=== PATIENT | male | born 1955 | race Caucasian/White ===

== ENCOUNTER 2017-07-11 10:18 | Inpatient (IN) | payer OTHER ==
[2017-07-11 10:55] VITALS: BMI 42.3
--- NOTE | 2017-07-11 13:24 | PDOC ---
History of Present Illness - General History Source: Patient Exam Limitations: No Limitations - History of Present Illness Initial Comments: 07/11/17 13:39 The patient is a 61 year old male with past medical history of hyperlipidemia, COPD, enlarged prostate, and newly diagnosed lymphoma who was sent to the ED for a wound infection on his right lower extremity. The patient states that his wound was formed in 2014 and since then has gotten worse to the point where any time he hits his leg on something, his wound opens further. The patient reports being sent to the ED by Dr. Phipps for an admission and IV antibiotics. The patient denies any fever, chills, nausea, vomiting, diarrhea, cough, SOB, CP, or urinary symptoms. 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) Cardiac Disorders: Yes (STENTS X 2 (1997)) CVA: No COPD: Yes (NO o2) CHF: Yes Dementia: No Diabetes: Yes GI Disorders: Yes (HONG'S ESOPHAGUS) Disorders: Yes (INDWELLING CATHETER) HTN: Yes Hypercholesterolemia: Yes Liver Disease: No Seizures: No Thyroid Disease: No - Surgical History Abdominal Surgery: Yes (HERNIA REPAIR) Appendectomy: No Cardiac Surgery: Yes (STENT) Cholecystectomy: No Lung Surgery: Yes (STENT) Neurologic Surgery: No Orthopedic Surgery: Yes - Immunization History Immunization Up to Date: Yes - Suicide/Smoking/Psychosocial Hx Smoking History: Current every day smoker Have you smoked in the past 12 months: Yes Number of Cigarettes Smoked Daily: 10 If you are a former smoker, when did you quit?: 6 weeks ago Cigars Per Day: 0 Information on smoking cessation initiated: No 'Breaking Loose' booklet given: 11/26/14 Hx Alcohol Use: No Drug/Substance Use Hx: No Substance Use Type: None Hx Substance Use Treatment: No <Garland Real - Last Filed: 07/11/17 18:46> - Past Medical History Allergies/Adverse Reactions: Allergies Allergy/AdvReac Type Severity Reaction Status Date / Time No Known Drug Allergies Allergy Verified 07/11/17 10:49 Home Medications: Ambulatory Orders Finasteride 5 mg PO DAILY 12/10/14 Metoprolol Succinate [Toprol XL -] 50 mg PO DAILY 12/10/14 Multivitamins [Multivit ([facility] Formulary)] 1 tab PO DAILY 12/10/14 Sertraline HCl [Zoloft] 50 mg PO DAILY 12/10/14 Tamsulosin HCl [Flomax -] 0.4 mg PO DAILY 12/10/14 Furosemide [Lasix -] 40 mg PO DAILY 12/25/14 ASA - 81 mg PO DAILY 03/02/17 Cephalexin [Keflex] 500 mg PO QID #28 capsule 07/06/17 Acetaminophen W/ Codeine #3 [Tylenol # 3 -] 1 tab PO Q6H #60 tablet MDD 4 Review of Systems - Review of Systems Able to Perform ROS?: Yes Comments:: 07/11/17 13:40 GENERAL/CONSTITUTIONAL: No fever or chills. No weakness. HEAD, EYES, EARS, NOSE AND THROAT: No change in vision. No ear pain or discharge. No sore throat. CARDIOVASCULAR: No chest pain or shortness of breath. RESPIRATORY: No cough, wheezing, or hemoptysis. GASTROINTESTINAL: No nausea, vomiting, diarrhea or constipation. GENITOURINARY: No dysuria, frequency, or change in urination. MUSCULOSKELETAL: No joint or muscle swelling or pain. No neck or back pain. SKIN: Present: wound infection on right lower extremity No rash NEUROLOGIC: No headache, vertigo, loss of consciousness, or change in strength/ sensation. ENDOCRINE: No increased thirst. No abnormal weight change. HEMATOLOGIC/LYMPHATIC: No anemia, easy bleeding, or history of blood clots. ALLERGIC/IMMUNOLOGIC: No hives or skin allergy. All Other Systems: Reviewed and Negative <Kendy Lyon - Last Filed: 07/11/17 17:28> *Physical Exam - Vital Signs Last Vital Signs Temp Pulse Resp BP Pulse Ox 97.7 F 70 20 122/65 94 L 07/11/17 10:49 07/11/17 10:49 07/11/17 10:49 07/11/17 10:49 07/11/17 10:49 - Physical Exam Comments: 07/11/17 13:40 GENERAL: Awake, alert, and fully oriented, in no acute distress HEAD: No signs of trauma EYES: PERRLA, EOMI, sclera anicteric, conjunctiva clear ENT: Auricles normal inspection, hearing grossly normal, nares patent, oropharynx clear without exudates. Moist mucosa NECK: Normal ROM, supple, no lymphadenopathy, JVD, or masses LUNGS: Breath sounds equal, clear to auscultation bilaterally. No wheezes, and no crackles HEART: Regular rate and rhythm, normal S1 and S2, no murmurs, rubs or gallops ABDOMEN: Soft, nontender, normoactive bowel sounds. No guarding, no rebound. No masses EXTREMITIES: Normal range of motion, no edema. No clubbing or cyanosis. No cords, erythema, or tenderness NEUROLOGICAL: Cranial nerves II through XII grossly intact. Normal speech, normal gait SKIN: Present: circumferential area of bloody, red, warm cellulitis from knee down Warm, Dry, normal turgor, no rashes or lesions noted. <[facility] - Last Filed: 07/11/17 17:28> - Vital Signs Last Vital Signs Temp Pulse Resp BP Pulse Ox 97.7 F 70 20 122/65 94 L 07/11/17 10:49 07/11/17 10:49 07/11/17 10:49 07/11/17 10:49 07/11/17 10:49 <Garland Real - Last Filed: 07/11/17 18:46> Heart Score/ECG Review - ECG Intrepretation Comment:: 07/11/17 16:02 ECG obtained at 15:51 Normal sinus at 69 bpm Septal infarct, age undetermined <SonaliKendy - Last Filed: 07/11/17 17:28> ED Treatment Course - LABORATORY CBC & Chemistry Diagram: 07/11/17 14:50 07/11/17 14:50 - RADIOLOGY Radiograph Interpretation: 07/11/17 16:19 RLE X-ray as reviewed by Dr. Seymour reports marked osteoarthritic changes involving first metatarsal phalangeal joint. Mild osteoarthritic changes involving the third metatarsalphalangeal joint. Small cyst at the base of the second and third proximal phalanx and mild soft tissue swelling in the right leg. Chest X-ray as reviewed by Dr. Seymour reports no significant interval change or acute lung disease is present <Kendy Lyon - Last Filed: 07/11/17 17:28> - LABORATORY CBC & Chemistry Diagram: 07/11/17 14:50 07/11/17 14:50 <Garland Real - Last Filed: 07/11/17 18:46> Medical Decision Making - Medical Decision Making 07/11/17 13:53 61 y/o m with pmxh of hld, COPD, enlarged prostate, lymphoma who presents with wound infection on RLE. Started in 2014 and has worsened since. Sent in by Dr. Phipps for IV abx and admission Will obtain labs, urine, lactic, x-rays, EKG 07/11/17 15:43 Multiple pages sent to Dr. Kvng Phipps via forge operator. Moise finally called back and case discussed. He will be admitted. Microblog sent to Dr. Bazzi, admitting for Dr. Castillo <SonaliKendy - Last Filed: 07/11/17 17:28> *DC/Admit/Observation/Transfer - Attestations Scribe Attestion: 07/11/17 13:56 Documentation prepared by Kendy Lyon, acting as medical device sales representative for Garland Real DO. <Kendy Lyon - Last Filed: 07/11/17 17:28> - Discharge Dispostion Admit: Yes - Attestations Physician Attestion: 07/11/17 13:22 I, Dr. Garland Real, attest that this document has been prepared under my direction and personally reviewed by me in its entirety. I further attest, that it accurately reflects all work, treatment, procedures and medical decision -making performed by me. <Garland Real - Last Filed: 07/11/17 18:46> Diagnosis at time of Disposition: Sepsis affecting skin, Lymphoma in remission Cellulitis Qualifiers: Site of cellulitis: extremity Site of cellulitis of extremity: lower extremity Laterality: right Qualified Code(s): L03.115 - Cellulitis of right lower limb Diabetes mellitus Qualifiers: Diabetes mellitus type: type 2 Diabetes mellitus complication status: with unspecified complications Diabetes mellitus intermediate manager insulin use: without penitentiary use Qualified Code(s): E11.8 - Type 2 diabetes mellitus with unspecified complications Rheumatoid arthritis Qualifiers: Rheumatoid arthritis location: unspecified site Rheumatoid factor presence: unspecified presence Qualified Code(s): M06.9 - Rheumatoid arthritis, unspecified Hypertension Qualifiers: Hypertension type: unspecified Qualified Code(s): I10 - Essential (primary) hypertension - Discharge Dispostion Condition at time of disposition: Improved - Referrals Referrals: Clark Castillo MD [Primary Care Provider] - - Patient Instructions - Post Discharge Activity
[2017-07-11] MEDS ORDERED: SODIUM CHLORIDE 500 ML IV STA (13:32)
[2017-07-11] MEDS ORDERED: PIPERACIL/TAZOB 3.375 GM 3.375 GM/50 ML PREMIX IVPB ONE (14:09)
[2017-07-11] MEDS ORDERED: VANCOMYCIN 1,000 MG in DEXTROSE 5%-WATER - 250 ML IVPB ONE (14:09)
[2017-07-11] MEDS ORDERED: PIPERACILLIN/TAZOB 3.375 GM 3.375 GM in DEXTROSE 5%-WATER - 100 ML IVPB ONE (15:30)
[2017-07-11] MEDS ORDERED: VANCOMYCIN 1 GRAM (PRE-DOCKED) 1,000 MG/250 ML BAG IVPB ONE (15:33)
[2017-07-11] MEDS ORDERED: PIPERACILLIN/TAZOB 3.375 GM 3.375 GM/50 ML BAG IVPB ONE (15:33)
[2017-07-11 15:35] LABS: BASO % 1.2 % (0-2.0); EOS % 6.3 % (0-4.5); HEMATOCRIT 35.9 % (35.4-49); HEMOGLOBIN 11.1 GM/dL (11.7-16.9); LYMPH % 23.4 % (8-40); MCH 25.9 pg (25.7-33.7); MCHC 30.9 g/dl (32.0-35.9); MEAN CELL VOLUME 83.8 fl (80-96); MEAN PLT VOLUME 6.7 fl (7.5-11.1); MONO % 7.8 % (3.8-10.2); NEUT % 61.3 % (42.8-82.8); PLATELET COUNT 380 K/MM3 (134-434); RBC 4.29 M/mm3 (4.00-5.60); RDW 15.5 % (11.9-15.9); WHITE BLOOD COUNT 14.7 K/mm3 (4.0-10.0)
[2017-07-11 16:02] LABS: INR 1.06 (0.82-1.09)
[2017-07-11 16:05] LABS: ACTIVATED PTT 32.9 SECONDS (26.9-34.4)
[2017-07-11] MEDS ORDERED: ONDANSETRON *ODT* 4 MG TABLET SL ONE (17:06)
[2017-07-11] MEDS ORDERED: SODIUM CHLORIDE 0.9% 1000 ML INFUS.BAG IV ONE (17:18)
[2017-07-11] MEDS ORDERED: ONDANSETRON *ODT* 4 MG TABLET ONE (17:19)
[2017-07-11] MEDS ORDERED: ONDANSETRON 8 MG TABLET (FP) PO ONE (17:20)
[2017-07-11 17:27] LABS: ALBUMIN 2.5 g/dl (3.4-5.0); ANION GAP 7 (8-16); BILIRUBIN,TOTAL 0.7 mg/dL (0.2-1.0); BLOOD UREA NITROGEN 61 mg/dL (7-18); CALCIUM 8.1 mg/dL (8.5-10.1); CHLORIDE 102 mmol/L (98-107); CO2 26 mmol/L (21-32); CREATININE 4.2 mg/dL (0.7-1.3); GLUCOSE,RANDOM 96 mg/dL (74-106); POTASSIUM 5.9 mmol/L (3.5-5.1); SGOT/AST 15 U/L (15-37); SGPT/ALT 11 U/L (12-78); SODIUM 135 mmol/L (136-145)
[2017-07-11 17:29] LABS: ALK PHOS 140 U/L (45-117)
[2017-07-11 17:41] LABS: VENOUS PO2 34.1 mmHg (28-48)
[2017-07-11 17:42] LABS: VENOUS PC02 71.1 mmHg (38-52); VENOUS PH 7.18 (7.32-7.42)
[2017-07-11] MEDS ORDERED: SODIUM CHLORIDE 1,000 ML IV STA (17:43)
--- NOTE | 2017-07-11 18:19 | HP ---
CHIEF COMPLAINT: Right lower extremity cellulitis PCP: Dr. Cormier Vascular: Dr. Franklin Phipps HISTORY OF PRESENT ILLNESS: 61 year-old male with a PMH significant for HTN, HLD, CAD s/p stents, COPD, GERD , BPH s/p TURP and h/o urinary retention, rhematoid arthritis, diabetes, non- Hodgkins lymphoma, melanoma, autoimmune cytopenias, and obesity. Patient was referred to the ED by Dr. Phipps who has been treating the patient on an outpatient basis for a RLE cellulitis. Patient has failed 4 days of outpatient oral Keflex and is being admitted for IV therapy. On arrival to ED, patient found to be in acute renal failure. Patient admits to taking 3-4 Alleve per day for his rheumatoid arthritis. ER course was notable for: (1) WBC 14.7; lactic acid 2.2 (2) BUN/Cr 61/4.2 (3) K 5.9 Recent Travel: No PAST MEDICAL HISTORY: Hypertension Hyperlipidemia CAD s/p stents COPD GERD BPH Gout Rheumatoid arthritis Diabetes Non-Hodgkins lymphoma Melanoma Obesity PAST SURGICAL HISTORY: Hernia repair TURP (12/2014) Social History: Smoking: Alcohol: Drugs: Family History: Allergies No Known Drug Allergies Allergy (Verified 07/11/17 10:49) HOME MEDICATIONS: Medication Instructions Recorded Finasteride 5 mg PO DAILY 12/10/14 Metoprolol Succinate [Toprol XL -] 50 mg PO DAILY 12/10/14 Multivitamins [Multivit ([facility] 1 tab PO DAILY 12/10/14 Formulary)] Sertraline HCl [Zoloft] 50 mg PO DAILY 12/10/14 Tamsulosin HCl [Flomax -] 0.4 mg PO DAILY 12/10/14 Furosemide [Lasix -] 40 mg PO DAILY 12/25/14 ASA - 81 mg PO DAILY 03/02/17 Cephalexin [Keflex] 500 mg PO QID #28 capsule 07/06/17 Acetaminophen W/ Codeine #3 1 tab PO Q6H #60 tablet MDD 4 07/10/17 [Tylenol # 3 -] REVIEW OF SYSTEMS CONSTITUTIONAL: Absent: fever, chills, diaphoresis, generalized weakness, malaise, loss of appetite, weight change HEENT: Absent: rhinorrhea, nasal congestion, throat pain, throat swelling, difficulty swallowing, mouth swelling, ear pain, eye pain, visual changes CARDIOVASCULAR: Absent: chest pain, syncope, palpitations, irregular heart rate, lightheadedness , peripheral edema RESPIRATORY: Absent: cough, shortness of breath, dyspnea with exertion, orthopnea, wheezing, stridor, hemoptysis GASTROINTESTINAL: Absent: abdominal pain, abdominal distension, nausea, vomiting, diarrhea, constipation, melena, hematochezia GENITOURINARY: Absent: dysuria, frequency, urgency, hesitancy, hematuria, flank pain, genital pain MUSCULOSKELETAL: Absent: myalgia, arthralgia, joint swelling, back pain, neck pain SKIN: Absent: rash, itching, pallor HEMATOLOGIC/IMMUNOLOGIC: Absent: easy bleeding, easy bruising, lymphadenopathy, frequent infections ENDOCRINE: Absent: unexplained weight gain, unexplained weight loss, heat intolerance, cold intolerance NEUROLOGIC: Absent: headache, focal weakness or paresthesias, dizziness, unsteady gait, seizure, mental status changes, bladder or bowel incontinence PSYCHIATRIC: Absent: anxiety, depression, suicidal or homicidal ideation, hallucinations. PHYSICAL EXAMINATION Vital Signs - 24 hr 07/11/17 07/11/17 10:49 16:30 Temperature 97.7 F 98.1 F Pulse Rate 70 Pulse Rate [ 70 Left Radial] Respiratory 20 18 Rate Blood Pressure 122/65 Blood Pressure 129/65 [Right Arm] O2 Sat by Pulse 94 L 94 L Oximetry (%) GENERAL: Awake, alert, and fully oriented, in no acute distress. HEAD: Normal with no signs of trauma. EYES: Pupils equal, round and reactive to light, extraocular movements intact, sclera anicteric, conjunctiva clear. No lid lag. EARS, NOSE, THROAT: Ears normal, nares patent, oropharynx clear without exudates. Moist mucous membranes. NECK: Normal range of motion, supple without lymphadenopathy, JVD, or masses. LUNGS: Breath sounds equal, clear to auscultation bilaterally. No wheezes, and no crackles. No accessory muscle use. HEART: Regular rate and rhythm, normal S1 and S2 without murmur, rub or gallop. ABDOMEN: Soft, nontender, not distended, normoactive bowel sounds, no guarding, no rebound, no masses. No hepatomegaly or splenomegaly. MUSCULOSKELETAL: Normal range of motion at all joints. No bony deformities or tenderness. No CVA tenderness. UPPER EXTREMITIES: 2+ pulses, warm, well-perfused. No cyanosis. No clubbing. No peripheral edema. LOWER EXTREMITIES: 2+ pulses, warm, well-perfused. No calf tenderness. No peripheral edema. NEUROLOGICAL: Cranial nerves II-XII intact. Normal speech. Normal gait. PSYCHIATRIC: Cooperative. Good eye contact. Appropriate mood and affect. SKIN: Warm, dry, normal turgor, no rashes or lesions noted, normal capillary refill. Laboratory Results - last 24 hr 07/11/17 07/11/17 07/11/17 14:50 14:50 14:50 WBC 14.7 H D RBC 4.29 D Hgb 11.1 L D Hct 35.9 D MCV 83.8 MCH 25.9 D MCHC 30.9 L RDW 15.5 D Plt Count 380 D MPV 6.7 L D Neutrophils % 61.3 D Lymphocytes % 23.4 D Monocytes % 7.8 Eosinophils % 6.3 H D Basophils % 1.2 PT with INR 12.00 H INR 1.06 PTT (Actin FS) 32.9 VBG pH 7.18 L* POC VBG pCO2 71.1 H* POC VBG pO2 34.1 Mixed VBG HCO3 25.2 H Sodium Potassium Chloride Carbon Dioxide Anion Gap BUN Creatinine Creat Clearance w eGFR Random Glucose Lactic Acid Calcium Total Bilirubin AST ALT Alkaline Phosphatase Creatine Kinase Troponin I Total Protein Albumin Blood Type Antibody Screen 07/11/17 07/11/17 07/11/17 14:50 15:25 15:30 WBC RBC Hgb Hct MCV MCH MCHC RDW Plt Count MPV Neutrophils % Lymphocytes % Monocytes % Eosinophils % Basophils % PT with INR INR PTT (Actin FS) VBG pH POC VBG pCO2 POC VBG pO2 Mixed VBG HCO3 Sodium 135 L Potassium 5.9 H Chloride 102 Carbon Dioxide 26 Anion Gap 7 L BUN 61 H D Creatinine 4.2 H D Creat Clearance w eGFR 14.45 Random Glucose 96 Lactic Acid 2.2 H* Calcium 8.1 L Total Bilirubin 0.7 D AST 15 D ALT 11 L D Alkaline Phosphatase 140 H Creatine Kinase 34 L Troponin I < 0.02 Total Protein 8.0 D Albumin 2.5 L Blood Type O POSITIVE Antibody Screen Negative ASSESSMENT/PLAN: 61 year-old male with a PMH significant for HTN, HLD, CAD s/p stents, COPD, GERD , BPH s/p TURP and h/o urinary retention, rheumatoid arthritis, diabetes, non- Hodgkins lymphoma, melanoma, autoimmune cytopenias, and obesity. Admitted for RLE cellulitis and found to be in OLIVIA. RLE Cellulitis --wound unwrapped; dripping, copious pus and fluids, exposed skin from ankle to knee; malodorous --followed by Dr. Phipps, failed trial of oral antibiotics --WBC elevated --start Vanc and Zosyn renally dosed --ID consult requested Acute kidney injury BPH h/o urinary retention --patient states he takes 3-4 Alleve per day for his rheumatoid arthritis --last recorded Cr in EMR was 1.0 in 2014; Cr 4.2 today --patient states he has been seeing Dr. Ronal Dial every six months for scans but not sure why --US kidneys, ureters, bladder with post-void residual --place castro cath if indicated --UA, UC, urine lytes, urine urea, urine Cr ordered --gentle IV fluids Mild lactic acidosis --LA 2.2 --gentle IV fluids Hypertension --presently normotensive --continue Toprol XL, Lasix Hyperlipidemia --on no home meds CAD s/p stents --10/14/14 Echo: normal LV; RV not well visualized; trace to mild MR; mild TR --continue Toprol XL, ASA COPD --no acute issues GERD --on no meds Rheumatoid arthritis --on no meds Diabetes --Novolog sliding scale coverage Non-Hodgkins lymphoma Melanoma Autoimmune cytopenias --s/p Rituxin therapy 2014 Hyperkalemia --K 5.9; kayexelate x 1 FEN Fluids: PO intake adequate Electrolytes: replete as indicated Nutrition: diabetic low sodium DVT prophylaxis: subq heparin Physical therapy evaluation Dispo: requires inpatient care. Full code. Visit type - Emergency Visit Emergency Visit: Yes ED Registration Date: 07/11/17 Care time: The patient presented to the Emergency Department on the above date and was hospitalized for further evaluation of their emergent condition. - New Patient This patient is new to me today: Yes Date on this admission: 07/11/17 - Critical Care Critical Care patient: No
[2017-07-11] MEDS ORDERED: SODIUM POLYSTYRENE SULFONATE 15 GM/60 ML BOTTLE PO ONE (18:59)
[2017-07-11] MEDS ORDERED: SODIUM POLYSTYRENE SULFONATE 15 GM/60 ML BOTTLE ONE ×2 (21:03→21:32)
[2017-07-11] MEDS ORDERED: INSULIN (NOVOLOG) ASPART 100 UNITS/ML 10ML VIAL ONE (21:33)
[2017-07-11] MEDS ORDERED: HEPARIN NA (PORCINE) 5,000 UNITS/ML 1ML VIAL ONE (21:33)
[2017-07-11] MEDS: INSULIN SLIDING SCALE (NOVOLOG) 1 VIAL SQ SCH (21:48)
[2017-07-11] MEDS: HEPARIN NA (PORCINE) 5,000 UNITS/ML 1ML VIAL SQ SCH (21:48)
[2017-07-12] MEDS ORDERED: oxyCODONE HCL 5 MG TABLET PO ONE ×3 (00:45→22:30)
[2017-07-12] MEDS ORDERED: ACETAMINOPHEN 325 MG TABLET (FP) PO ONE (00:45)
[2017-07-12] MEDS ORDERED: PIPERACILLIN/TAZOB 2.25 GM/50 ML PREMIX BAG IVPB SCH (02:00)
[2017-07-12] MEDS ORDERED: PIPERACILLIN/TAZOB 2.25 GM 2.25 GM/50 ML BAG IVPB ONE (02:00)
[2017-07-12] MEDS: INSULIN SLIDING SCALE (NOVOLOG) 1 VIAL SQ SCH ×4 (06:18→21:57)
[2017-07-12] MEDS: HEPARIN NA (PORCINE) 5,000 UNITS/ML 1ML VIAL SQ SCH ×3 (06:20→21:56)
[2017-07-12] MEDS: SODIUM CHLORIDE 1,000 ML IV SCH ×3 (06:23→22:54)
[2017-07-12] MEDS: TAMSULOSIN HCL 0.4 MG CAP.ER.24H (FP) PO SCH (07:35)
[2017-07-12 08:09] LABS: BASO % 0.8 % (0-2.0); EOS % 5.5 % (0-4.5); HEMATOCRIT 34.3 % (35.4-49); HEMOGLOBIN 10.6 GM/dL (11.7-16.9); LYMPH % 20.4 % (8-40); MCH 26.3 pg (25.7-33.7); MEAN CELL VOLUME 84.7 fl (80-96); MEAN PLT VOLUME 6.9 fl (7.5-11.1); MONO % 9.9 % (3.8-10.2); NEUT % 63.4 % (42.8-82.8); PLATELET COUNT 278 K/MM3 (134-434); RBC 4.05 M/mm3 (4.00-5.60); RDW 15.7 % (11.9-15.9); WHITE BLOOD COUNT 10.3 K/mm3 (4.0-10.0)
[2017-07-12 08:26] LABS: CHLORIDE 104 mmol/L (98-107); POTASSIUM 5.9 mmol/L (3.5-5.1); SODIUM 134 mmol/L (136-145)
[2017-07-12 08:37] LABS: ALBUMIN 2.2 g/dl (3.4-5.0); ALK PHOS 118 U/L (45-117); ANION GAP 6 (8-16); BILIRUBIN,TOTAL 0.7 mg/dL (0.2-1.0); BLOOD UREA NITROGEN 63 mg/dL (7-18); CALCIUM 7.4 mg/dL (8.5-10.1); CO2 24 mmol/L (21-32); GLUCOSE,RANDOM 79 mg/dL (74-106); MAGNESIUM 2.1 mg/dL (1.8-2.4); SGOT/AST 15 U/L (15-37); SGPT/ALT 10 U/L (12-78)
[2017-07-12 08:49] LABS: URINE APPEARANCE SLCLOUDY; URINE BILIRUBIN NEGATIVE (NEGATIVE); URINE BLOOD 1+ (NEGATIVE); URINE COLOR YELLOW; URINE GLUCOSE (UA) NEGATIVE (NEGATIVE); URINE KETONE TRACE (NEGATIVE); URINE NITRITE NEGATIVE (NEGATIVE); URINE PROTEIN NEGATIVE (NEGATIVE); URINE UROBILINOGEN NEGATIVE mg/dL (0.2-1.0)
[2017-07-12] MEDS: ASPIRIN COATED 81 MG TABLET.EC PO SCH (09:30)
[2017-07-12] MEDS: SERTRALINE HCL 50 MG TABLET (FP) PO SCH (09:30)
[2017-07-12] MEDS: FINASTERIDE 5 MG TABLET (FP) PO SCH (09:30)
[2017-07-12] MEDS: METOPROLOL SUCCINATE 50 MG TAB.SR.24H (FP) PO SCH (09:30)
[2017-07-12 09:32] LABS: URINE LEUK ESTERASE 1+ (NEGATIVE)
[2017-07-12 09:35] LABS: URINE HYALINE CAST 4 /lpf
[2017-07-12] MEDS ORDERED: FUROSEMIDE 40 MG TABLET (FP) PO SCH (10:00)
--- NOTE | 2017-07-12 11:19 | PN ---
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 Dr Tenorio Selected Entries 07/12/17 02:10 Temperature 97.6 F Pulse Rate 75 Respiratory 20 Rate Blood Pressure 130/60 Laboratory Tests 10/24/14 05:20 WBC Pending Extensive RLE wound knee to foot with drainage purulence Microbiology Laboratory Tests 07/11/17 07/11/17 07/11/17 14:50 15:25 17:00 WBC 14.7 H D Hgb 11.1 L D Plt Count 380 D ESR 120 H BUN Creatinine Creat Clearance w eGFR Lactic Acid 2.2 H* AST ALT Alkaline Phosphatase 07/12/17 07/12/17 06:00 06:00 WBC 10.3 H Hgb 10.6 L Plt Count 278 D ESR BUN 63 H Creatinine 4.0 H Creat Clearance w eGFR 15.29 Lactic Acid AST 15 ALT 10 L Alkaline Phosphatase 118 H Assessment Extensive infected RLE wound wiath purulence and drainage noted through the dressings Diabetic Coronary artery disease Active smoker History of Neda related lymphoma treated Rituxin Plan Agree with lee and easton as suggested per Peg Terrell Bruce MD Problem List - Problems (1) Cellulitis Code(s): L03.90 - CELLULITIS, UNSPECIFIED Qualifiers: Site of cellulitis: extremity Site of cellulitis of extremity: lower extremity Laterality: right Qualified Code(s): L03.115 - Cellulitis of right lower limb (2) Diabetes mellitus Code(s): E11.9 - TYPE 2 DIABETES MELLITUS WITHOUT COMPLICATIONS Qualifiers: Diabetes mellitus type: type 2 Diabetes mellitus complication status: with unspecified complications Diabetes mellitus watermaster insulin use: without assisted use Qualified Code(s): E11.8 - Type 2 diabetes mellitus with unspecified complications (3) Lymphoma in remission Code(s): Z85.72 - PERSONAL HISTORY OF NON-HODGKIN LYMPHOMAS
--- NOTE | 2017-07-12 12:08 | PN ---
Progress Note, Physician Chief Complaint: Mr Pinto says his legs look and feel better today. No cp, sob, n/v. - Current Medication List Current Medications: Active Medications Aspirin (Ecotrin -) 81 mg PO DAILY [facility] Last Admin: 07/12/17 09:30 Dose: 81 mg Finasteride (Proscar -) 5 mg PO DAILY [facility] Last Admin: 07/12/17 09:30 Dose: 5 mg Furosemide (Lasix -) 40 mg PO DAILY [facility] Last Admin: 07/12/17 09:30 Dose: 40 mg Heparin Sodium (Porcine) (Heparin -) 5,000 unit SQ TID [facility] Last Admin: 07/12/17 06:20 Dose: 5,000 unit Sodium Chloride (Normal Saline -) 1,000 mls @ 150 mls/hr IV ASDIR [facility] Last Admin: 07/12/17 06:23 Dose: 150 mls/hr Piperacillin/Tazobactam/Dextrose (Zosyn 2.25gm Ivpb (Premix)) 2.25 gm in 50 mls @ 100 mls/hr IVPB Q8H-IV [facility] PRN Reason: Protocol Insulin Aspart (Novolog Vial Sliding Scale -) 1 vial SQ ACHS [facility] PRN Reason: Protocol Last Admin: 07/12/17 11:20 Dose: Not Given Metoprolol Succinate (Toprol Xl -) 50 mg PO DAILY [facility] Last Admin: 07/12/17 09:30 Dose: 50 mg Sertraline HCl (Zoloft -) 50 mg PO DAILY [facility] Last Admin: 07/12/17 09:30 Dose: 50 mg Tamsulosin HCl (Flomax -) 0.4 mg PO DAILY@0830 [facility] Last Admin: 07/12/17 07:35 Dose: 0.4 mg - Objective Vital Signs: Vital Signs Temperature 36.6 C 07/12/17 09:00 Pulse Rate 77 07/12/17 09:00 Respiratory Rate 20 07/12/17 09:00 Blood Pressure 121/66 07/12/17 09:00 O2 Sat by Pulse Oximetry (%) 96 07/12/17 09:00 Constitutional: Yes: No Distress, Calm, Obese Cardiovascular: Yes: Regular Rate and Rhythm. No: Gallop, Murmur, Rub Respiratory: Yes: Regular, CTA Bilaterally. No: Rales, Rhonchi, Wheezes Gastrointestinal: Yes: Normal Bowel Sounds, Soft. No: Distention, Tenderness Extremities: Yes: Erythema (RLE) Edema: No Labs: CBC, BMP 07/12/17 06:00 07/12/17 06:00 INR, PTT INR 1.06 (0.82-1.09) 07/11/17 14:50 Problem List - Problems (1) Cellulitis Assessment/Plan: -failed outpatient therapy -appreciate ID and wound care assistance -continue vancomycin and zosyn, renally dosed -monitor for continued improvement Code(s): L03.90 - CELLULITIS, UNSPECIFIED Qualifiers: Site of cellulitis: extremity Site of cellulitis of extremity: lower extremity Laterality: right Qualified Code(s): L03.115 - Cellulitis of right lower limb (2) OLIVIA (acute kidney injury) Assessment/Plan: -patient with underlying renal failure -however quite significant on this admission -secondary to patient's use of NSAIDs and decreased fluid intake as an outpatient -case d/w Dr Will, outpatient repair servicer -ultrasound reviewed -continue aggressive hydration -hold lasix -Dr Heard consulted Code(s): N17.9 - ACUTE KIDNEY FAILURE, UNSPECIFIED (3) Hyperkalemia Assessment/Plan: -secondary to renal failure -given kayexalate overnight -will give insulin+D50W, calcium gluconate, and sodium bicarbonate -also give more kayexalate as well -recheck BMP at 1800 -Dr Heard aware Code(s): E87.5 - HYPERKALEMIA (4) Hypertension Assessment/Plan: -well controlled -continue toprol xl -holding lasix Code(s): I10 - ESSENTIAL (PRIMARY) HYPERTENSION Qualifiers: Hypertension type: unspecified Qualified Code(s): I10 - Essential (primary ) hypertension (5) Rheumatoid arthritis Assessment/Plan: -quiescent -avoid NSAIDs Code(s): M06.9 - RHEUMATOID ARTHRITIS, UNSPECIFIED Qualifiers: Rheumatoid arthritis location: unspecified site Rheumatoid factor presence : unspecified presence Qualified Code(s): M06.9 - Rheumatoid arthritis, unspecified (6) BPH (benign prostatic hyperplasia) Assessment/Plan: -continue tamsulosin and finasteride -no retention on ultrasound Code(s): N40.0 - BENIGN PROSTATIC HYPERPLASIA WITHOUT LOWER URINRY TRACT SYMP
[2017-07-12] MEDS ORDERED: DEXTROSE 50%-WATER - 25 GM/50 ML VIAL IVPUSH ONE (12:13)
[2017-07-12] MEDS ORDERED: SODIUM BICARBONATE 8.4% 50 MEQ/50 ML VIAL IVPUSH ONE (12:13)
[2017-07-12] MEDS ORDERED: SODIUM POLYSTYRENE SULFONATE 15 GM/60 ML BOTTLE PO ONE (12:13)
[2017-07-12] MEDS ORDERED: CALCIUM GLUCONATE 10% - 1,000 MG/10 ML VIAL IVPB ONE (12:13)
--- NOTE | 2017-07-12 12:20 | CONS ---
DATE OF CONSULTATION: DATE OF DICTATION: 07/12/2017 HISTORY OF PRESENT ILLNESS: This is a 61-year-old male with multiple comorbidities including diabetes and coronary artery disease admitted for inpatient management of a severe skin and soft tissue wound of his right lower extremity. [facility] and apparently was referred by Dr. Phipps who has been following him there previously. According to the patient he has been on oral antibiotics and the wound was at a point where it was felt to need admission for parenteral antibiotics. He has no fevers or chills subjectively but did have a low-grade temperature on admission. He has a history of non-Hodgkin's lymphoma which he stated developed as a result of receiving Humira for severe rheumatoid arthritis years ago. He had been under Dr. Gonzalez care and received Rituxan with the last dose 2 years ago thought to be currently in remission. He has both obesity and is an active smoker and I am asked to see him for further evaluation and treatment. PAST MEDICAL HISTORY: As noted above. Additional history includes hyperlipidemia, hypertension, GERD, BPH, status post TURP, rheumatoid arthritis, melanoma, and hernia repair. MEDICATIONS: Include finasteride, metoprolol, sertraline, tamsulosin, Lasix and Keflex. ALLERGIES: None known. SOCIAL HISTORY: Active smoker. No history of ETOH. FAMILY HISTORY: Reviewed, noncontributory. REVIEW OF SYSTEMS: Respiratory: No cough, shortness of breath. Cardiovascular: No chest pain or palpitations. Gastrointestinal: No abdominal pain, nausea or vomiting. Genitourinary: History of BPH, no dysuria or hematuria. PHYSICAL EXAMINATION: General: Revealed a heavy set male weighing 260 pounds, alert and in no acute distress. Vital Signs: Temperature was 97.6, pulse 75, blood pressure 130/60 and respirations 20. Neck: Normal range of motion. Supple without adenopathy. Lungs: Bilateral breath sounds. No wheezing or rales. Heart: S1, S2 regular rhythm without murmur. Abdomen: Obese, soft, nontender, and normoactive bowel sounds. Extremities: Reveal an extensive ulcerating wound from the knee to the ankle with foul smelling copious drainage and purulence noted. LABORATORY DATA: White count 14.7, hemoglobin 11.1, ESR 120, BUN 63, creatinine 4.0. Cultures of blood thus far no growth. IMPRESSION: 1. Extensive diabetic wound of the lower extremity secondarily infected with purulence. 2. Background history of lymphoma. 3. Coronary artery disease. 4. Diabetes. 5. Obesity. PLAN: Dr. Phipps to follow up from Wound Care and empiric therapy with vancomycin and Zosyn based around a creatinine clearance. ZORAIDA BENOIT M.D. BALJIT/[id number]
[2017-07-12] MEDS ORDERED: INSULIN REGULAR HUMAN 100 UNITS/ML *VIAL IVPUSH ONE (12:45)
--- NOTE | 2017-07-12 13:07 | EKG ---
Test Reason : Blood Pressure : / mmHG Vent. Rate : 069 BPM Atrial Rate : 069 BPM P-R Int : 138 ms QRS Dur : 094 ms QT Int : 392 ms P-R-T Axes : 036 -05 035 degrees QTc Int : 420 ms NORMAL SINUS RHYTHM SEPTAL INFARCT , AGE UNDETERMINED ABNORMAL ECG WHEN COMPARED WITH ECG OF 16-OCT-2014 12:58, SEPTAL INFARCT IS NOW PRESENT QT HAS SHORTENED Confirmed by KRYSTYNA NICHOLSON, EVAN ([id number]) on 07/12/2017 1:06:44 PM Referred By: Confirmed By:EVAN GREENWOOD MD
[2017-07-12] MEDS ORDERED: ALBUTEROL SO4 2.5/IPRATROPIUM 0.5 INH SOL 3 ML VIAL.NEB. NEB ONE (14:12)
[2017-07-12] MEDS: PIPERACILLIN/TAZOB 2.25 GM 2.25 GM/50 ML BAG IVPB SCH ×2 (14:32→20:18)
--- NOTE | 2017-07-12 15:56 | PN ---
Progress Note (short form) - Note Progress Note: Vascular Surgery Pt seen and examined. Well known to wound care center. Bl lower ext venous stasis with cellulitis. Admitted for IV antibiotics Dressing changed. Xeroform, kerlex, rossy to both legs. Franklin Phipps DO
[2017-07-12] MEDS ORDERED: RANITIDINE HCL 150 MG TABLET (FP) PO ONE (16:00)
--- NOTE | 2017-07-12 16:37 | CONSULT ---
Consult Consult Specialty:: Nephrology Reason for Consultation:: OLIVIA - History of Present Illness Chief Complaint: right leg cellulitis History of Present Illness: Pt is a 61 year old male with pmhx of CKD, chol, COPD, BPH and lymphoma who was sent in for non healing lower extremity ulcers. He was found to have celulitis and admitted for treatment. He was found to have elevated creatinine and I was called to evaluate him. He was taking nsaids daily for pain. He was on cephalexin which he had taken in the past. He denies fevers of chills. He denies dysuria or hematuria. - History Source History Provided By: Patient - Past Medical History Cardio/Vascular: Yes: CAD (remote stents in late ), HTN, Hyperlipdemia Pulmonary: Yes: COPD, Sleep Apnea Gastrointestinal: Yes: GERD, Other (Wong's Esophagus, Steatosis/ Fatty Liver disease) Renal/: Yes: BPH Musculoskeletal: Yes: Other (See HPI) Rheumatology: Yes: Rheumatoid Arthritis Endocrine: Yes: Diabetes Mellitus, Other (Obesity) Dermatology: Yes: Other (melanoma) - Past Surgical History Past Surgical History: Yes: Hernia Repair (with mesh), Tonsillectomy - Alcohol/Substance Use Hx Alcohol Use: No - Smoking History Smoking history: Current every day smoker Have you smoked in the past 12 months: Yes Aproximately how many cigarettes per day: 10 If you are a former smoker, when did you quit?: 6 weeks ago - Social History Usual Living Arrangement: Alone (lives alone in co-op with 12 steps then 1 step to enter, ambulates with straight cane, and was Independent in ADLs and some IADLs but has assistance in some IADLs as well) ADL: Independent Occupation: disabled due to RA and Lymphoma (formerly worked for [employer]) History of Recent Travel: No (last [place] 05/2014) Home Medications - Allergies Allergies/Adverse Reactions: Allergies Allergy/AdvReac Type Severity Reaction Status Date / Time No Known Drug Allergies Allergy Verified 07/11/17 10:49 - Home Medications Home Medications: Ambulatory Orders Finasteride 5 mg PO DAILY 12/10/14 Metoprolol Succinate [Toprol XL -] 50 mg PO DAILY 12/10/14 Multivitamins [Multivit ([facility] Formulary)] 1 tab PO DAILY 12/10/14 Sertraline HCl [Zoloft] 50 mg PO DAILY 12/10/14 Tamsulosin HCl [Flomax -] 0.4 mg PO DAILY 12/10/14 Furosemide [Lasix -] 40 mg PO DAILY 12/25/14 ASA - 81 mg PO DAILY 03/02/17 Cephalexin [Keflex] 500 mg PO QID #28 capsule 07/06/17 Acetaminophen W/ Codeine #3 [Tylenol # 3 -] 1 tab PO Q6H #60 tablet MDD 4 Family Disease History - Family Disease History Family Disease History: Heart Disease: Mother (mothers family with RA), Other: Mother Review of Systems - Review of Systems Constitutional: reports: Malaise Eyes: reports: No Symptoms HENT: reports: No Symptoms Neck: reports: No Symptoms Cardiovascular: reports: No Symptoms Respiratory: reports: No Symptoms Gastrointestinal: reports: No Symptoms Genitourinary: reports: No Symptoms Musculoskeletal: reports: No Symptoms Integumentary: reports: No Symptoms Neurological: reports: No Symptoms Endocrine: reports: No Symptoms, Unexplained Weight Gain Psychiatric: reports: No Symptoms Physical Exam Vital Signs: Vital Signs Temperature 97.6 F 07/12/17 14:38 Pulse Rate 85 07/12/17 14:38 Respiratory Rate 18 07/12/17 14:38 Blood Pressure 139/61 07/12/17 14:38 O2 Sat by Pulse Oximetry (%) 96 07/12/17 09:00 Constitutional: Yes: Calm Eyes: Yes: Conjunctiva Clear HENT: Yes: Atraumatic Neck: Yes: Supple Cardiovascular: Yes: S1, S2 Respiratory: Yes: CTA Bilaterally Gastrointestinal: Yes: Soft, Abdomen, Obese Renal/: Yes: WNL Musculoskeletal: Yes: WNL Edema: Yes Edema: LLE: 1+, RLE: 1+ Integumentary: Yes: Erythema Wound/Incision: Yes: Draining Neurological: Yes: Oriented Labs: CBC, BMP 07/12/17 06:00 07/12/17 06:00 Laboratory Tests 12/22/14 03/12/15 07/11/17 05:00 14:25 14:50 WBC 14.7 H D Hgb 11.1 L D Sodium Potassium Chloride Carbon Dioxide Anion Gap BUN Creatinine 0.9 1.0 Lactic Acid 07/11/17 07/11/17 07/12/17 14:50 15:25 06:00 WBC 10.3 H Hgb 10.6 L Sodium 135 L Potassium 5.9 H Chloride 102 Carbon Dioxide 26 Anion Gap 7 L BUN 61 H D Creatinine 4.2 H D Lactic Acid 2.2 H* 07/12/17 06:00 WBC Hgb Sodium 134 L Potassium 5.9 H Chloride 104 Carbon Dioxide 24 Anion Gap 6 L BUN 63 H Creatinine 4.0 H Lactic Acid Imaging - Results Chest X-ray: Report Reviewed Ultrasound: Report Reviewed Problem List - Problems (1) OLIVIA (acute kidney injury) Code(s): N17.9 - ACUTE KIDNEY FAILURE, UNSPECIFIED (2) Cellulitis Code(s): L03.90 - CELLULITIS, UNSPECIFIED Qualifiers: Site of cellulitis: extremity Site of cellulitis of extremity: lower extremity Laterality: right Qualified Code(s): L03.115 - Cellulitis of right lower limb (3) Diabetes mellitus Code(s): E11.9 - TYPE 2 DIABETES MELLITUS WITHOUT COMPLICATIONS Qualifiers: Diabetes mellitus type: type 2 Diabetes mellitus complication status: with unspecified complications Diabetes mellitus intermodal customer service insulin use: without intermodal customer service use Qualified Code(s): E11.8 - Type 2 diabetes mellitus with unspecified complications (4) Hyperkalemia Code(s): E87.5 - HYPERKALEMIA (5) Hypertension Code(s): I10 - ESSENTIAL (PRIMARY) HYPERTENSION Qualifiers: Hypertension type: unspecified Qualified Code(s): I10 - Essential (primary ) hypertension (6) Lymphoma in remission Code(s): Z85.72 - PERSONAL HISTORY OF NON-HODGKIN LYMPHOMAS (7) Rheumatoid arthritis Code(s): M06.9 - RHEUMATOID ARTHRITIS, UNSPECIFIED Qualifiers: Rheumatoid arthritis location: unspecified site Rheumatoid factor presence : unspecified presence Qualified Code(s): M06.9 - Rheumatoid arthritis, unspecified (8) Sepsis affecting skin Code(s): A41.9 - SEPSIS, UNSPECIFIED ORGANISM Assessment/Plan Current Medications Generic Name Dose Route Start Last Admin Trade Name Freq PRN Reason Stop Dose Admin Aspirin 81 mg 07/12/17 10:00 07/12/17 09:30 Ecotrin - PO 81 mg DAILY DANIEL Administration Finasteride 5 mg 07/12/17 10:00 07/12/17 09:30 Proscar - PO 5 mg DAILY DANIEL Administration Heparin Sodium (Porcine) 5,000 unit 07/11/17 22:00 07/12/17 14:10 Heparin - SQ 5,000 unit TID DANIEL Administration Sodium Chloride 1,000 mls @ 150 mls/hr 07/11/17 20:45 07/12/17 06:23 Normal Saline - IV 150 mls/hr ASDIR DANIEL Administration Piperacillin/Tazobactam/Dextrose 2.25 gm in 50 mls @ 100 mls/hr 07/12/17 13: 00 07/12/17 14:32 Zosyn 2.25gm Ivpb (Premix) IVPB 100 mls/hr Q8H-IV DANIEL Administration Protocol Insulin Aspart 1 vial 07/11/17 22:00 07/12/17 11:20 Novolog Vial Sliding Scale - SQ Not Given ACHS DANIEL Protocol Metoprolol Succinate 50 mg 07/12/17 10:00 07/12/17 09:30 Toprol Xl - PO 50 mg DAILY DANIEL Administration Sertraline HCl 50 mg 07/12/17 10:00 07/12/17 09:30 Zoloft - PO 50 mg DAILY DANIEL Administration Tamsulosin HCl 0.4 mg 07/12/17 08:30 07/12/17 07:35 Flomax - PO 0.4 mg DAILY@0830 DANIEL Administration Impression 1. OLIVIA 2. hyperkalemia 3. CKD 4. DM 5. sepsis 6. cellulitis Plan - check urine lytes and creatinine - cont fluids - potassium treated medically - renal diet for now - recommend avoiding nsaids - send urine for eosinophils Dr Heard
[2017-07-12 19:39] LABS: ANION GAP 8 (8-16); BLOOD UREA NITROGEN 58 mg/dL (7-18); CALCIUM 7.7 mg/dL (8.5-10.1); CHLORIDE 103 mmol/L (98-107); CO2 26 mmol/L (21-32); CREATININE 3.8 mg/dL (0.7-1.3); GLUCOSE,RANDOM 75 mg/dL (74-106); POTASSIUM 5.4 mmol/L (3.5-5.1); SODIUM 137 mmol/L (136-145)
[2017-07-13] MEDS: PIPERACILLIN/TAZOB 2.25 GM 2.25 GM/50 ML BAG IVPB SCH ×4 (01:31→16:47)
[2017-07-13] MEDS: HEPARIN NA (PORCINE) 5,000 UNITS/ML 1ML VIAL SQ SCH ×3 (05:42→21:41)
[2017-07-13] MEDS: INSULIN SLIDING SCALE (NOVOLOG) 1 VIAL SQ SCH ×4 (06:10→21:38)
[2017-07-13 08:33] LABS: BASO % 1.1 % (0-2.0); EOS % 2.4 % (0-4.5); HEMATOCRIT 31.7 % (35.4-49); HEMOGLOBIN 9.9 GM/dL (11.7-16.9); LYMPH % 19.1 % (8-40); MCH 26.4 pg (25.7-33.7); MCHC 31.3 g/dl (32.0-35.9); MEAN CELL VOLUME 84.1 fl (80-96); MEAN PLT VOLUME 6.9 fl (7.5-11.1); MONO % 8.5 % (3.8-10.2); NEUT % 68.9 % (42.8-82.8); PLATELET COUNT 258 K/MM3 (134-434); RBC 3.76 M/mm3 (4.00-5.60); RDW 15.6 % (11.9-15.9)
[2017-07-13] MEDS: TAMSULOSIN HCL 0.4 MG CAP.ER.24H (FP) PO SCH (08:43)
[2017-07-13 08:53] LABS: ALBUMIN 2.1 g/dl (3.4-5.0); ANION GAP 6 (8-16); BILIRUBIN,TOTAL 0.5 mg/dL (0.2-1.0); BLOOD UREA NITROGEN 54 mg/dL (7-18); CALCIUM 7.1 mg/dL (8.5-10.1); CHLORIDE 109 mmol/L (98-107); CO2 25 mmol/L (21-32); CREATININE 3.3 mg/dL (0.7-1.3); GLUCOSE,RANDOM 104 mg/dL (74-106); PHOSPHOROUS 5.1 mg/dL (2.5-4.9); POTASSIUM 5.5 mmol/L (3.5-5.1); SGOT/AST 16 U/L (15-37); SGPT/ALT 13 U/L (12-78); SODIUM 140 mmol/L (136-145)
[2017-07-13 08:54] LABS: ALK PHOS 119 U/L (45-117); TOT PROT 7.1 g/dl (6.4-8.2)
[2017-07-13] MEDS: ASPIRIN COATED 81 MG TABLET.EC PO SCH (09:10)
[2017-07-13] MEDS: SERTRALINE HCL 50 MG TABLET (FP) PO SCH (09:10)
[2017-07-13] MEDS: METOPROLOL SUCCINATE 50 MG TAB.SR.24H (FP) PO SCH (09:10)
[2017-07-13] MEDS: FINASTERIDE 5 MG TABLET (FP) PO SCH (09:10)
--- NOTE | 2017-07-13 12:51 | PN ---
Progress Note, Physician Chief Complaint: Mr Pinto is without complaint. Says he feels fine. No cp, sob, n/v. - Current Medication List Current Medications: Active Medications Aspirin (Ecotrin -) 81 mg PO DAILY [facility] Last Admin: 07/13/17 09:10 Dose: 81 mg Finasteride (Proscar -) 5 mg PO DAILY [facility] Last Admin: 07/13/17 09:10 Dose: 5 mg Heparin Sodium (Porcine) (Heparin -) 5,000 unit SQ TID [facility] Last Admin: 07/13/17 05:42 Dose: 5,000 unit Sodium Chloride (Normal Saline -) 1,000 mls @ 150 mls/hr IV ASDIR [facility] Last Admin: 07/12/17 22:54 Dose: 150 mls/hr Piperacillin/Tazobactam/Dextrose (Zosyn 2.25gm Ivpb (Premix)) 2.25 gm in 50 mls @ 100 mls/hr IVPB Q8H-IV [facility] PRN Reason: Protocol Last Admin: 07/13/17 09:37 Dose: 100 mls/hr Insulin Aspart (Novolog Vial Sliding Scale -) 1 vial SQ ACHS [facility] PRN Reason: Protocol Last Admin: 07/13/17 06:10 Dose: Not Given Metoprolol Succinate (Toprol Xl -) 50 mg PO DAILY [facility] Last Admin: 07/13/17 09:10 Dose: 50 mg Oxycodone/Acetaminophen (Percocet 5/325 -) 2 combo PO Q6H PRN PRN Reason: PAIN LEVEL 6-10 Ranitidine HCl (Zantac -) 150 mg PO DAILY [facility] Sertraline HCl (Zoloft -) 50 mg PO DAILY [facility] Last Admin: 07/13/17 09:10 Dose: 50 mg Tamsulosin HCl (Flomax -) 0.4 mg PO DAILY@0830 [facility] Last Admin: 07/13/17 08:43 Dose: 0.4 mg - Objective Vital Signs: Vital Signs Temperature 37.0 C 07/13/17 10:00 Pulse Rate 90 07/13/17 10:00 Respiratory Rate 20 07/13/17 10:00 Blood Pressure 137/61 07/13/17 10:00 O2 Sat by Pulse Oximetry (%) 97 07/13/17 09:00 Constitutional: Yes: No Distress, Calm, Obese Cardiovascular: Yes: Regular Rate and Rhythm. No: Gallop, Murmur, Rub Respiratory: Yes: Regular, CTA Bilaterally. No: Rales, Rhonchi, Wheezes Gastrointestinal: Yes: Normal Bowel Sounds, Soft. No: Distention, Tenderness Extremities: Yes: Erythema (LLE, chronic. RLE wrapped) Edema: No Labs: CBC, BMP 07/13/17 07:45 07/13/17 07:45 INR, PTT INR 1.06 (0.82-1.09) 07/11/17 14:50 Problem List - Problems (1) Cellulitis Code(s): L03.90 - CELLULITIS, UNSPECIFIED Qualifiers: Site of cellulitis: extremity Site of cellulitis of extremity: lower extremity Laterality: right Qualified Code(s): L03.115 - Cellulitis of right lower limb (2) OLIVIA (acute kidney injury) Code(s): N17.9 - ACUTE KIDNEY FAILURE, UNSPECIFIED (3) Hyperkalemia Code(s): E87.5 - HYPERKALEMIA (4) Hypertension Code(s): I10 - ESSENTIAL (PRIMARY) HYPERTENSION Qualifiers: Hypertension type: unspecified Qualified Code(s): I10 - Essential (primary ) hypertension (5) Rheumatoid arthritis Code(s): M06.9 - RHEUMATOID ARTHRITIS, UNSPECIFIED Qualifiers: Rheumatoid arthritis location: unspecified site Rheumatoid factor presence : unspecified presence Qualified Code(s): M06.9 - Rheumatoid arthritis, unspecified (6) BPH (benign prostatic hyperplasia) Code(s): N40.0 - BENIGN PROSTATIC HYPERPLASIA WITHOUT LOWER URINRY TRACT SYMP Assessment/Plan (1) Cellulitis Assessment/Plan: -continue vancomycin and zosyn per ID recs Code(s): L03.90 - CELLULITIS, UNSPECIFIED Qualifiers: Site of cellulitis: extremity Site of cellulitis of extremity: lower extremity Laterality: right Qualified Code(s): L03.115 - Cellulitis of right lower limb (2) OLIVIA (acute kidney injury) Assessment/Plan: -secondary to NSAIDs -improved today -continue hydration Code(s): N17.9 - ACUTE KIDNEY FAILURE, UNSPECIFIED (3) Hyperkalemia Assessment/Plan: -s/p kayexalate -still elevated -defer further kayexalate to Dr Heard -possibly exacerbated by heparin, BUT patient needs DVT PPx and cannot use SCDs secondary to cellulitis or lovenox secondary to renal function Code(s): E87.5 - HYPERKALEMIA (4) Hypertension Assessment/Plan: -well controlled -continue toprol xl -holding lasix Code(s): I10 - ESSENTIAL (PRIMARY) HYPERTENSION Qualifiers: Hypertension type: unspecified Qualified Code(s): I10 - Essential (primary ) hypertension (5) Rheumatoid arthritis Assessment/Plan: -quiescent -avoid NSAIDs Code(s): M06.9 - RHEUMATOID ARTHRITIS, UNSPECIFIED Qualifiers: Rheumatoid arthritis location: unspecified site Rheumatoid factor presence : unspecified presence Qualified Code(s): M06.9 - Rheumatoid arthritis, unspecified (6) BPH (benign prostatic hyperplasia) Assessment/Plan: -continue tamsulosin and finasteride -no retention on ultrasound Code(s): N40.0 - BENIGN PROSTATIC HYPERPLASIA WITHOUT LOWER URINRY TRACT SYMP
[2017-07-13] MEDS: RANITIDINE HCL 150 MG TABLET (FP) PO SCH (13:21)
[2017-07-13] MEDS: oxyCODONE HCL 5 MG TABLET PO PRN (13:22)
--- NOTE | 2017-07-13 14:07 | PN ---
Progress Note, Physician Chief Complaint: ID Vancomycin and Zosyn adjusted Cr Cl NO complaint - Current Medication List Current Medications: Active Medications Acetaminophen (Tylenol -) 650 mg PO Q6H PRN PRN Reason: PAIN Aspirin (Ecotrin -) 81 mg PO DAILY [facility] Last Admin: 07/13/17 09:10 Dose: 81 mg Finasteride (Proscar -) 5 mg PO DAILY [facility] Last Admin: 07/13/17 09:10 Dose: 5 mg Heparin Sodium (Porcine) (Heparin -) 5,000 unit SQ TID [facility] Last Admin: 07/13/17 13:21 Dose: 5,000 unit Sodium Chloride (Normal Saline -) 1,000 mls @ 150 mls/hr IV ASDIR [facility] Last Admin: 07/12/17 22:54 Dose: 150 mls/hr Piperacillin/Tazobactam/Dextrose (Zosyn 2.25gm Ivpb (Premix)) 2.25 gm in 50 mls @ 100 mls/hr IVPB Q8H-IV DANIEL PRN Reason: Protocol Last Admin: 07/13/17 09:37 Dose: 100 mls/hr Insulin Aspart (Novolog Vial Sliding Scale -) 1 vial SQ ACHS DANIEL PRN Reason: Protocol Last Admin: 07/13/17 11:30 Dose: Not Given Metoprolol Succinate (Toprol Xl -) 50 mg PO DAILY [facility] Last Admin: 07/13/17 09:10 Dose: 50 mg Oxycodone HCl (Roxicodone -) 10 mg PO Q6H PRN PRN Reason: PAIN Last Admin: 07/13/17 13:22 Dose: 10 mg Ranitidine HCl (Zantac -) 150 mg PO DAILY [facility] Last Admin: 07/13/17 13:21 Dose: 150 mg Sertraline HCl (Zoloft -) 50 mg PO DAILY [facility] Last Admin: 07/13/17 09:10 Dose: 50 mg Tamsulosin HCl (Flomax -) 0.4 mg PO DAILY@0830 [facility] Last Admin: 07/13/17 08:43 Dose: 0.4 mg - Objective Vital Signs: Vital Signs Temperature 98.6 F 07/13/17 10:00 Pulse Rate 90 07/13/17 10:00 Respiratory Rate 20 07/13/17 10:00 Blood Pressure 137/61 07/13/17 10:00 O2 Sat by Pulse Oximetry (%) 97 07/13/17 09:00 Constitutional: Yes: Well Nourished, No Distress Neck: Yes: WNL, Supple Cardiovascular: Yes: S1, S2 Extremities: Yes: Other (Extensive superficial ulceration of the right leg draiing serosanguinous drainage) Labs: CBC, BMP 07/13/17 07:45 07/13/17 07:45 INR, PTT INR 1.06 (0.82-1.09) 07/11/17 14:50 Problem List - Problems (1) Cellulitis Code(s): L03.90 - CELLULITIS, UNSPECIFIED Qualifiers: Site of cellulitis: extremity Site of cellulitis of extremity: lower extremity Laterality: right Qualified Code(s): L03.115 - Cellulitis of right lower limb (2) Diabetes mellitus Code(s): E11.9 - TYPE 2 DIABETES MELLITUS WITHOUT COMPLICATIONS Qualifiers: Diabetes mellitus type: type 2 Diabetes mellitus complication status: with unspecified complications Diabetes mellitus alf insulin use: without long term acute care registered nurse use Qualified Code(s): E11.8 - Type 2 diabetes mellitus with unspecified complications (3) Lymphoma in remission Code(s): Z85.72 - PERSONAL HISTORY OF NON-HODGKIN LYMPHOMAS Assessment/Plan Microbiology 07/11/17 15:25 Blood - Peripheral Venous Blood Culture - Preliminary NO GROWTH OBTAINED AFTER 24 HOURS, INCUBATION TO CONTINUE FOR 4 DAYS. 07/11/17 15:25 Blood - Peripheral Venous Blood Culture - Preliminary NO GROWTH OBTAINED AFTER 24 HOURS, INCUBATION TO CONTINUE FOR 4 DAYS. Laboratory Tests 07/11/17 07/11/17 07/13/17 14:50 17:00 07:45 WBC 14.7 H D 10.0 ESR 120 H BUN Creatinine 07/13/17 07:45 WBC ESR BUN 54 H Creatinine 3.3 H Assessment Venous stasis dermatitis with cellulitis and open ulcerations of the RLE Empiric therapy Plan Redose Vancomycin based on body weight Continue Zosyn Treat through Jul 17 then discharge on po Kayla Bruce MD
[2017-07-13] MEDS ORDERED: VANCOMYCIN 1,750 MG in DEXTROSE 5%-WATER - 500 ML IVPB ONE (15:00)
--- NOTE | 2017-07-13 15:54 | PN ---
Progress Note, Physician History of Present Illness: Pt seen and examine at bedside. He is awake and alert. He denies shortness of breath. - Current Medication List Current Medications: Active Medications Acetaminophen (Tylenol -) 650 mg PO Q6H PRN PRN Reason: PAIN Aspirin (Ecotrin -) 81 mg PO DAILY [facility] Last Admin: 07/13/17 09:10 Dose: 81 mg Finasteride (Proscar -) 5 mg PO DAILY [facility] Last Admin: 07/13/17 09:10 Dose: 5 mg Heparin Sodium (Porcine) (Heparin -) 5,000 unit SQ TID [facility] Last Admin: 07/13/17 13:21 Dose: 5,000 unit Sodium Chloride (Normal Saline -) 1,000 mls @ 150 mls/hr IV ASDIR [facility] Last Admin: 07/12/17 22:54 Dose: 150 mls/hr Piperacillin/Tazobactam/Dextrose (Zosyn 2.25gm Ivpb (Premix)) 2.25 gm in 50 mls @ 100 mls/hr IVPB Q8H-IV DANIEL PRN Reason: Protocol Last Admin: 07/13/17 09:37 Dose: 100 mls/hr Vancomycin HCl 1,750 mg/ (Dextrose) 500 mls @ 250 mls/hr IVPB ONCE ONE PRN Reason: Protocol Stop: 07/13/17 16:59 Insulin Aspart (Novolog Vial Sliding Scale -) 1 vial SQ ACHS [facility] PRN Reason: Protocol Last Admin: 07/13/17 11:30 Dose: Not Given Metoprolol Succinate (Toprol Xl -) 50 mg PO DAILY [facility] Last Admin: 07/13/17 09:10 Dose: 50 mg Oxycodone HCl (Roxicodone -) 10 mg PO Q6H PRN PRN Reason: PAIN Last Admin: 07/13/17 13:22 Dose: 10 mg Ranitidine HCl (Zantac -) 150 mg PO DAILY [facility] Last Admin: 07/13/17 13:21 Dose: 150 mg Sertraline HCl (Zoloft -) 50 mg PO DAILY [facility] Last Admin: 07/13/17 09:10 Dose: 50 mg Tamsulosin HCl (Flomax -) 0.4 mg PO DAILY@0830 [facility] Last Admin: 07/13/17 08:43 Dose: 0.4 mg - Objective Vital Signs: Vital Signs Temperature 98.6 F 07/13/17 10:00 Pulse Rate 90 07/13/17 10:00 Respiratory Rate 20 07/13/17 10:00 Blood Pressure 137/61 07/13/17 10:00 O2 Sat by Pulse Oximetry (%) 97 07/13/17 09:00 Constitutional: Yes: Calm Eyes: Yes: Conjunctiva Clear HENT: Yes: Atraumatic Neck: Yes: Supple Cardiovascular: Yes: S1, S2 Respiratory: Yes: CTA Bilaterally Gastrointestinal: Yes: Soft, Abdomen, Obese Genitourinary: Yes: WNL Extremities: Yes: Other (bilateral cellulitis) Edema: Yes Wound/Incision: Yes: Open to air Neurological: Yes: Oriented Psychiatric: Yes: Oriented Labs: CBC, BMP 07/13/17 07:45 07/13/17 07:45 INR, PTT INR 1.06 (0.82-1.09) 07/11/17 14:50 Problem List - Problems (1) OLIVIA (acute kidney injury) Code(s): N17.9 - ACUTE KIDNEY FAILURE, UNSPECIFIED (2) Cellulitis Code(s): L03.90 - CELLULITIS, UNSPECIFIED Qualifiers: Site of cellulitis: extremity Site of cellulitis of extremity: lower extremity Laterality: right Qualified Code(s): L03.115 - Cellulitis of right lower limb (3) Diabetes mellitus Code(s): E11.9 - TYPE 2 DIABETES MELLITUS WITHOUT COMPLICATIONS Qualifiers: Diabetes mellitus type: type 2 Diabetes mellitus complication status: with unspecified complications Diabetes mellitus senior care insulin use: without senior care use Qualified Code(s): E11.8 - Type 2 diabetes mellitus with unspecified complications (4) Hyperkalemia Code(s): E87.5 - HYPERKALEMIA (5) Hypertension Code(s): I10 - ESSENTIAL (PRIMARY) HYPERTENSION Qualifiers: Hypertension type: unspecified Qualified Code(s): I10 - Essential (primary ) hypertension (6) Lymphoma in remission Code(s): Z85.72 - PERSONAL HISTORY OF NON-HODGKIN LYMPHOMAS (7) Rheumatoid arthritis Code(s): M06.9 - RHEUMATOID ARTHRITIS, UNSPECIFIED Qualifiers: Rheumatoid arthritis location: unspecified site Rheumatoid factor presence : unspecified presence Qualified Code(s): M06.9 - Rheumatoid arthritis, unspecified (8) Sepsis affecting skin Code(s): A41.9 - SEPSIS, UNSPECIFIED ORGANISM Assessment/Plan Current Medications Generic Name Dose Route Start Last Admin Trade Name Freq PRN Reason Stop Dose Admin Acetaminophen 650 mg 07/13/17 13:02 Tylenol - PO Q6H PRN PAIN Aspirin 81 mg 07/12/17 10:00 07/13/17 09:10 Ecotrin - PO 81 mg DAILY DANIEL Administration Finasteride 5 mg 07/12/17 10:00 07/13/17 09:10 Proscar - PO 5 mg DAILY DANIEL Administration Heparin Sodium (Porcine) 5,000 unit 07/11/17 22:00 07/13/17 13:21 Heparin - SQ 5,000 unit TID DANIEL Administration Sodium Chloride 1,000 mls @ 150 mls/hr 07/11/17 20:45 07/12/17 22:54 Normal Saline - IV 150 mls/hr ASDIR DANIEL Administration Piperacillin/Tazobactam/Dextrose 2.25 gm in 50 mls @ 100 mls/hr 07/12/17 13: 00 07/13/17 09:37 Zosyn 2.25gm Ivpb (Premix) IVPB 100 mls/hr Q8H-IV DANIEL Administration Protocol Vancomycin HCl 1,750 mg/ 500 mls @ 250 mls/hr 07/13/17 15:00 Dextrose IVPB 07/13/17 16:59 ONCE ONE Protocol Insulin Aspart 1 vial 07/11/17 22:00 07/13/17 11:30 Novolog Vial Sliding Scale - SQ Not Given ACHS DANIEL Protocol Metoprolol Succinate 50 mg 07/12/17 10:00 07/13/17 09:10 Toprol Xl - PO 50 mg DAILY [facility]EL Administration Oxycodone HCl 10 mg 07/13/17 13:02 07/13/17 13:22 Roxicodone - PO 10 mg Q6H PRN Administration PAIN Ranitidine HCl 150 mg 07/13/17 13:00 07/13/17 13:21 Zantac - PO 150 mg DAILY [facility]ANIEL Administration Sertraline HCl 50 mg 07/12/17 10:00 07/13/17 09:10 Zoloft - PO 50 mg DAILY [facility]EL Administration Tamsulosin HCl 0.4 mg 07/12/17 08:30 07/13/17 08:43 Flomax - PO 0.4 mg DAILY@0830 [facility]EL Administration Impression 1. OLIVIA 2. hyperkalemia 3. CKD 4. DM 5. sepsis 6. cellulitis Plan - renal function is improving - would not give any more kayexylate - change fluids to 1/2 ns - potassium treated medically - renal diet for now - recommend avoiding nsaids - follow urine studies Dr Heard
[2017-07-13] MEDS ORDERED: FUROSEMIDE 20 MG TABLET (FP) PO ONE (15:56)
[2017-07-13] MEDS: SODIUM CHLORIDE 0.45% 1,000 ML IV SCH (17:35)
[2017-07-13] MEDS ORDERED: INSULIN (NOVOLOG) ASPART 100 UNITS/ML 10ML VIAL ONE (21:29)
[2017-07-14] MEDS: PIPERACILLIN/TAZOB 2.25 GM 2.25 GM/50 ML BAG IVPB SCH ×3 (02:53→17:02)
[2017-07-14] MEDS: ACETAMINOPHEN 325 MG TABLET (FP) PO PRN ×2 (06:33→16:46)
[2017-07-14] MEDS: oxyCODONE HCL 5 MG TABLET PO PRN ×2 (06:34→16:44)
[2017-07-14] MEDS: HEPARIN NA (PORCINE) 5,000 UNITS/ML 1ML VIAL SQ SCH ×3 (06:37→21:41)
[2017-07-14] MEDS: INSULIN SLIDING SCALE (NOVOLOG) 1 VIAL SQ SCH ×4 (06:37→21:41)
[2017-07-14 07:56] LABS: BASO % 0.9 % (0-2.0); EOS % 2.1 % (0-4.5); HEMATOCRIT 31.5 % (35.4-49); HEMOGLOBIN 9.8 GM/dL (11.7-16.9); LYMPH % 23.4 % (8-40); MCH 26.5 pg (25.7-33.7); MCHC 31.2 g/dl (32.0-35.9); MEAN CELL VOLUME 84.7 fl (80-96); MEAN PLT VOLUME 6.8 fl (7.5-11.1); MONO % 9.7 % (3.8-10.2); NEUT % 63.9 % (42.8-82.8); PLATELET COUNT 254 K/MM3 (134-434); RBC 3.72 M/mm3 (4.00-5.60); RDW 15.8 % (11.9-15.9); WHITE BLOOD COUNT 10.1 K/mm3 (4.0-10.0)
[2017-07-14 08:01] LABS: ALBUMIN 2.2 g/dl (3.4-5.0); ANION GAP 12 (8-16); BILIRUBIN,TOTAL 0.4 mg/dL (0.2-1.0); BLOOD UREA NITROGEN 48 mg/dL (7-18); CALCIUM 7.7 mg/dL (8.5-10.1); CHLORIDE 105 mmol/L (98-107); CO2 22 mmol/L (21-32); CREATININE 2.9 mg/dL (0.7-1.3); GLUCOSE,RANDOM 100 mg/dL (74-106); MAGNESIUM 1.9 mg/dL (1.8-2.4); PHOSPHOROUS 4.8 mg/dL (2.5-4.9); POTASSIUM 4.8 mmol/L (3.5-5.1); SGOT/AST 21 U/L (15-37); SGPT/ALT 13 U/L (12-78); SODIUM 139 mmol/L (136-145); TOT PROT 7.5 g/dl (6.4-8.2)
[2017-07-14 08:02] LABS: ALK PHOS 126 U/L (45-117)
[2017-07-14] MEDS: TAMSULOSIN HCL 0.4 MG CAP.ER.24H (FP) PO SCH (08:50)
[2017-07-14] MEDS: SODIUM CHLORIDE 0.45% 1,000 ML IV SCH ×2 (08:51→17:03)
--- NOTE | 2017-07-14 09:27 | PN ---
Progress Note (short form) - Note Progress Note: PATIENT ADMITTED WITH RT LE CELLULITIS . HE HAS BEEN SEEN BY ID . I.V.ANTIBIOTICS HAVE BEEN RECOMMENDED THRU [address] BENOIT. PATIENT IN NO CARDIAC / RESP DISTRESS. MORBIDLY OBESE Selected Entries 07/14/17 09:06 Temperature 98.0 F Pulse Rate 84 Respiratory 20 Rate Blood Pressure 128/43 Laboratory Tests 07/14/17 07/14/17 07/14/17 06:00 06:00 06:36 WBC 10.1 H RBC 3.72 L Hgb 9.8 L Hct 31.5 L Plt Count 254 Sodium 139 Potassium 4.8 Chloride 105 Carbon Dioxide 22 Anion Gap 12 BUN 48 H Creatinine 2.9 H POC Glucometer 121 Calcium 7.7 L Alkaline Phosphatase 126 H P/E HEENT / LIMITED NECK MOVEMENT 2/2 RA CHEST / CLEAR P & A COR <> S 1 S 2 NSR ABD / OBESE / NONTENDER,. EXT <> RT LEG DRESSED / DRESSING MOIST / YELLOW STAINED DISCHARGE LT LE <> STASIS CHANGES / SUPERFICIAL ABRASIONS. IMP :RT LE CELLULITIS MORBID OBESITY RA CAD / S/P PCI / STENT HYPERLIPIDEMIA NHL HY OF ANEMIA / LEUKOCYTOSIS FOLLOWED BY DR KRISHNAMURTHY. OLIVIA / CKD HONG'S ESOPHAGUS HY OF ETOH ABUSE WITH FOLATE DEF SLEEP APNEA PLAN : CONT ANTIBIOTICS / WOUND CARE FOLLOWUP. RESUME LIPITOR FOLIC ACID ORDERED WITH HY OF ETOH ABUSE / FOLATE DEF. B 12 / FOLATE LEVELS ORDERED. FOLLOW LABS WITH RENAL INSUFF. CLAIMS RECENTLY SAW DR Eugenie MAXWELL FOR RENAL FOLLOWUP. ID FOLLOWUP / PER DR BENOIT / CONTINUE IV AB 07/17. SLEEP APNEA / HAD SEEN DR VERDIN IN THE PAST <> CLAIMS NEVER HAD TITRATION STUDIES. WILL CONSULT PULMONARY .
[2017-07-14] MEDS: FINASTERIDE 5 MG TABLET (FP) PO SCH (10:26)
[2017-07-14] MEDS: SERTRALINE HCL 50 MG TABLET (FP) PO SCH (10:26)
[2017-07-14] MEDS: ASPIRIN COATED 81 MG TABLET.EC PO SCH (10:26)
[2017-07-14] MEDS: RANITIDINE HCL 150 MG TABLET (FP) PO SCH (10:26)
[2017-07-14] MEDS: METOPROLOL SUCCINATE 50 MG TAB.SR.24H (FP) PO SCH (10:26)
[2017-07-14] MEDS: FOLIC ACID 1 MG TABLET (FP) PO SCH (10:26)
--- NOTE | 2017-07-14 18:54 | PN ---
Progress Note (short form) - Note Progress Note: f/u for dick sepsis and nsaids Current Medications Acetaminophen (Tylenol -) 650 mg PO Q6H PRN PRN Reason: PAIN Last Admin: 07/14/17 16:46 Dose: 650 mg Aspirin (Ecotrin -) 81 mg PO DAILY [facility] Last Admin: 07/14/17 10:26 Dose: 81 mg Atorvastatin Calcium (Lipitor -) 10 mg PO HS [facility] Finasteride (Proscar -) 5 mg PO DAILY [facility] Last Admin: 07/14/17 10:26 Dose: 5 mg Folic Acid (Folic Acid -) 1 mg PO DAILY [facility] Last Admin: 07/14/17 10:26 Dose: 1 mg Heparin Sodium (Porcine) (Heparin -) 5,000 unit SQ TID [facility] Last Admin: 07/14/17 14:09 Dose: 5,000 unit Piperacillin/Tazobactam/Dextrose (Zosyn 2.25gm Ivpb (Premix)) 2.25 gm in 50 mls @ 100 mls/hr IVPB Q8H-IV DANIEL PRN Reason: Protocol Last Admin: 07/14/17 17:02 Dose: 100 mls/hr Sodium Chloride (1/2 Normal Saline) 1,000 mls @ 125 mls/hr IV ASDIR [facility] Last Admin: 07/14/17 17:03 Dose: 125 mls/hr Insulin Aspart (Novolog Vial Sliding Scale -) 1 vial SQ ACHS [facility] PRN Reason: Protocol Last Admin: 07/14/17 16:49 Dose: Not Given Metoprolol Succinate (Toprol Xl -) 50 mg PO DAILY [facility] Last Admin: 07/14/17 10:26 Dose: 50 mg Oxycodone HCl (Roxicodone -) 10 mg PO Q6H PRN PRN Reason: PAIN Last Admin: 07/14/17 16:44 Dose: 10 mg Ranitidine HCl (Zantac -) 300 mg PO DAILY [facility] Sertraline HCl (Zoloft -) 50 mg PO DAILY [facility] Last Admin: 07/14/17 10:26 Dose: 50 mg Tamsulosin HCl (Flomax -) 0.4 mg PO DAILY@0830 [facility] Last Admin: 07/14/17 08:50 Dose: 0.4 mg Last Vital Signs Temp Pulse Resp BP Pulse Ox 97.4 F L 84 18 120/63 94 L 07/14/17 17:24 07/14/17 17:24 07/14/17 17:24 07/14/17 17:24 07/14/17 09:00 alert in nad Lungs clear Heart rge abd soft nontender ext no edema dressed and bandaged CBC, BMP 07/14/17 06:00 07/14/17 06:00 IMP- s/p dick renal function stabilizing Plan continue to encourage hydration follow up renal function
[2017-07-14] MEDS ORDERED: INSULIN (NOVOLOG) ASPART 100 UNITS/ML 10ML VIAL ONE (20:07)
[2017-07-14] MEDS: ATORVASTATIN CA 10 MG TABLET (FP) PO SCH (21:42)
[2017-07-15] MEDS: oxyCODONE HCL 5 MG TABLET PO PRN ×4 (01:32→23:50)
[2017-07-15] MEDS: SODIUM CHLORIDE 0.45% 1,000 ML IV SCH ×4 (01:32→18:07)
[2017-07-15] MEDS: PIPERACILLIN/TAZOB 2.25 GM 2.25 GM/50 ML BAG IVPB SCH ×3 (01:32→17:50)
[2017-07-15] MEDS: ACETAMINOPHEN 325 MG TABLET (FP) PO PRN ×4 (01:33→23:51)
[2017-07-15] MEDS: HEPARIN NA (PORCINE) 5,000 UNITS/ML 1ML VIAL SQ SCH ×3 (05:44→22:23)
[2017-07-15] MEDS: INSULIN SLIDING SCALE (NOVOLOG) 1 VIAL SQ SCH ×4 (06:04→22:24)
[2017-07-15 08:09] LABS: BASO % 1.2 % (0-2.0); EOS % 3.1 % (0-4.5); HEMATOCRIT 31.2 % (35.4-49); HEMOGLOBIN 9.8 GM/dL (11.7-16.9); MCH 26.7 pg (25.7-33.7); MCHC 31.5 g/dl (32.0-35.9); MEAN CELL VOLUME 84.7 fl (80-96); MONO % 7.6 % (3.8-10.2); NEUT % 64.1 % (42.8-82.8); PLATELET COUNT 222 K/MM3 (134-434); RBC 3.68 M/mm3 (4.00-5.60); RDW 15.6 % (11.9-15.9); WHITE BLOOD COUNT 10.1 K/mm3 (4.0-10.0)
--- NOTE | 2017-07-15 08:19 | PN ---
Progress Note (short form) - Note Progress Note: PATIENT REMAINS ON I.V.ANTIBIOTICS FOR RT LE CELLULITIS . HE DENIES ANY CP / SOB / PALPITATIONS. LABS PENDING. Selected Entries 07/15/17 06:29 Temperature 97.4 F L Pulse Rate 80 Respiratory 18 Rate Blood Pressure 135/50 Laboratory Tests 07/14/17 07/14/17 07/14/17 06:00 06:00 06:36 WBC 10.1 H RBC 3.72 L Hgb 9.8 L Hct 31.5 L Plt Count 254 Sodium 139 Potassium 4.8 Chloride 105 Carbon Dioxide 22 Anion Gap 12 BUN 48 H Creatinine 2.9 H POC Glucometer 121 Calcium 7.7 L Alkaline Phosphatase 126 H P/E HEENT / LIMITED NECK MOVEMENT 2/2 RA CHEST / CLEAR P & A COR <> S 1 S 2 NSR ABD / OBESE / NONTENDER,. EXT <> RT LEG <> ERYTHEMA / SUPERFICIAL STASIS ULCERS. IMP :RT LE CELLULITIS MORBID OBESITY RA CAD / S/P PCI / STENT HYPERLIPIDEMIA NHL HY OF ANEMIA / LEUKOCYTOSIS FOLLOWED BY DR KRISHNAMURTHY. OLIVIA / CKD HONG'S ESOPHAGUS HY OF ETOH ABUSE WITH FOLATE DEF SLEEP APNEA PLAN : I.V ANTIBIOTICS PER DR BENOIT. CONTINUED WOUND CARE FOLLOWUP. LIPITOR ORDERED FOR HPL / CAD HY. B 12 / FOLATE LEVELS PENDING. ZANTAC 300 MG ORDERED WITH HONG'S ESOPHAGUS / GERD HY. RENAL CONSULT AND FOLLOWUP APPRECIATED. HAVE REQUESTED PULM CONSULT WITH DR TROTTER. PATIENT NEEDS TITRATION STUDIES OUTPATIENT.
[2017-07-15] MEDS: TAMSULOSIN HCL 0.4 MG CAP.ER.24H (FP) PO SCH (08:34)
[2017-07-15 09:36] LABS: ALBUMIN 2.1 g/dl (3.4-5.0); ANION GAP 7 (8-16); BLOOD UREA NITROGEN 47 mg/dL (7-18); CALCIUM 7.4 mg/dL (8.5-10.1); CHLORIDE 105 mmol/L (98-107); CO2 24 mmol/L (21-32); GLUCOSE,RANDOM 94 mg/dL (74-106); POTASSIUM 4.5 mmol/L (3.5-5.1); SODIUM 136 mmol/L (136-145)
[2017-07-15 09:39] LABS: ALK PHOS 112 U/L (45-117); BILIRUBIN,TOTAL 0.5 mg/dL (0.2-1.0); CREATININE 2.7 mg/dL (0.7-1.3); SGOT/AST 16 U/L (15-37); SGPT/ALT 11 U/L (12-78); TOT PROT 7.2 g/dl (6.4-8.2)
[2017-07-15] MEDS: FINASTERIDE 5 MG TABLET (FP) PO SCH (10:02)
[2017-07-15] MEDS: ASPIRIN COATED 81 MG TABLET.EC PO SCH (10:02)
[2017-07-15] MEDS: SERTRALINE HCL 50 MG TABLET (FP) PO SCH (10:02)
[2017-07-15] MEDS: FOLIC ACID 1 MG TABLET (FP) PO SCH (10:02)
[2017-07-15] MEDS: METOPROLOL SUCCINATE 50 MG TAB.SR.24H (FP) PO SCH (10:02)
--- NOTE | 2017-07-15 10:40 | PN ---
Progress Note (short form) - Note Progress Note: doing well legs just redressed by the nurse per her report, less erythema and less drainage Vital Signs Period Temp Pulse Resp BP Sys/Gallagher Pulse Ox Last 24 Hr 97.4 F-98.3 F 77-84 18-20 120-165/50-74 94 cor-rrr lungs clear abd firm, protuberant, NT ext dressings intact bilat CBC, BMP 07/15/17 06:00 07/15/17 06:00 Microbiology 07/11/17 15:25 Blood - Peripheral Venous Blood Culture - Preliminary NO GROWTH OBTAINED AFTER 72 HOURS, INCUBATION TO CONTINUE FOR 2 DAYS. 07/11/17 15:25 Blood - Peripheral Venous Blood Culture - Preliminary NO GROWTH OBTAINED AFTER 72 HOURS, INCUBATION TO CONTINUE FOR 2 DAYS. 07/13/17 02:15 Urine - Urine Clean Catch Urine Culture - Final NO GROWTH OBTAINED a/p bilateral cellulitis- improving zosyn to continue vancomycin by levels (ckd)- will order level for am renal function improving
--- NOTE | 2017-07-15 11:19 | CON.PULM ---
Consult Consult Specialty:: PULMONARY Referred by:: DRISS Reason for Consultation:: OSAS - History of Present Illness Chief Complaint: OSAS History of Present Illness: 61 year-old male with a PMH significant for HTN, HLD, CAD s/p stents, COPD, GERD , BPH s/p TURP and h/o urinary retention, rhematoid arthritis, diabetes, non- Hodgkins lymphoma, melanoma, autoimmune cytopenias, and obesity. Patient was referred to the ED by Dr. Phipps who has been treating the patient on an outpatient basis for a RLE cellulitis. Patient has failed 4 days of outpatient oral Keflex and is being admitted for IV therapy. On arrival to ED, patient found to be in acute renal failure. Patient admits to taking 3-4 Alleve per day for his rheumatoid arthritis. Patient claims he had a PSG done at [facility] and was told he had OSAS. He did not have a titration study nor was he prescribed auto-pap. I have explained that we will arrange a titration study as an outpatient. 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 Cardio/Vascular: Yes: CAD (remote stents in late ), HTN, Hyperlipdemia Pulmonary: Yes: COPD, Sleep Apnea Gastrointestinal: Yes: GERD, Other (Wong's Esophagus, Steatosis/ Fatty Liver disease) Renal/: Yes: BPH Musculoskeletal: Yes: Other (See HPI) Rheumatology: Yes: Rheumatoid Arthritis Endocrine: Yes: Diabetes Mellitus, Other (Obesity) Dermatology: Yes: Other (melanoma) - Past Surgical History Past Surgical History: Yes: Hernia Repair (with mesh), Tonsillectomy - Alcohol/Substance Use Hx Alcohol Use: No - Smoking History Smoking history: Current every day smoker Have you smoked in the past 12 months: Yes Aproximately how many cigarettes per day: 10 If you are a former smoker, when did you quit?: 6 weeks ago - Social History Usual Living Arrangement: Alone (lives alone in co-op with 12 steps then 1 step to enter, ambulates with straight cane, and was Independent in ADLs and some IADLs but has assistance in some IADLs as well) ADL: Independent Occupation: disabled due to RA and Lymphoma (formerly worked for [employer]) History of Recent Travel: No (last [place] 05/2014) Home Medications - Allergies Allergies/Adverse Reactions: Allergies Allergy/AdvReac Type Severity Reaction Status Date / Time No Known Drug Allergies Allergy Verified 07/11/17 10:49 - Home Medications Home Medications: Ambulatory Orders Finasteride 5 mg PO DAILY 12/10/14 Metoprolol Succinate [Toprol XL -] 50 mg PO DAILY 12/10/14 Multivitamins [Multivit ([facility] Formulary)] 1 tab PO DAILY 12/10/14 Sertraline HCl [Zoloft] 50 mg PO DAILY 12/10/14 Tamsulosin HCl [Flomax -] 0.4 mg PO DAILY 12/10/14 Furosemide [Lasix -] 40 mg PO DAILY 12/25/14 ASA - 81 mg PO DAILY 03/02/17 Cephalexin [Keflex] 500 mg PO QID #28 capsule 07/06/17 Acetaminophen W/ Codeine #3 [Tylenol # 3 -] 1 tab PO Q6H #60 tablet MDD 4 Atorvastatin Ca [Lipitor] 10 mg PO HS 07/12/17 Oxycodone HCl/Acetaminophen [Percocet 10-325 mg Tablet] 1 each PO HS 07/12/17 Ranitidine HCl 300 mg PO DAILY 07/12/17 Family Disease History - Family Disease History Family Disease History: Heart Disease: Mother (mothers family with RA), Other: Mother Review of Systems - Review of Systems Constitutional: denies: Fever Eyes: denies: Blurred Vision HENT: denies: Difficult Swallowing Neck: denies: Decreased ROM Cardiovascular: denies: Chest Pain Respiratory: denies: Cough Gastrointestinal: denies: Abdominal Pain Genitourinary: reports: No Symptoms Musculoskeletal: reports: Extremity Pain Neurological: reports: No Symptoms Physical Exam Vital Sings: Vital Signs Temperature 97.4 F L 07/15/17 06:29 Pulse Rate 80 07/15/17 06:29 Respiratory Rate 18 07/15/17 06:29 Blood Pressure 135/50 07/15/17 06:29 O2 Sat by Pulse Oximetry (%) 94 L 07/14/17 21:00 Constitutional: Yes: Calm Eyes: Yes: EOM Intact HENT: Yes: Normocephalic Neck: Yes: Trachea Midline Cardiovascular: Yes: S1, S2 Respiratory: Yes: CTA Bilaterally Gastrointestinal: Yes: Abdomen, Obese Edema: Yes (cellulitis lower ext righ) Neurological: Yes: Alert Labs: CBC, BMP 07/15/17 06:00 07/15/17 06:00 rest reviewed Imaging - Results Chest X-ray: Report Reviewed, Image Reviewed Problem List - Problems (1) Sleep apnea in adult Code(s): G47.30 - SLEEP APNEA, UNSPECIFIED (2) Cellulitis Code(s): L03.90 - CELLULITIS, UNSPECIFIED Qualifiers: Site of cellulitis: extremity Site of cellulitis of extremity: lower extremity Laterality: right Qualified Code(s): L03.115 - Cellulitis of right lower limb (3) Diabetes mellitus Code(s): E11.9 - TYPE 2 DIABETES MELLITUS WITHOUT COMPLICATIONS Qualifiers: Diabetes mellitus type: type 2 Diabetes mellitus complication status: with unspecified complications Diabetes mellitus joint terminal attack controller insulin use: without joint terminal attack controller use Qualified Code(s): E11.8 - Type 2 diabetes mellitus with unspecified complications (4) Hypertension Code(s): I10 - ESSENTIAL (PRIMARY) HYPERTENSION Qualifiers: Hypertension type: unspecified Qualified Code(s): I10 - Essential (primary ) hypertension (5) Lymphoma in remission Code(s): Z85.72 - PERSONAL HISTORY OF NON-HODGKIN LYMPHOMAS (6) Rheumatoid arthritis Code(s): M06.9 - RHEUMATOID ARTHRITIS, UNSPECIFIED Qualifiers: Rheumatoid arthritis location: unspecified site Rheumatoid factor presence : unspecified presence Qualified Code(s): M06.9 - Rheumatoid arthritis, unspecified Assessment/Plan UNTREATED OSAS IN AN ADULT WITH MULTIPLE CO-MORBID FACTORS OBTAIN RESULTS OF STUDY WILL ARRANGE FOR TITRATION STUDY AN OUTPATIENT CONTINUE CURRENT TREATMENT OUTLINED Zelalem TROTTER MD
--- NOTE | 2017-07-15 15:31 | PN ---
Progress Note (short form) - Note Progress Note: f/u for olivia sepsis and nsaids s/p hyperkalemia Current Medications Acetaminophen (Tylenol -) 650 mg PO Q6H PRN PRN Reason: PAIN Last Admin: 07/15/17 08:36 Dose: 650 mg Aspirin (Ecotrin -) 81 mg PO DAILY [facility] Last Admin: 07/15/17 10:02 Dose: 81 mg Atorvastatin Calcium (Lipitor -) 10 mg PO HS [facility] Last Admin: 07/14/17 21:42 Dose: 10 mg Finasteride (Proscar -) 5 mg PO DAILY [facility] Last Admin: 07/15/17 10:02 Dose: 5 mg Folic Acid (Folic Acid -) 1 mg PO DAILY [facility] Last Admin: 07/15/17 10:02 Dose: 1 mg Heparin Sodium (Porcine) (Heparin -) 5,000 unit SQ TID [facility] Last Admin: 07/15/17 13:55 Dose: 5,000 unit Piperacillin/Tazobactam/Dextrose (Zosyn 2.25gm Ivpb (Premix)) 2.25 gm in 50 mls @ 100 mls/hr IVPB Q8H-IV DANIEL PRN Reason: Protocol Last Admin: 07/15/17 10:02 Dose: 100 mls/hr Sodium Chloride (1/2 Normal Saline) 1,000 mls @ 125 mls/hr IV ASDIR [facility] Last Admin: 07/15/17 10:13 Dose: 125 mls/hr Insulin Aspart (Novolog Vial Sliding Scale -) 1 vial SQ ACHS DANIEL PRN Reason: Protocol Last Admin: 07/15/17 11:30 Dose: 4 units Metoprolol Succinate (Toprol Xl -) 50 mg PO DAILY [facility] Last Admin: 07/15/17 10:02 Dose: 50 mg Oxycodone HCl (Roxicodone -) 10 mg PO Q6H PRN PRN Reason: PAIN Last Admin: 07/15/17 08:34 Dose: 10 mg Ranitidine HCl (Zantac -) 300 mg PO DAILY [facility] Sertraline HCl (Zoloft -) 50 mg PO DAILY [facility] Last Admin: 07/15/17 10:02 Dose: 50 mg Tamsulosin HCl (Flomax -) 0.4 mg PO DAILY@0830 [facility] Last Admin: 07/15/17 08:34 Dose: 0.4 mg Last Vital Signs Temp Pulse Resp BP Pulse Ox 98.3 F 78 20 134/76 94 L 07/15/17 14:00 07/15/17 14:00 07/15/17 14:00 07/15/17 14:00 07/14/17 21:00 lungs clear heart reg abd soft nontender ext dressing in place CBC, BMP 07/15/17 06:00 07/15/17 06:00 CBC, BMP 07/14/17 06:00 07/14/17 06:00 IMP- CKD s/p OLIVIA Plan- continue to ensure hydration follow renal function
[2017-07-15] MEDS: ATORVASTATIN CA 10 MG TABLET (FP) PO SCH (22:23)
[2017-07-15] MEDS: RANITIDINE HCL 150 MG TABLET (FP) PO SCH (22:24)
[2017-07-16] MEDS: PIPERACILLIN/TAZOB 2.25 GM 2.25 GM/50 ML BAG IVPB SCH ×3 (01:25→17:38)
[2017-07-16] MEDS: INSULIN SLIDING SCALE (NOVOLOG) 1 VIAL SQ SCH ×4 (06:04→21:44)
[2017-07-16] MEDS: HEPARIN NA (PORCINE) 5,000 UNITS/ML 1ML VIAL SQ SCH ×3 (06:04→21:44)
[2017-07-16] MEDS: oxyCODONE HCL 5 MG TABLET PO PRN ×3 (06:08→21:43)
[2017-07-16] MEDS: ACETAMINOPHEN 325 MG TABLET (FP) PO PRN ×2 (06:09→21:43)
--- NOTE | 2017-07-16 08:47 | PN ---
Progress Note (short form) - Note Progress Note: PATIENT BEING RX FOR RT LE CELLULITIS . IV AB PER DR BENOIT. PATIENT DENIES ANY CP / SOB / PALPITATIONS. PATIENT SEEN BY DR TROTTER FOR SLEEP APNEA . TO BE SCHEDULED FOR OUTPATIENT TITRATION STUDIES. RENAL FOLLOWUP APPRECIATED. Selected Entries Laboratory Tests Selected Entries 07/16/17 02:00 Temperature 98.2 F Pulse Rate 74 Blood Pressure 140/77 Laboratory Tests 07/15/17 07/15/17 07/16/17 06:00 06:00 06:04 WBC 10.1 H RBC 3.68 L Hgb 9.8 L Hct 31.2 L Plt Count 222 Sodium 136 Potassium 4.5 Chloride 105 Carbon Dioxide 24 Anion Gap 7 L BUN 47 H Creatinine 2.7 H POC Glucometer 105 Total Bilirubin 0.5 D AST 16 D ALT 11 L Alkaline Phosphatase 112 Total Protein 7.2 Albumin 2.1 L Vitamin B12 975 H Serum Folate 9 P/E <> UNCHANGED. HEENT / LIMITED NECK MOVEMENT 2/2 RA CHEST / CLEAR P & A COR <> S 1 S 2 NSR ABD / OBESE / NONTENDER,. EXT <> RT LEG <> DRY DRESSINGS IN PLACE . IMP :RT LE CELLULITIS MORBID OBESITY RA CAD / S/P PCI / STENT HYPERLIPIDEMIA NHL HY OF ANEMIA / LEUKOCYTOSIS FOLLOWED BY DR KRISHNAMURTHY. OLIVIA / CKD HONG'S ESOPHAGUS HY OF ETOH ABUSE WITH FOLATE DEF SLEEP APNEA PLAN : CONTINUE I.V ANTIBIOTICS PER DR BENOIT. FOLLOWUP WITH WOUND CARE. B 12 / FOLATE LEVELS NORMAL. RENAL CONSULT FOLLOWUP APPRECIATED. PULM CONSULT APPRECIATED / TITRATION STUDIES OUTPATIENT.
[2017-07-16] MEDS: ASPIRIN COATED 81 MG TABLET.EC PO SCH (09:07)
[2017-07-16] MEDS: RANITIDINE HCL 150 MG TABLET (FP) PO SCH (09:07)
[2017-07-16] MEDS: TAMSULOSIN HCL 0.4 MG CAP.ER.24H (FP) PO SCH (09:08)
[2017-07-16] MEDS: METOPROLOL SUCCINATE 50 MG TAB.SR.24H (FP) PO SCH (09:08)
[2017-07-16] MEDS: FINASTERIDE 5 MG TABLET (FP) PO SCH (09:08)
[2017-07-16] MEDS: SERTRALINE HCL 50 MG TABLET (FP) PO SCH (09:08)
[2017-07-16] MEDS: FOLIC ACID 1 MG TABLET (FP) PO SCH (09:08)
--- NOTE | 2017-07-16 10:34 | PN ---
Progress Note (short form) - Note Progress Note: PULMONARY APPEARS STABLE RX UNDERWAY FOR RIGHT LOWER EXT CELLULITIS NO SIGNIFICANT CHANGE IN EXAM - Problems (1) Sleep apnea in adult Code(s): G47.30 - SLEEP APNEA, UNSPECIFIED (2) Cellulitis Code(s): L03.90 - CELLULITIS, UNSPECIFIED Qualifiers: Site of cellulitis: extremity Site of cellulitis of extremity: lower extremity Laterality: right Qualified Code(s): L03.115 - Cellulitis of right lower limb (3) Diabetes mellitus Code(s): E11.9 - TYPE 2 DIABETES MELLITUS WITHOUT COMPLICATIONS Qualifiers: Diabetes mellitus type: type 2 Diabetes mellitus complication status: with unspecified complications Diabetes mellitus long lines operator insulin use: without long lines operator use Qualified Code(s): E11.8 - Type 2 diabetes mellitus with unspecified complications (4) Hypertension Code(s): I10 - ESSENTIAL (PRIMARY) HYPERTENSION Qualifiers: Hypertension type: unspecified Qualified Code(s): I10 - Essential (primary ) hypertension (5) Lymphoma in remission Code(s): Z85.72 - PERSONAL HISTORY OF NON-HODGKIN LYMPHOMAS (6) Rheumatoid arthritis Code(s): M06.9 - RHEUMATOID ARTHRITIS, UNSPECIFIED Qualifiers: Rheumatoid arthritis location: unspecified site Rheumatoid factor presence : unspecified presence Qualified Code(s): M06.9 - Rheumatoid arthritis, unspecified Assessment/Plan UNTREATED OSAS IN AN ADULT WITH MULTIPLE CO-MORBID FACTORS OBTAIN RESULTS OF STUDY WILL ARRANGE FOR TITRATION STUDY AN OUTPATIENT CONTINUE CURRENT TREATMENT OUTLINED PATIENT INFORMED OF PLAN AND GIVEN INSTRUCTIONS FOR FOLLOW UP Zelalem TROTTER MD Problem List - Problems (1) Sleep apnea in adult Code(s): G47.30 - SLEEP APNEA, UNSPECIFIED (2) Cellulitis Code(s): L03.90 - CELLULITIS, UNSPECIFIED Qualifiers: Site of cellulitis: extremity Site of cellulitis of extremity: lower extremity Laterality: right Qualified Code(s): L03.115 - Cellulitis of right lower limb (3) Diabetes mellitus Code(s): E11.9 - TYPE 2 DIABETES MELLITUS WITHOUT COMPLICATIONS Qualifiers: Diabetes mellitus type: type 2 Diabetes mellitus complication status: with unspecified complications Diabetes mellitus long lines operator insulin use: without long lines operator use Qualified Code(s): E11.8 - Type 2 diabetes mellitus with unspecified complications (4) Hypertension Code(s): I10 - ESSENTIAL (PRIMARY) HYPERTENSION Qualifiers: Hypertension type: unspecified Qualified Code(s): I10 - Essential (primary ) hypertension (5) Lymphoma in remission Code(s): Z85.72 - PERSONAL HISTORY OF NON-HODGKIN LYMPHOMAS (6) Rheumatoid arthritis Code(s): M06.9 - RHEUMATOID ARTHRITIS, UNSPECIFIED Qualifiers: Rheumatoid arthritis location: unspecified site Rheumatoid factor presence : unspecified presence Qualified Code(s): M06.9 - Rheumatoid arthritis, unspecified
--- NOTE | 2017-07-16 15:23 | PN ---
Progress Note, Physician History of Present Illness: Pt seen and examined at bedside. He is awake and alert. He denies shortness of breath. - Current Medication List Current Medications: Active Medications Acetaminophen (Tylenol -) 650 mg PO Q6H PRN PRN Reason: PAIN Last Admin: 07/16/17 06:09 Dose: 650 mg Aspirin (Ecotrin -) 81 mg PO DAILY [facility] Last Admin: 07/16/17 09:07 Dose: 81 mg Atorvastatin Calcium (Lipitor -) 10 mg PO HS [facility] Last Admin: 07/15/17 22:23 Dose: 10 mg Finasteride (Proscar -) 5 mg PO DAILY [facility] Last Admin: 07/16/17 09:08 Dose: 5 mg Folic Acid (Folic Acid -) 1 mg PO DAILY [facility] Last Admin: 07/16/17 09:08 Dose: 1 mg Heparin Sodium (Porcine) (Heparin -) 5,000 unit SQ TID [facility] Last Admin: 07/16/17 06:04 Dose: 5,000 unit Piperacillin/Tazobactam/Dextrose (Zosyn 2.25gm Ivpb (Premix)) 2.25 gm in 50 mls @ 100 mls/hr IVPB Q8H-IV DANIEL PRN Reason: Protocol Last Admin: 07/16/17 01:25 Dose: 100 mls/hr Sodium Chloride (1/2 Normal Saline) 1,000 mls @ 125 mls/hr IV ASDIR [facility] Last Admin: 07/15/17 18:07 Dose: 125 mls/hr Insulin Aspart (Novolog Vial Sliding Scale -) 1 vial SQ ACHS DANIEL PRN Reason: Protocol Last Admin: 07/16/17 06:04 Dose: Not Given Metoprolol Succinate (Toprol Xl -) 50 mg PO DAILY [facility] Last Admin: 07/16/17 09:08 Dose: 50 mg Oxycodone HCl (Roxicodone -) 10 mg PO Q6H PRN Ranitidine HCl (Zantac -) 300 mg PO DAILY [facility] Last Admin: 07/16/17 09:07 Dose: 300 mg Sertraline HCl (Zoloft -) 50 mg PO DAILY [facility] Last Admin: 07/16/17 09:08 Dose: 50 mg Tamsulosin HCl (Flomax -) 0.4 mg PO DAILY@0830 [facility] Last Admin: 07/16/17 09:08 Dose: 0.4 mg - Objective Vital Signs: Vital Signs Temperature 97.3 F L 07/16/17 14:29 Pulse Rate 78 07/16/17 14:29 Respiratory Rate 18 07/16/17 14:29 Blood Pressure 148/73 07/16/17 14:29 O2 Sat by Pulse Oximetry (%) 97 07/16/17 09:00 Constitutional: Yes: Calm Eyes: Yes: Conjunctiva Clear HENT: Yes: Atraumatic Neck: Yes: Supple Cardiovascular: Yes: S1, S2 Respiratory: Yes: CTA Bilaterally Gastrointestinal: Yes: Soft, Abdomen, Obese Genitourinary: Yes: WNL Musculoskeletal: Yes: WNL Edema: Yes Edema: LLE: Trace, RLE: Trace Integumentary: Yes: Erythema Wound/Incision: Yes: Dressing Dry and Intact Neurological: Yes: Oriented Labs: CBC, BMP 07/15/17 06:00 07/15/17 06:00 INR, PTT INR 1.06 (0.82-1.09) 07/11/17 14:50 Problem List - Problems (1) OLIVIA (acute kidney injury) Code(s): N17.9 - ACUTE KIDNEY FAILURE, UNSPECIFIED (2) Cellulitis Code(s): L03.90 - CELLULITIS, UNSPECIFIED Qualifiers: Site of cellulitis: extremity Site of cellulitis of extremity: lower extremity Laterality: right Qualified Code(s): L03.115 - Cellulitis of right lower limb (3) Diabetes mellitus Code(s): E11.9 - TYPE 2 DIABETES MELLITUS WITHOUT COMPLICATIONS Qualifiers: Diabetes mellitus type: type 2 Diabetes mellitus complication status: with unspecified complications Diabetes mellitus parts counterman insulin use: without detention use Qualified Code(s): E11.8 - Type 2 diabetes mellitus with unspecified complications (4) Hyperkalemia Code(s): E87.5 - HYPERKALEMIA (5) Hypertension Code(s): I10 - ESSENTIAL (PRIMARY) HYPERTENSION Qualifiers: Hypertension type: unspecified Qualified Code(s): I10 - Essential (primary ) hypertension (6) Lymphoma in remission Code(s): Z85.72 - PERSONAL HISTORY OF NON-HODGKIN LYMPHOMAS (7) Rheumatoid arthritis Code(s): M06.9 - RHEUMATOID ARTHRITIS, UNSPECIFIED Qualifiers: Rheumatoid arthritis location: unspecified site Rheumatoid factor presence : unspecified presence Qualified Code(s): M06.9 - Rheumatoid arthritis, unspecified (8) Sepsis affecting skin Code(s): A41.9 - SEPSIS, UNSPECIFIED ORGANISM Assessment/Plan Current Medications Generic Name Dose Route Start Last Admin Trade Name Freq PRN Reason Stop Dose Admin Acetaminophen 650 mg 07/13/17 13:02 07/16/17 06:09 Tylenol - PO 650 mg Q6H PRN Administration PAIN Aspirin 81 mg 07/12/17 10:00 07/16/17 09:07 Ecotrin - PO 81 mg DAILY DANIEL Administration Atorvastatin Calcium 10 mg 07/14/17 22:00 07/15/17 22:23 Lipitor - PO 10 mg HS DANIEL Administration Finasteride 5 mg 07/12/17 10:00 07/16/17 09:08 Proscar - PO 5 mg DAILY [facility]ANIEL Administration Folic Acid 1 mg 07/14/17 10:00 07/16/17 09:08 Folic Acid - PO 1 mg DAILY [facility] Administration Heparin Sodium (Porcine) 5,000 unit 07/11/17 22:00 07/16/17 06:04 Heparin - SQ 5,000 unit TID DANIEL Administration Piperacillin/Tazobactam/Dextrose 2.25 gm in 50 mls @ 100 mls/hr 07/12/17 13: 00 07/16/17 01:25 Zosyn 2.25gm Ivpb (Premix) IVPB 100 mls/hr Q8H-IV DANIEL Administration Protocol Sodium Chloride 1,000 mls @ 125 mls/hr 07/13/17 16:00 07/15/17 18:07 1/2 Normal Saline IV 125 mls/hr ASDIR DANIEL Administration Insulin Aspart 1 vial 07/11/17 22:00 07/16/17 06:04 Novolog Vial Sliding Scale - SQ Not Given ACHS DANIEL Protocol Metoprolol Succinate 50 mg 07/12/17 10:00 07/16/17 09:08 Toprol Xl - PO 50 mg DAILY [facility]EL Administration Oxycodone HCl 10 mg 07/16/17 14:59 Roxicodone - PO Q6H PRN Ranitidine HCl 300 mg 07/15/17 22:00 07/16/17 09:07 Zantac - PO 300 mg DAILY [facility]EL Administration Sertraline HCl 50 mg 07/12/17 10:00 07/16/17 09:08 Zoloft - PO 50 mg DAILY [facility]EL Administration Tamsulosin HCl 0.4 mg 07/12/17 08:30 07/16/17 09:08 Flomax - PO 0.4 mg DAILY@0830 [facility]EL Administration Impression 1. OLIVIA 2. hyperkalemia 3. CKD 4. DM 5. sepsis 6. cellulitis Plan - renal function is improving - potassium improving - cont fluids - check bmp - avoid nsaids - wound care to legs - renal diet for now Dr Heard
[2017-07-16] MEDS: SODIUM CHLORIDE 0.45% 1,000 ML IV SCH (16:38)
[2017-07-16] MEDS: ATORVASTATIN CA 10 MG TABLET (FP) PO SCH (21:44)
[2017-07-17] MEDS: PIPERACILLIN/TAZOB 2.25 GM 2.25 GM/50 ML BAG IVPB SCH ×2 (01:05→09:43)
[2017-07-17] MEDS: SODIUM CHLORIDE 0.45% 1,000 ML IV SCH ×2 (01:20→17:21)
[2017-07-17] MEDS: oxyCODONE HCL 5 MG TABLET PO PRN ×2 (05:57→14:08)
[2017-07-17] MEDS: HEPARIN NA (PORCINE) 5,000 UNITS/ML 1ML VIAL SQ SCH ×2 (05:57→14:09)
[2017-07-17] MEDS: ACETAMINOPHEN 325 MG TABLET (FP) PO PRN ×2 (05:58→14:09)
[2017-07-17] MEDS: INSULIN SLIDING SCALE (NOVOLOG) 1 VIAL SQ SCH ×2 (06:10→12:05)
[2017-07-17 07:23] LABS: ANION GAP 7 (8-16); BLOOD UREA NITROGEN 34 mg/dL (7-18); CALCIUM 7.8 mg/dL (8.5-10.1); CHLORIDE 110 mmol/L (98-107); CO2 23 mmol/L (21-32); CREATININE 1.8 mg/dL (0.7-1.3); GLUCOSE,RANDOM 89 mg/dL (74-106); POTASSIUM 4.2 mmol/L (3.5-5.1); SODIUM 140 mmol/L (136-145)
[2017-07-17 08:12] VITALS: TEMP 97.6
[2017-07-17] MEDS: TAMSULOSIN HCL 0.4 MG CAP.ER.24H (FP) PO SCH (09:37)
[2017-07-17] MEDS: ASPIRIN COATED 81 MG TABLET.EC PO SCH (09:37)
[2017-07-17] MEDS: METOPROLOL SUCCINATE 50 MG TAB.SR.24H (FP) PO SCH (09:37)
[2017-07-17] MEDS: FINASTERIDE 5 MG TABLET (FP) PO SCH (09:37)
[2017-07-17] MEDS: FOLIC ACID 1 MG TABLET (FP) PO SCH (09:37)
[2017-07-17] MEDS: RANITIDINE HCL 150 MG TABLET (FP) PO SCH (09:37)
[2017-07-17] MEDS: SERTRALINE HCL 50 MG TABLET (FP) PO SCH (09:38)
--- NOTE | 2017-07-17 12:33 | PN ---
Progress Note (short form) - Note Progress Note: Resting in NAD. No CP or SOB. No acute events overnight. Intake & Output 07/14/17 07/15/17 07/16/17 07/17/17 23:59 23:59 23:59 23:59 Intake Total 3025 3730 1290 1425 Balance 3025 3730 1290 1425 Weight 282 lb 4 oz 285 lb 1.6 oz Last Vital Signs Temp Pulse Resp BP Pulse Ox 97.6 F 69 20 137/80 95 07/17/17 06:00 07/17/17 06:00 07/17/17 06:00 07/17/17 06:00 07/16/17 21:00 Active Medications Acetaminophen (Tylenol -) 650 mg PO Q6H PRN PRN Reason: PAIN Last Admin: 07/17/17 05:58 Dose: 650 mg Aspirin (Ecotrin -) 81 mg PO DAILY [facility] Last Admin: 07/17/17 09:37 Dose: 81 mg Atorvastatin Calcium (Lipitor -) 10 mg PO HS [facility] Last Admin: 07/16/17 21:44 Dose: 10 mg Finasteride (Proscar -) 5 mg PO DAILY [facility] Last Admin: 07/17/17 09:37 Dose: 5 mg Folic Acid (Folic Acid -) 1 mg PO DAILY [facility] Last Admin: 07/17/17 09:37 Dose: 1 mg Heparin Sodium (Porcine) (Heparin -) 5,000 unit SQ TID [facility] Last Admin: 07/17/17 05:57 Dose: 5,000 unit Piperacillin/Tazobactam/Dextrose (Zosyn 2.25gm Ivpb (Premix)) 2.25 gm in 50 mls @ 100 mls/hr IVPB Q8H-IV DANIEL PRN Reason: Protocol Last Admin: 07/17/17 09:43 Dose: 100 mls/hr Sodium Chloride (1/2 Normal Saline) 1,000 mls @ 125 mls/hr IV ASDIR [facility] Last Admin: 07/17/17 01:20 Dose: 125 mls/hr Insulin Aspart (Novolog Vial Sliding Scale -) 1 vial SQ ACHS [facility] PRN Reason: Protocol Last Admin: 07/17/17 12:05 Dose: Not Given Metoprolol Succinate (Toprol Xl -) 50 mg PO DAILY [facility] Last Admin: 07/17/17 09:37 Dose: 50 mg Oxycodone HCl (Roxicodone -) 10 mg PO Q6H PRN Last Admin: 07/17/17 05:57 Dose: 10 mg Ranitidine HCl (Zantac -) 300 mg PO DAILY [facility] Last Admin: 07/17/17 09:37 Dose: 300 mg Sertraline HCl (Zoloft -) 50 mg PO DAILY [facility] Last Admin: 07/17/17 09:38 Dose: 50 mg Tamsulosin HCl (Flomax -) 0.4 mg PO DAILY@0830 [facility] Last Admin: 07/17/17 09:37 Dose: 0.4 mg Constitutional: Yes: NAD Eyes: Yes: Conjunctiva Clear HENT: Yes: Atraumatic Neck: Yes: Supple Cardiovascular: Yes: S1, S2 Respiratory: Yes: Clear Gastrointestinal: Yes: Soft, Abdomen, Obese Genitourinary: Yes: WNL Musculoskeletal: Yes: WNL Edema: Yes Edema: LLE: Trace, RLE: Trace Integumentary: Yes: Erythema Wound/Incision: Yes: Dressing Dry and Intact Neurological: Yes: Oriented Labs: Laboratory Results - last 24 hr 07/16/17 07/16/17 07/16/17 11:33 16:16 21:41 Sodium Potassium Chloride Carbon Dioxide Anion Gap BUN Creatinine POC Glucometer 108 124 98 Random Glucose Calcium 07/17/17 07/17/17 05:35 05:55 Sodium 140 Potassium 4.2 Chloride 110 H Carbon Dioxide 23 Anion Gap 7 L BUN 34 H D Creatinine 1.8 H D POC Glucometer 94 Random Glucose 89 Calcium 7.8 L - Problems (1) Sleep apnea in adult Code(s): G47.30 - SLEEP APNEA, UNSPECIFIED (2) Cellulitis Code(s): L03.90 - CELLULITIS, UNSPECIFIED Qualifiers: Site of cellulitis: extremity Site of cellulitis of extremity: lower extremity Laterality: right Qualified Code(s): L03.115 - Cellulitis of right lower limb (3) Diabetes mellitus Code(s): E11.9 - TYPE 2 DIABETES MELLITUS WITHOUT COMPLICATIONS Qualifiers: Diabetes mellitus type: type 2 Diabetes mellitus complication status: with unspecified complications Diabetes mellitus fci insulin use: without tank terminal gauger use Qualified Code(s): E11.8 - Type 2 diabetes mellitus with unspecified complications (4) Hypertension Code(s): I10 - ESSENTIAL (PRIMARY) HYPERTENSION Qualifiers: Hypertension type: unspecified Qualified Code(s): I10 - Essential (primary ) hypertension (5) Lymphoma in remission Code(s): Z85.72 - PERSONAL HISTORY OF NON-HODGKIN LYMPHOMAS (6) Rheumatoid arthritis Code(s): M06.9 - RHEUMATOID ARTHRITIS, UNSPECIFIED Qualifiers: Rheumatoid arthritis location: unspecified site Rheumatoid factor presence : unspecified presence Qualified Code(s): M06.9 - Rheumatoid arthritis, unspecified Assessment/Plan Titration study for CPAP after D/C Local wound care ABX IVF Dr Londono
--- NOTE | 2017-07-17 14:09 | PN ---
Progress Note, Physician History of Present Illness: No c/o leg pain No fever/ chills - Current Medication List Current Medications: Active Medications Acetaminophen (Tylenol -) 650 mg PO Q6H PRN PRN Reason: PAIN Last Admin: 07/17/17 05:58 Dose: 650 mg Aspirin (Ecotrin -) 81 mg PO DAILY [facility] Last Admin: 07/17/17 09:37 Dose: 81 mg Atorvastatin Calcium (Lipitor -) 10 mg PO HS [facility] Last Admin: 07/16/17 21:44 Dose: 10 mg Finasteride (Proscar -) 5 mg PO DAILY [facility] Last Admin: 07/17/17 09:37 Dose: 5 mg Folic Acid (Folic Acid -) 1 mg PO DAILY [facility] Last Admin: 07/17/17 09:37 Dose: 1 mg Heparin Sodium (Porcine) (Heparin -) 5,000 unit SQ TID [facility] Last Admin: 07/17/17 05:57 Dose: 5,000 unit Piperacillin/Tazobactam/Dextrose (Zosyn 2.25gm Ivpb (Premix)) 2.25 gm in 50 mls @ 100 mls/hr IVPB Q8H-IV DANIEL PRN Reason: Protocol Last Admin: 07/17/17 09:43 Dose: 100 mls/hr Sodium Chloride (1/2 Normal Saline) 1,000 mls @ 125 mls/hr IV ASDIR [facility] Last Admin: 07/17/17 01:20 Dose: 125 mls/hr Insulin Aspart (Novolog Vial Sliding Scale -) 1 vial SQ ACHS [facility] PRN Reason: Protocol Last Admin: 07/17/17 12:05 Dose: Not Given Metoprolol Succinate (Toprol Xl -) 50 mg PO DAILY [facility] Last Admin: 07/17/17 09:37 Dose: 50 mg Oxycodone HCl (Roxicodone -) 10 mg PO Q6H PRN Last Admin: 07/17/17 05:57 Dose: 10 mg Ranitidine HCl (Zantac -) 300 mg PO DAILY [facility] Last Admin: 07/17/17 09:37 Dose: 300 mg Sertraline HCl (Zoloft -) 50 mg PO DAILY [facility] Last Admin: 07/17/17 09:38 Dose: 50 mg Tamsulosin HCl (Flomax -) 0.4 mg PO DAILY@0830 [facility] Last Admin: 07/17/17 09:37 Dose: 0.4 mg - Objective Vital Signs: Vital Signs Temperature 97.6 F 07/17/17 06:00 Pulse Rate 69 07/17/17 06:00 Respiratory Rate 20 07/17/17 06:00 Blood Pressure 137/80 07/17/17 06:00 O2 Sat by Pulse Oximetry (%) 95 07/16/17 21:00 Constitutional: Yes: Obese Eyes: Yes: Conjunctiva Clear Cardiovascular: Yes: Regular Rate and Rhythm, S1, S2 Respiratory: Yes: Diminished Gastrointestinal: Yes: Normal Bowel Sounds, Soft. No: Tenderness Extremities: Yes: Other (minimal erythema R LE ulcerated areas No drainage) Labs: CBC, BMP 07/15/17 06:00 07/17/17 05:35 INR, PTT INR 1.06 (0.82-1.09) 07/11/17 14:50 Assessment/Plan Infected diabetic leg ulcer/ cellulitis- improved Substitute po Augmentin Local wound care
[2017-07-17 15:01] VITALS: BP 144/67; PULSE 75
--- NOTE | 2017-07-17 16:15 | DS ---
Physical Examination Vital Signs: Vital Signs Temperature 36.4 C 07/17/17 14:58 Pulse Rate 75 07/17/17 14:58 Respiratory Rate 20 07/17/17 14:58 Blood Pressure 144/67 07/17/17 14:58 O2 Sat by Pulse Oximetry (%) 95 07/16/17 21:00 Constitutional: Yes: No Distress, Calm, Obese Cardiovascular: Yes: Regular Rate and Rhythm. No: Gallop, Murmur, Rub Respiratory: Yes: Regular, CTA Bilaterally. No: Rales, Rhonchi, Wheezes Gastrointestinal: Yes: Normal Bowel Sounds, Soft. No: Distention, Tenderness Extremities: Yes: WNL Edema: No Labs: CBC, BMP 07/15/17 06:00 07/17/17 05:35 Discharge Summary Reason For Visit: CELLULITIS; SEPSIS AFFECTING SKIN Current Active Problems OLIVIA (acute kidney injury) (Acute) Cellulitis (Acute) Diabetes mellitus (Acute) Hyperkalemia (Acute) Hypertension (Acute) Lymphoma in remission (Acute) Rheumatoid arthritis (Acute) Sepsis affecting skin (Acute) Sleep apnea in adult (Acute) Hospital Course: (1) Cellulitis Code(s): L03.90 - CELLULITIS, UNSPECIFIED Qualifiers: Site of cellulitis: extremity Site of cellulitis of extremity: lower extremity Laterality: right Qualified Code(s): L03.115 - Cellulitis of right lower limb (2) OLIVIA (acute kidney injury) Code(s): N17.9 - ACUTE KIDNEY FAILURE, UNSPECIFIED (3) Hyperkalemia Code(s): E87.5 - HYPERKALEMIA (4) Hypertension Code(s): I10 - ESSENTIAL (PRIMARY) HYPERTENSION Qualifiers: Hypertension type: unspecified Qualified Code(s): I10 - Essential (primary ) hypertension (5) Rheumatoid arthritis Code(s): M06.9 - RHEUMATOID ARTHRITIS, UNSPECIFIED Qualifiers: Rheumatoid arthritis location: unspecified site Rheumatoid factor presence : unspecified presence Qualified Code(s): M06.9 - Rheumatoid arthritis, unspecified (6) BPH (benign prostatic hyperplasia) Code(s): N40.0 - BENIGN PROSTATIC HYPERPLASIA WITHOUT LOWER URINRY TRACT SYMP Mr Pinto is a 61 year old male who comes in with cellulitis that failed outpatient therapy and OLIVIA on CKD secondary to NSAID use. He was admitted to the hospital and started on zosyn. He was seen by ID and this was continued. Nephrology consulted and he was hydrated. His lasix was also held while here. His renal function improved and he is now at baseline. Case d/w ID today, change to augmentin. Case also d/w nephrology, hold lasix for 2 more days and then restart. He is safe for discharge home. 34 minutes spent in preparation of this discharge Condition: Improved - Instructions Diet, Activity, Other Instructions: resume previous diet and activity. Hold lasix 07/18/17 and 07/19/17. Ok to restart lasix on 07/20/17 Referrals: Rio Castillo MD [Staff Physician] - Franklin Phpips MD [Staff Physician] - Ronal Dial MD [Staff Physician] - Disposition: VNS/HOME HEALTH CARE - Home Medications Comprehensive Discharge Medication List: Ambulatory Orders Finasteride 5 mg PO DAILY 12/10/14 Metoprolol Succinate [Toprol XL -] 50 mg PO DAILY 12/10/14 Multivitamins [Multivit ([facility] Formulary)] 1 tab PO DAILY 12/10/14 Sertraline HCl [Zoloft] 50 mg PO DAILY 12/10/14 Tamsulosin HCl [Flomax -] 0.4 mg PO DAILY 12/10/14 Furosemide [Lasix -] 40 mg PO DAILY 12/25/14 ASA - 81 mg PO DAILY 03/02/17 Acetaminophen W/ Codeine #3 [Tylenol # 3 -] 1 tab PO Q6H #60 tablet MDD 4 Atorvastatin Ca [Lipitor] 10 mg PO HS 07/12/17 Oxycodone HCl/Acetaminophen [Percocet 10-325 mg Tablet] 1 each PO HS 07/12/17 Ranitidine HCl 300 mg PO DAILY 07/12/17 Amox-Tr/K Cl [Augmentin 500-125mg Tablet -] 1 tab PO BID@0800,1730 #14 tablet Folic Acid - 1 mg PO DAILY #30 tablet 07/17/17
--- NOTE | 2017-07-17 16:16 | PN ---
Progress Note, Physician History of Present Illness: Pt seen and examined at bedside. He is awake and alert. He denies shortness of breath. - Current Medication List Current Medications: Active Medications Acetaminophen (Tylenol -) 650 mg PO Q6H PRN PRN Reason: PAIN Last Admin: 07/17/17 14:09 Dose: 650 mg Amoxicillin/Clavulanate Potassium (Augmentin - 500mg Tablet) 1 tab PO BID@0800, 1730 [facility] Aspirin (Ecotrin -) 81 mg PO DAILY [facility] Last Admin: 07/17/17 09:37 Dose: 81 mg Atorvastatin Calcium (Lipitor -) 10 mg PO HS [facility] Last Admin: 07/16/17 21:44 Dose: 10 mg Finasteride (Proscar -) 5 mg PO DAILY [facility] Last Admin: 07/17/17 09:37 Dose: 5 mg Folic Acid (Folic Acid -) 1 mg PO DAILY [facility] Last Admin: 07/17/17 09:37 Dose: 1 mg Heparin Sodium (Porcine) (Heparin -) 5,000 unit SQ TID [facility] Last Admin: 07/17/17 14:09 Dose: 5,000 unit Sodium Chloride (1/2 Normal Saline) 1,000 mls @ 125 mls/hr IV ASDIR [facility] Last Admin: 07/17/17 01:20 Dose: 125 mls/hr Insulin Aspart (Novolog Vial Sliding Scale -) 1 vial SQ ACHS [facility] PRN Reason: Protocol Last Admin: 07/17/17 12:05 Dose: Not Given Metoprolol Succinate (Toprol Xl -) 50 mg PO DAILY [facility] Last Admin: 07/17/17 09:37 Dose: 50 mg Oxycodone HCl (Roxicodone -) 10 mg PO Q6H PRN Last Admin: 07/17/17 14:08 Dose: 10 mg Ranitidine HCl (Zantac -) 300 mg PO DAILY [facility] Last Admin: 07/17/17 09:37 Dose: 300 mg Sertraline HCl (Zoloft -) 50 mg PO DAILY [facility] Last Admin: 07/17/17 09:38 Dose: 50 mg Tamsulosin HCl (Flomax -) 0.4 mg PO DAILY@0830 [facility] Last Admin: 07/17/17 09:37 Dose: 0.4 mg - Objective Vital Signs: Vital Signs Temperature 97.6 F 07/17/17 14:58 Pulse Rate 75 07/17/17 14:58 Respiratory Rate 20 07/17/17 14:58 Blood Pressure 144/67 07/17/17 14:58 O2 Sat by Pulse Oximetry (%) 95 07/16/17 21:00 Constitutional: Yes: Calm Eyes: Yes: Conjunctiva Clear HENT: Yes: Atraumatic Neck: Yes: Supple Cardiovascular: Yes: S1, S2 Respiratory: Yes: CTA Bilaterally Gastrointestinal: Yes: Soft, Abdomen, Obese Genitourinary: Yes: WNL Musculoskeletal: Yes: WNL Edema: Yes Edema: LLE: Trace, RLE: Trace Integumentary: Yes: Erythema Wound/Incision: Yes: Dressing Dry and Intact Psychiatric: Yes: Oriented Labs: CBC, BMP 07/15/17 06:00 07/17/17 05:35 INR, PTT INR 1.06 (0.82-1.09) 07/11/17 14:50 Problem List - Problems (1) OLIVIA (acute kidney injury) Code(s): N17.9 - ACUTE KIDNEY FAILURE, UNSPECIFIED (2) Cellulitis Code(s): L03.90 - CELLULITIS, UNSPECIFIED Qualifiers: Site of cellulitis: extremity Site of cellulitis of extremity: lower extremity Laterality: right Qualified Code(s): L03.115 - Cellulitis of right lower limb (3) Diabetes mellitus Code(s): E11.9 - TYPE 2 DIABETES MELLITUS WITHOUT COMPLICATIONS Qualifiers: Diabetes mellitus type: type 2 Diabetes mellitus complication status: with unspecified complications Diabetes mellitus manager terminal insulin use: without manager terminal use Qualified Code(s): E11.8 - Type 2 diabetes mellitus with unspecified complications (4) Hyperkalemia Code(s): E87.5 - HYPERKALEMIA (5) Hypertension Code(s): I10 - ESSENTIAL (PRIMARY) HYPERTENSION Qualifiers: Hypertension type: unspecified Qualified Code(s): I10 - Essential (primary ) hypertension (6) Lymphoma in remission Code(s): Z85.72 - PERSONAL HISTORY OF NON-HODGKIN LYMPHOMAS (7) Rheumatoid arthritis Code(s): M06.9 - RHEUMATOID ARTHRITIS, UNSPECIFIED Qualifiers: Rheumatoid arthritis location: unspecified site Rheumatoid factor presence : unspecified presence Qualified Code(s): M06.9 - Rheumatoid arthritis, unspecified (8) Sepsis affecting skin Code(s): A41.9 - SEPSIS, UNSPECIFIED ORGANISM Assessment/Plan Current Medications Generic Name Dose Route Start Last Admin Trade Name Freq PRN Reason Stop Dose Admin Acetaminophen 650 mg 07/13/17 13:02 07/17/17 14:09 Tylenol - PO 650 mg Q6H PRN Administration PAIN Amoxicillin/Clavulanate Potassium 1 tab 07/17/17 17:30 Augmentin - 500mg Tablet PO BID@0800,1730 [facility] Aspirin 81 mg 07/12/17 10:00 07/17/17 09:37 Ecotrin - PO 81 mg DAILY [facility]ANIEL Administration Atorvastatin Calcium 10 mg 07/14/17 22:00 07/16/17 21:44 Lipitor - PO 10 mg HS [facility] Administration Finasteride 5 mg 07/12/17 10:00 07/17/17 09:37 Proscar - PO 5 mg DAILY [facility]ANIEL Administration Folic Acid 1 mg 07/14/17 10:00 07/17/17 09:37 Folic Acid - PO 1 mg DAILY [facility]ANIEL Administration Heparin Sodium (Porcine) 5,000 unit 07/11/17 22:00 07/17/17 14:09 Heparin - SQ 5,000 unit TID [facility] Administration Sodium Chloride 1,000 mls @ 125 mls/hr 07/13/17 16:00 07/17/17 01:20 1/2 Normal Saline IV 125 mls/hr ASDIR [facility] Administration Insulin Aspart 1 vial 07/11/17 22:00 07/17/17 12:05 Novolog Vial Sliding Scale - SQ Not Given ACHS [facility] Protocol Metoprolol Succinate 50 mg 07/12/17 10:00 07/17/17 09:37 Toprol Xl - PO 50 mg DAILY [facility] Administration Oxycodone HCl 10 mg 07/16/17 14:59 07/17/17 14:08 Roxicodone - PO 10 mg Q6H PRN Administration Ranitidine HCl 300 mg 07/15/17 22:00 07/17/17 09:37 Zantac - PO 300 mg DAILY [facility] Administration Sertraline HCl 50 mg 07/12/17 10:00 07/17/17 09:38 Zoloft - PO 50 mg DAILY [facility] Administration Tamsulosin HCl 0.4 mg 07/12/17 08:30 07/17/17 09:37 Flomax - PO 0.4 mg DAILY@0830 [facility] Administration Impression 1. OLIVIA 2. hyperkalemia 3. CKD 4. DM 5. sepsis 6. cellulitis Plan - renal function stabilized - can resume lasix in a few days - pt will need outpt follow up, he will see Dr Will - heaven per ID - avoid nsaids - wound care to legs - low potassium diet - discussed with attending Dr Heard
[2017-07-17] MEDS ORDERED: AMOX TR/POT CLAV 500MG/125MG TABLETS (FP) PO SCH (17:30)
== END 2017-07-17 18:00 | disposition home health service (06) | DRG 683 ==
LOC: JER 10:18 → JERBED 18:02 → J7W 22:58
PROVIDERS: ADMIT Internal Medicine; ATTEND Internal Medicine
DX: N17.9 Acute kidney failure, unspecified (principal); L03.115 Cellulitis of right lower limb; E87.2 Acidosis; C85.90 Non-Hodgkin lymphoma, unspecified, unspecified site; Z68.41 Body mass index [BMI] 40.0-44.9, adult; N40.0 Benign prostatic hyperplasia without lower urinary tract symptoms; E78.5 Hyperlipidemia, unspecified; I25.10 Atherosclerotic heart disease of native coronary artery without angina pectoris; Z98.61 Coronary angioplasty status; K21.9 Gastro-esophageal reflux disease without esophagitis; M06.9 Rheumatoid arthritis, unspecified; E87.5 Hyperkalemia; I12.9 Hypertensive chronic kidney disease with stage 1 through stage 4 chronic kidney disease, or unspecified chronic kidney disease; E11.22 Type 2 diabetes mellitus with diabetic chronic kidney disease; N18.9 Chronic kidney disease, unspecified; G47.30 Sleep apnea, unspecified; E66.01 Morbid (severe) obesity due to excess calories; F17.210 Nicotine dependence, cigarettes, uncomplicated
CPT/HCPCS: 36415; 71010-TC; 73590-TC-RT; 73630-TC-RT; 76775-TC; 76856-TC; 80048; 80053; 81003; 81015; 82436; 82550; 82570; 82607; 82746; 82803; 83605; 83735; 84100; 84133; 84300; 84484; 84540; 85025; 85610; 85651; 85730; 86140; 86850; 86900; 86901; 87040; 87070; 87086; 87205; 93005; 93010; 97116-GP; 97161-GP; 99283-25; A6196; G0463-25; G0480; J1644

== ENCOUNTER 2017-08-03 18:24 | Inpatient (IN) | payer OTHER ==
--- NOTE | 2017-08-03 19:16 | PDOC ---
Rapid Medical Evaluation Time Seen by Provider: 08/03/17 19:10 Medical Evaluation: Allergies Allergy/AdvReac Type Severity Reaction Status Date / Time No Known Drug Allergies Allergy Verified 07/11/17 10:49 08/03/17 19:10 I have performed a brief in-person evaluation of this patient. The patient presents with a chief complaint of: RLE cellulites Pt was seen and admitted on Jul 14 for RLE cellulitis Pt was discharged on 07/22/2017 Pt states while at the wound care center today, staff spoke to his PMD/Dr. Castillo'soffice sent pt in for admission. IV abx Pertinent physical exam findings: RLE: weeping/swel;ling/Pain +erythematous I have ordered the following:cbc/cmp/cxr/ekg,wound culture, blood culture/IV insert The patient will proceed to the ED for further evaluation. 1923hrs: I called Dr. Castillo's office [phone].. awaiting covering physician to call baCK/ dR. Miller all blood work and IV insertion done by me. Lab sent at 1933hrs
[2017-08-03 19:45] LABS: BASO % 1.2 % (0-2.0); EOS % 3.8 % (0-4.5); HEMOGLOBIN 10.2 GM/dL (11.7-16.9); LYMPH % 22.6 % (8-40); MCH 26.4 pg (25.7-33.7); MCHC 31.8 g/dl (32.0-35.9); MEAN CELL VOLUME 82.9 fl (80-96); MEAN PLT VOLUME 6.8 fl (7.5-11.1); MONO % 8.5 % (3.8-10.2); NEUT % 63.9 % (42.8-82.8); PLATELET COUNT 332 K/MM3 (134-434); RBC 3.87 M/mm3 (4.00-5.60); RDW 17.3 % (11.9-15.9); WHITE BLOOD COUNT 9.9 K/mm3 (4.0-10.0)
[2017-08-03 20:29] LABS: ALK PHOS 137 U/L (45-117); ANION GAP 3 (8-16); BILIRUBIN,TOTAL 0.9 mg/dL (0.2-1.0); BLOOD UREA NITROGEN 24 mg/dL (7-18); CALCIUM 7.7 mg/dL (8.5-10.1); CHLORIDE 105 mmol/L (98-107); CO2 27 mmol/L (21-32); CREATININE 2.8 mg/dL (0.7-1.3); GLUCOSE,RANDOM 87 mg/dL (74-106); SGOT/AST 21 U/L (15-37); SGPT/ALT 11 U/L (12-78); SODIUM 135 mmol/L (136-145); TOT PROT 7.2 g/dl (6.4-8.2)
[2017-08-03 20:32] LABS: POTASSIUM 6.6 mmol/L (3.5-5.1)
--- NOTE | 2017-08-03 20:32 | PDOC ---
History of Present Illness - History of Present Illness Initial Comments: 08/03/17 22:16 61 year-old male with a PMH significant for HTN, HLD, CAD s/p stents, COPD, GERD , BPH s/p TURP and h/o urinary retention, rheumatoid arthritis, diabetes, non- Hodgkin's lymphoma, melanoma, autoimmune cytopenias, and obesity who was referred to the ED by his PCP to be admitted for his chronic right leg wound. Patient reports that he was on vacation in [place] and caught his right ankle on the curb which is where his wound started. Patient states that he wounds easily. Patient saw Dr. Bruce earlier today. He was recently admitted to [facility] for the same weeping right leg wound. Patient tested positive for MRSA. PCP: Andres Castillo Vascular: Franklin Phipps Social Hx: pack a day cigarette smoker, Social EtOH use. 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) HTN: Yes Hypercholesterolemia: Yes Liver Disease: No Seizures: No Thyroid Disease: No - Surgical History Abdominal Surgery: Yes (HERNIA REPAIR) Appendectomy: No Cardiac Surgery: Yes (STENT) Cholecystectomy: No Lung Surgery: Yes (STENT) Neurologic Surgery: No Orthopedic Surgery: Yes - Immunization History Immunization Up to Date: Yes - Suicide/Smoking/Psychosocial Hx Smoking History: Never smoked Have you smoked in the past 12 months: Yes Number of Cigarettes Smoked Daily: 10 If you are a former smoker, when did you quit?: 6 weeks ago Cigars Per Day: 0 Information on smoking cessation initiated: No 'Breaking Loose' booklet given: 11/26/14 Hx Alcohol Use: No Drug/Substance Use Hx: No Substance Use Type: None Hx Substance Use Treatment: No <Shania Li - Last Filed: 08/10/17 20:20> - Past Medical History Allergies/Adverse Reactions: Allergies Allergy/AdvReac Type Severity Reaction Status Date / Time No Known Drug Allergies Allergy Verified 07/11/17 10:49 Home Medications: Ambulatory Orders Finasteride 5 mg PO DAILY 12/10/14 Metoprolol Succinate [Toprol XL -] 50 mg PO DAILY 12/10/14 Multivitamins [Multivit ([facility] Formulary)] 1 tab PO DAILY 12/10/14 Sertraline HCl [Zoloft] 50 mg PO DAILY 12/10/14 Tamsulosin HCl [Flomax -] 0.4 mg PO DAILY 12/10/14 Furosemide [Lasix -] 40 mg PO DAILY 12/25/14 ASA - 81 mg PO DAILY 03/02/17 Atorvastatin Ca [Lipitor] 10 mg PO HS 07/12/17 Oxycodone HCl/Acetaminophen [Percocet 10-325 mg Tablet] 1 each PO HS 07/12/17 Ranitidine HCl 300 mg PO DAILY 07/12/17 Folic Acid - 1 mg PO DAILY #30 tablet 07/17/17 Nystatin Oral Suspension - [Nystatin Oral Susp 754592 Units/5 ML -] 5 ml PO TID 08/04/17 Review of Systems - Review of Systems Comments:: 08/03/17 22:31 GENERAL/CONSTITUTIONAL: No fever or chills. No weakness. HEAD, EYES, EARS, NOSE AND THROAT: No change in vision. No ear pain or discharge. No sore throat. CARDIOVASCULAR: No chest pain or shortness of breath. RESPIRATORY: No cough, wheezing, or hemoptysis. GASTROINTESTINAL: No nausea, vomiting, diarrhea or constipation. GENITOURINARY: No dysuria, frequency, or change in urination. MUSCULOSKELETAL: No joint or muscle swelling or pain. No neck or back pain. SKIN: +weeping right leg wound NEUROLOGIC: No headache, vertigo, loss of consciousness, or change in strength/ sensation. ENDOCRINE: No increased thirst. No abnormal weight change. HEMATOLOGIC/LYMPHATIC: No anemia, easy bleeding, or history of blood clots. ALLERGIC/IMMUNOLOGIC: No hives or skin allergy. <Silvina Engel - Last Filed: 08/04/17 02:36> *Physical Exam - Vital Signs Last Vital Signs Temp Pulse Resp BP Pulse Ox 98.9 F 97 H 18 123/80 100 08/03/17 19:13 08/03/17 19:13 08/03/17 19:13 08/03/17 19:13 08/03/17 19:13 - Physical Exam Comments: 08/04/17 00:37 GENERAL: Obese. Awake, alert, and fully oriented, in no acute distress HEAD: No signs of trauma EYES: PERRLA, EOMI, sclera anicteric, conjunctiva clear ENT: Auricles normal inspection, hearing grossly normal, nares patent, oropharynx clear without exudates. Moist mucosa NECK: Normal ROM, supple, no lymphadenopathy, JVD, or masses LUNGS: Breath sounds equal, clear to auscultation bilaterally. No wheezes, and no crackles HEART: Regular rate and rhythm, normal S1 and S2, no murmurs, rubs or gallops ABDOMEN: Soft, nontender, normoactive bowel sounds. No guarding, no rebound. No masses EXTREMITIES: Normal range of motion, no edema. No clubbing or cyanosis. No cords, erythema, or tenderness NEUROLOGICAL: Cranial nerves II through XII grossly intact. Normal speech, normal gait SKIN: MRSA Warm, Dry, normal turgor. Right lower extremity from foot to the knee -->skin is denuded, weeping, and errythematous. Chronic non-healing wounds. Left lateral mid-calf --> small area of unhealed ulcer. Left leg --> no weeping, bright red, irritated dry skin. <Silvina Engel - Last Filed: 08/04/17 02:36> - Vital Signs Last Vital Signs Temp Pulse Resp BP Pulse Ox 98.9 F 97 H 18 123/80 100 08/03/17 19:13 08/03/17 19:13 08/03/17 19:13 08/03/17 19:13 08/03/17 19:13 <Shania Li - Last Filed: 08/10/17 20:20> ED Treatment Course - LABORATORY CBC & Chemistry Diagram: 08/03/17 19:30 08/03/17 22:44 - ADDITIONAL ORDERS Additional order review: Laboratory Results 08/03/17 19:30 Sodium 135 L Potassium 6.6 H* D Chloride 105 Carbon Dioxide 27 Anion Gap 3 L BUN 24 H D Creatinine 2.8 H D Creat Clearance w eGFR 23.08 Random Glucose 87 Calcium 7.7 L Total Bilirubin 0.9 D AST 21 D ALT 11 L Alkaline Phosphatase 137 H D Total Protein 7.2 Albumin 2.0 L 08/03/17 19:30 RBC 3.87 L MCV 82.9 MCHC 31.8 L RDW 17.3 H D MPV 6.8 L Neutrophils % 63.9 Lymphocytes % 22.6 Monocytes % 8.5 Eosinophils % 3.8 Basophils % 1.2 - Medications Given in the ED: ED Medications Discontinued Medications Generic Name Dose Route Start Last Admin Trade Name Freq PRN Reason Stop Dose Admin Dextrose 25 gm 08/03/17 20:33 08/03/17 21:50 D50w (Vial) - IVPUSH 08/03/17 20:34 25 gm NOW ONE Administration Insulin Human Regular 10 units 08/03/17 20:33 08/03/17 21:50 Novolin R Vial *For Ivpush Or Iv Drip Only* IVPUSH 08/03/17 20:34 10 units ONCE ONE Administration Sodium Polystyrene Sulfonate 30 gm 08/03/17 20:33 08/03/17 21:50 Kayexalate - PO 08/03/17 20:34 30 gm ONCE ONE Administration <Silvina Engel - Last Filed: 08/04/17 02:36> - LABORATORY CBC & Chemistry Diagram: 08/10/17 06:30 08/10/17 06:30 - ADDITIONAL ORDERS Additional order review: 08/03/17 19:30 RBC 3.87 L MCV 82.9 MCHC 31.8 L RDW 17.3 H D MPV 6.8 L Neutrophils % 63.9 Lymphocytes % 22.6 Monocytes % 8.5 Eosinophils % 3.8 Basophils % 1.2 <Shania Li - Last Filed: 08/10/17 20:20> Medical Decision Making - Medical Decision Making 08/04/17 02:33 Pt is here for a 3-year long cellulitis of his legs. States that it is not getting better and his PMD wanted him admitted for vascular surgery, wound care and ID evaluation. Pt is currently on oral abx and he has been getting outpatient wound care and his wound is getting worse and not better. 08/10/17 20:18 Pt's wound was redressed by myself. The entire lower leg is denuded/red weepy skin. Pt will be admitted for wound care IV abx and eval for MRSA, as well as ID eval. <Shania Li - Last Filed: 08/10/17 20:20> *DC/Admit/Observation/Transfer - Attestations Scribe Attestion: 08/04/17 00:49 Documentation prepared by Silvina Engel, acting as medical billing service for Shania Li MD. <Silvina Engel - Last Filed: 08/04/17 02:36> - Discharge Dispostion Admit: Yes <Shania Li - Last Filed: 08/10/17 20:20> Diagnosis at time of Disposition: Obesity, MRSA (methicillin resistant Staphylococcus aureus) infection, Rash and nonspecific skin eruption, Leg wound, right - Discharge Dispostion Condition at time of disposition: Guarded
[2017-08-03] MEDS ORDERED: DEXTROSE 50%-WATER - 25 GM/50 ML VIAL IVPUSH ONE (20:33)
[2017-08-03] MEDS ORDERED: SODIUM POLYSTYRENE SULFONATE 15 GM/60 ML BOTTLE PO ONE (20:33)
[2017-08-03] MEDS ORDERED: INSULIN REGULAR HUMAN 100 UNITS/ML *VIAL IVPUSH ONE (20:33)
[2017-08-03] MEDS ORDERED: DEXTROSE 50%-WATER 25 GM/50 ML DISP.SYRIN ONE (21:09)
[2017-08-03] MEDS ORDERED: SODIUM POLYSTYRENE SULFONATE 15 GM/60 ML BOTTLE ONE (21:10)
[2017-08-03] MEDS ORDERED: INSULIN REGULAR HUMAN 100 UNITS/ML *VIAL ONE (21:11)
[2017-08-03] MEDS ORDERED: ACETAMINOPHEN WITH CODEINE 300MG/30MG TABLET ONE (22:22)
[2017-08-03] MEDS: ACETAMINOPHEN WITH CODEINE 300MG/30MG TABLET PO SCH (22:25)
[2017-08-03] MEDS: SODIUM CHLORIDE 1,000 ML IV SCH (23:09)
[2017-08-03] MEDS: ATORVASTATIN CA 10 MG TABLET (FP) PO SCH (23:10)
[2017-08-04 00:41] LABS: ANION GAP 6 (8-16); BLOOD UREA NITROGEN 25 mg/dL (7-18); CALCIUM 8.3 mg/dL (8.5-10.1); CHLORIDE 107 mmol/L (98-107); CO2 24 mmol/L (21-32); CREATININE 3.2 mg/dL (0.7-1.3); POTASSIUM 5.6 mmol/L (3.5-5.1); SODIUM 137 mmol/L (136-145)
[2017-08-04 00:44] LABS: GLUCOSE,RANDOM 33 mg/dL (74-106)
[2017-08-04] MEDS ORDERED: DEXTROSE 50%-WATER - 25 GM/50 ML VIAL IVPUSH ONE (00:51)
[2017-08-04] MEDS ORDERED: DEXTROSE 50%-WATER 25 GM/50 ML DISP.SYRIN ONE (00:53)
[2017-08-04] MEDS: SODIUM CHLORIDE 1,000 ML IV SCH (03:04)
[2017-08-04 03:26] VITALS: BMI 42.8
[2017-08-04] MEDS: ACETAMINOPHEN WITH CODEINE 300MG/30MG TABLET PO SCH ×4 (04:01→22:12)
[2017-08-04] MEDS: INSULIN SLIDING SCALE (NOVOLOG) 1 VIAL SQ SCH ×2 (06:54→13:31)
[2017-08-04 08:27] LABS: BASO % 1.1 % (0-2.0); EOS % 2.8 % (0-4.5); HEMATOCRIT 33.2 % (35.4-49); HEMOGLOBIN 10.1 GM/dL (11.7-16.9); MCH 25.6 pg (25.7-33.7); MCHC 30.5 g/dl (32.0-35.9); MONO % 8.9 % (3.8-10.2); NEUT % 62.2 % (42.8-82.8); PLATELET COUNT 334 K/MM3 (134-434); RBC 3.96 M/mm3 (4.00-5.60); RDW 17.8 % (11.9-15.9)
[2017-08-04 09:11] LABS: ANION GAP 8 (8-16); BLOOD UREA NITROGEN 25 mg/dL (7-18); CALCIUM 8.1 mg/dL (8.5-10.1); CHLORIDE 105 mmol/L (98-107); CO2 25 mmol/L (21-32); CREATININE 3.2 mg/dL (0.7-1.3); GLUCOSE,RANDOM 74 mg/dL (74-106); SODIUM 138 mmol/L (136-145)
[2017-08-04] MEDS ORDERED: PATIENT'S OWN MEDICATION (NON-FORMULARY) (Asa - 81 MG) PO SCH (10:00)
[2017-08-04] MEDS ORDERED: PATIENT'S OWN MEDICATION (NON-FORMULARY) (Ranitidine Hcl [Ranitidine Hcl] 300 MG) PO SCH (10:00)
[2017-08-04] MEDS ORDERED: SERTRALINE HCL 50 MG PO SCH (10:00)
[2017-08-04 11:11] LABS: POTASSIUM 6.2 mmol/L (3.5-5.1)
[2017-08-04] MEDS: FINASTERIDE 5 MG TABLET (FP) PO SCH (11:17)
[2017-08-04] MEDS: SERTRALINE HCL 50 MG TABLET (FP) PO SCH (11:18)
[2017-08-04] MEDS: MULTIVITAMINS (DAILY MVI) TABLET (FP) PO SCH (11:18)
[2017-08-04] MEDS: ASPIRIN 81 MG CHEWABLE TABLETS PO SCH (11:18)
[2017-08-04] MEDS: RANITIDINE HCL 150 MG TABLET (FP) PO SCH (11:18)
[2017-08-04] MEDS: FOLIC ACID 1 MG TABLET (FP) PO SCH (11:18)
[2017-08-04] MEDS: TAMSULOSIN HCL 0.4 MG CAP.ER.24H (FP) PO SCH (11:18)
[2017-08-04] MEDS ORDERED: SODIUM POLYSTYRENE SULFONATE 15 GM/60 ML BOTTLE PO ONE ×2 (13:00→20:45)
--- NOTE | 2017-08-04 14:04 | PN ---
Progress Note (short form) - Note Progress Note: ID consult was done yesterday in W[facility] care he had a fever of 100, was tachypneic and had drainage and erythema of the RLE that has been worsening since recent discharge I spoke to him and his PMD and reccd admission for iv antibiotics and further eval he reports no more fevers slept well Vital Signs Period Temp Pulse Resp BP Sys/Gallagher Pulse Ox Last 24 Hr 97.3 F-98.9 F 69-97 18-20 118-124/60-80 95-100 cor-rrr lungs decreased bs at base abd soft,nt ext venous stasis with erythema and serous drainage RLE CBC, BMP 08/04/17 07:30 08/04/17 07:30 Microbiology 08/03/17 19:32 Leg - Right Lower Gram Stain - Final prior wound culture MRSA/acinetobacter/enterococcus a/p cellulitis venous stasis CKD with hyperkalemia-worsening renal function prior history of MRSA contact isolation vancomycin by abhilash unasyn
--- NOTE | 2017-08-04 14:16 | HP ---
Admitting History and Physical - Primary Care Physician PCP: scha - Admission Chief Complaint: Worsening Rt Le Cellulitis History of Present Illness: 61 yrs old man H/O HTN, T@DM, Diabetic Nephropathy stage 4 CKD, chronic Venous stasis ulcers and H/O Cellulitis, MRSA + in the past recently admitted and discharged from [facility] on 07/23/2017 after treated for Cellulitis, yesterday visited wound care Ctr, MD noticed fever, worsening LE Swelling and discharge from RT LE wound referred to Ed for evaluation, patient c/o fever, Rt LE pain denies any chills, dysuria, chest pain or SOB, on arrival ED Hemodynamically stable lab shows Hyperkalemia , patient received D 50 and insulin admitted for further management, Evaluated by ID and Nephrology consult. History Source: Patient - Past Medical History Cardiovascular: Yes: CAD (remote stents in late ), HTN, Hyperlipdemia Pulmonary: Yes: COPD, Sleep Apnea Gastrointestinal: Yes: GERD, Other (Wong's Esophagus, Steatosis/ Fatty Liver disease) Renal/: Yes: BPH Heme/Onc: Yes: Other (NHL) Musculoskeletal: Yes: Osteoarthritis Rheumatology: Yes: Rheumatoid Arthritis Endocrine: Yes: Diabetes Mellitus, Other (Obesity) Dermatology: Yes: Other (melanoma) - Past Surgical History Past Surgical History: Yes: Hernia Repair (with mesh), TURP, Tonsillectomy - Advance Directives Advance Directives: Yes: Living Will, Health Care Proxy - Smoking History Smoking history: Current every day smoker Have you smoked in the past 12 months: Yes Aproximately how many cigarettes per day: 10 If you are a former smoker, when did you quit?: 6 weeks ago - Alcohol/Substance Use Hx Alcohol Use: Yes (weekends) - Social History ADL: Independent Occupation: disabled due to RA and Lymphoma (formerly worked for [employer]) History of Recent Travel: No (last [place] 05/2014) Home Medications - Allergies Allergies/Adverse Reactions: Allergies Allergy/AdvReac Type Severity Reaction Status Date / Time No Known Drug Allergies Allergy Verified 07/11/17 10:49 - Home Medications Home Medications: Ambulatory Orders Finasteride 5 mg PO DAILY 12/10/14 Metoprolol Succinate [Toprol XL -] 50 mg PO DAILY 12/10/14 Multivitamins [Multivit ([facility] Formulary)] 1 tab PO DAILY 12/10/14 Sertraline HCl [Zoloft] 50 mg PO DAILY 12/10/14 Tamsulosin HCl [Flomax -] 0.4 mg PO DAILY 12/10/14 Furosemide [Lasix -] 40 mg PO DAILY 12/25/14 ASA - 81 mg PO DAILY 03/02/17 Atorvastatin Ca [Lipitor] 10 mg PO HS 07/12/17 Oxycodone HCl/Acetaminophen [Percocet 10-325 mg Tablet] 1 each PO HS 07/12/17 Ranitidine HCl 300 mg PO DAILY 07/12/17 Folic Acid - 1 mg PO DAILY #30 tablet 07/17/17 Nystatin Oral Suspension - [Nystatin Oral Susp 883711 Units/5 ML -] 5 ml PO TID 08/04/17 Family Disease History - Family Disease History Family Disease History: Heart Disease: Mother (mothers family with RA), Other: Mother Review of Systems - Review of Systems Constitutional: reports: Fever. denies: Chills HENT: reports: Throat Pain. denies: Difficult Swallowing, Ear Discharge Neck: denies: Decreased ROM, Lumps, Pain on Movement Cardiovascular: reports: Edema. denies: Chest Pain, Palpitations, Shortness of Breath Respiratory: reports: Snoring, SOB. denies: Cough, PND Gastrointestinal: reports: Vomiting. denies: Abdominal Pain Genitourinary: denies: Dysuria, Flank Pain Musculoskeletal: reports: Back Pain Integumentary: reports: Blister, Lesions, Wound Neurological: denies: Change in LOC Hematology/Lymphatic: reports: Easily Bruised, Excessive Bleeding Pain Intensity: 4 Physical Examination Vital Signs: Vital Signs Temperature 97.5 F L 08/04/17 06:00 Pulse Rate 76 08/04/17 06:00 Respiratory Rate 20 08/04/17 06:00 Blood Pressure 124/62 08/04/17 06:00 O2 Sat by Pulse Oximetry (%) 95 08/04/17 03:15 Elderly man sick looking not in distress HEENT: Mm moist, oral thrush, , PERRLA EOMI NECK: No JVd No Bruit CHEST: Minimal Basal Crepts CVS: s1S2 R no m/g/r ABD: obese, non tender Bs + EXT: B/L Extensive venous Stasis chnages Rt > Left, Ulceration with exudative discharge poor Circulation. Groin rash. 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 Labs: CBC, BMP 08/04/17 07:30 08/04/17 07:30 Imaging - Results Chest X-ray: Report Reviewed (Old Rib fracture no infiltrates) EKG: Report Reviewed (No acute changes NSR) Problem List - Problems (1) Cellulitis of right leg Assessment/Plan: Worsening Cellulitis Rt LE, evaluated by ID Wound Care F/U Cultures ON IV Vancomycin by level and Unasyn. Code(s): L03.115 - CELLULITIS OF RIGHT LOWER LIMB (2) CKD stage 4 due to type 2 diabetes mellitus Assessment/Plan: Mild Elevation of BUN/Cret IV Hydration F/U BMP in am. Code(s): E11.22 - TYPE 2 DIABETES MELLITUS W DIABETIC CHRONIC KIDNEY DISEASE; N18.4 - CHRONIC KIDNEY DISEASE, STAGE 4 (SEVERE) (3) T2DM (type 2 diabetes mellitus) Assessment/Plan: H/O T2DM now developed Nephropathy , not pn medication F/U Accuchecks HbA1C. Code(s): E11.9 - TYPE 2 DIABETES MELLITUS WITHOUT COMPLICATIONS Qualifiers: Diabetes mellitus complication status: with kidney complications (4) Hyperkalemia Assessment/Plan: Recived IV D50 and Insulin F/U BMP level Code(s): E87.5 - HYPERKALEMIA (5) Morbidly obese Assessment/Plan: Nutrition consult as out patient. Code(s): E66.01 - MORBID (SEVERE) OBESITY DUE TO EXCESS CALORIES (6) Acquired lymphedema of lower extremity Assessment/Plan: Chronic F/U wound care Code(s): I89.0 - LYMPHEDEMA, NOT ELSEWHERE CLASSIFIED (7) Hypertension Assessment/Plan: Well controlled Code(s): I10 - ESSENTIAL (PRIMARY) HYPERTENSION Qualifiers: Hypertension type: unspecified Qualified Code(s): I10 - Essential (primary ) hypertension (8) Oral thrush Assessment/Plan: Nystatin swish and swallow. Code(s): B37.0 - CANDIDAL STOMATITIS (9) Groin rash Assessment/Plan: Clotrimazole ONT BID Code(s): R21 - RASH AND OTHER NONSPECIFIC SKIN ERUPTION
[2017-08-04] MEDS ORDERED: VANCOMYCIN 1,250 MG in DEXTROSE 5%-WATER - 250 ML IVPB ONE ×2 (15:00→15:30)
--- NOTE | 2017-08-04 15:15 | EKG ---
Test Reason : Blood Pressure : / mmHG Vent. Rate : 073 BPM Atrial Rate : 073 BPM P-R Int : 136 ms QRS Dur : 090 ms QT Int : 398 ms P-R-T Axes : 047 -01 035 degrees QTc Int : 438 ms NORMAL SINUS RHYTHM NORMAL ECG WHEN COMPARED WITH ECG OF 03-AUG-2017 21:31, PREMATURE SUPRAVENTRICULAR COMPLEXES ARE NO LONGER PRESENT Confirmed by Andrew Costello ([id number]) on 08/04/2017 3:14:35 PM Referred By: Alex JENKINS Confirmed By:Andrew Costello
[2017-08-04] MEDS ORDERED: PT OWN MED DRAWER 7, Y5N ONE (17:22)
[2017-08-04] MEDS: NYSTATIN 500,000 UNITS/5 ML SUSPENSION PO SCH (17:27)
--- NOTE | 2017-08-04 17:37 | CON.NEP ---
Consult Consult Specialty:: nephrology Referred by:: shira orr Reason for Consultation:: kidney failure and hyperkalemia - History of Present Illness Chief Complaint: fever infected leg ulcer History of Present Illness: noted with azotemia labs in hosp info sys shows worse kidney function in 07/11/17 prior to that date s creat was mostly normal the recent dick seems related to nsaid use - History Source History Provided By: Patient - Past Medical History Cardio/Vascular: Yes: CAD (remote stents in late ), HTN, Hyperlipdemia Pulmonary: Yes: COPD, Sleep Apnea Gastrointestinal: Yes: GERD, Other (Wong's Esophagus, Steatosis/ Fatty Liver disease) Renal/: Yes: BPH Musculoskeletal: Yes: Osteoarthritis Rheumatology: Yes: Rheumatoid Arthritis Endocrine: Yes: Diabetes Mellitus, Other (Obesity) Dermatology: Yes: Other (melanoma) - Past Surgical History Past Surgical History: Yes: Hernia Repair (with mesh), TURP, Tonsillectomy - Alcohol/Substance Use Hx Alcohol Use: Yes (weekends) - Smoking History Smoking history: Current every day smoker Have you smoked in the past 12 months: Yes Aproximately how many cigarettes per day: 10 If you are a former smoker, when did you quit?: 6 weeks ago - Social History Usual Living Arrangement: Alone (lives alone in co-op with 12 steps then 1 step to enter, ambulates with straight cane, and was Independent in ADLs and some IADLs but has assistance in some IADLs as well) ADL: Independent Occupation: disabled due to RA and Lymphoma (formerly worked for [email or web address]) History of Recent Travel: No (last [place] 05/2014) Home Medications - Allergies Allergies/Adverse Reactions: Allergies Allergy/AdvReac Type Severity Reaction Status Date / Time No Known Drug Allergies Allergy Verified 07/11/17 10:49 - Home Medications Home Medications: Ambulatory Orders Finasteride 5 mg PO DAILY 12/10/14 Metoprolol Succinate [Toprol XL -] 50 mg PO DAILY 12/10/14 Multivitamins [Multivit ([facility] Formulary)] 1 tab PO DAILY 12/10/14 Sertraline HCl [Zoloft] 50 mg PO DAILY 12/10/14 Tamsulosin HCl [Flomax -] 0.4 mg PO DAILY 12/10/14 Furosemide [Lasix -] 40 mg PO DAILY 12/25/14 ASA - 81 mg PO DAILY 03/02/17 Atorvastatin Ca [Lipitor] 10 mg PO HS 07/12/17 Oxycodone HCl/Acetaminophen [Percocet 10-325 mg Tablet] 1 each PO HS 07/12/17 Ranitidine HCl 300 mg PO DAILY 07/12/17 Folic Acid - 1 mg PO DAILY #30 tablet 07/17/17 Nystatin Oral Suspension - [Nystatin Oral Susp 276882 Units/5 ML -] 5 ml PO TID 08/04/17 Family Disease History - Family Disease History Family Disease History: Heart Disease: Mother (mothers family with RA), Other: Mother Nephrology Consult - Height Height: 5 ft 7 in - Weight Weight: 273 lb 9.6 oz - BMI Body Mass Index (BMI): 42.8 - Lab Results CBC,BMP: CBC, BMP 08/04/17 07:30 08/04/17 07:30 Anion Gap: Anion Gap Anion Gap 8 (8-16) 08/04/17 07:30 - Physical Examination Vital Signs: Vital Signs Temperature 98.7 F 08/04/17 14:47 Pulse Rate 84 08/04/17 14:47 Respiratory Rate 16 08/04/17 14:47 Blood Pressure 140/70 08/04/17 14:47 O2 Sat by Pulse Oximetry (%) 95 08/04/17 09:00 Assessment/Plan dick clinically dry probably prerenal dick on chronic Plan- iv hydration follw up labs
[2017-08-04] MEDS: AMPICILLIN NA/SULBACTAM NA 1.5 GM in SODIUM CHLORIDE 100 ML IVPB SCH ×2 (18:21→22:15)
[2017-08-04 19:46] LABS: ANION GAP 8 (8-16); BLOOD UREA NITROGEN 29 mg/dL (7-18); CALCIUM 7.7 mg/dL (8.5-10.1); CHLORIDE 107 mmol/L (98-107); CO2 21 mmol/L (21-32); CREATININE 3.5 mg/dL (0.7-1.3); GLUCOSE,RANDOM 93 mg/dL (74-106); POTASSIUM 5.8 mmol/L (3.5-5.1); SODIUM 136 mmol/L (136-145)
[2017-08-04] MEDS: DEXTROSE 5%-0.45% SALINE 1,000 ML IV SCH (22:07)
[2017-08-04] MEDS: CLOTRIMAZOLE 1% CREAM 15 GM TUBE TP SCH (22:09)
[2017-08-04] MEDS: ATORVASTATIN CA 10 MG TABLET (FP) PO SCH (22:12)
[2017-08-05] MEDS ORDERED: SODIUM POLYSTYRENE SULFONATE 15 GM/60 ML BOTTLE PO ONE (05:00)
[2017-08-05] MEDS: NYSTATIN 500,000 UNITS/5 ML SUSPENSION PO SCH ×5 (06:23→17:45)
[2017-08-05] MEDS: ACETAMINOPHEN WITH CODEINE 300MG/30MG TABLET PO SCH ×3 (06:24→18:40)
[2017-08-05 07:40] LABS: EOS % 4.4 % (0-4.5); HEMATOCRIT 30.3 % (35.4-49); HEMOGLOBIN 9.4 GM/dL (11.7-16.9); LYMPH % 26.7 % (8-40); MCH 25.6 pg (25.7-33.7); MCHC 30.9 g/dl (32.0-35.9); MEAN CELL VOLUME 82.9 fl (80-96); MEAN PLT VOLUME 6.7 fl (7.5-11.1); MONO % 10.4 % (3.8-10.2); NEUT % 57.5 % (42.8-82.8); PLATELET COUNT 299 K/MM3 (134-434); RBC 3.65 M/mm3 (4.00-5.60); RDW 17.9 % (11.9-15.9); WHITE BLOOD COUNT 9.5 K/mm3 (4.0-10.0)
[2017-08-05 07:41] LABS: ANION GAP 7 (8-16); BLOOD UREA NITROGEN 29 mg/dL (7-18); CALCIUM 7.4 mg/dL (8.5-10.1); CHLORIDE 106 mmol/L (98-107); CO2 22 mmol/L (21-32); GLUCOSE,RANDOM 94 mg/dL (74-106); POTASSIUM 5.2 mmol/L (3.5-5.1); SODIUM 135 mmol/L (136-145)
[2017-08-05 07:43] LABS: CREATININE 3.7 mg/dL (0.7-1.3)
--- NOTE | 2017-08-05 09:48 | PN ---
Progress Note (short form) - Note Progress Note: still on kayexelate for hyperkalemia Vital Signs Period Temp Pulse Resp BP Sys/Gallagher Pulse Ox Last 24 Hr 98 F-98.7 F 84-90 16-18 114-143/58-72 cor-rrr lungs clear abd soft,nt- protuberant ext dressing intact CBC, BMP 08/05/17 07:00 08/05/17 07:00 Microbiology Microbiology 08/03/17 19:32 Blood - Peripheral Venous Blood Culture - Preliminary NO GROWTH OBTAINED AFTER 24 HOURS, INCUBATION TO CONTINUE FOR 4 DAYS. 08/03/17 19:32 Blood - Peripheral Venous Blood Culture - Preliminary NO GROWTH OBTAINED AFTER 24 HOURS, INCUBATION TO CONTINUE FOR 4 DAYS. 08/03/17 19:32 Leg - Right Lower Gram Stain - Final prior wound culture MRSA/acinetobacter/enterococcus Laboratory Tests 08/05/17 07:00 Random Vancomycin 11.860 a/p cellulitis venous stasis CKD with hyperkalemia-worsening renal function prior history of MRSA contact isolation redose vancomycin today unasyn
[2017-08-05] MEDS ORDERED: VANCOMYCIN 1 GRAM (PRE-DOCKED) 1,000 MG/250 ML BAG IVPB ONE (09:49)
[2017-08-05] MEDS ORDERED: VANCOMYCIN 1,000 MG in DEXTROSE 5%-WATER - 250 ML IVPB ONE (10:15)
[2017-08-05] MEDS ORDERED: PT OWN MED DRAWER 7, Y5N ONE (10:20)
[2017-08-05] MEDS: TAMSULOSIN HCL 0.4 MG CAP.ER.24H (FP) PO SCH (10:29)
[2017-08-05] MEDS: MULTIVITAMINS (DAILY MVI) TABLET (FP) PO SCH (10:29)
[2017-08-05] MEDS: ASPIRIN 81 MG CHEWABLE TABLETS PO SCH (10:29)
[2017-08-05] MEDS: FOLIC ACID 1 MG TABLET (FP) PO SCH (10:29)
[2017-08-05] MEDS: FINASTERIDE 5 MG TABLET (FP) PO SCH (10:30)
[2017-08-05] MEDS: RANITIDINE HCL 150 MG TABLET (FP) PO SCH (10:30)
[2017-08-05] MEDS: CLOTRIMAZOLE 1% CREAM 15 GM TUBE TP SCH (10:30)
[2017-08-05] MEDS: SERTRALINE HCL 50 MG TABLET (FP) PO SCH (10:30)
[2017-08-05] MEDS: AMPICILLIN NA/SULBACTAM NA 1.5 GM in SODIUM CHLORIDE 100 ML IVPB SCH (12:12)
--- NOTE | 2017-08-05 12:46 | PN ---
Progress Note, Physician Chief Complaint: No New complaints C/O LE Pain - Current Medication List Current Medications: Active Medications Acetaminophen/Codeine Phosphate (Tylenol # 3 -) 1 tab PO Q6H [facility] Last Admin: 08/05/17 09:00 Dose: 1 tab Aspirin (Asa -) 81 mg PO DAILY [facility] Last Admin: 08/05/17 10:29 Dose: 81 mg Atorvastatin Calcium (Lipitor -) 10 mg PO HS [facility] Last Admin: 08/04/17 22:12 Dose: 10 mg Clotrimazole (Lotrimin 1% Cream -) 1 applic TP BID [facility] Last Admin: 08/05/17 10:30 Dose: 1 applic Finasteride (Proscar -) 5 mg PO DAILY [facility] Last Admin: 08/05/17 10:30 Dose: 5 mg Folic Acid (Folic Acid -) 1 mg PO DAILY [facility] Last Admin: 08/05/17 10:29 Dose: 1 mg Ampicillin Sodium/Sulbactam (Sodium 1.5 gm/ Sodium Chloride) 100 mls @ 200 mls/ hr IVPB BID [facility] Last Admin: 08/05/17 12:12 Dose: 200 mls/hr Dextrose/Sodium Chloride (D5-1/2ns -) 1,000 mls @ 75 mls/hr IV ASDIR [facility] Last Admin: 08/04/17 22:07 Dose: 75 mls/hr Metoprolol Succinate (Toprol Xl -) 50 mg PO DAILY [facility] Last Admin: 08/05/17 10:29 Dose: 50 mg Multivitamins/Minerals/Vitamin C (Tab-A-Vit -) 1 tab PO DAILY [facility] Last Admin: 08/05/17 10:29 Dose: 1 tab Nystatin (Nystatin Oral Suspension -) 500,000 units PO Q6HPO [facility] Last Admin: 08/05/17 12:22 Dose: 500,000 units Ranitidine HCl (Zantac -) 300 mg PO DAILY [facility] Last Admin: 08/05/17 10:30 Dose: 300 mg Sertraline HCl (Zoloft -) 50 mg PO DAILY [facility] Last Admin: 08/05/17 10:30 Dose: 50 mg Tamsulosin HCl (Flomax -) 0.4 mg PO DAILY [facility] Last Admin: 08/05/17 10:29 Dose: 0.4 mg - Objective Vital Signs: Vital Signs Temperature 98.1 F 08/05/17 06:21 Pulse Rate 90 08/05/17 06:21 Respiratory Rate 18 08/05/17 06:21 Blood Pressure 114/58 08/05/17 06:21 O2 Sat by Pulse Oximetry (%) 95 08/04/17 09:00 Elderly man sick looking not in distress HEENT: Mm moist, oral thrush, , PERRLA EOMI NECK: No JVd No Bruit CHEST: Minimal Basal Crepts CVS: s1S2 R no m/g/r ABD: obese, non tender Bs + EXT: B/L Extensive venous Stasis chnages Rt > Left, Ulceration with exudative discharge poor Circulation. Groin rash. THERAPIST RRT: AOX3 non focal. Labs: CBC, BMP 08/05/17 07:00 08/05/17 07:00 Laboratory Results - last 24 hr 08/04/17 08/04/17 08/04/17 08:35 08:35 15:30 WBC RBC Hgb Hct MCV MCH MCHC RDW Plt Count MPV Neutrophils % Lymphocytes % Monocytes % Eosinophils % Basophils % Sodium Potassium Chloride Carbon Dioxide Anion Gap BUN Creatinine POC Glucometer Random Glucose Calcium Random Vancomycin Vancomycin Pre-Dose < 0.800 L* Hepatitis C Antibody 0.2 HIV 1&2 Antibody Screen Negative HIV P24 Antigen Negative 08/04/17 08/04/17 08/05/17 17:28 18:20 07:00 WBC RBC Hgb Hct MCV MCH MCHC RDW Plt Count MPV Neutrophils % Lymphocytes % Monocytes % Eosinophils % Basophils % Sodium 136 Potassium 5.8 H Chloride 107 Carbon Dioxide 21 Anion Gap 8 BUN 29 H Creatinine 3.5 H POC Glucometer 104 Random Glucose 93 D Calcium 7.7 L Random Vancomycin 11.860 Vancomycin Pre-Dose Hepatitis C Antibody HIV 1&2 Antibody Screen HIV P24 Antigen 08/05/17 08/05/17 08/05/17 07:00 07:00 11:42 WBC 9.5 RBC 3.65 L Hgb 9.4 L Hct 30.3 L MCV 82.9 MCH 25.6 L MCHC 30.9 L RDW 17.9 H Plt Count 299 MPV 6.7 L Neutrophils % 57.5 Lymphocytes % 26.7 Monocytes % 10.4 H Eosinophils % 4.4 Basophils % 1.0 Sodium 135 L Potassium 5.2 H Chloride 106 Carbon Dioxide 22 Anion Gap 7 L BUN 29 H Creatinine 3.7 H POC Glucometer 114 Random Glucose 94 Calcium 7.4 L Random Vancomycin Vancomycin Pre-Dose Hepatitis C Antibody HIV 1&2 Antibody Screen HIV P24 Antigen Problem List - Problems (1) Cellulitis of right leg Assessment/Plan: Worsening Cellulitis Rt LE, evaluated by ID Wound Care F/U Cultures ON IV Vancomycin by level and Unasyn. Code(s): L03.115 - CELLULITIS OF RIGHT LOWER LIMB (2) CKD stage 4 due to type 2 diabetes mellitus Assessment/Plan: Mild Elevation of BUN/Cret IV Hydration F/U BMP in am. Code(s): E11.22 - TYPE 2 DIABETES MELLITUS W DIABETIC CHRONIC KIDNEY DISEASE; N18.4 - CHRONIC KIDNEY DISEASE, STAGE 4 (SEVERE) (3) T2DM (type 2 diabetes mellitus) Assessment/Plan: H/O T2DM now developed Nephropathy , not pn medication F/U Accuchecks HbA1C. Code(s): E11.9 - TYPE 2 DIABETES MELLITUS WITHOUT COMPLICATIONS Qualifiers: Diabetes mellitus complication status: with kidney complications (4) Hyperkalemia Assessment/Plan: Recived IV D50 and Insulin F/U BMP level K 5.2 today F/U Nephrology recommendations Code(s): E87.5 - HYPERKALEMIA (5) Morbidly obese Code(s): E66.01 - MORBID (SEVERE) OBESITY DUE TO EXCESS CALORIES (6) Acquired lymphedema of lower extremity Assessment/Plan: Chronic F/U wound care Code(s): I89.0 - LYMPHEDEMA, NOT ELSEWHERE CLASSIFIED (7) Hypertension Assessment/Plan: Well controlled Code(s): I10 - ESSENTIAL (PRIMARY) HYPERTENSION Qualifiers: Hypertension type: unspecified Qualified Code(s): I10 - Essential (primary ) hypertension (8) Oral thrush Assessment/Plan: Nystatin swish and swallow. Code(s): B37.0 - CANDIDAL STOMATITIS (9) Groin rash Assessment/Plan: Clotrimazole ONT BID Code(s): R21 - RASH AND OTHER NONSPECIFIC SKIN ERUPTION
--- NOTE | 2017-08-05 19:57 | PN ---
Progress Note (short form) - Note Progress Note: dick clinically dry probably prerenal dick on chronic Plan- iv hydration follw up labs Active Medications Acetaminophen/Codeine Phosphate (Tylenol # 3 -) 1 tab PO Q6H [facility] Last Admin: 08/05/17 18:40 Dose: 1 tab Aspirin (Asa -) 81 mg PO DAILY [facility] Last Admin: 08/05/17 10:29 Dose: 81 mg Atorvastatin Calcium (Lipitor -) 10 mg PO HS [facility] Last Admin: 08/04/17 22:12 Dose: 10 mg Clotrimazole (Lotrimin 1% Cream -) 1 applic TP BID [facility] Last Admin: 08/05/17 10:30 Dose: 1 applic Finasteride (Proscar -) 5 mg PO DAILY [facility] Last Admin: 08/05/17 10:30 Dose: 5 mg Folic Acid (Folic Acid -) 1 mg PO DAILY [facility] Last Admin: 08/05/17 10:29 Dose: 1 mg Ampicillin Sodium/Sulbactam (Sodium 1.5 gm/ Sodium Chloride) 100 mls @ 200 mls/ hr IVPB BID [facility] Last Admin: 08/05/17 12:12 Dose: 200 mls/hr Dextrose/Sodium Chloride (D5-1/2ns -) 1,000 mls @ 75 mls/hr IV ASDIR [facility] Last Admin: 08/04/17 22:07 Dose: 75 mls/hr Metoprolol Succinate (Toprol Xl -) 50 mg PO DAILY [facility] Last Admin: 08/05/17 10:29 Dose: 50 mg Multivitamins/Minerals/Vitamin C (Tab-A-Vit -) 1 tab PO DAILY [facility] Last Admin: 08/05/17 10:29 Dose: 1 tab Nystatin (Nystatin Oral Suspension -) 500,000 units PO Q6HPO [facility] Last Admin: 08/05/17 17:45 Dose: 500,000 units Ranitidine HCl (Zantac -) 300 mg PO DAILY [facility] Last Admin: 08/05/17 10:30 Dose: 300 mg Sertraline HCl (Zoloft -) 50 mg PO DAILY [facility] Last Admin: 08/05/17 10:30 Dose: 50 mg Tamsulosin HCl (Flomax -) 0.4 mg PO DAILY [facility] Last Admin: 08/05/17 10:29 Dose: 0.4 mg Last Vital Signs Temp Pulse Resp BP Pulse Ox 98.5 F 78 18 138/76 95 08/05/17 15:28 08/05/17 15:28 08/05/17 15:28 08/05/17 18:00 08/05/17 09:00 CBC, BMP 08/05/17 07:00 08/05/17 07:00 dick- prerenal hyperkalemia clinically fluid depleted probably prerenal dick on chronic Plan- continue iv hydration follow up labs
[2017-08-05] MEDS: DEXTROSE 5%-0.45% SALINE 1,000 ML IV SCH (22:38)
[2017-08-06] MEDS: ACETAMINOPHEN WITH CODEINE 300MG/30MG TABLET PO SCH ×5 (01:15→21:27)
[2017-08-06] MEDS: NYSTATIN 500,000 UNITS/5 ML SUSPENSION PO SCH ×4 (01:15→17:22)
[2017-08-06] MEDS: ATORVASTATIN CA 10 MG TABLET (FP) PO SCH ×2 (01:16→21:27)
[2017-08-06] MEDS: CLOTRIMAZOLE 1% CREAM 15 GM TUBE TP SCH ×3 (01:16→21:31)
[2017-08-06] MEDS: AMPICILLIN NA/SULBACTAM NA 1.5 GM in SODIUM CHLORIDE 100 ML IVPB SCH ×2 (01:16→09:43)
[2017-08-06] MEDS: DEXTROSE 5%-0.45% SALINE 1,000 ML IV SCH (04:13)
[2017-08-06 08:26] LABS: ANION GAP 7 (8-16); BLOOD UREA NITROGEN 32 mg/dL (7-18); CALCIUM 7.5 mg/dL (8.5-10.1); CHLORIDE 105 mmol/L (98-107); CO2 24 mmol/L (21-32); CREATININE 3.4 mg/dL (0.7-1.3); GLUCOSE,RANDOM 118 mg/dL (74-106); SODIUM 136 mmol/L (136-145)
[2017-08-06 08:30] LABS: EOS % 4.1 % (0-4.5); HEMATOCRIT 31.6 % (35.4-49); HEMOGLOBIN 9.6 GM/dL (11.7-16.9); MCH 25.9 pg (25.7-33.7); MCHC 30.4 g/dl (32.0-35.9); MEAN CELL VOLUME 85.2 fl (80-96); MEAN PLT VOLUME 6.8 fl (7.5-11.1); MONO % 12.3 % (3.8-10.2); NEUT % 52.6 % (42.8-82.8); PLATELET COUNT 292 K/MM3 (134-434); RBC 3.71 M/mm3 (4.00-5.60); RDW 18.4 % (11.9-15.9); WHITE BLOOD COUNT 7.5 K/mm3 (4.0-10.0)
[2017-08-06] MEDS: FOLIC ACID 1 MG TABLET (FP) PO SCH (09:42)
[2017-08-06] MEDS: TAMSULOSIN HCL 0.4 MG CAP.ER.24H (FP) PO SCH (09:42)
[2017-08-06] MEDS: ASPIRIN 81 MG CHEWABLE TABLETS PO SCH (09:42)
[2017-08-06] MEDS: SERTRALINE HCL 50 MG TABLET (FP) PO SCH (09:43)
[2017-08-06] MEDS: FINASTERIDE 5 MG TABLET (FP) PO SCH (09:43)
[2017-08-06] MEDS: MULTIVITAMINS (DAILY MVI) TABLET (FP) PO SCH (09:43)
[2017-08-06] MEDS: RANITIDINE HCL 150 MG TABLET (FP) PO SCH (09:43)
--- NOTE | 2017-08-06 09:59 | PN ---
Progress Note (short form) - Note Progress Note: slept well Vital Signs Period Temp Pulse Resp BP Sys/Gallagher Pulse Ox Last 24 Hr 97.9 F-98.5 F 78-80 18-20 114-138/50-84 96 cor-rrr lungs decreased bs at bases abd soft,nt dressing removed, less erythema +Drainage CBC, BMP 08/06/17 06:00 08/06/17 06:00 Microbiology 08/03/17 19:32 Blood - Peripheral Venous Blood Culture - Preliminary NO GROWTH OBTAINED AFTER 48 HOURS, INCUBATION TO CONTINUE FOR 3 DAYS. 08/03/17 19:32 Blood - Peripheral Venous Blood Culture - Preliminary NO GROWTH OBTAINED AFTER 48 HOURS, INCUBATION TO CONTINUE FOR 3 DAYS. 08/03/17 19:32 Leg - Right Lower Gram Stain - Final 08/03/17 19:32 Leg - Right Lower Wound Culture - Preliminary Presumptive Mrsa (Pbp2a Pos) Group D Strep Or Entero Coccus Laboratory Tests 08/05/17 08/06/17 07:00 06:00 Random Vancomycin 11.860 15.405 a/p cellulitis venous stasis CKD with hyperkalemia-worsening renal function prior history of MRSA contact isolation redose vancomycin today d/c unasyn, vancomycin alone should be adequate for MRSA and enterococcus
[2017-08-06] MEDS ORDERED: VANCOMYCIN 1,000 MG in DEXTROSE 5%-WATER - 250 ML IVPB ONE (10:01)
--- NOTE | 2017-08-06 11:24 | PN ---
Progress Note, Physician Chief Complaint: Mr Villalpando says his leg is feeling better. No cp, sob, n/v. Complains of spasm and jerking of his L hand and R leg. - Current Medication List Current Medications: Active Medications Acetaminophen/Codeine Phosphate (Tylenol # 3 -) 1 tab PO Q6H [facility] Last Admin: 08/06/17 09:41 Dose: 1 tab Aspirin (Asa -) 81 mg PO DAILY [facility] Last Admin: 08/06/17 09:42 Dose: 81 mg Atorvastatin Calcium (Lipitor -) 10 mg PO HS [facility] Last Admin: 08/06/17 01:16 Dose: 10 mg Clotrimazole (Lotrimin 1% Cream -) 1 applic TP BID [facility] Last Admin: 08/06/17 09:42 Dose: 1 applic Finasteride (Proscar -) 5 mg PO DAILY [facility] Last Admin: 08/06/17 09:43 Dose: 5 mg Folic Acid (Folic Acid -) 1 mg PO DAILY [facility] Last Admin: 08/06/17 09:42 Dose: 1 mg Dextrose/Sodium Chloride (D5-1/2ns -) 1,000 mls @ 75 mls/hr IV ASDIR [facility] Last Admin: 08/06/17 04:13 Dose: 75 mls/hr Vancomycin HCl 1,000 mg/ (Dextrose) 250 mls @ 166.667 mls/hr IVPB ONCE ONE PRN Reason: Protocol Stop: 08/06/17 11:30 Metoprolol Succinate (Toprol Xl -) 50 mg PO DAILY [facility] Last Admin: 08/06/17 09:43 Dose: 50 mg Multivitamins/Minerals/Vitamin C (Tab-A-Vit -) 1 tab PO DAILY [facility] Last Admin: 08/06/17 09:43 Dose: 1 tab Nystatin (Nystatin Oral Suspension -) 500,000 units PO Q6HPO [facility] Last Admin: 08/06/17 07:11 Dose: 500,000 units Ranitidine HCl (Zantac -) 300 mg PO DAILY [facility] Last Admin: 08/06/17 09:43 Dose: 300 mg Sertraline HCl (Zoloft -) 50 mg PO DAILY [facility] Last Admin: 08/06/17 09:43 Dose: 50 mg Tamsulosin HCl (Flomax -) 0.4 mg PO DAILY [facility] Last Admin: 01/22/18 09:42 Dose: 0.4 mg - Objective Vital Signs: Vital Signs Temperature 36.8 C 08/06/17 09:38 Pulse Rate 80 08/06/17 09:38 Respiratory Rate 20 08/06/17 09:38 Blood Pressure 114/50 08/06/17 09:38 O2 Sat by Pulse Oximetry (%) 96 08/05/17 21:00 Constitutional: Yes: No Distress, Calm, Obese Cardiovascular: Yes: Regular Rate and Rhythm. No: Gallop, Murmur, Rub Respiratory: Yes: Regular, CTA Bilaterally. No: Rales, Rhonchi, Wheezes Gastrointestinal: Yes: Normal Bowel Sounds, Soft. No: Distention, Tenderness Extremities: Yes: Erythema, Other (wrapped) Edema: Yes Labs: CBC, BMP 08/06/17 06:00 08/06/17 06:00 Problem List - Problems (1) MRSA (methicillin resistant Staphylococcus aureus) infection Assessment/Plan: -case d/w ID -continue vancomycin, dosing by levels -improving per patient Code(s): A49.02 - METHICILLIN RESIS STAPH INFECTION, UNSP SITE (2) CKD stage 4 due to type 2 diabetes mellitus Assessment/Plan: -case d/w Dr Heard -changed D5 1/2 NS to 1/2 NS -monitor for improvement Code(s): E11.22 - TYPE 2 DIABETES MELLITUS W DIABETIC CHRONIC KIDNEY DISEASE; N18.4 - CHRONIC KIDNEY DISEASE, STAGE 4 (SEVERE) (3) Hyperkalemia Assessment/Plan: -improved today after receiving kayexalate over the weekend -? if secondary to diet high in potassium -will continue counselling -Dr Heard considering RTA as well Code(s): E87.5 - HYPERKALEMIA (4) Morbidly obese Assessment/Plan: -outpatient weight loss program Code(s): E66.01 - MORBID (SEVERE) OBESITY DUE TO EXCESS CALORIES (5) T2DM (type 2 diabetes mellitus) Assessment/Plan: -currently well controlled Code(s): E11.9 - TYPE 2 DIABETES MELLITUS WITHOUT COMPLICATIONS Qualifiers: Diabetes mellitus complication status: with kidney complications (6) Hypotension Assessment/Plan: -continue toprol xl Code(s): I95.9 - HYPOTENSION, UNSPECIFIED (7) Rheumatoid arthritis Assessment/Plan: -avoid NSAIDs Code(s): M06.9 - RHEUMATOID ARTHRITIS, UNSPECIFIED Qualifiers: Rheumatoid arthritis location: unspecified site Rheumatoid factor presence : unspecified presence Qualified Code(s): M06.9 - Rheumatoid arthritis, unspecified
--- NOTE | 2017-08-06 16:45 | PN ---
Progress Note, Physician History of Present Illness: Pt seen and examined at bedside. He is awake and alert. He denies chest pain or palpitations. - Current Medication List Current Medications: Active Medications Acetaminophen/Codeine Phosphate (Tylenol # 3 -) 1 tab PO Q6H [facility] Last Admin: 08/06/17 14:57 Dose: 1 tab Aspirin (Asa -) 81 mg PO DAILY [facility] Last Admin: 08/06/17 09:42 Dose: 81 mg Atorvastatin Calcium (Lipitor -) 10 mg PO HS [facility] Last Admin: 08/06/17 01:16 Dose: 10 mg Clotrimazole (Lotrimin 1% Cream -) 1 applic TP BID [facility] Last Admin: 08/06/17 09:42 Dose: 1 applic Finasteride (Proscar -) 5 mg PO DAILY [facility] Last Admin: 08/06/17 09:43 Dose: 5 mg Folic Acid (Folic Acid -) 1 mg PO DAILY [facility] Last Admin: 08/06/17 09:42 Dose: 1 mg Dextrose/Sodium Chloride (D5-1/2ns -) 1,000 mls @ 75 mls/hr IV ASDIR [facility] Last Admin: 08/06/17 04:13 Dose: 75 mls/hr Metoprolol Succinate (Toprol Xl -) 50 mg PO DAILY [facility] Last Admin: 08/06/17 09:43 Dose: 50 mg Multivitamins/Minerals/Vitamin C (Tab-A-Vit -) 1 tab PO DAILY [facility] Last Admin: 08/06/17 09:43 Dose: 1 tab Nystatin (Nystatin Oral Suspension -) 500,000 units PO Q6HPO [facility] Last Admin: 08/06/17 11:58 Dose: 500,000 units Ranitidine HCl (Zantac -) 300 mg PO DAILY [facility] Last Admin: 08/06/17 09:43 Dose: 300 mg Sertraline HCl (Zoloft -) 50 mg PO DAILY [facility] Last Admin: 08/06/17 09:43 Dose: 50 mg Tamsulosin HCl (Flomax -) 0.4 mg PO DAILY [facility] Last Admin: 08/06/17 09:42 Dose: 0.4 mg - Objective Vital Signs: Vital Signs Temperature 97.2 F L 08/06/17 15:26 Pulse Rate 79 08/06/17 15:26 Respiratory Rate 20 08/06/17 15:26 Blood Pressure 117/72 08/06/17 15:26 O2 Sat by Pulse Oximetry (%) 94 L 08/06/17 09:00 Constitutional: Yes: Calm Eyes: Yes: Conjunctiva Clear HENT: Yes: Atraumatic Neck: Yes: Supple Cardiovascular: Yes: S1, S2 Respiratory: Yes: CTA Bilaterally Gastrointestinal: Yes: Soft Genitourinary: Yes: WNL Edema: Yes Edema: LLE: 1+, RLE: 1+ Wound/Incision: Yes: Dressing Dry and Intact Labs: CBC, BMP 08/06/17 06:00 08/06/17 06:00 Problem List - Problems (1) CKD stage 4 due to type 2 diabetes mellitus Code(s): E11.22 - TYPE 2 DIABETES MELLITUS W DIABETIC CHRONIC KIDNEY DISEASE; N18.4 - CHRONIC KIDNEY DISEASE, STAGE 4 (SEVERE) (2) Cellulitis of right leg Code(s): L03.115 - CELLULITIS OF RIGHT LOWER LIMB (3) Hyperkalemia Code(s): E87.5 - HYPERKALEMIA (4) Obesity Code(s): E66.9 - OBESITY, UNSPECIFIED (5) T2DM (type 2 diabetes mellitus) Code(s): E11.9 - TYPE 2 DIABETES MELLITUS WITHOUT COMPLICATIONS Qualifiers: Diabetes mellitus complication status: with kidney complications (6) BPH (benign prostatic hyperplasia) Code(s): N40.0 - BENIGN PROSTATIC HYPERPLASIA WITHOUT LOWER URINRY TRACT SYMP (7) CKD (chronic kidney disease) Code(s): N18.9 - CHRONIC KIDNEY DISEASE, UNSPECIFIED Assessment/Plan Current Medications Generic Name Dose Route Start Last Admin Trade Name Freq PRN Reason Stop Dose Admin Acetaminophen/Codeine Phosphate 1 tab 08/03/17 21:00 08/06/17 14:57 Tylenol # 3 - PO 1 tab Q6H [facility] Administration Aspirin 81 mg 08/04/17 10:00 08/06/17 09:42 Asa - PO 81 mg DAILY [facility] Administration Atorvastatin Calcium 10 mg 08/03/17 22:00 08/06/17 01:16 Lipitor - PO 10 mg HS [facility] Administration Clotrimazole 1 applic 08/04/17 22:00 08/06/17 09:42 Lotrimin 1% Cream - TP 1 applic BID [facility] Administration Finasteride 5 mg 08/04/17 10:00 01/22/18 09:43 Proscar - PO 5 mg DAILY [facility] Administration Folic Acid 1 mg 08/04/17 10:00 08/06/17 09:42 Folic Acid - PO 1 mg DAILY [facility] Administration Dextrose/Sodium Chloride 1,000 mls @ 75 mls/hr 08/04/17 20:30 08/06/17 04:13 D5-1/2ns - IV 75 mls/hr ASDIR [facility] Administration Metoprolol Succinate 50 mg 08/04/17 10:00 08/06/17 09:43 Toprol Xl - PO 50 mg DAILY [facility] Administration Multivitamins/Minerals/Vitamin C 1 tab 08/04/17 10:00 08/06/17 09:43 Tab-A-Vit - PO 1 tab DAILY [facility] Administration Nystatin 500,000 units 08/04/17 18:00 08/06/17 11:58 Nystatin Oral Suspension - PO 500,000 units Q6HPO [facility] Administration Ranitidine HCl 300 mg 08/04/17 10:00 08/06/17 09:43 Zantac - PO 300 mg DAILY [facility] Administration Sertraline HCl 50 mg 08/04/17 10:00 08/06/17 09:43 Zoloft - PO 50 mg DAILY [facility] Administration Tamsulosin HCl 0.4 mg 08/04/17 10:00 08/06/17 09:42 Flomax - PO 0.4 mg DAILY [facility] Administration Laboratory Tests 08/06/17 06:00 Sodium 136 Potassium 5.0 Creatinine 3.4 H Impression 1. OLIVIA 2. hyperkalemia 3. CKD 4. DM 5. sepsis 6. cellulitis Plan - change fluids to 1/2 and decrease rate - repeat labs in am - renal diet - wound care - avoid nsaids - wound care to legs - low potassium diet - check renal ultrasound
[2017-08-06] MEDS: SODIUM CHLORIDE 0.45% 1,000 ML IV SCH (17:22)
[2017-08-06] MEDS ORDERED: PT OWN MED DRAWER 7, Y5N ONE (20:34)
--- NOTE | 2017-08-06 21:49 | EKG ---
Test Reason : Blood Pressure : / mmHG Vent. Rate : 076 BPM Atrial Rate : 076 BPM P-R Int : 142 ms QRS Dur : 100 ms QT Int : 398 ms P-R-T Axes : 052 023 037 degrees QTc Int : 447 ms SINUS RHYTHM WITH PREMATURE SUPRAVENTRICULAR COMPLEXES OTHERWISE NORMAL ECG WHEN COMPARED WITH ECG OF 11-JUL-2017 15:51, PREMATURE SUPRAVENTRICULAR COMPLEXES ARE NOW PRESENT Confirmed by GIANLUCA GRAY MD ([id number]) on 08/06/2017 9:49:22 PM Referred By: Confirmed By:GIANLUCA GRAY MD
[2017-08-07] MEDS: NYSTATIN 500,000 UNITS/5 ML SUSPENSION PO SCH ×4 (00:07→17:54)
[2017-08-07] MEDS: ACETAMINOPHEN WITH CODEINE 300MG/30MG TABLET PO SCH ×4 (03:03→21:18)
[2017-08-07 08:51] LABS: BASO % 0.9 % (0-2.0); EOS % 4.6 % (0-4.5); HEMATOCRIT 31.8 % (35.4-49); HEMOGLOBIN 9.6 GM/dL (11.7-16.9); LYMPH % 27.2 % (8-40); MCH 25.7 pg (25.7-33.7); MCHC 30.3 g/dl (32.0-35.9); MEAN CELL VOLUME 84.9 fl (80-96); MEAN PLT VOLUME 6.9 fl (7.5-11.1); MONO % 11.8 % (3.8-10.2); NEUT % 55.5 % (42.8-82.8); PLATELET COUNT 270 K/MM3 (134-434); RBC 3.75 M/mm3 (4.00-5.60); WHITE BLOOD COUNT 9.1 K/mm3 (4.0-10.0)
[2017-08-07 09:35] LABS: ALBUMIN 1.9 g/dl (3.4-5.0); ANION GAP 8 (8-16); BLOOD UREA NITROGEN 32 mg/dL (7-18); CALCIUM 7.9 mg/dL (8.5-10.1); CHLORIDE 105 mmol/L (98-107); CO2 25 mmol/L (21-32); GLUCOSE,RANDOM 90 mg/dL (74-106); PHOSPHOROUS 4.9 mg/dL (2.5-4.9); POTASSIUM 4.6 mmol/L (3.5-5.1); SGOT/AST 21 U/L (15-37); SODIUM 138 mmol/L (136-145)
[2017-08-07 09:37] LABS: ALK PHOS 140 U/L (45-117); BILIRUBIN,TOTAL 0.5 mg/dL (0.2-1.0); CREATININE 2.8 mg/dL (0.7-1.3); MAGNESIUM 1.9 mg/dL (1.8-2.4); SGPT/ALT 12 U/L (12-78); TOT PROT 7.3 g/dl (6.4-8.2)
[2017-08-07] MEDS ORDERED: PT OWN MED DRAWER 7, Y5N ONE (10:38)
[2017-08-07] MEDS: TAMSULOSIN HCL 0.4 MG CAP.ER.24H (FP) PO SCH (10:41)
[2017-08-07] MEDS: ASPIRIN 81 MG CHEWABLE TABLETS PO SCH (10:41)
[2017-08-07] MEDS: FOLIC ACID 1 MG TABLET (FP) PO SCH (10:41)
[2017-08-07] MEDS: CLOTRIMAZOLE 1% CREAM 15 GM TUBE TP SCH ×2 (10:41→21:21)
[2017-08-07] MEDS: RANITIDINE HCL 150 MG TABLET (FP) PO SCH (10:42)
[2017-08-07] MEDS: MULTIVITAMINS (DAILY MVI) TABLET (FP) PO SCH (10:42)
[2017-08-07] MEDS: SERTRALINE HCL 50 MG TABLET (FP) PO SCH (10:42)
[2017-08-07] MEDS: FINASTERIDE 5 MG TABLET (FP) PO SCH (10:42)
--- NOTE | 2017-08-07 11:43 | CONSULT ---
Consult - text type - Consultation Consultation Note: Neurology History of Present Illness 61 year-old male with a PMH significant for HTN, HLD, CAD s/p stents, COPD, GERD , BPH s/p TURP and h/o urinary retention, rheumatoid arthritis, diabetes, non- Hodgkin's lymphoma, melanoma, autoimmune cytopenias, and obesity who was referred to the ED by his PCP to be admitted for his chronic right leg wound. Patient reported that he was on vacation in [place] and caught his right ankle on the curb which is where his wound started. Patient states that he wounds easily. Found to have MRSA and admitted for further medical mgmt. Consulted for jerking sensations that have been occuring, reportedly more pronounced on R hand and L leg. Patient with hyperkalemia on admission and also with Type 2 DM. Getting ongoing HD for CKD. 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) Cardiac Disorders: Yes (STENTS X 2 (1997)) CVA: No COPD: Yes (NO o2) CHF: Yes Dementia: No Diabetes: Yes GI Disorders: Yes (HONG'S ESOPHAGUS) Disorders: Yes (INDWELLING CATHETER) HTN: Yes Hypercholesterolemia: Yes Liver Disease: No Seizures: No Thyroid Disease: No - Surgical History Abdominal Surgery: Yes (HERNIA REPAIR) Appendectomy: No Cardiac Surgery: Yes (STENT) Cholecystectomy: No Lung Surgery: Yes (STENT) Neurologic Surgery: No Orthopedic Surgery: Yes - Immunization History Immunization Up to Date: Yes - Suicide/Smoking/Psychosocial Hx Smoking History: Never smoked Have you smoked in the past 12 months: Yes Number of Cigarettes Smoked Daily: 10 If you are a former smoker, when did you quit?: 6 weeks ago Cigars Per Day: 0 Information on smoking cessation initiated: No 'Breaking Loose' booklet given: 11/26/14 Hx Alcohol Use: No Drug/Substance Use Hx: No Substance Use Type: None Hx Substance Use Treatment: No - Past Medical History Allergies/Adverse Reactions: Allergies Allergy/AdvReac Type Severity Reaction Status Date / Time No Known Drug Allergies Allergy Verified 07/11/17 10:49 Home Medications: Ambulatory Orders Finasteride 5 mg PO DAILY 12/10/14 Metoprolol Succinate [Toprol XL -] 50 mg PO DAILY 12/10/14 Multivitamins [Multivit ([facility] Formulary)] 1 tab PO DAILY 12/10/14 Sertraline HCl [Zoloft] 50 mg PO DAILY 12/10/14 Tamsulosin HCl [Flomax -] 0.4 mg PO DAILY 12/10/14 Furosemide [Lasix -] 40 mg PO DAILY 12/25/14 ASA - 81 mg PO DAILY 03/02/17 Atorvastatin Ca [Lipitor] 10 mg PO HS 07/12/17 Oxycodone HCl/Acetaminophen [Percocet 10-325 mg Tablet] 1 each PO HS 07/12/17 Ranitidine HCl 300 mg PO DAILY 07/12/17 Folic Acid - 1 mg PO DAILY #30 tablet 07/17/17 Review of Systems GENERAL/CONSTITUTIONAL: No fever or chills. No weakness. HEAD, EYES, EARS, NOSE AND THROAT: No change in vision. No ear pain or discharge. No sore throat. CARDIOVASCULAR: No chest pain or shortness of breath. RESPIRATORY: No cough, wheezing, or hemoptysis. GASTROINTESTINAL: No nausea, vomiting, diarrhea or constipation. GENITOURINARY: No dysuria, frequency, or change in urination. MUSCULOSKELETAL: No joint or muscle swelling or pain. No neck or back pain. SKIN: +weeping right leg wound NEUROLOGIC: No headache, vertigo, loss of consciousness, or change in strength/ sensation. ENDOCRINE: No increased thirst. No abnormal weight change. HEMATOLOGIC/LYMPHATIC: No anemia, easy bleeding, or history of blood clots. ALLERGIC/IMMUNOLOGIC: No hives or skin allergy. *Physical Exam Vital Signs Period Temp Pulse Resp BP Sys/Gallagher Pulse Ox Last 24 Hr 97.2 F-98.4 F 72-79 20-20 117-163/66-79 94 GENERAL: Obese. Awake, alert, and fully oriented, in no acute distress HEAD: No signs of trauma EYES: PERRLA, EOMI, sclera anicteric, conjunctiva clear ENT: Auricles normal inspection, hearing grossly normal, nares patent, oropharynx clear without exudates. Moist mucosa NECK: Normal ROM, supple, no lymphadenopathy, JVD, or masses LUNGS: Breath sounds equal, clear to auscultation bilaterally. No wheezes, and no crackles HEART: Regular rate and rhythm, normal S1 and S2, no murmurs, rubs or gallops ABDOMEN: Soft, nontender, normoactive bowel sounds. No guarding, no rebound. No masses EXTREMITIES: Normal range of motion, no edema. No clubbing or cyanosis. No cords, erythema, or tenderness NEUROLOGICAL: Cranial nerves II through XII grossly intact. Strength intact, sensory intact, no abnormal movements noted SKIN: MRSA Warm, Dry, normal turgor. Right lower extremity from foot to the knee -->skin is denuded, weeping, and errythematous. Chronic non-healing wounds. Left lateral mid-calf --> small area of unhealed ulcer. Left leg --> no weeping, bright red, irritated dry skin. CBCD WBC 9.1 K/mm3 (4.0-10.0) 08/07/17 07:30 RBC 3.75 M/mm3 (4.00-5.60) L 08/07/17 07:30 Hgb 9.6 GM/dL (11.7-16.9) L 08/07/17 07:30 Hct 31.8 % (35.4-49) L 08/07/17 07:30 MCV 84.9 fl (80-96) 08/07/17 07:30 MCHC 30.3 g/dl (32.0-35.9) L 08/07/17 07:30 RDW 18.0 % (11.9-15.9) H 08/07/17 07:30 Plt Count 270 K/MM3 (134-434) 08/07/17 07:30 MPV 6.9 fl (7.5-11.1) L 08/07/17 07:30 CMP Sodium 138 mmol/L (136-145) 08/07/17 07:30 Potassium 4.6 mmol/L (3.5-5.1) 08/07/17 07:30 Chloride 105 mmol/L (98-107) 08/07/17 07:30 Carbon Dioxide 25 mmol/L (21-32) 08/07/17 07:30 Anion Gap 8 (8-16) 08/07/17 07:30 BUN 32 mg/dL (7-18) H 08/07/17 07:30 Creatinine 2.8 mg/dL (0.7-1.3) H 08/07/17 07:30 Creat Clearance w eGFR 23.08 (>60) 08/07/17 07:30 Calcium 7.9 mg/dL (8.5-10.1) L 08/07/17 07:30 Total Bilirubin 0.5 mg/dL (0.2-1.0) D 08/07/17 07:30 AST 21 U/L (15-37) 08/07/17 07:30 ALT 12 U/L (12-78) 08/07/17 07:30 Alkaline Phosphatase 140 U/L (45-117) H 08/07/17 07:30 Total Protein 7.3 g/dl (6.4-8.2) 08/07/17 07:30 Albumin 1.9 g/dl (3.4-5.0) L 08/07/17 07:30 Medical Decision Making 61 year-old male with a PMH significant for HTN, HLD, CAD s/p stents, COPD, GERD , BPH s/p TURP and h/o urinary retention, rheumatoid arthritis, diabetes, non- Hodgkin's lymphoma, melanoma, autoimmune cytopenias, and obesity who was referred to the ED by his PCP to be admitted for his chronic right leg wound. Patient reported that he was on vacation in [place] and caught his right ankle on the curb which is where his wound started. Patient states that he wounds easily. Found to have MRSA and admitted for further medical mgmt. Continue infectious mgmt Patient with hyperkalemia on admission, improved Getting ongoing HD for CKD, follow up nephrology rec'd Consulted for jerking sensations, possibly myoclonic, can be abnormalities above Will try Klonipin 1mg bid for now to guage improvement in symptoms Monitor for sedation or mental status changes
[2017-08-07] MEDS: clonazePAM 0.5 MG TABLET PO SCH ×2 (12:28→21:18)
--- NOTE | 2017-08-07 12:58 | PN ---
Progress Note, Physician Chief Complaint: Mr Villalpando has no new complaints. No cp, sob, n/v. - Current Medication List Current Medications: Active Medications Acetaminophen/Codeine Phosphate (Tylenol # 3 -) 1 tab PO Q6H [facility] Last Admin: 08/07/17 10:40 Dose: 1 tab Aspirin (Asa -) 81 mg PO DAILY [facility] Last Admin: 08/07/17 10:41 Dose: 81 mg Atorvastatin Calcium (Lipitor -) 10 mg PO HS [facility] Last Admin: 08/06/17 21:27 Dose: 10 mg Clonazepam (Klonopin -) 1 mg PO BID [facility] Last Admin: 08/07/17 12:28 Dose: 1 mg Clotrimazole (Lotrimin 1% Cream -) 1 applic TP BID [facility] Last Admin: 08/07/17 10:41 Dose: 1 applic Finasteride (Proscar -) 5 mg PO DAILY [facility] Last Admin: 08/07/17 10:42 Dose: 5 mg Folic Acid (Folic Acid -) 1 mg PO DAILY [facility] Last Admin: 08/07/17 10:41 Dose: 1 mg Sodium Chloride (1/2 Normal Saline) 1,000 mls @ 42 mls/hr IV ASDIR [facility] Last Admin: 08/06/17 17:22 Dose: 42 mls/hr Metoprolol Succinate (Toprol Xl -) 50 mg PO DAILY [facility] Last Admin: 08/07/17 10:42 Dose: 50 mg Multivitamins/Minerals/Vitamin C (Tab-A-Vit -) 1 tab PO DAILY [facility] Last Admin: 08/07/17 10:42 Dose: 1 tab Nystatin (Nystatin Oral Suspension -) 500,000 units PO Q6HPO [facility] Last Admin: 08/07/17 11:56 Dose: 500,000 units Ranitidine HCl (Zantac -) 300 mg PO DAILY [facility] Last Admin: 08/07/17 10:42 Dose: 300 mg Sertraline HCl (Zoloft -) 50 mg PO DAILY [facility] Last Admin: 08/07/17 10:42 Dose: 50 mg Tamsulosin HCl (Flomax -) 0.4 mg PO DAILY [facility] Last Admin: 08/07/17 10:41 Dose: 0.4 mg - Objective Vital Signs: Vital Signs Temperature 36.3 C L 08/07/17 10:00 Pulse Rate 74 08/07/17 10:00 Respiratory Rate 20 08/07/17 10:00 Blood Pressure 163/79 08/07/17 10:00 O2 Sat by Pulse Oximetry (%) 94 L 08/06/17 21:00 Constitutional: Yes: No Distress, Calm, Obese (morbid) Cardiovascular: Yes: Regular Rate and Rhythm. No: Gallop, Murmur, Rub Respiratory: Yes: Regular, CTA Bilaterally. No: Rales, Rhonchi, Wheezes Gastrointestinal: Yes: Normal Bowel Sounds, Soft. No: Distention, Tenderness Extremities: Yes: Erythema, Other (wrapped) Edema: Yes Edema: LLE: 1+, RLE: 1+ Labs: CBC, BMP 08/07/17 07:30 08/07/17 07:30 Problem List - Problems (1) MRSA (methicillin resistant Staphylococcus aureus) infection Code(s): A49.02 - METHICILLIN RESIS STAPH INFECTION, UNSP SITE (2) CKD stage 4 due to type 2 diabetes mellitus Code(s): E11.22 - TYPE 2 DIABETES MELLITUS W DIABETIC CHRONIC KIDNEY DISEASE; N18.4 - CHRONIC KIDNEY DISEASE, STAGE 4 (SEVERE) (3) Hyperkalemia Code(s): E87.5 - HYPERKALEMIA (4) Morbidly obese Code(s): E66.01 - MORBID (SEVERE) OBESITY DUE TO EXCESS CALORIES (5) T2DM (type 2 diabetes mellitus) Code(s): E11.9 - TYPE 2 DIABETES MELLITUS WITHOUT COMPLICATIONS Qualifiers: Diabetes mellitus complication status: with kidney complications (6) Hypotension Code(s): I95.9 - HYPOTENSION, UNSPECIFIED (7) Rheumatoid arthritis Code(s): M06.9 - RHEUMATOID ARTHRITIS, UNSPECIFIED Qualifiers: Rheumatoid arthritis location: unspecified site Rheumatoid factor presence : unspecified presence Qualified Code(s): M06.9 - Rheumatoid arthritis, unspecified Assessment/Plan (1) MRSA (methicillin resistant Staphylococcus aureus) infection Assessment/Plan: -ID following -vancomycin dosing by level -wound care consult Code(s): A49.02 - METHICILLIN RESIS STAPH INFECTION, UNSP SITE (2) CKD stage 4 due to type 2 diabetes mellitus Assessment/Plan: -case d/w Dr Heard -continue current IVF -improving Code(s): E11.22 - TYPE 2 DIABETES MELLITUS W DIABETIC CHRONIC KIDNEY DISEASE; N18.4 - CHRONIC KIDNEY DISEASE, STAGE 4 (SEVERE) (3) Hyperkalemia Assessment/Plan: -much improved -continue monitoring Code(s): E87.5 - HYPERKALEMIA (4) Morbidly obese Assessment/Plan: -outpatient weight loss program Code(s): E66.01 - MORBID (SEVERE) OBESITY DUE TO EXCESS CALORIES (5) T2DM (type 2 diabetes mellitus) Assessment/Plan: -currently well controlled Code(s): E11.9 - TYPE 2 DIABETES MELLITUS WITHOUT COMPLICATIONS Qualifiers: Diabetes mellitus complication status: with kidney complications (6) Hypotension Assessment/Plan: -continue toprol xl Code(s): I95.9 - HYPOTENSION, UNSPECIFIED (7) Rheumatoid arthritis Assessment/Plan: -avoid NSAIDs Code(s): M06.9 - RHEUMATOID ARTHRITIS, UNSPECIFIED Qualifiers: Rheumatoid arthritis location: unspecified site Rheumatoid factor presence : unspecified presence Qualified Code(s): M06.9 - Rheumatoid arthritis, unspecified
--- NOTE | 2017-08-07 12:59 | PN ---
Progress Note, Physician - Current Medication List Current Medications: Active Medications Acetaminophen/Codeine Phosphate (Tylenol # 3 -) 1 tab PO Q6H [facility] Last Admin: 08/07/17 10:40 Dose: 1 tab Aspirin (Asa -) 81 mg PO DAILY [facility] Last Admin: 08/07/17 10:41 Dose: 81 mg Atorvastatin Calcium (Lipitor -) 10 mg PO HS [facility] Last Admin: 08/06/17 21:27 Dose: 10 mg Clonazepam (Klonopin -) 1 mg PO BID [facility] Last Admin: 08/07/17 12:28 Dose: 1 mg Clotrimazole (Lotrimin 1% Cream -) 1 applic TP BID [facility] Last Admin: 08/07/17 10:41 Dose: 1 applic Finasteride (Proscar -) 5 mg PO DAILY [facility] Last Admin: 08/07/17 10:42 Dose: 5 mg Folic Acid (Folic Acid -) 1 mg PO DAILY [facility] Last Admin: 08/07/17 10:41 Dose: 1 mg Sodium Chloride (1/2 Normal Saline) 1,000 mls @ 42 mls/hr IV ASDIR [facility] Last Admin: 08/06/17 17:22 Dose: 42 mls/hr Metoprolol Succinate (Toprol Xl -) 50 mg PO DAILY [facility] Last Admin: 08/07/17 10:42 Dose: 50 mg Multivitamins/Minerals/Vitamin C (Tab-A-Vit -) 1 tab PO DAILY [facility] Last Admin: 08/07/17 10:42 Dose: 1 tab Nystatin (Nystatin Oral Suspension -) 500,000 units PO Q6HPO [facility] Last Admin: 08/07/17 11:56 Dose: 500,000 units Ranitidine HCl (Zantac -) 300 mg PO DAILY [facility] Last Admin: 08/07/17 10:42 Dose: 300 mg Sertraline HCl (Zoloft -) 50 mg PO DAILY [facility] Last Admin: 08/07/17 10:42 Dose: 50 mg Tamsulosin HCl (Flomax -) 0.4 mg PO DAILY [facility] Last Admin: 08/07/17 10:41 Dose: 0.4 mg - Objective Vital Signs: Vital Signs Temperature 36.3 C L 08/07/17 10:00 Pulse Rate 74 08/07/17 10:00 Respiratory Rate 20 08/07/17 10:00 Blood Pressure 163/79 08/07/17 10:00 O2 Sat by Pulse Oximetry (%) 94 L 08/06/17 21:00 Labs: CBC, BMP 08/07/17 07:30 08/07/17 07:30 Problem List - Problems (1) MRSA (methicillin resistant Staphylococcus aureus) infection Code(s): A49.02 - METHICILLIN RESIS STAPH INFECTION, UNSP SITE (2) CKD stage 4 due to type 2 diabetes mellitus Code(s): E11.22 - TYPE 2 DIABETES MELLITUS W DIABETIC CHRONIC KIDNEY DISEASE; N18.4 - CHRONIC KIDNEY DISEASE, STAGE 4 (SEVERE) (3) Hyperkalemia Code(s): E87.5 - HYPERKALEMIA (4) Morbidly obese Code(s): E66.01 - MORBID (SEVERE) OBESITY DUE TO EXCESS CALORIES (5) T2DM (type 2 diabetes mellitus) Code(s): E11.9 - TYPE 2 DIABETES MELLITUS WITHOUT COMPLICATIONS Qualifiers: Diabetes mellitus complication status: with kidney complications (6) Hypotension Code(s): I95.9 - HYPOTENSION, UNSPECIFIED (7) Rheumatoid arthritis Code(s): M06.9 - RHEUMATOID ARTHRITIS, UNSPECIFIED Qualifiers: Rheumatoid arthritis location: unspecified site Rheumatoid factor presence : unspecified presence Qualified Code(s): M06.9 - Rheumatoid arthritis, unspecified
--- NOTE | 2017-08-07 13:51 | PN ---
Progress Note, Physician History of Present Illness: Pt seen and examined at bedside. He is awake and appears comfortable. He is tolerating fluids. - Current Medication List Current Medications: Active Medications Acetaminophen/Codeine Phosphate (Tylenol # 3 -) 1 tab PO Q6H [facility] Last Admin: 08/07/17 10:40 Dose: 1 tab Aspirin (Asa -) 81 mg PO DAILY [facility] Last Admin: 08/07/17 10:41 Dose: 81 mg Atorvastatin Calcium (Lipitor -) 10 mg PO HS [facility] Last Admin: 08/06/17 21:27 Dose: 10 mg Clonazepam (Klonopin -) 1 mg PO BID [facility] Last Admin: 08/07/17 12:28 Dose: 1 mg Clotrimazole (Lotrimin 1% Cream -) 1 applic TP BID [facility] Last Admin: 08/07/17 10:41 Dose: 1 applic Finasteride (Proscar -) 5 mg PO DAILY [facility] Last Admin: 08/07/17 10:42 Dose: 5 mg Folic Acid (Folic Acid -) 1 mg PO DAILY [facility] Last Admin: 08/07/17 10:41 Dose: 1 mg Sodium Chloride (1/2 Normal Saline) 1,000 mls @ 42 mls/hr IV ASDIR [facility] Last Admin: 08/06/17 17:22 Dose: 42 mls/hr Metoprolol Succinate (Toprol Xl -) 50 mg PO DAILY [facility] Last Admin: 08/07/17 10:42 Dose: 50 mg Multivitamins/Minerals/Vitamin C (Tab-A-Vit -) 1 tab PO DAILY [facility] Last Admin: 08/07/17 10:42 Dose: 1 tab Nystatin (Nystatin Oral Suspension -) 500,000 units PO Q6HPO [facility] Last Admin: 08/07/17 11:56 Dose: 500,000 units Ranitidine HCl (Zantac -) 300 mg PO DAILY [facility] Last Admin: 08/07/17 10:42 Dose: 300 mg Sertraline HCl (Zoloft -) 50 mg PO DAILY [facility] Last Admin: 08/07/17 10:42 Dose: 50 mg Tamsulosin HCl (Flomax -) 0.4 mg PO DAILY [facility] Last Admin: 08/07/17 10:41 Dose: 0.4 mg - Objective Vital Signs: Vital Signs Temperature 97.4 F L 08/07/17 10:00 Pulse Rate 74 08/07/17 10:00 Respiratory Rate 20 08/07/17 10:00 Blood Pressure 163/79 08/07/17 10:00 O2 Sat by Pulse Oximetry (%) 94 L 08/06/17 21:00 Constitutional: Yes: Calm Eyes: Yes: Conjunctiva Clear HENT: Yes: Atraumatic Neck: Yes: Supple Cardiovascular: Yes: S1, S2 Respiratory: Yes: CTA Bilaterally Gastrointestinal: Yes: Soft, Abdomen, Obese Genitourinary: Yes: WNL Musculoskeletal: Yes: WNL Edema: Yes Edema: LLE: Trace, RLE: Trace Neurological: Yes: Oriented Psychiatric: Yes: Oriented Labs: CBC, BMP 08/07/17 07:30 08/07/17 07:30 Problem List - Problems (1) CKD stage 4 due to type 2 diabetes mellitus Code(s): E11.22 - TYPE 2 DIABETES MELLITUS W DIABETIC CHRONIC KIDNEY DISEASE; N18.4 - CHRONIC KIDNEY DISEASE, STAGE 4 (SEVERE) (2) Cellulitis of right leg Code(s): L03.115 - CELLULITIS OF RIGHT LOWER LIMB (3) Hyperkalemia Code(s): E87.5 - HYPERKALEMIA (4) Obesity Code(s): E66.9 - OBESITY, UNSPECIFIED (5) T2DM (type 2 diabetes mellitus) Code(s): E11.9 - TYPE 2 DIABETES MELLITUS WITHOUT COMPLICATIONS Qualifiers: Diabetes mellitus complication status: with kidney complications (6) BPH (benign prostatic hyperplasia) Code(s): N40.0 - BENIGN PROSTATIC HYPERPLASIA WITHOUT LOWER URINRY TRACT SYMP (7) CKD (chronic kidney disease) Code(s): N18.9 - CHRONIC KIDNEY DISEASE, UNSPECIFIED Assessment/Plan Current Medications Generic Name Dose Route Start Last Admin Trade Name Freq PRN Reason Stop Dose Admin Acetaminophen/Codeine Phosphate 1 tab 08/03/17 21:00 08/07/17 10:40 Tylenol # 3 - PO 1 tab Q6H [facility]EL Administration Aspirin 81 mg 08/04/17 10:00 08/07/17 10:41 Asa - PO 81 mg DAILY [facility]EL Administration Atorvastatin Calcium 10 mg 08/03/17 22:00 08/06/17 21:27 Lipitor - PO 10 mg HS [facility]EL Administration Clonazepam 1 mg 08/07/17 12:00 08/07/17 12:28 Klonopin - PO 1 mg BID [facility]EL Administration Clotrimazole 1 applic 08/04/17 22:00 08/07/17 10:41 Lotrimin 1% Cream - TP 1 applic BID [facility] Administration Finasteride 5 mg 08/04/17 10:00 08/07/17 10:42 Proscar - PO 5 mg DAILY [facility] Administration Folic Acid 1 mg 08/04/17 10:00 08/07/17 10:41 Folic Acid - PO 1 mg DAILY [facility] Administration Sodium Chloride 1,000 mls @ 42 mls/hr 08/06/17 17:00 08/06/17 17:22 1/2 Normal Saline IV 42 mls/hr ASDIR [facility] Administration Metoprolol Succinate 50 mg 08/04/17 10:00 08/07/17 10:42 Toprol Xl - PO 50 mg DAILY [facility] Administration Multivitamins/Minerals/Vitamin C 1 tab 08/04/17 10:00 08/07/17 10:42 Tab-A-Vit - PO 1 tab DAILY [facility] Administration Nystatin 500,000 units 08/04/17 18:00 08/07/17 11:56 Nystatin Oral Suspension - PO 500,000 units Q6HPO [facility] Administration Ranitidine HCl 300 mg 08/04/17 10:00 08/07/17 10:42 Zantac - PO 300 mg DAILY [facility] Administration Sertraline HCl 50 mg 08/04/17 10:00 08/07/17 10:42 Zoloft - PO 50 mg DAILY [facility] Administration Tamsulosin HCl 0.4 mg 08/04/17 10:00 08/07/17 10:41 Flomax - PO 0.4 mg DAILY [facility] Administration Impression 1. OLIVIA 2. hyperkalemia 3. CKD 4. DM 5. sepsis 6. cellulitis Plan - cont fluids - renal function is improving - potassium stable - check mag level - dietary eval - low potassium diet - avoid nsaids - wound care to legs - check renal ultrasound
[2017-08-07] MEDS: SODIUM CHLORIDE 0.45% 1,000 ML IV SCH (17:54)
[2017-08-07] MEDS: ATORVASTATIN CA 10 MG TABLET (FP) PO SCH (21:18)
[2017-08-08] MEDS: NYSTATIN 500,000 UNITS/5 ML SUSPENSION PO SCH ×5 (00:05→23:57)
[2017-08-08] MEDS: ACETAMINOPHEN WITH CODEINE 300MG/30MG TABLET PO SCH ×4 (03:00→21:07)
[2017-08-08 08:16] LABS: BASO % 1.3 % (0-2.0); EOS % 4.2 % (0-4.5); HEMATOCRIT 29.7 % (35.4-49); HEMOGLOBIN 9.1 GM/dL (11.7-16.9); LYMPH % 32.2 % (8-40); MCHC 30.6 g/dl (32.0-35.9); MEAN CELL VOLUME 84.8 fl (80-96); MEAN PLT VOLUME 7.1 fl (7.5-11.1); MONO % 11.5 % (3.8-10.2); NEUT % 50.8 % (42.8-82.8); PLATELET COUNT 257 K/MM3 (134-434); RBC 3.51 M/mm3 (4.00-5.60); RDW 17.8 % (11.9-15.9); WHITE BLOOD COUNT 7.9 K/mm3 (4.0-10.0)
[2017-08-08 08:26] LABS: CHLORIDE 106 mmol/L (98-107); POTASSIUM 4.7 mmol/L (3.5-5.1); SODIUM 138 mmol/L (136-145)
[2017-08-08 08:34] LABS: ANION GAP 6 (8-16); BLOOD UREA NITROGEN 31 mg/dL (7-18); CALCIUM 7.8 mg/dL (8.5-10.1); CO2 26 mmol/L (21-32); CREATININE 2.4 mg/dL (0.7-1.3); GLUCOSE,RANDOM 85 mg/dL (74-106); PHOSPHOROUS 4.8 mg/dL (2.5-4.9)
--- NOTE | 2017-08-08 09:38 | PN ---
Progress Note (short form) - Note Progress Note: Neurology History of Present Illness 61 year-old male with a PMH significant for HTN, HLD, CAD s/p stents, COPD, GERD , BPH s/p TURP and h/o urinary retention, rheumatoid arthritis, diabetes, non- Hodgkin's lymphoma, melanoma, autoimmune cytopenias, and obesity who was referred to the ED by his PCP to be admitted for his chronic right leg wound. Patient reported that he was on vacation in [place] and caught his right ankle on the curb which is where his wound started. Patient states that he wounds easily. Found to have MRSA and admitted for further medical mgmt. Consulted for jerking sensations that have been occuring, reportedly more pronounced on R hand and L leg. Patient with hyperkalemia , improved with fluids. Also with Type 2 DM, being managed. Started on Klonipin for possibly myoclonic jerks, reports relief with the medication. Fatigued appearing this AM but awake, alert, interactive. Can hold AM dose if at all lethargic or altered. Active Medications Acetaminophen/Codeine Phosphate (Tylenol # 3 -) 1 tab PO Q6H [facility] Last Admin: 08/08/17 03:00 Dose: 1 tab Aspirin (Asa -) 81 mg PO DAILY [facility] Last Admin: 08/07/17 10:41 Dose: 81 mg Atorvastatin Calcium (Lipitor -) 10 mg PO HS [facility] Last Admin: 08/07/17 21:18 Dose: 10 mg Clonazepam (Klonopin -) 1 mg PO BID [facility] Last Admin: 08/07/17 21:18 Dose: 1 mg Clotrimazole (Lotrimin 1% Cream -) 1 applic TP BID [facility] Last Admin: 08/07/17 21:21 Dose: 1 applic Finasteride (Proscar -) 5 mg PO DAILY [facility] Last Admin: 08/07/17 10:42 Dose: 5 mg Folic Acid (Folic Acid -) 1 mg PO DAILY [facility] Last Admin: 08/07/17 10:41 Dose: 1 mg Sodium Chloride (1/2 Normal Saline) 1,000 mls @ 42 mls/hr IV ASDIR [facility] Last Admin: 08/07/17 17:54 Dose: 42 mls/hr Metoprolol Succinate (Toprol Xl -) 50 mg PO DAILY [facility] Last Admin: 08/07/17 10:42 Dose: 50 mg Multivitamins/Minerals/Vitamin C (Tab-A-Vit -) 1 tab PO DAILY [facility] Last Admin: 08/07/17 10:42 Dose: 1 tab Nystatin (Nystatin Oral Suspension -) 500,000 units PO Q6HPO [facility] Last Admin: 08/08/17 06:10 Dose: 500,000 units Ranitidine HCl (Zantac -) 300 mg PO DAILY [facility] Last Admin: 08/07/17 10:42 Dose: 300 mg Sertraline HCl (Zoloft -) 50 mg PO DAILY [facility] Last Admin: 08/07/17 10:42 Dose: 50 mg Tamsulosin HCl (Flomax -) 0.4 mg PO DAILY [facility] Last Admin: 08/07/17 10:41 Dose: 0.4 mg *Physical Exam Vital Signs Temperature 98 F 08/08/17 05:43 Pulse Rate 74 08/08/17 05:43 Respiratory Rate 20 08/08/17 05:43 Blood Pressure 123/66 08/08/17 05:43 O2 Sat by Pulse Oximetry (%) 96 08/07/17 21:00 GENERAL: Obese. Awake, alert, and fully oriented, in no acute distress HEAD: No signs of trauma EYES: PERRLA, EOMI, sclera anicteric, conjunctiva clear ENT: Auricles normal inspection, hearing grossly normal, nares patent, oropharynx clear without exudates. Moist mucosa NECK: Normal ROM, supple, no lymphadenopathy, JVD, or masses LUNGS: Breath sounds equal, clear to auscultation bilaterally. No wheezes, and no crackles HEART: Regular rate and rhythm, normal S1 and S2, no murmurs, rubs or gallops ABDOMEN: Soft, nontender, normoactive bowel sounds. No guarding, no rebound. No masses EXTREMITIES: Normal range of motion, no edema. No clubbing or cyanosis. No cords, erythema, or tenderness NEUROLOGICAL: Cranial nerves II through XII grossly intact. Strength intact, sensory intact, no abnormal movements noted SKIN: MRSA Warm, Dry, normal turgor. Right lower extremity from foot to the knee -->skin is denuded, weeping, and errythematous. Chronic non-healing wounds. Left lateral mid-calf --> small area of unhealed ulcer. Left leg --> no weeping, bright red, irritated dry skin. CBCD WBC 7.9 K/mm3 (4.0-10.0) 08/08/17 06:30 RBC 3.51 M/mm3 (4.00-5.60) L 08/08/17 06:30 Hgb 9.1 GM/dL (11.7-16.9) L 08/08/17 06:30 Hct 29.7 % (35.4-49) L 08/08/17 06:30 MCV 84.8 fl (80-96) 08/08/17 06:30 MCHC 30.6 g/dl (32.0-35.9) L 08/08/17 06:30 RDW 17.8 % (11.9-15.9) H 08/08/17 06:30 Plt Count 257 K/MM3 (134-434) 08/08/17 06:30 MPV 7.1 fl (7.5-11.1) L 08/08/17 06:30 CMP Sodium 138 mmol/L (136-145) 08/08/17 06:30 Potassium 4.7 mmol/L (3.5-5.1) 08/08/17 06:30 Chloride 106 mmol/L (98-107) 08/08/17 06:30 Carbon Dioxide 26 mmol/L (21-32) 08/08/17 06:30 Anion Gap 6 (8-16) L 08/08/17 06:30 BUN 31 mg/dL (7-18) H 08/08/17 06:30 Creatinine 2.4 mg/dL (0.7-1.3) H 08/08/17 06:30 Creat Clearance w eGFR 23.08 (>60) 08/07/17 07:30 Calcium 7.8 mg/dL (8.5-10.1) L 08/08/17 06:30 Total Bilirubin 0.5 mg/dL (0.2-1.0) D 08/07/17 07:30 AST 21 U/L (15-37) 08/07/17 07:30 ALT 12 U/L (12-78) 08/07/17 07:30 Alkaline Phosphatase 140 U/L (45-117) H 08/07/17 07:30 Total Protein 7.3 g/dl (6.4-8.2) 08/07/17 07:30 Albumin 1.9 g/dl (3.4-5.0) L 08/07/17 07:30 Medical Decision Making 61 year-old male with a PMH significant for HTN, HLD, CAD s/p stents, COPD, GERD , BPH s/p TURP and h/o urinary retention, rheumatoid arthritis, diabetes, non- Hodgkin's lymphoma, melanoma, autoimmune cytopenias, and obesity who was referred to the ED by his PCP to be admitted for his chronic right leg wound. Patient reported that he was on vacation in [place] and caught his right ankle on the curb which is where his wound started. Patient states that he wounds easily. Found to have MRSA and admitted for further medical mgmt. Continue infectious mgmt Patient with hyperkalemia on admission, improved with fluids Consulted for jerking sensations, possibly myoclonic, improved with Klonipin Can hold AM dose if patient altered, more so fatigued appearing to me Was oriented and conversive Follow up Renal rec'd
--- NOTE | 2017-08-08 11:15 | PN ---
Progress Note, Physician Chief Complaint: Mr Villalpando has no new complaints. No cp, sob, n/v. - Current Medication List Current Medications: Active Medications Acetaminophen/Codeine Phosphate (Tylenol # 3 -) 1 tab PO Q6H [facility] Last Admin: 08/08/17 03:00 Dose: 1 tab Aspirin (Asa -) 81 mg PO DAILY [facility] Last Admin: 08/07/17 10:41 Dose: 81 mg Atorvastatin Calcium (Lipitor -) 10 mg PO HS [facility] Last Admin: 08/07/17 21:18 Dose: 10 mg Clonazepam (Klonopin -) 1 mg PO BID [facility] Last Admin: 08/07/17 21:18 Dose: 1 mg Clotrimazole (Lotrimin 1% Cream -) 1 applic TP BID [facility] Last Admin: 08/07/17 21:21 Dose: 1 applic Finasteride (Proscar -) 5 mg PO DAILY [facility] Last Admin: 08/07/17 10:42 Dose: 5 mg Folic Acid (Folic Acid -) 1 mg PO DAILY [facility] Last Admin: 08/07/17 10:41 Dose: 1 mg Sodium Chloride (1/2 Normal Saline) 1,000 mls @ 42 mls/hr IV ASDIR [facility] Last Admin: 08/07/17 17:54 Dose: 42 mls/hr Metoprolol Succinate (Toprol Xl -) 50 mg PO DAILY [facility] Last Admin: 08/07/17 10:42 Dose: 50 mg Multivitamins/Minerals/Vitamin C (Tab-A-Vit -) 1 tab PO DAILY [facility] Last Admin: 08/07/17 10:42 Dose: 1 tab Nystatin (Nystatin Oral Suspension -) 500,000 units PO Q6HPO [facility] Last Admin: 08/08/17 06:10 Dose: 500,000 units Ranitidine HCl (Zantac -) 300 mg PO DAILY [facility] Last Admin: 08/07/17 10:42 Dose: 300 mg Sertraline HCl (Zoloft -) 50 mg PO DAILY [facility] Last Admin: 08/07/17 10:42 Dose: 50 mg Tamsulosin HCl (Flomax -) 0.4 mg PO DAILY [facility] Last Admin: 08/07/17 10:41 Dose: 0.4 mg - Objective Vital Signs: Vital Signs Temperature 36.6 C 08/08/17 05:43 Pulse Rate 74 08/08/17 05:43 Respiratory Rate 20 01/24/18 05:43 Blood Pressure 123/66 08/08/17 05:43 O2 Sat by Pulse Oximetry (%) 96 08/07/17 21:00 Constitutional: Yes: No Distress, Calm, Obese Cardiovascular: Yes: Regular Rate and Rhythm. No: Gallop, Murmur, Rub Respiratory: Yes: Regular, CTA Bilaterally. No: Rales, Rhonchi, Wheezes Gastrointestinal: Yes: Normal Bowel Sounds, Soft. No: Distention, Tenderness Extremities: Yes: Other (wrapped) Edema: No Labs: CBC, BMP 08/08/17 06:30 08/08/17 06:30 Problem List - Problems (1) MRSA (methicillin resistant Staphylococcus aureus) infection Code(s): A49.02 - METHICILLIN RESIS STAPH INFECTION, UNSP SITE (2) CKD stage 4 due to type 2 diabetes mellitus Code(s): E11.22 - TYPE 2 DIABETES MELLITUS W DIABETIC CHRONIC KIDNEY DISEASE; N18.4 - CHRONIC KIDNEY DISEASE, STAGE 4 (SEVERE) (3) Hyperkalemia Code(s): E87.5 - HYPERKALEMIA (4) Morbidly obese Code(s): E66.01 - MORBID (SEVERE) OBESITY DUE TO EXCESS CALORIES (5) T2DM (type 2 diabetes mellitus) Code(s): E11.9 - TYPE 2 DIABETES MELLITUS WITHOUT COMPLICATIONS Qualifiers: Diabetes mellitus complication status: with kidney complications (6) Hypotension Code(s): I95.9 - HYPOTENSION, UNSPECIFIED (7) Rheumatoid arthritis Code(s): M06.9 - RHEUMATOID ARTHRITIS, UNSPECIFIED Qualifiers: Rheumatoid arthritis location: unspecified site Rheumatoid factor presence : unspecified presence Qualified Code(s): M06.9 - Rheumatoid arthritis, unspecified Assessment/Plan (1) MRSA (methicillin resistant Staphylococcus aureus) infection Assessment/Plan: -ID following -vancomycin dosing by level -wound care consulted and to evaluate Code(s): A49.02 - METHICILLIN RESIS STAPH INFECTION, UNSP SITE (2) CKD stage 4 due to type 2 diabetes mellitus Assessment/Plan: -case d/w Dr Heard -continue current IVF -improving Code(s): E11.22 - TYPE 2 DIABETES MELLITUS W DIABETIC CHRONIC KIDNEY DISEASE; N18.4 - CHRONIC KIDNEY DISEASE, STAGE 4 (SEVERE) (3) Hyperkalemia Assessment/Plan: -much improved -continue monitoring -diet control reinforced Code(s): E87.5 - HYPERKALEMIA (4) Morbidly obese Assessment/Plan: -outpatient weight loss program Code(s): E66.01 - MORBID (SEVERE) OBESITY DUE TO EXCESS CALORIES (5) T2DM (type 2 diabetes mellitus) Assessment/Plan: -patient states he is not diabetic -will change to renal diet -monitor FSBS for elevation Code(s): E11.9 - TYPE 2 DIABETES MELLITUS WITHOUT COMPLICATIONS Qualifiers: Diabetes mellitus complication status: with kidney complications (6) Hypotension Assessment/Plan: -continue toprol xl Code(s): I95.9 - HYPOTENSION, UNSPECIFIED (7) Rheumatoid arthritis Assessment/Plan: -avoid NSAIDs Code(s): M06.9 - RHEUMATOID ARTHRITIS, UNSPECIFIED Qualifiers: Rheumatoid arthritis location: unspecified site Rheumatoid factor presence : unspecified presence Qualified Code(s): M06.9 - Rheumatoid arthritis, unspecified
[2017-08-08] MEDS: ASPIRIN 81 MG CHEWABLE TABLETS PO SCH (11:30)
[2017-08-08] MEDS: MULTIVITAMINS (DAILY MVI) TABLET (FP) PO SCH (11:30)
[2017-08-08] MEDS: RANITIDINE HCL 150 MG TABLET (FP) PO SCH (11:30)
[2017-08-08] MEDS: TAMSULOSIN HCL 0.4 MG CAP.ER.24H (FP) PO SCH (11:31)
[2017-08-08] MEDS: FOLIC ACID 1 MG TABLET (FP) PO SCH (11:31)
[2017-08-08] MEDS: FINASTERIDE 5 MG TABLET (FP) PO SCH (11:34)
[2017-08-08] MEDS: SERTRALINE HCL 50 MG TABLET (FP) PO SCH (11:34)
[2017-08-08] MEDS: clonazePAM 0.5 MG TABLET PO SCH ×2 (11:36→21:45)
[2017-08-08] MEDS: CLOTRIMAZOLE 1% CREAM 15 GM TUBE TP SCH ×2 (11:41→21:50)
[2017-08-08] MEDS ORDERED: VANCOMYCIN 1,000 MG in DEXTROSE 5%-WATER - 250 ML IVPB ONE ×2 (12:58→13:15)
--- NOTE | 2017-08-08 13:02 | PN ---
Progress Note (short form) - Note Progress Note: slept well n complaints Vital Signs Period Temp Pulse Resp BP Sys/Gallagher Pulse Ox Last 24 Hr 97.5 F-98 F 74-78 20-20 123-139/66-73 96 cor-rrr lung decreased bs at bases abd soft,protuberant dressing removed, less erythema less drainage CBC, BMP 08/08/17 06:30 08/08/17 06:30 Microbiology 08/03/17 19:32 Blood - Peripheral Venous Blood Culture - Preliminary NO GROWTH OBTAINED AFTER 96 HOURS, INCUBATION TO CONTINUE FOR 1 DAYS. 08/03/17 19:32 Blood - Peripheral Venous Blood Culture - Preliminary NO GROWTH OBTAINED AFTER 96 HOURS, INCUBATION TO CONTINUE FOR 1 DAYS. 08/03/17 19:32 Leg - Right Lower Gram Stain - Final 08/03/17 19:32 Leg - Right Lower Wound Culture - Final Mr S Aureus Enterococcus Faecalis a/p cellulitis-MRSA venous stasis CKD with hyperkalemia-improving prior history of MRSA contact isolation redose vancomycin today awaiting wound care eval Dr Phipps vancomycin level in am d/c home soon on po doxycycline 100 bid for 2 weeks
[2017-08-08] MEDS: SODIUM CHLORIDE 0.45% 1,000 ML IV SCH (17:02)
--- NOTE | 2017-08-08 17:36 | PN ---
Progress Note, Physician History of Present Illness: Pt seen and examined at bedside. He is awake and appears comfortable. He denies shortness of breath. - Current Medication List Current Medications: Active Medications Acetaminophen/Codeine Phosphate (Tylenol # 3 -) 1 tab PO Q6H [facility] Last Admin: 08/08/17 17:03 Dose: 1 tab Aspirin (Asa -) 81 mg PO DAILY [facility] Last Admin: 08/08/17 11:30 Dose: 81 mg Atorvastatin Calcium (Lipitor -) 10 mg PO HS [facility] Last Admin: 08/07/17 21:18 Dose: 10 mg Clonazepam (Klonopin -) 1 mg PO BID [facility] Last Admin: 08/08/17 11:36 Dose: 1 mg Clotrimazole (Lotrimin 1% Cream -) 1 applic TP BID [facility] Last Admin: 08/08/17 11:41 Dose: 1 applic Finasteride (Proscar -) 5 mg PO DAILY [facility] Last Admin: 08/08/17 11:34 Dose: 5 mg Folic Acid (Folic Acid -) 1 mg PO DAILY [facility] Last Admin: 08/08/17 11:31 Dose: 1 mg Sodium Chloride (1/2 Normal Saline) 1,000 mls @ 42 mls/hr IV ASDIR [facility] Last Admin: 08/08/17 17:02 Dose: 42 mls/hr Metoprolol Succinate (Toprol Xl -) 50 mg PO DAILY [facility] Last Admin: 08/08/17 11:30 Dose: 50 mg Multivitamins/Minerals/Vitamin C (Tab-A-Vit -) 1 tab PO DAILY [facility] Last Admin: 08/08/17 11:30 Dose: 1 tab Nystatin (Nystatin Oral Suspension -) 500,000 units PO Q6HPO [facility] Last Admin: 08/08/17 17:01 Dose: 500,000 units Ranitidine HCl (Zantac -) 300 mg PO DAILY [facility] Last Admin: 08/08/17 11:30 Dose: 300 mg Sertraline HCl (Zoloft -) 50 mg PO DAILY [facility] Last Admin: 08/08/17 11:34 Dose: 50 mg Tamsulosin HCl (Flomax -) 0.4 mg PO DAILY [facility] Last Admin: 08/08/17 11:31 Dose: 0.4 mg - Objective Vital Signs: Vital Signs Temperature 97.8 F 08/08/17 17:17 Pulse Rate 70 08/08/17 17:17 Respiratory Rate 20 08/08/17 17:17 Blood Pressure 123/58 08/08/17 17:17 O2 Sat by Pulse Oximetry (%) 96 08/07/17 21:00 Constitutional: Yes: Calm Eyes: Yes: Conjunctiva Clear HENT: Yes: Atraumatic Neck: Yes: Supple Cardiovascular: Yes: S1, S2 Respiratory: Yes: CTA Bilaterally Gastrointestinal: Yes: Normal Bowel Sounds, Soft, Abdomen, Obese Musculoskeletal: Yes: WNL Edema: Yes Edema: LLE: Trace, RLE: Trace Wound/Incision: Yes: Dressing Dry and Intact Neurological: Yes: Oriented Psychiatric: Yes: Oriented Labs: CBC, BMP 08/08/17 06:30 08/08/17 06:30 Problem List - Problems (1) CKD stage 4 due to type 2 diabetes mellitus Code(s): E11.22 - TYPE 2 DIABETES MELLITUS W DIABETIC CHRONIC KIDNEY DISEASE; N18.4 - CHRONIC KIDNEY DISEASE, STAGE 4 (SEVERE) (2) Cellulitis of right leg Code(s): L03.115 - CELLULITIS OF RIGHT LOWER LIMB (3) Hyperkalemia Code(s): E87.5 - HYPERKALEMIA (4) Obesity Code(s): E66.9 - OBESITY, UNSPECIFIED (5) T2DM (type 2 diabetes mellitus) Code(s): E11.9 - TYPE 2 DIABETES MELLITUS WITHOUT COMPLICATIONS Qualifiers: Diabetes mellitus complication status: with kidney complications (6) BPH (benign prostatic hyperplasia) Code(s): N40.0 - BENIGN PROSTATIC HYPERPLASIA WITHOUT LOWER URINRY TRACT SYMP (7) CKD (chronic kidney disease) Code(s): N18.9 - CHRONIC KIDNEY DISEASE, UNSPECIFIED Assessment/Plan Current Medications Generic Name Dose Route Start Last Admin Trade Name Freq PRN Reason Stop Dose Admin Acetaminophen/Codeine Phosphate 1 tab 08/03/17 21:00 08/08/17 17:03 Tylenol # 3 - PO 1 tab Q6H [facility] Administration Aspirin 81 mg 08/04/17 10:00 08/08/17 11:30 Asa - PO 81 mg DAILY [facility] Administration Atorvastatin Calcium 10 mg 08/03/17 22:00 08/07/17 21:18 Lipitor - PO 10 mg HS [facility] Administration Clonazepam 1 mg 08/07/17 12:00 08/08/17 11:36 Klonopin - PO 1 mg BID [facility] Administration Clotrimazole 1 applic 08/04/17 22:00 08/08/17 11:41 Lotrimin 1% Cream - TP 1 applic BID [facility] Administration Finasteride 5 mg 08/04/17 10:00 08/08/17 11:34 Proscar - PO 5 mg DAILY [facility] Administration Folic Acid 1 mg 08/04/17 10:00 08/08/17 11:31 Folic Acid - PO 1 mg DAILY [facility] Administration Sodium Chloride 1,000 mls @ 42 mls/hr 08/06/17 17:00 08/08/17 17:02 1/2 Normal Saline IV 42 mls/hr ASDIR [facility] Administration Metoprolol Succinate 50 mg 08/04/17 10:00 08/08/17 11:30 Toprol Xl - PO 50 mg DAILY [facility] Administration Multivitamins/Minerals/Vitamin C 1 tab 08/04/17 10:00 08/08/17 11:30 Tab-A-Vit - PO 1 tab DAILY [facility] Administration Nystatin 500,000 units 08/04/17 18:00 08/08/17 17:01 Nystatin Oral Suspension - PO 500,000 units Q6HPO [facility] Administration Ranitidine HCl 300 mg 08/04/17 10:00 08/08/17 11:30 Zantac - PO 300 mg DAILY [facility] Administration Sertraline HCl 50 mg 08/04/17 10:00 08/08/17 11:34 Zoloft - PO 50 mg DAILY [facility] Administration Tamsulosin HCl 0.4 mg 08/04/17 10:00 08/08/17 11:31 Flomax - PO 0.4 mg DAILY [facility] Administration Impression 1. OLIVIA 2. hyperkalemia 3. CKD 4. DM 5. sepsis 6. cellulitis Plan - renal function remains stable - repeat labs in am - can keep on fluids - dietary eval - low potassium diet - avoid nsaids - wound care to legs - check renal ultrasound
[2017-08-08] MEDS: ATORVASTATIN CA 10 MG TABLET (FP) PO SCH (21:45)
[2017-08-09] MEDS: ACETAMINOPHEN WITH CODEINE 300MG/30MG TABLET PO SCH ×4 (03:07→21:18)
[2017-08-09] MEDS: NYSTATIN 500,000 UNITS/5 ML SUSPENSION PO SCH ×3 (07:07→18:16)
[2017-08-09] MEDS ORDERED: PT OWN MED DRAWER 7, Y5N ONE (09:22)
[2017-08-09] MEDS: RANITIDINE HCL 150 MG TABLET (FP) PO SCH (09:39)
[2017-08-09] MEDS: ASPIRIN 81 MG CHEWABLE TABLETS PO SCH (09:39)
[2017-08-09] MEDS: FINASTERIDE 5 MG TABLET (FP) PO SCH (09:39)
[2017-08-09] MEDS: SERTRALINE HCL 50 MG TABLET (FP) PO SCH (09:39)
[2017-08-09] MEDS: FOLIC ACID 1 MG TABLET (FP) PO SCH (09:39)
[2017-08-09] MEDS: MULTIVITAMINS (DAILY MVI) TABLET (FP) PO SCH (09:39)
[2017-08-09] MEDS: TAMSULOSIN HCL 0.4 MG CAP.ER.24H (FP) PO SCH (09:40)
--- NOTE | 2017-08-09 10:11 | PN ---
Progress Note (short form) - Note Progress Note: Neurology History of Present Illness 61 year-old male with a PMH significant for HTN, HLD, CAD s/p stents, COPD, GERD , BPH s/p TURP and h/o urinary retention, rheumatoid arthritis, diabetes, non- Hodgkin's lymphoma, melanoma, autoimmune cytopenias, and obesity who was referred to the ED by his PCP to be admitted for his chronic right leg wound. Patient reported that he was on vacation in [place] and caught his right ankle on the curb which is where his wound started. Patient states that he wounds easily. Found to have MRSA and admitted for further medical mgmt. Consulted for jerking sensations that have been occuring, reportedly more pronounced on R hand and L leg. Patient with hyperkalemia , improved with fluids. Also with Type 2 DM, being managed. Started on Klonipin for possibly myoclonic jerks, reports relief with the medication. This morning felt some jerkiness but not yet received medication. Active Medications Acetaminophen/Codeine Phosphate (Tylenol # 3 -) 1 tab PO Q6H [facility] Last Admin: 08/09/17 08:46 Dose: 1 tab Aspirin (Asa -) 81 mg PO DAILY [facility] Last Admin: 08/09/17 09:39 Dose: 81 mg Atorvastatin Calcium (Lipitor -) 10 mg PO HS [facility] Last Admin: 08/08/17 21:45 Dose: 10 mg Clonazepam (Klonopin -) 1 mg PO BID [facility] Last Admin: 08/08/17 21:45 Dose: 1 mg Clotrimazole (Lotrimin 1% Cream -) 1 applic TP BID [facility] Last Admin: 08/08/17 21:50 Dose: 1 applic Finasteride (Proscar -) 5 mg PO DAILY [facility] Last Admin: 08/09/17 09:39 Dose: 5 mg Folic Acid (Folic Acid -) 1 mg PO DAILY [facility] Last Admin: 08/09/17 09:39 Dose: 1 mg Sodium Chloride (1/2 Normal Saline) 1,000 mls @ 42 mls/hr IV ASDIR [facility] Last Admin: 08/08/17 17:02 Dose: 42 mls/hr Metoprolol Succinate (Toprol Xl -) 50 mg PO DAILY [facility] Last Admin: 08/09/17 09:40 Dose: 50 mg Multivitamins/Minerals/Vitamin C (Tab-A-Vit -) 1 tab PO DAILY [facility] Last Admin: 08/09/17 09:39 Dose: 1 tab Nystatin (Nystatin Oral Suspension -) 500,000 units PO Q6HPO [facility] Last Admin: 08/09/17 07:07 Dose: 500,000 units Ranitidine HCl (Zantac -) 300 mg PO DAILY [facility] Last Admin: 08/09/17 09:39 Dose: 300 mg Sertraline HCl (Zoloft -) 50 mg PO DAILY [facility] Last Admin: 08/09/17 09:39 Dose: 50 mg Tamsulosin HCl (Flomax -) 0.4 mg PO DAILY [facility] Last Admin: 08/09/17 09:40 Dose: 0.4 mg *Physical Exam Vital Signs Temperature 98.0 F 08/09/17 09:33 Pulse Rate 72 08/09/17 09:33 Respiratory Rate 20 08/09/17 09:33 Blood Pressure 123/62 08/09/17 09:33 O2 Sat by Pulse Oximetry (%) 97 08/08/17 21:00 GENERAL: Obese. Awake, alert, and fully oriented, in no acute distress HEAD: No signs of trauma EYES: PERRLA, EOMI, sclera anicteric, conjunctiva clear ENT: Auricles normal inspection, hearing grossly normal, nares patent, oropharynx clear without exudates. Moist mucosa NECK: Normal ROM, supple, no lymphadenopathy, JVD, or masses LUNGS: Breath sounds equal, clear to auscultation bilaterally. No wheezes, and no crackles HEART: Regular rate and rhythm, normal S1 and S2, no murmurs, rubs or gallops ABDOMEN: Soft, nontender, normoactive bowel sounds. No guarding, no rebound. No masses EXTREMITIES: Normal range of motion, no edema. No clubbing or cyanosis. No cords, erythema, or tenderness NEUROLOGICAL: Cranial nerves II through XII grossly intact. Strength intact, sensory intact, no abnormal movements noted SKIN: MRSA Warm, Dry, normal turgor. Right lower extremity from foot to the knee -->skin is denuded, weeping, and errythematous. Chronic non-healing wounds. Left lateral mid-calf --> small area of unhealed ulcer. Left leg --> no weeping, bright red, irritated dry skin. CBCD WBC 7.9 K/mm3 (4.0-10.0) 08/08/17 06:30 RBC 3.51 M/mm3 (4.00-5.60) L 08/08/17 06:30 Hgb 9.1 GM/dL (11.7-16.9) L 08/08/17 06:30 Hct 29.7 % (35.4-49) L 08/08/17 06:30 MCV 84.8 fl (80-96) 08/08/17 06:30 MCHC 30.6 g/dl (32.0-35.9) L 08/08/17 06:30 RDW 17.8 % (11.9-15.9) H 08/08/17 06:30 Plt Count 257 K/MM3 (134-434) 08/08/17 06:30 MPV 7.1 fl (7.5-11.1) L 08/08/17 06:30 CMP Sodium 138 mmol/L (136-145) 08/08/17 06:30 Potassium 4.7 mmol/L (3.5-5.1) 08/08/17 06:30 Chloride 106 mmol/L (98-107) 08/08/17 06:30 Carbon Dioxide 26 mmol/L (21-32) 08/08/17 06:30 Anion Gap 6 (8-16) L 08/08/17 06:30 BUN 31 mg/dL (7-18) H 08/08/17 06:30 Creatinine 2.4 mg/dL (0.7-1.3) H 08/08/17 06:30 Creat Clearance w eGFR 23.08 (>60) 08/07/17 07:30 Calcium 7.8 mg/dL (8.5-10.1) L 08/08/17 06:30 Total Bilirubin 0.5 mg/dL (0.2-1.0) D 08/07/17 07:30 AST 21 U/L (15-37) 08/07/17 07:30 ALT 12 U/L (12-78) 08/07/17 07:30 Alkaline Phosphatase 140 U/L (45-117) H 08/07/17 07:30 Total Protein 7.3 g/dl (6.4-8.2) 08/07/17 07:30 Albumin 1.9 g/dl (3.4-5.0) L 08/07/17 07:30 Medical Decision Making 61 year-old male with a PMH significant for HTN, HLD, CAD s/p stents, COPD, GERD , BPH s/p TURP and h/o urinary retention, rheumatoid arthritis, diabetes, non- Hodgkin's lymphoma, melanoma, autoimmune cytopenias, and obesity who was referred to the ED by his PCP to be admitted for his chronic right leg wound. Patient reported that he was on vacation in [place] and caught his right ankle on the curb which is where his wound started. Patient states that he wounds easily. Found to have MRSA and admitted for further medical mgmt. Continue infectious mgmt Patient with hyperkalemia on admission, improved with fluids Consulted for jerking sensations, possibly myoclonic, improved with Klonipin Stable at this time
[2017-08-09] MEDS: clonazePAM 0.5 MG TABLET PO SCH ×2 (10:30→21:18)
[2017-08-09] MEDS: CLOTRIMAZOLE 1% CREAM 15 GM TUBE TP SCH ×3 (10:31→21:19)
--- NOTE | 2017-08-09 12:39 | PN ---
Progress Note, Physician History of Present Illness: Pt seen and examined at bedside. He is awake and alert. He denies shortness of breath. - Current Medication List Current Medications: Active Medications Acetaminophen/Codeine Phosphate (Tylenol # 3 -) 1 tab PO Q6H [facility] Last Admin: 08/09/17 08:46 Dose: 1 tab Aspirin (Asa -) 81 mg PO DAILY [facility] Last Admin: 08/09/17 09:39 Dose: 81 mg Atorvastatin Calcium (Lipitor -) 10 mg PO HS [facility] Last Admin: 08/08/17 21:45 Dose: 10 mg Clonazepam (Klonopin -) 1 mg PO BID [facility] Last Admin: 08/09/17 10:30 Dose: 1 mg Clotrimazole (Lotrimin 1% Cream -) 1 applic TP BID [facility] Last Admin: 08/09/17 12:11 Dose: 1 applic Finasteride (Proscar -) 5 mg PO DAILY [facility] Last Admin: 08/09/17 09:39 Dose: 5 mg Folic Acid (Folic Acid -) 1 mg PO DAILY [facility] Last Admin: 08/09/17 09:39 Dose: 1 mg Sodium Chloride (1/2 Normal Saline) 1,000 mls @ 42 mls/hr IV ASDIR [facility] Last Admin: 08/08/17 17:02 Dose: 42 mls/hr Metoprolol Succinate (Toprol Xl -) 50 mg PO DAILY [facility] Last Admin: 08/09/17 09:40 Dose: 50 mg Multivitamins/Minerals/Vitamin C (Tab-A-Vit -) 1 tab PO DAILY [facility] Last Admin: 08/09/17 09:39 Dose: 1 tab Nystatin (Nystatin Oral Suspension -) 500,000 units PO Q6HPO [facility] Last Admin: 08/09/17 12:11 Dose: 500,000 units Ranitidine HCl (Zantac -) 300 mg PO DAILY [facility] Last Admin: 08/09/17 09:39 Dose: 300 mg Sertraline HCl (Zoloft -) 50 mg PO DAILY [facility] Last Admin: 08/09/17 09:39 Dose: 50 mg Tamsulosin HCl (Flomax -) 0.4 mg PO DAILY [facility] Last Admin: 08/09/17 09:40 Dose: 0.4 mg - Objective Vital Signs: Vital Signs Temperature 98.0 F 08/09/17 09:33 Pulse Rate 72 08/09/17 09:33 Respiratory Rate 20 08/09/17 09:33 Blood Pressure 123/62 08/09/17 09:33 O2 Sat by Pulse Oximetry (%) 97 08/09/17 09:00 Constitutional: Yes: Calm Eyes: Yes: Conjunctiva Clear HENT: Yes: Atraumatic Neck: Yes: Supple Cardiovascular: Yes: S1, S2 Respiratory: Yes: CTA Bilaterally Gastrointestinal: Yes: Soft, Abdomen, Obese Genitourinary: Yes: WNL Musculoskeletal: Yes: Muscle Weakness Edema: LLE: Trace, RLE: Trace Neurological: Yes: Oriented Psychiatric: Yes: Oriented Labs: CBC, BMP 08/08/17 06:30 08/08/17 06:30 Problem List - Problems (1) CKD stage 4 due to type 2 diabetes mellitus Code(s): E11.22 - TYPE 2 DIABETES MELLITUS W DIABETIC CHRONIC KIDNEY DISEASE; N18.4 - CHRONIC KIDNEY DISEASE, STAGE 4 (SEVERE) (2) Cellulitis of right leg Code(s): L03.115 - CELLULITIS OF RIGHT LOWER LIMB (3) Hyperkalemia Code(s): E87.5 - HYPERKALEMIA (4) Obesity Code(s): E66.9 - OBESITY, UNSPECIFIED (5) T2DM (type 2 diabetes mellitus) Code(s): E11.9 - TYPE 2 DIABETES MELLITUS WITHOUT COMPLICATIONS Qualifiers: Diabetes mellitus complication status: with kidney complications (6) BPH (benign prostatic hyperplasia) Code(s): N40.0 - BENIGN PROSTATIC HYPERPLASIA WITHOUT LOWER URINRY TRACT SYMP (7) CKD (chronic kidney disease) Code(s): N18.9 - CHRONIC KIDNEY DISEASE, UNSPECIFIED Assessment/Plan Current Medications Generic Name Dose Route Start Last Admin Trade Name Freq PRN Reason Stop Dose Admin Acetaminophen/Codeine Phosphate 1 tab 08/03/17 21:00 08/09/17 08:46 Tylenol # 3 - PO 1 tab Q6H DANIEL Administration Aspirin 81 mg 08/04/17 10:00 08/09/17 09:39 Asa - PO 81 mg DAILY DANIEL Administration Atorvastatin Calcium 10 mg 08/03/17 22:00 08/08/17 21:45 Lipitor - PO 10 mg HS DANIEL Administration Clonazepam 1 mg 08/07/17 12:00 08/09/17 10:30 Klonopin - PO 1 mg BID DANIEL Administration Clotrimazole 1 applic 08/04/17 22:00 08/09/17 12:11 Lotrimin 1% Cream - TP 1 applic BID DANIEL Administration Finasteride 5 mg 08/04/17 10:00 08/09/17 09:39 Proscar - PO 5 mg DAILY DANIEL Administration Folic Acid 1 mg 08/04/17 10:00 08/09/17 09:39 Folic Acid - PO 1 mg DAILY DANIEL Administration Sodium Chloride 1,000 mls @ 42 mls/hr 08/06/17 17:00 08/08/17 17:02 1/2 Normal Saline IV 42 mls/hr ASDIR DANIEL Administration Metoprolol Succinate 50 mg 08/04/17 10:00 08/09/17 09:40 Toprol Xl - PO 50 mg DAILY DANIEL Administration Multivitamins/Minerals/Vitamin C 1 tab 08/04/17 10:00 08/09/17 09:39 Tab-A-Vit - PO 1 tab DAILY DANIEL Administration Nystatin 500,000 units 08/04/17 18:00 08/09/17 12:11 Nystatin Oral Suspension - PO 500,000 units Q6HPO DANIEL Administration Ranitidine HCl 300 mg 08/04/17 10:00 08/09/17 09:39 Zantac - PO 300 mg DAILY DANIEL Administration Sertraline HCl 50 mg 08/04/17 10:00 08/09/17 09:39 Zoloft - PO 50 mg DAILY DANIEL Administration Tamsulosin HCl 0.4 mg 08/04/17 10:00 08/09/17 09:40 Flomax - PO 0.4 mg DAILY DANIEL Administration Impression 1. OLIVIA 2. hyperkalemia 3. CKD 4. DM 5. sepsis 6. cellulitis Plan - no new labs - check bmp in am - monitor vanco level - low potassium diet - avoid nsaids - wound care to legs - renal ultrasound reviewed Dr Heard
--- NOTE | 2017-08-09 14:49 | PN ---
Progress Note (short form) - Note Progress Note: [facility] Pt seen and examined. Doing well. Right lower ext dressing changed. Some weeping and cellulitis of lower ext. Telfa, kerlex, and rossy placed for compression. Cont IV antibiotics, and leg elevation Will follow. Franklin Phipps DO
--- NOTE | 2017-08-09 16:12 | PN ---
Progress Note, Physician Chief Complaint: Mr Villalpando has no new complaints. No cp, sob, n/v. - Current Medication List Current Medications: Active Medications Acetaminophen/Codeine Phosphate (Tylenol # 3 -) 1 tab PO Q6H [facility]S [facility] BEDS AT [facility] Last Admin: 08/09/17 15:24 Dose: 1 tab Aspirin (Asa -) 81 mg PO DAILY [facility] 234 BEDS AT [facility] Last Admin: 08/09/17 09:39 Dose: 81 mg Atorvastatin Calcium (Lipitor -) 10 mg PO HS [facility]S [facility]CLUDE 234 BEDS AT [facility] Last Admin: 08/08/17 21:45 Dose: 10 mg Clonazepam (Klonopin -) 1 mg PO BID [facility]S [facility]CLUDE 234 BEDS AT [facility] Last Admin: 08/09/17 10:30 Dose: 1 mg Clotrimazole (Lotrimin 1% Cream -) 1 applic TP BID [facility]S [facility]CLUDE 234 BEDS AT [facility] Last Admin: 08/09/17 12:11 Dose: 1 applic Finasteride (Proscar -) 5 mg PO DAILY [facility]CLUDE 234 BEDS AT [facility] Last Admin: 08/09/17 09:39 Dose: 5 mg Folic Acid (Folic Acid -) 1 mg PO DAILY [facility]CLUDE 234 BEDS AT [facility] Last Admin: 08/09/17 09:39 Dose: 1 mg Sodium Chloride (1/2 Normal Saline) 1,000 mls @ 42 mls/hr IV ASDIR COUNTS INCLUDE 234 BEDS AT [facility] Last Admin: 08/08/17 17:02 Dose: 42 mls/hr Metoprolol Succinate (Toprol Xl -) 50 mg PO DAILY [facility]CLUDE 234 BEDS AT [facility] Last Admin: 08/09/17 09:40 Dose: 50 mg Multivitamins/Minerals/Vitamin C (Tab-A-Vit -) 1 tab PO DAILY [facility]CLUDE 234 BEDS AT [facility] Last Admin: 08/09/17 09:39 Dose: 1 tab Nystatin (Nystatin Oral Suspension -) 500,000 units PO Q6HPO COUNTS [facility]CLUDE 234 BEDS AT [facility] Last Admin: 08/09/17 12:11 Dose: 500,000 units Ranitidine HCl (Zantac -) 300 mg PO DAILY [facility] 234 BEDS AT [facility] Last Admin: 08/09/17 09:39 Dose: 300 mg Sertraline HCl (Zoloft -) 50 mg PO DAILY [facility] 234 BEDS AT [facility] Last Admin: 08/09/17 09:39 Dose: 50 mg Tamsulosin HCl (Flomax -) 0.4 mg PO DAILY [facility] 234 BEDS AT [facility] Last Admin: 08/09/17 09:40 Dose: 0.4 mg - Objective Vital Signs: Vital Signs Temperature 36.7 C 08/09/17 15:13 Pulse Rate 73 08/09/17 15:13 Respiratory Rate 20 01/25/18 15:13 Blood Pressure 125/64 08/09/17 15:13 O2 Sat by Pulse Oximetry (%) 97 08/09/17 09:00 Constitutional: Yes: No Distress, Calm, Obese Cardiovascular: Yes: Regular Rate and Rhythm. No: Gallop, Murmur, Rub Respiratory: Yes: Regular, CTA Bilaterally. No: Rales, Rhonchi, Wheezes Gastrointestinal: Yes: Normal Bowel Sounds, Soft. No: Distention, Tenderness Extremities: Yes: WNL Edema: No Labs: CBC, BMP 08/08/17 06:30 08/08/17 06:30 Problem List - Problems (1) MRSA (methicillin resistant Staphylococcus aureus) infection Code(s): A49.02 - METHICILLIN RESIS STAPH INFECTION, UNSP SITE (2) CKD stage 4 due to type 2 diabetes mellitus Code(s): E11.22 - TYPE 2 DIABETES MELLITUS W DIABETIC CHRONIC KIDNEY DISEASE; N18.4 - CHRONIC KIDNEY DISEASE, STAGE 4 (SEVERE) (3) Hyperkalemia Code(s): E87.5 - HYPERKALEMIA (4) Morbidly obese Code(s): E66.01 - MORBID (SEVERE) OBESITY DUE TO EXCESS CALORIES (5) T2DM (type 2 diabetes mellitus) Code(s): E11.9 - TYPE 2 DIABETES MELLITUS WITHOUT COMPLICATIONS Qualifiers: Diabetes mellitus complication status: with kidney complications (6) Hypotension Code(s): I95.9 - HYPOTENSION, UNSPECIFIED (7) Rheumatoid arthritis Code(s): M06.9 - RHEUMATOID ARTHRITIS, UNSPECIFIED Qualifiers: Rheumatoid arthritis location: unspecified site Rheumatoid factor presence : unspecified presence Qualified Code(s): M06.9 - Rheumatoid arthritis, unspecified Assessment/Plan (1) MRSA (methicillin resistant Staphylococcus aureus) infection Assessment/Plan: -ID following -vancomycin dosing by level -wound care consulted and to case discussed Code(s): A49.02 - METHICILLIN RESIS STAPH INFECTION, UNSP SITE (2) CKD stage 4 due to type 2 diabetes mellitus Assessment/Plan: -case d/w Dr Heard -continue current IVF -improving Code(s): E11.22 - TYPE 2 DIABETES MELLITUS W DIABETIC CHRONIC KIDNEY DISEASE; N18.4 - CHRONIC KIDNEY DISEASE, STAGE 4 (SEVERE) (3) Hyperkalemia Assessment/Plan: -much improved -continue monitoring -diet control reinforced Code(s): E87.5 - HYPERKALEMIA (4) Morbidly obese Assessment/Plan: -outpatient weight loss program Code(s): E66.01 - MORBID (SEVERE) OBESITY DUE TO EXCESS CALORIES (5) T2DM (type 2 diabetes mellitus) Assessment/Plan: -no hyperglycemia Code(s): E11.9 - TYPE 2 DIABETES MELLITUS WITHOUT COMPLICATIONS Qualifiers: Diabetes mellitus complication status: with kidney complications (6) Hypotension Assessment/Plan: -continue toprol xl Code(s): I95.9 - HYPOTENSION, UNSPECIFIED (7) Rheumatoid arthritis Assessment/Plan: -avoid NSAIDs Code(s): M06.9 - RHEUMATOID ARTHRITIS, UNSPECIFIED Qualifiers: Rheumatoid arthritis location: unspecified site Rheumatoid factor presence : unspecified presence Qualified Code(s): M06.9 - Rheumatoid arthritis, unspecified
[2017-08-09] MEDS: SODIUM CHLORIDE 0.45% 1,000 ML IV SCH ×2 (18:16→21:20)
[2017-08-09] MEDS: ATORVASTATIN CA 10 MG TABLET (FP) PO SCH (21:18)
[2017-08-10] MEDS: NYSTATIN 500,000 UNITS/5 ML SUSPENSION PO SCH ×5 (00:54→23:12)
[2017-08-10] MEDS: ACETAMINOPHEN WITH CODEINE 300MG/30MG TABLET PO SCH ×4 (02:24→23:13)
[2017-08-10 08:13] LABS: BASO % 0.8 % (0-2.0); EOS % 3.3 % (0-4.5); HEMOGLOBIN 9.8 GM/dL (11.7-16.9); LYMPH % 31.4 % (8-40); MCHC 30.6 g/dl (32.0-35.9); MEAN PLT VOLUME 6.9 fl (7.5-11.1); MONO % 10.3 % (3.8-10.2); NEUT % 54.2 % (42.8-82.8); PLATELET COUNT 227 K/MM3 (134-434); RBC 3.77 M/mm3 (4.00-5.60); RDW 18.3 % (11.9-15.9); WHITE BLOOD COUNT 7.4 K/mm3 (4.0-10.0)
[2017-08-10 08:43] LABS: CHLORIDE 106 mmol/L (98-107); POTASSIUM 4.4 mmol/L (3.5-5.1); SODIUM 138 mmol/L (136-145)
[2017-08-10 09:14] LABS: ALBUMIN 1.8 g/dl (3.4-5.0); ALK PHOS 129 U/L (45-117); ANION GAP 8 (8-16); BILIRUBIN,TOTAL 0.3 mg/dL (0.2-1.0); BLOOD UREA NITROGEN 33 mg/dL (7-18); CALCIUM 7.7 mg/dL (8.5-10.1); CO2 24 mmol/L (21-32); CREATININE 2.1 mg/dL (0.7-1.3); GLUCOSE,RANDOM 91 mg/dL (74-106); PHOSPHOROUS 4.4 mg/dL (2.5-4.9); SGOT/AST 20 U/L (15-37); SGPT/ALT 13 U/L (12-78); TOT PROT 7.2 g/dl (6.4-8.2)
[2017-08-10] MEDS ORDERED: PT OWN MED DRAWER 7, Y5N ONE (10:04)
[2017-08-10] MEDS: ASPIRIN 81 MG CHEWABLE TABLETS PO SCH (10:06)
[2017-08-10] MEDS: FOLIC ACID 1 MG TABLET (FP) PO SCH (10:06)
[2017-08-10] MEDS: SERTRALINE HCL 50 MG TABLET (FP) PO SCH (10:06)
[2017-08-10] MEDS: RANITIDINE HCL 150 MG TABLET (FP) PO SCH (10:06)
[2017-08-10] MEDS: FINASTERIDE 5 MG TABLET (FP) PO SCH (10:06)
[2017-08-10] MEDS: MULTIVITAMINS (DAILY MVI) TABLET (FP) PO SCH (10:06)
[2017-08-10] MEDS: TAMSULOSIN HCL 0.4 MG CAP.ER.24H (FP) PO SCH (10:06)
[2017-08-10] MEDS: clonazePAM 0.5 MG TABLET PO SCH ×2 (10:07→23:12)
[2017-08-10] MEDS: CLOTRIMAZOLE 1% CREAM 15 GM TUBE TP SCH ×2 (10:10→23:13)
--- NOTE | 2017-08-10 12:37 | PN ---
Progress Note, Physician Chief Complaint: Mr Villalpando has no new complaints. No cp, sob, n/v. Patient lethargic today. - Current Medication List Current Medications: Active Medications Acetaminophen/Codeine Phosphate (Tylenol # 3 -) 1 tab PO Q6H [facility] Last Admin: 08/10/17 08:48 Dose: 1 tab Aspirin (Asa -) 81 mg PO DAILY [facility] Last Admin: 08/10/17 10:06 Dose: 81 mg Atorvastatin Calcium (Lipitor -) 10 mg PO HS [facility] Last Admin: 08/09/17 21:18 Dose: 10 mg Clonazepam (Klonopin -) 1 mg PO BID [facility] Last Admin: 08/10/17 10:07 Dose: 1 mg Clotrimazole (Lotrimin 1% Cream -) 1 applic TP BID [facility] Last Admin: 08/10/17 10:10 Dose: 1 applic Finasteride (Proscar -) 5 mg PO DAILY [facility] Last Admin: 08/10/17 10:06 Dose: 5 mg Folic Acid (Folic Acid -) 1 mg PO DAILY [facility] Last Admin: 08/10/17 10:06 Dose: 1 mg Sodium Chloride (1/2 Normal Saline) 1,000 mls @ 42 mls/hr IV ASDIR [facility] Last Admin: 08/09/17 21:20 Dose: 42 mls/hr Metoprolol Succinate (Toprol Xl -) 50 mg PO DAILY [facility] Last Admin: 08/10/17 10:06 Dose: 50 mg Multivitamins/Minerals/Vitamin C (Tab-A-Vit -) 1 tab PO DAILY [facility] Last Admin: 08/10/17 10:06 Dose: 1 tab Nystatin (Nystatin Oral Suspension -) 500,000 units PO Q6HPO [facility] Last Admin: 08/10/17 06:22 Dose: 500,000 units Ranitidine HCl (Zantac -) 300 mg PO DAILY [facility] Last Admin: 08/10/17 10:06 Dose: 300 mg Sertraline HCl (Zoloft -) 50 mg PO DAILY [facility] Last Admin: 08/10/17 10:06 Dose: 50 mg Tamsulosin HCl (Flomax -) 0.4 mg PO DAILY [facility] Last Admin: 08/10/17 10:06 Dose: 0.4 mg - Objective Vital Signs: Vital Signs Temperature 36.3 C L 08/10/17 09:28 Pulse Rate 66 08/10/17 09:28 Respiratory Rate 20 08/10/17 09:28 Blood Pressure 144/74 08/10/17 09:28 O2 Sat by Pulse Oximetry (%) 96 08/09/17 21:00 Constitutional: Yes: No Distress, Calm, Obese Cardiovascular: Yes: Regular Rate and Rhythm. No: Gallop, Murmur, Rub Respiratory: Yes: Regular, CTA Bilaterally. No: Rales, Rhonchi, Wheezes Gastrointestinal: Yes: Normal Bowel Sounds, Soft. No: Distention, Tenderness Extremities: Yes: Erythema Edema: No Labs: CBC, BMP 08/10/17 06:30 08/10/17 06:30 Problem List - Problems (1) MRSA (methicillin resistant Staphylococcus aureus) infection Code(s): A49.02 - METHICILLIN RESIS STAPH INFECTION, UNSP SITE (2) CKD stage 4 due to type 2 diabetes mellitus Code(s): E11.22 - TYPE 2 DIABETES MELLITUS W DIABETIC CHRONIC KIDNEY DISEASE; N18.4 - CHRONIC KIDNEY DISEASE, STAGE 4 (SEVERE) (3) Hyperkalemia Code(s): E87.5 - HYPERKALEMIA (4) Morbidly obese Code(s): E66.01 - MORBID (SEVERE) OBESITY DUE TO EXCESS CALORIES (5) T2DM (type 2 diabetes mellitus) Code(s): E11.9 - TYPE 2 DIABETES MELLITUS WITHOUT COMPLICATIONS Qualifiers: Diabetes mellitus complication status: with kidney complications (6) Hypotension Code(s): I95.9 - HYPOTENSION, UNSPECIFIED (7) Rheumatoid arthritis Code(s): M06.9 - RHEUMATOID ARTHRITIS, UNSPECIFIED Qualifiers: Rheumatoid arthritis location: unspecified site Rheumatoid factor presence : unspecified presence Qualified Code(s): M06.9 - Rheumatoid arthritis, unspecified Assessment/Plan (1) MRSA (methicillin resistant Staphylococcus aureus) infection Assessment/Plan -give dose of vancomycin today -transition to doxycycline tomorrow -case d/w ID, ok for d/c in am Code(s): A49.02 - METHICILLIN RESIS STAPH INFECTION, UNSP SITE (2) CKD stage 4 due to type 2 diabetes mellitus Assessment/Plan: -case d/w Dr Heard -stop IVF -recheck bmp tomorrow -if stable an discharge Code(s): E11.22 - TYPE 2 DIABETES MELLITUS W DIABETIC CHRONIC KIDNEY DISEASE; N18.4 - CHRONIC KIDNEY DISEASE, STAGE 4 (SEVERE) (3) Hyperkalemia Assessment/Plan: -much improved -continue monitoring -diet control reinforced Code(s): E87.5 - HYPERKALEMIA (4) Morbidly obese Assessment/Plan: -outpatient weight loss program Code(s): E66.01 - MORBID (SEVERE) OBESITY DUE TO EXCESS CALORIES (5) T2DM (type 2 diabetes mellitus) Assessment/Plan: -no hyperglycemia Code(s): E11.9 - TYPE 2 DIABETES MELLITUS WITHOUT COMPLICATIONS Qualifiers: Diabetes mellitus complication status: with kidney complications (6) Hypotension Assessment/Plan: -continue toprol xl Code(s): I95.9 - HYPOTENSION, UNSPECIFIED (7) Rheumatoid arthritis Assessment/Plan: -avoid NSAIDs Code(s): M06.9 - RHEUMATOID ARTHRITIS, UNSPECIFIED Qualifiers: Rheumatoid arthritis location: unspecified site Rheumatoid factor presence : unspecified presence Qualified Code(s): M06.9 - Rheumatoid arthritis, unspecified Dispo -plan for discharge tomorrow with oral doxycycline
--- NOTE | 2017-08-10 14:15 | PN ---
Progress Note (short form) - Note Progress Note: slept well no complaints laying flat comfortably Vital Signs Period Temp Pulse Resp BP Sys/Gallagher Pulse Ox Last 24 Hr 97.3 F-98.1 F 66-73 20-20 117-144/57-74 96 cor-rrr lungs clear abd soft, nt ext much less erythema, minimal drainage, +scaling skin CBC, BMP 08/10/17 06:30 08/10/17 06:30 Microbiology 08/03/17 19:32 Blood - Peripheral Venous Blood Culture - Final NO GROWTH AFTER 5 DAYS INCUBATION 08/03/17 19:32 Blood - Peripheral Venous Blood Culture - Final NO GROWTH AFTER 5 DAYS INCUBATION 08/03/17 19:32 Leg - Right Lower Gram Stain - Final 08/03/17 19:32 Leg - Right Lower Wound Culture - Final Mr S Aureus Enterococcus Faecalis a/p cellulitis-MRSA venous stasis CKD with hyperkalemia-improving prior history of MRSA contact isolation redose vancomycin today vancomycin level in am if renal function has stabilized, can d/c home on po doxycycline 100 bid for 2 weeks with close wound care followup
[2017-08-10] MEDS ORDERED: VANCOMYCIN 1,250 MG in DEXTROSE 5%-WATER - 250 ML IVPB ONE (14:30)
--- NOTE | 2017-08-10 16:46 | PN ---
Progress Note, Physician History of Present Illness: Pt seen and examined at bedside. He is awake and alert. He denies shortness of breath. - Current Medication List Current Medications: Active Medications Acetaminophen/Codeine Phosphate (Tylenol # 3 -) 1 tab PO Q6H [facility] Last Admin: 08/10/17 14:17 Dose: 1 tab Aspirin (Asa -) 81 mg PO DAILY [facility] Last Admin: 08/10/17 10:06 Dose: 81 mg Atorvastatin Calcium (Lipitor -) 10 mg PO HS [facility] Last Admin: 08/09/17 21:18 Dose: 10 mg Clonazepam (Klonopin -) 1 mg PO BID [facility] Last Admin: 08/10/17 10:07 Dose: 1 mg Clotrimazole (Lotrimin 1% Cream -) 1 applic TP BID [facility] Last Admin: 08/10/17 10:10 Dose: 1 applic Finasteride (Proscar -) 5 mg PO DAILY [facility] Last Admin: 08/10/17 10:06 Dose: 5 mg Folic Acid (Folic Acid -) 1 mg PO DAILY [facility] Last Admin: 08/10/17 10:06 Dose: 1 mg Sodium Chloride (1/2 Normal Saline) 1,000 mls @ 42 mls/hr IV ASDIR [facility] Last Admin: 08/09/17 21:20 Dose: 42 mls/hr Metoprolol Succinate (Toprol Xl -) 50 mg PO DAILY [facility] Last Admin: 08/10/17 10:06 Dose: 50 mg Multivitamins/Minerals/Vitamin C (Tab-A-Vit -) 1 tab PO DAILY [facility] Last Admin: 08/10/17 10:06 Dose: 1 tab Nystatin (Nystatin Oral Suspension -) 500,000 units PO Q6HPO [facility] Last Admin: 08/10/17 14:19 Dose: 500,000 units Ranitidine HCl (Zantac -) 300 mg PO DAILY [facility] Last Admin: 08/10/17 10:06 Dose: 300 mg Sertraline HCl (Zoloft -) 50 mg PO DAILY [facility] Last Admin: 08/10/17 10:06 Dose: 50 mg Tamsulosin HCl (Flomax -) 0.4 mg PO DAILY [facility] Last Admin: 08/10/17 10:06 Dose: 0.4 mg - Objective Vital Signs: Vital Signs Temperature 97.3 F L 08/10/17 14:00 Pulse Rate 72 08/10/17 14:00 Respiratory Rate 20 08/10/17 14:00 Blood Pressure 132/63 08/10/17 14:00 O2 Sat by Pulse Oximetry (%) 99 08/10/17 09:00 Constitutional: Yes: Calm Eyes: Yes: Conjunctiva Clear HENT: Yes: Atraumatic Neck: Yes: Supple Cardiovascular: Yes: S1, S2 Respiratory: Yes: CTA Bilaterally Gastrointestinal: Yes: Soft, Abdomen, Obese Genitourinary: Yes: WNL Edema: LLE: Trace, RLE: Trace Neurological: Yes: Oriented Psychiatric: Yes: Oriented Labs: CBC, BMP 08/10/17 06:30 08/10/17 06:30 Problem List - Problems (1) CKD stage 4 due to type 2 diabetes mellitus Code(s): E11.22 - TYPE 2 DIABETES MELLITUS W DIABETIC CHRONIC KIDNEY DISEASE; N18.4 - CHRONIC KIDNEY DISEASE, STAGE 4 (SEVERE) (2) Cellulitis of right leg Code(s): L03.115 - CELLULITIS OF RIGHT LOWER LIMB (3) Hyperkalemia Code(s): E87.5 - HYPERKALEMIA (4) Obesity Code(s): E66.9 - OBESITY, UNSPECIFIED (5) T2DM (type 2 diabetes mellitus) Code(s): E11.9 - TYPE 2 DIABETES MELLITUS WITHOUT COMPLICATIONS Qualifiers: Diabetes mellitus complication status: with kidney complications (6) BPH (benign prostatic hyperplasia) Code(s): N40.0 - BENIGN PROSTATIC HYPERPLASIA WITHOUT LOWER URINRY TRACT SYMP (7) CKD (chronic kidney disease) Code(s): N18.9 - CHRONIC KIDNEY DISEASE, UNSPECIFIED Assessment/Plan Current Medications Generic Name Dose Route Start Last Admin Trade Name Freq PRN Reason Stop Dose Admin Acetaminophen/Codeine Phosphate 1 tab 08/03/17 21:00 08/10/17 14:17 Tylenol # 3 - PO 1 tab Q6H DANIEL Administration Aspirin 81 mg 08/04/17 10:00 08/10/17 10:06 Asa - PO 81 mg DAILY DANIEL Administration Atorvastatin Calcium 10 mg 08/03/17 22:00 08/09/17 21:18 Lipitor - PO 10 mg HS DANIEL Administration Clonazepam 1 mg 08/07/17 12:00 08/10/17 10:07 Klonopin - PO 1 mg BID DANIEL Administration Clotrimazole 1 applic 08/04/17 22:00 08/10/17 10:10 Lotrimin 1% Cream - TP 1 applic BID DANIEL Administration Finasteride 5 mg 08/04/17 10:00 08/10/17 10:06 Proscar - PO 5 mg DAILY DANIEL Administration Folic Acid 1 mg 08/04/17 10:00 08/10/17 10:06 Folic Acid - PO 1 mg DAILY DANIEL Administration Sodium Chloride 1,000 mls @ 42 mls/hr 08/06/17 17:00 08/09/17 21:20 1/2 Normal Saline IV 42 mls/hr ASDIR DANIEL Administration Metoprolol Succinate 50 mg 08/04/17 10:00 08/10/17 10:06 Toprol Xl - PO 50 mg DAILY DANIEL Administration Multivitamins/Minerals/Vitamin C 1 tab 08/04/17 10:00 08/10/17 10:06 Tab-A-Vit - PO 1 tab DAILY DANIEL Administration Nystatin 500,000 units 08/04/17 18:00 08/10/17 14:19 Nystatin Oral Suspension - PO 500,000 units Q6HPO DANIEL Administration Ranitidine HCl 300 mg 08/04/17 10:00 08/10/17 10:06 Zantac - PO 300 mg DAILY DANIEL Administration Sertraline HCl 50 mg 08/04/17 10:00 08/10/17 10:06 Zoloft - PO 50 mg DAILY DANIEL Administration Tamsulosin HCl 0.4 mg 08/04/17 10:00 08/10/17 10:06 Flomax - PO 0.4 mg DAILY DANIEL Administration Impression 1. OLIVIA 2. hyperkalemia 3. CKD 4. DM 5. sepsis 6. cellulitis Plan - renal function is improving - will stop fluids - repeat labs in am - pt was on lasix at home which has been held - low potassium diet - avoid nsaids - wound care to legs Dr Heard
[2017-08-10] MEDS: ATORVASTATIN CA 10 MG TABLET (FP) PO SCH (23:13)
[2017-08-11] MEDS: ACETAMINOPHEN WITH CODEINE 300MG/30MG TABLET PO SCH ×4 (04:05→22:03)
[2017-08-11] MEDS: NYSTATIN 500,000 UNITS/5 ML SUSPENSION PO SCH ×4 (06:50→23:17)
[2017-08-11 07:55] LABS: BASO % 0.7 % (0-2.0); EOS % 3.7 % (0-4.5); HEMATOCRIT 29.8 % (35.4-49); HEMOGLOBIN 9.3 GM/dL (11.7-16.9); LYMPH % 27.6 % (8-40); MCH 26.1 pg (25.7-33.7); MCHC 31.1 g/dl (32.0-35.9); MEAN CELL VOLUME 83.9 fl (80-96); MEAN PLT VOLUME 6.9 fl (7.5-11.1); MONO % 10.3 % (3.8-10.2); NEUT % 57.7 % (42.8-82.8); PLATELET COUNT 225 K/MM3 (134-434); RBC 3.55 M/mm3 (4.00-5.60); RDW 18.1 % (11.9-15.9)
[2017-08-11 08:06] LABS: CHLORIDE 108 mmol/L (98-107); POTASSIUM 4.5 mmol/L (3.5-5.1); SODIUM 140 mmol/L (136-145)
[2017-08-11 08:10] LABS: ANION GAP 7 (8-16); BLOOD UREA NITROGEN 32 mg/dL (7-18); CALCIUM 7.7 mg/dL (8.5-10.1); CO2 25 mmol/L (21-32); CREATININE 1.7 mg/dL (0.7-1.3); GLUCOSE,RANDOM 96 mg/dL (74-106); MAGNESIUM 1.8 mg/dL (1.8-2.4); PHOSPHOROUS 3.7 mg/dL (2.5-4.9)
[2017-08-11] MEDS ORDERED: PT OWN MED DRAWER 7, Y5N ONE (09:18)
[2017-08-11] MEDS: ASPIRIN 81 MG CHEWABLE TABLETS PO SCH (09:56)
[2017-08-11] MEDS: FOLIC ACID 1 MG TABLET (FP) PO SCH (09:56)
[2017-08-11] MEDS: TAMSULOSIN HCL 0.4 MG CAP.ER.24H (FP) PO SCH (09:56)
[2017-08-11] MEDS: clonazePAM 0.5 MG TABLET PO SCH ×2 (09:56→22:03)
[2017-08-11] MEDS: FINASTERIDE 5 MG TABLET (FP) PO SCH (09:57)
[2017-08-11] MEDS: RANITIDINE HCL 150 MG TABLET (FP) PO SCH (09:57)
[2017-08-11] MEDS: SERTRALINE HCL 50 MG TABLET (FP) PO SCH (09:57)
[2017-08-11] MEDS: MULTIVITAMINS (DAILY MVI) TABLET (FP) PO SCH (09:57)
[2017-08-11] MEDS: CLOTRIMAZOLE 1% CREAM 15 GM TUBE TP SCH ×2 (10:05→22:34)
--- NOTE | 2017-08-11 11:46 | PN ---
Progress Note, Physician History of Present Illness: Pt washing this morning on exam, but notes worsening jerking movements of arms. Patient also appears somewhat slowed mentation, slow to answer questions. - Current Medication List Current Medications: Active Medications Acetaminophen/Codeine Phosphate (Tylenol # 3 -) 1 tab PO Q6H [facility] Last Admin: 08/11/17 09:52 Dose: 1 tab Aspirin (Asa -) 81 mg PO DAILY [facility] Last Admin: 08/11/17 09:56 Dose: 81 mg Atorvastatin Calcium (Lipitor -) 10 mg PO HS [facility] Last Admin: 08/10/17 23:13 Dose: 10 mg Clonazepam (Klonopin -) 1 mg PO BID [facility] Last Admin: 08/11/17 09:56 Dose: 1 mg Clotrimazole (Lotrimin 1% Cream -) 1 applic TP BID [facility] Last Admin: 08/11/17 10:05 Dose: 1 applic Finasteride (Proscar -) 5 mg PO DAILY [facility] Last Admin: 08/11/17 09:57 Dose: 5 mg Folic Acid (Folic Acid -) 1 mg PO DAILY [facility] Last Admin: 08/11/17 09:56 Dose: 1 mg Metoprolol Succinate (Toprol Xl -) 50 mg PO DAILY [facility] Last Admin: 08/11/17 09:57 Dose: 50 mg Multivitamins/Minerals/Vitamin C (Tab-A-Vit -) 1 tab PO DAILY [facility] Last Admin: 08/11/17 09:57 Dose: 1 tab Nystatin (Nystatin Oral Suspension -) 500,000 units PO Q6HPO [facility] Last Admin: 08/11/17 06:50 Dose: 500,000 units Ranitidine HCl (Zantac -) 300 mg PO DAILY [facility] Last Admin: 08/11/17 09:57 Dose: 300 mg Sertraline HCl (Zoloft -) 50 mg PO DAILY [facility] Last Admin: 08/11/17 09:57 Dose: 50 mg Tamsulosin HCl (Flomax -) 0.4 mg PO DAILY [facility] Last Admin: 08/11/17 09:56 Dose: 0.4 mg - Objective Vital Signs: Vital Signs Temperature 97.9 F 08/11/17 05:56 Pulse Rate 68 08/11/17 05:56 Respiratory Rate 20 08/11/17 05:56 Blood Pressure 154/71 08/11/17 05:56 O2 Sat by Pulse Oximetry (%) 91 L 08/11/17 09:00 Constitutional: Yes: No Distress Cardiovascular: Yes: Regular Rate and Rhythm, S1, S2. No: Murmur Respiratory: Yes: Regular, CTA Bilaterally. No: Rales, Rhonchi, Wheezes Gastrointestinal: Yes: Normal Bowel Sounds, Soft. No: Distention, Tenderness Neurological: Yes: Other (flapping-type jerks of hands, arms fall downward when trying to keep them raised). No: Confusion (but slow mentation) Labs: CBC, BMP 08/11/17 06:00 08/11/17 06:00 Assessment/Plan Current Active Problems CKD stage 4 due to type 2 diabetes mellitus (Acute) Cellulitis of right leg (Acute) Groin rash (Acute) Hyperkalemia (Acute) Leg wound, right (Acute) MRSA (methicillin resistant Staphylococcus aureus) infection (Acute) Morbidly obese (Acute) Obesity (Acute) Oral thrush (Acute) Rash and nonspecific skin eruption (Acute) T2DM (type 2 diabetes mellitus) (Acute) -with worsening tremor/ jerk, slowed mentation, will check O2 sats (pre- and post ambulatory) -will check old records to see if history of sleep apnea -due to swith to PO abx today, but does not seem stable for discharge with slow mentation/ increased myoclonic jerks
--- NOTE | 2017-08-11 12:01 | PN ---
Progress Note (short form) - Note Progress Note: RENAL Pt in a deep sleep, snoring not tachypneic no myoclonus noted Last Vital Signs Temp Pulse Resp BP Pulse Ox 97.9 F 68 20 154/71 91 L 08/11/17 05:56 08/11/17 05:56 08/11/17 05:56 08/11/17 05:56 08/11/17 09:00 lungs bilat air entry cvs s1s2 rr abd soft ext no edema CBC, BMP 08/11/17 06:00 08/11/17 06:00 Current Medications Generic Name Dose Route Start Last Admin Trade Name Freq PRN Reason Stop Dose Admin Acetaminophen/Codeine Phosphate 1 tab 08/03/17 21:00 08/11/17 09:52 Tylenol # 3 - PO 1 tab Q6H DANIEL Administration Aspirin 81 mg 08/04/17 10:00 08/11/17 09:56 Asa - PO 81 mg DAILY DANIEL Administration Atorvastatin Calcium 10 mg 08/03/17 22:00 08/10/17 23:13 Lipitor - PO 10 mg HS DANIEL Administration Clonazepam 1 mg 08/07/17 12:00 08/11/17 09:56 Klonopin - PO 1 mg BID DANIEL Administration Clotrimazole 1 applic 08/04/17 22:00 08/11/17 10:05 Lotrimin 1% Cream - TP 1 applic BID DANIEL Administration Finasteride 5 mg 08/04/17 10:00 08/11/17 09:57 Proscar - PO 5 mg DAILY DANIEL Administration Folic Acid 1 mg 08/04/17 10:00 08/11/17 09:56 Folic Acid - PO 1 mg DAILY DANIEL Administration Metoprolol Succinate 50 mg 08/04/17 10:00 08/11/17 09:57 Toprol Xl - PO 50 mg DAILY DANIEL Administration Multivitamins/Minerals/Vitamin C 1 tab 08/04/17 10:00 08/11/17 09:57 Tab-A-Vit - PO 1 tab DAILY DANIEL Administration Nystatin 500,000 units 08/04/17 18:00 08/11/17 06:50 Nystatin Oral Suspension - PO 500,000 units Q6HPO DANIEL Administration Ranitidine HCl 300 mg 08/04/17 10:00 08/11/17 09:57 Zantac - PO 300 mg DAILY DANIEL Administration Sertraline HCl 50 mg 08/04/17 10:00 08/11/17 09:57 Zoloft - PO 50 mg DAILY DANIEL Administration Tamsulosin HCl 0.4 mg 08/04/17 10:00 08/11/17 09:56 Flomax - PO 0.4 mg DAILY DANIEL Administration Impression 1. OLIVIA improved 2. hyperkalemia 3. CKD ?obstructive 4. DM 5. sepsis 6. cellulitis Plan -obtain urinalysis. He was previously non proteinuric - low potassium diet - avoid nsaids - wound care to legs [facility]
[2017-08-11] MEDS: ATORVASTATIN CA 10 MG TABLET (FP) PO SCH (22:04)
[2017-08-12] MEDS: ACETAMINOPHEN WITH CODEINE 300MG/30MG TABLET PO SCH ×4 (02:02→22:00)
[2017-08-12] MEDS: NYSTATIN 500,000 UNITS/5 ML SUSPENSION PO SCH ×3 (07:00→19:33)
[2017-08-12 07:36] LABS: HEMATOCRIT 29.9 % (35.4-49); HEMOGLOBIN 9.1 GM/dL (11.7-16.9); MCH 25.8 pg (25.7-33.7); MCHC 30.4 g/dl (32.0-35.9); MEAN CELL VOLUME 84.6 fl (80-96); MEAN PLT VOLUME 6.8 fl (7.5-11.1); PLATELET COUNT 228 K/MM3 (134-434); RBC 3.53 M/mm3 (4.00-5.60); RDW 17.9 % (11.9-15.9); WHITE BLOOD COUNT 6.9 K/mm3 (4.0-10.0)
[2017-08-12 08:03] LABS: CHLORIDE 109 mmol/L (98-107); POTASSIUM 5.1 mmol/L (3.5-5.1); SODIUM 140 mmol/L (136-145)
[2017-08-12 08:16] LABS: ALBUMIN 1.8 g/dl (3.4-5.0); ALK PHOS 142 U/L (45-117); ANION GAP 5 (8-16); BILIRUBIN,TOTAL 0.3 mg/dL (0.2-1.0); BLOOD UREA NITROGEN 32 mg/dL (7-18); CALCIUM 8.5 mg/dL (8.5-10.1); CO2 26 mmol/L (21-32); CREATININE 1.7 mg/dL (0.7-1.3); GLUCOSE,RANDOM 89 mg/dL (74-106); SGOT/AST 30 U/L (15-37); SGPT/ALT 14 U/L (12-78); TOT PROT 7.2 g/dl (6.4-8.2)
[2017-08-12 09:53] LABS: ANISOCYTOSIS 2+; PLATELET ESTIMATE NORMAL; TARGET CELLS 1+
[2017-08-12] MEDS: TAMSULOSIN HCL 0.4 MG CAP.ER.24H (FP) PO SCH (11:26)
[2017-08-12] MEDS: FOLIC ACID 1 MG TABLET (FP) PO SCH (11:26)
[2017-08-12] MEDS: ASPIRIN 81 MG CHEWABLE TABLETS PO SCH (11:26)
[2017-08-12] MEDS: FINASTERIDE 5 MG TABLET (FP) PO SCH (11:27)
[2017-08-12] MEDS: clonazePAM 0.5 MG TABLET PO SCH (11:27)
[2017-08-12] MEDS: CLOTRIMAZOLE 1% CREAM 15 GM TUBE TP SCH ×2 (11:27→21:59)
[2017-08-12] MEDS: MULTIVITAMINS (DAILY MVI) TABLET (FP) PO SCH (11:27)
[2017-08-12] MEDS: RANITIDINE HCL 150 MG TABLET (FP) PO SCH (11:28)
[2017-08-12] MEDS: SERTRALINE HCL 50 MG TABLET (FP) PO SCH (11:28)
--- NOTE | 2017-08-12 11:32 | PN ---
Progress Note, Physician History of Present Illness: Upon entering room patient was on the floor, being picked up by security (see fall documentation sheets). He was walking to the bathroom with assistance when his legs got weak and he went down on his buttocks. Due to leg weakness he could not get back up. Feeling weak but otherwise no pain from the fall. Yesterday had O2 sats checked that had dropped into the 70's, so now started on oxygen. - Current Medication List Current Medications: Active Medications Acetaminophen/Codeine Phosphate (Tylenol # 3 -) 1 tab PO Q6H [facility] Last Admin: 08/12/17 02:02 Dose: Not Given Aspirin (Asa -) 81 mg PO DAILY [facility] Last Admin: 08/11/17 09:56 Dose: 81 mg Atorvastatin Calcium (Lipitor -) 10 mg PO HS [facility] Last Admin: 08/11/17 22:04 Dose: 10 mg Clonazepam (Klonopin -) 1 mg PO BID [facility] Last Admin: 08/11/17 22:03 Dose: 1 mg Clotrimazole (Lotrimin 1% Cream -) 1 applic TP BID [facility] Last Admin: 08/11/17 22:34 Dose: 1 applic Finasteride (Proscar -) 5 mg PO DAILY [facility] Last Admin: 08/11/17 09:57 Dose: 5 mg Folic Acid (Folic Acid -) 1 mg PO DAILY [facility] Last Admin: 08/11/17 09:56 Dose: 1 mg Metoprolol Succinate (Toprol Xl -) 50 mg PO DAILY [facility] Last Admin: 08/11/17 09:57 Dose: 50 mg Multivitamins/Minerals/Vitamin C (Tab-A-Vit -) 1 tab PO DAILY [facility] Last Admin: 08/11/17 09:57 Dose: 1 tab Nystatin (Nystatin Oral Suspension -) 500,000 units PO Q6HPO [facility] Last Admin: 08/11/17 23:17 Dose: 500,000 units Ranitidine HCl (Zantac -) 300 mg PO DAILY [facility] Last Admin: 08/11/17 09:57 Dose: 300 mg Sertraline HCl (Zoloft -) 50 mg PO DAILY [facility] Last Admin: 08/11/17 09:57 Dose: 50 mg Tamsulosin HCl (Flomax -) 0.4 mg PO DAILY [facility] Last Admin: 08/11/17 09:56 Dose: 0.4 mg - Objective Vital Signs: Vital Signs Temperature 98.8 F 08/12/17 06:00 Pulse Rate 83 08/12/17 06:00 Respiratory Rate 20 08/12/17 06:00 Blood Pressure 140/77 08/12/17 06:00 O2 Sat by Pulse Oximetry (%) 95 08/11/17 21:00 Constitutional: Yes: No Distress, Calm HENT: Yes: Atraumatic, Normocephalic Neck: Yes: Supple, Trachea Midline Cardiovascular: Yes: Regular Rate and Rhythm, S1, S2. No: Murmur Respiratory: Yes: Regular, CTA Bilaterally Gastrointestinal: Yes: Normal Bowel Sounds, Soft, Abdomen, Obese. No: Distention, Tenderness Extremities: Yes: Other (dressingn on lower leg) Neurological: Yes: Alert, Oriented Labs: CBC, BMP 08/12/17 06:00 08/12/17 06:00 Assessment/Plan Current Active Problems CKD stage 4 due to type 2 diabetes mellitus (Acute) Cellulitis of right leg (Acute) Groin rash (Acute) Hyperkalemia (Acute) Leg wound, right (Acute) MRSA (methicillin resistant Staphylococcus aureus) infection (Acute) Morbidly obese (Acute) Obesity (Acute) Oral thrush (Acute) Rash and nonspecific skin eruption (Acute) T2DM (type 2 diabetes mellitus) (Acute) -patient notes that he had sleep study for sleep apnea, but does not have CPAP at home set up yet. Given his leg weakness and falls he should go to [facility] as is a fall risk -likely has episodes of severe hypoxia, which have been contributing to the myoclonic jerks, so will need oxygen therapy as well
[2017-08-12] MEDS: DOXYCYCLINE HYCLATE 100 MG CAPSULE PO SCH (19:33)
[2017-08-12] MEDS: ATORVASTATIN CA 10 MG TABLET (FP) PO SCH (21:45)
[2017-08-13] MEDS: NYSTATIN 500,000 UNITS/5 ML SUSPENSION PO SCH ×3 (00:13→11:47)
[2017-08-13] MEDS: ACETAMINOPHEN WITH CODEINE 300MG/30MG TABLET PO SCH ×2 (03:00→09:45)
[2017-08-13 08:00] LABS: BASO % 0.8 % (0-2.0); EOS % 1.4 % (0-4.5); HEMATOCRIT 28.4 % (35.4-49); HEMOGLOBIN 8.7 GM/dL (11.7-16.9); LYMPH % 35.3 % (8-40); MCHC 30.6 g/dl (32.0-35.9); MEAN CELL VOLUME 84.8 fl (80-96); MEAN PLT VOLUME 6.6 fl (7.5-11.1); MONO % 11.4 % (3.8-10.2); NEUT % 51.1 % (42.8-82.8); PLATELET COUNT 196 K/MM3 (134-434); RBC 3.36 M/mm3 (4.00-5.60); RDW 17.9 % (11.9-15.9); WHITE BLOOD COUNT 6.1 K/mm3 (4.0-10.0)
[2017-08-13 08:19] LABS: ANION GAP 5 (8-16); BLOOD UREA NITROGEN 31 mg/dL (7-18); CALCIUM 8.4 mg/dL (8.5-10.1); CHLORIDE 112 mmol/L (98-107); CO2 26 mmol/L (21-32); CREATININE 1.5 mg/dL (0.7-1.3); GLUCOSE,RANDOM 95 mg/dL (74-106); POTASSIUM 4.7 mmol/L (3.5-5.1); SODIUM 143 mmol/L (136-145)
[2017-08-13] MEDS: SERTRALINE HCL 50 MG TABLET (FP) PO SCH (09:44)
[2017-08-13] MEDS: DOXYCYCLINE HYCLATE 100 MG CAPSULE PO SCH ×2 (09:44→17:19)
[2017-08-13] MEDS: MULTIVITAMINS (DAILY MVI) TABLET (FP) PO SCH (09:44)
[2017-08-13] MEDS: FOLIC ACID 1 MG TABLET (FP) PO SCH (09:44)
[2017-08-13] MEDS: TAMSULOSIN HCL 0.4 MG CAP.ER.24H (FP) PO SCH (09:44)
[2017-08-13] MEDS: ASPIRIN 81 MG CHEWABLE TABLETS PO SCH (09:44)
[2017-08-13] MEDS: RANITIDINE HCL 150 MG TABLET (FP) PO SCH (09:44)
[2017-08-13] MEDS: FINASTERIDE 5 MG TABLET (FP) PO SCH (09:44)
[2017-08-13] MEDS: CLOTRIMAZOLE 1% CREAM 15 GM TUBE TP SCH ×2 (09:45→22:46)
[2017-08-13] MEDS ORDERED: ACETAMINOPHEN WITH CODEINE 300MG/30MG TABLET PO PRN (11:48)
--- NOTE | 2017-08-13 12:52 | PN ---
Progress Note (short form) - Note Progress Note: somnalent this am Vital Signs Period Temp Pulse Resp BP Sys/Gallagher Pulse Ox Last 24 Hr 97.8 F-98.3 F 70-85 18-20 117-140/57-70 96-97 cor-rrr lulngs decreased bs at bases abd soft,nt ext RLE drying, no drainage CBC, BMP 08/13/17 06:35 08/13/17 06:35 Microbiology 08/03/17 19:32 Blood - Peripheral Venous Blood Culture - Final NO GROWTH AFTER 5 DAYS INCUBATION 08/03/17 19:32 Blood - Peripheral Venous Blood Culture - Final NO GROWTH AFTER 5 DAYS INCUBATION 08/03/17 19:32 Leg - Right Lower Gram Stain - Final 08/03/17 19:32 Leg - Right Lower Wound Culture - Final S Aureus Enterococcus Faecalis Current Medications Acetaminophen/Codeine Phosphate (Tylenol # 3 -) 1 tab PO Q6H PRN PRN Reason: PAIN LEVEL 7 - 10 Aspirin (Asa -) 81 mg PO DAILY [facility] Last Admin: 08/13/17 09:44 Dose: 81 mg Atorvastatin Calcium (Lipitor -) 10 mg PO HS [facility] Last Admin: 08/12/17 21:45 Dose: 10 mg Clotrimazole (Lotrimin 1% Cream -) 1 applic TP BID [facility] Last Admin: 08/13/17 09:45 Dose: 1 applic Doxycycline Hyclate (Vibramycin -) 100 mg PO BID@1000,1800 [facility] Last Admin: 08/13/17 09:44 Dose: 100 mg Finasteride (Proscar -) 5 mg PO DAILY [facility] Last Admin: 08/13/17 09:44 Dose: 5 mg Folic Acid (Folic Acid -) 1 mg PO DAILY [facility] Last Admin: 08/13/17 09:44 Dose: 1 mg Metoprolol Succinate (Toprol Xl -) 50 mg PO DAILY [facility] Last Admin: 08/13/17 09:44 Dose: 50 mg Multivitamins/Minerals/Vitamin C (Tab-A-Vit -) 1 tab PO DAILY [facility] Last Admin: 08/13/17 09:44 Dose: 1 tab Nystatin (Nystatin Oral Suspension -) 500,000 units PO Q6HPO [facility] Last Admin: 08/13/17 11:47 Dose: 500,000 units Ranitidine HCl (Zantac -) 300 mg PO DAILY [facility] Last Admin: 08/13/17 09:44 Dose: 300 mg Sertraline HCl (Zoloft -) 50 mg PO DAILY [facility] Last Admin: 08/13/17 09:44 Dose: 50 mg Tamsulosin HCl (Flomax -) 0.4 mg PO DAILY [facility] Last Admin: 08/13/17 09:44 Dose: 0.4 mg a/p cellulitis much improved- agree with switch to po doxycycline for 2 weeks somnalence- d/w Dr Bazzi- meds being adjusted, ABG pending please call back if needed
[2017-08-13 13:05] LABS: ARTERIAL BLD GAS O2 SATURATION 90.8 % (90-98.9); ARTERIAL BLOOD GAS BASE EXCESS -0.8 meq/l (-2-2); ARTERIAL BLOOD GAS PCO2 54.6 mmHg (35-45); ARTERIAL BLOOD GAS pH 7.29 (7.35-7.45)
[2017-08-13 13:11] LABS: ALLENS TEST POSITIVE
--- NOTE | 2017-08-13 13:32 | PN ---
Progress Note, Physician Chief Complaint: Mr Villalpando has no new complaints. No cp, sob, n/v. Remains lethargic. - Current Medication List Current Medications: Active Medications Aspirin (Asa -) 81 mg PO DAILY [facility] Last Admin: 08/13/17 09:44 Dose: 81 mg Atorvastatin Calcium (Lipitor -) 10 mg PO HS [facility] Last Admin: 08/12/17 21:45 Dose: 10 mg Clotrimazole (Lotrimin 1% Cream -) 1 applic TP BID [facility] Last Admin: 08/13/17 09:45 Dose: 1 applic Doxycycline Hyclate (Vibramycin -) 100 mg PO BID@1000,1800 [facility] Last Admin: 08/13/17 09:44 Dose: 100 mg Finasteride (Proscar -) 5 mg PO DAILY [facility] Last Admin: 08/13/17 09:44 Dose: 5 mg Folic Acid (Folic Acid -) 1 mg PO DAILY [facility] Last Admin: 08/13/17 09:44 Dose: 1 mg Metoprolol Succinate (Toprol Xl -) 50 mg PO DAILY [facility] Last Admin: 08/13/17 09:44 Dose: 50 mg Multivitamins/Minerals/Vitamin C (Tab-A-Vit -) 1 tab PO DAILY [facility] Last Admin: 08/13/17 09:44 Dose: 1 tab Nystatin (Nystatin Oral Suspension -) 500,000 units PO Q6HPO [facility] Last Admin: 08/13/17 11:47 Dose: 500,000 units Ranitidine HCl (Zantac -) 300 mg PO DAILY [facility] Last Admin: 08/13/17 09:44 Dose: 300 mg Sertraline HCl (Zoloft -) 50 mg PO DAILY [facility] Last Admin: 08/13/17 09:44 Dose: 50 mg Tamsulosin HCl (Flomax -) 0.4 mg PO DAILY [facility] Last Admin: 08/13/17 09:44 Dose: 0.4 mg - Objective Vital Signs: Vital Signs Temperature 36.4 C 08/13/17 12:00 Pulse Rate 76 08/13/17 12:00 Respiratory Rate 20 08/13/17 12:00 Blood Pressure 130/84 08/13/17 12:00 O2 Sat by Pulse Oximetry (%) 97 08/13/17 08:00 Constitutional: Yes: No Distress, Calm, Obese Cardiovascular: Yes: Regular Rate and Rhythm. No: Gallop, Murmur, Rub Respiratory: Yes: Regular, CTA Bilaterally. No: Rales, Rhonchi, Wheezes Gastrointestinal: Yes: Normal Bowel Sounds, Soft. No: Distention, Tenderness Extremities: Yes: Erythema Edema: Yes Edema: LLE: 1+, RLE: 1+ Labs: CBC, BMP 08/13/17 06:35 08/13/17 06:35 Problem List - Problems (1) Respiratory failure with hypoxia and hypercapnia Code(s): J96.91 - RESPIRATORY FAILURE, UNSPECIFIED WITH HYPOXIA; J96.92 - RESPIRATORY FAILURE, UNSPECIFIED WITH HYPERCAPNIA Qualifiers: Chronicity: acute Qualified Code(s): J96.01 - Acute respiratory failure with hypoxia; J96.02 - Acute respiratory failure with hypercapnia; J96.02 - Acute respiratory failure with hypercapnia; J96.02 - Acute respiratory failure with hypercapnia (2) MRSA (methicillin resistant Staphylococcus aureus) infection Code(s): A49.02 - METHICILLIN RESIS STAPH INFECTION, UNSP SITE (3) CKD stage 4 due to type 2 diabetes mellitus Code(s): E11.22 - TYPE 2 DIABETES MELLITUS W DIABETIC CHRONIC KIDNEY DISEASE; N18.4 - CHRONIC KIDNEY DISEASE, STAGE 4 (SEVERE) (4) Hyperkalemia Code(s): E87.5 - HYPERKALEMIA (5) Morbidly obese Code(s): E66.01 - MORBID (SEVERE) OBESITY DUE TO EXCESS CALORIES (6) T2DM (type 2 diabetes mellitus) Code(s): E11.9 - TYPE 2 DIABETES MELLITUS WITHOUT COMPLICATIONS Qualifiers: Diabetes mellitus complication status: with kidney complications (7) Hypotension Code(s): I95.9 - HYPOTENSION, UNSPECIFIED (8) Rheumatoid arthritis Code(s): M06.9 - RHEUMATOID ARTHRITIS, UNSPECIFIED Qualifiers: Rheumatoid arthritis location: unspecified site Rheumatoid factor presence : unspecified presence Qualified Code(s): M06.9 - Rheumatoid arthritis, unspecified Assessment/Plan (1) Hypoxic/hypercapneic respiratory failure -secondary to obesity hypoventilation syndrome and use of benzodiazepines and codeine -ABG reviewed -follow up chest x-ray -bipap ordered -pulmonary consult -d/c codeine and benzodiazepines (2) MRSA (methicillin resistant Staphylococcus aureus) infection Assessment/Plan -continue doxycycline Code(s): A49.02 - METHICILLIN RESIS STAPH INFECTION, UNSP SITE (3) CKD stage 4 due to type 2 diabetes mellitus Assessment/Plan: -continues to improve -no further need for IVF Code(s): E11.22 - TYPE 2 DIABETES MELLITUS W DIABETIC CHRONIC KIDNEY DISEASE; N18.4 - CHRONIC KIDNEY DISEASE, STAGE 4 (SEVERE) (4) Hyperkalemia Assessment/Plan: -resolved -continue diet restriction Code(s): E87.5 - HYPERKALEMIA (5) Morbidly obese Assessment/Plan: -outpatient weight loss program Code(s): E66.01 - MORBID (SEVERE) OBESITY DUE TO EXCESS CALORIES (6) T2DM (type 2 diabetes mellitus) Assessment/Plan: -no hyperglycemia Code(s): E11.9 - TYPE 2 DIABETES MELLITUS WITHOUT COMPLICATIONS Qualifiers: Diabetes mellitus complication status: with kidney complications (6) Hypotension Assessment/Plan: -continue toprol xl Code(s): I95.9 - HYPOTENSION, UNSPECIFIED (7) Rheumatoid arthritis Assessment/Plan: -avoid NSAIDs Code(s): M06.9 - RHEUMATOID ARTHRITIS, UNSPECIFIED Qualifiers: Rheumatoid arthritis location: unspecified site Rheumatoid factor presence : unspecified presence Qualified Code(s): M06.9 - Rheumatoid arthritis, unspecified
--- NOTE | 2017-08-13 15:11 | PN ---
Progress Note, Physician History of Present Illness: Pt seen and examined at bedside. He is awake but confused today. He denies shortness of breath. - Current Medication List Current Medications: Active Medications Aspirin (Asa -) 81 mg PO DAILY [facility] Last Admin: 08/13/17 09:44 Dose: 81 mg Atorvastatin Calcium (Lipitor -) 10 mg PO HS [facility] Last Admin: 08/12/17 21:45 Dose: 10 mg Clotrimazole (Lotrimin 1% Cream -) 1 applic TP BID [facility] Last Admin: 08/13/17 09:45 Dose: 1 applic Doxycycline Hyclate (Vibramycin -) 100 mg PO BID@1000,1800 [facility] Last Admin: 08/13/17 09:44 Dose: 100 mg Finasteride (Proscar -) 5 mg PO DAILY [facility] Last Admin: 08/13/17 09:44 Dose: 5 mg Folic Acid (Folic Acid -) 1 mg PO DAILY [facility] Last Admin: 08/13/17 09:44 Dose: 1 mg Metoprolol Succinate (Toprol Xl -) 50 mg PO DAILY [facility] Last Admin: 08/13/17 09:44 Dose: 50 mg Multivitamins/Minerals/Vitamin C (Tab-A-Vit -) 1 tab PO DAILY [facility] Last Admin: 08/13/17 09:44 Dose: 1 tab Ranitidine HCl (Zantac -) 300 mg PO DAILY [facility] Last Admin: 08/13/17 09:44 Dose: 300 mg Sertraline HCl (Zoloft -) 50 mg PO DAILY [facility] Last Admin: 08/13/17 09:44 Dose: 50 mg Tamsulosin HCl (Flomax -) 0.4 mg PO DAILY [facility] Last Admin: 08/13/17 09:44 Dose: 0.4 mg - Objective Vital Signs: Vital Signs Temperature 98.2 F 08/13/17 14:04 Pulse Rate 72 08/13/17 14:04 Respiratory Rate 20 08/13/17 14:04 Blood Pressure 128/52 08/13/17 14:04 O2 Sat by Pulse Oximetry (%) 96 08/13/17 14:03 Constitutional: Yes: Calm Eyes: Yes: Conjunctiva Clear HENT: Yes: Atraumatic Neck: Yes: Supple Cardiovascular: Yes: S1, S2 Respiratory: Yes: CTA Bilaterally Gastrointestinal: Yes: Normal Bowel Sounds, Soft, Abdomen, Obese Genitourinary: Yes: WNL Musculoskeletal: Yes: Muscle Weakness Edema: Yes Edema: LLE: Trace, RLE: Trace Neurological: Yes: Confusion Labs: CBC, BMP 08/13/17 06:35 08/13/17 06:35 Problem List - Problems (1) CKD stage 4 due to type 2 diabetes mellitus Code(s): E11.22 - TYPE 2 DIABETES MELLITUS W DIABETIC CHRONIC KIDNEY DISEASE; N18.4 - CHRONIC KIDNEY DISEASE, STAGE 4 (SEVERE) (2) Cellulitis of right leg Code(s): L03.115 - CELLULITIS OF RIGHT LOWER LIMB (3) Hyperkalemia Code(s): E87.5 - HYPERKALEMIA (4) Obesity Code(s): E66.9 - OBESITY, UNSPECIFIED (5) T2DM (type 2 diabetes mellitus) Code(s): E11.9 - TYPE 2 DIABETES MELLITUS WITHOUT COMPLICATIONS Qualifiers: Diabetes mellitus complication status: with kidney complications (6) BPH (benign prostatic hyperplasia) Code(s): N40.0 - BENIGN PROSTATIC HYPERPLASIA WITHOUT LOWER URINRY TRACT SYMP (7) CKD (chronic kidney disease) Code(s): N18.9 - CHRONIC KIDNEY DISEASE, UNSPECIFIED Assessment/Plan Current Medications Generic Name Dose Route Start Last Admin Trade Name Freq PRN Reason Stop Dose Admin Aspirin 81 mg 08/04/17 10:00 08/13/17 09:44 Asa - PO 81 mg DAILY DANIEL Administration Atorvastatin Calcium 10 mg 08/03/17 22:00 08/12/17 21:45 Lipitor - PO 10 mg HS DANIEL Administration Clotrimazole 1 applic 08/04/17 22:00 08/13/17 09:45 Lotrimin 1% Cream - TP 1 applic BID DANIEL Administration Doxycycline Hyclate 100 mg 08/12/17 18:00 08/13/17 09:44 Vibramycin - PO 100 mg BID@1000,1800 DANIEL Administration Finasteride 5 mg 08/04/17 10:00 08/13/17 09:44 Proscar - PO 5 mg DAILY DANIEL Administration Folic Acid 1 mg 08/04/17 10:00 08/13/17 09:44 Folic Acid - PO 1 mg DAILY DANIEL Administration Metoprolol Succinate 50 mg 08/04/17 10:00 08/13/17 09:44 Toprol Xl - PO 50 mg DAILY DANIEL Administration Multivitamins/Minerals/Vitamin C 1 tab 08/04/17 10:00 08/13/17 09:44 Tab-A-Vit - PO 1 tab DAILY DANIEL Administration Ranitidine HCl 300 mg 08/04/17 10:00 08/13/17 09:44 Zantac - PO 300 mg DAILY DANIEL Administration Sertraline HCl 50 mg 08/04/17 10:00 08/13/17 09:44 Zoloft - PO 50 mg DAILY DANIEL Administration Tamsulosin HCl 0.4 mg 08/04/17 10:00 08/13/17 09:44 Flomax - PO 0.4 mg DAILY DANIEL Administration Impression 1. OLIVIA 2. hyperkalemia 3. CKD 4. DM 5. sepsis 6. cellulitis Plan - renal function continues to improve - repeat labs in am - check cxr - pt will start bipap - discussed with medical team - avoid nsaids - wound care to legs Dr Heard
[2017-08-13] MEDS: ATORVASTATIN CA 10 MG TABLET (FP) PO SCH (22:46)
[2017-08-14 07:41] LABS: ANION GAP 3 (8-16); BLOOD UREA NITROGEN 28 mg/dL (7-18); CHLORIDE 115 mmol/L (98-107); CO2 28 mmol/L (21-32); CREATININE 1.3 mg/dL (0.7-1.3); GLUCOSE,RANDOM 85 mg/dL (74-106); MAGNESIUM 1.7 mg/dL (1.8-2.4); PHOSPHOROUS 3.6 mg/dL (2.5-4.9); POTASSIUM 4.8 mmol/L (3.5-5.1); SODIUM 146 mmol/L (136-145)
[2017-08-14 07:45] LABS: HEMATOCRIT 27.3 % (35.4-49); HEMOGLOBIN 8.4 GM/dL (11.7-16.9); MCHC 30.9 g/dl (32.0-35.9); MEAN CELL VOLUME 84.4 fl (80-96); MEAN PLT VOLUME 6.8 fl (7.5-11.1); PLATELET COUNT 181 K/MM3 (134-434); RBC 3.24 M/mm3 (4.00-5.60); RDW 17.7 % (11.9-15.9); WHITE BLOOD COUNT 5.8 K/mm3 (4.0-10.0)
--- NOTE | 2017-08-14 09:46 | PN ---
Progress Note (short form) - Note Progress Note: Neurology History of Present Illness 61 year-old male with a PMH significant for HTN, HLD, CAD s/p stents, COPD, GERD , BPH s/p TURP and h/o urinary retention, rheumatoid arthritis, diabetes, non- Hodgkin's lymphoma, melanoma, autoimmune cytopenias, and obesity who was referred to the ED by his PCP to be admitted for his chronic right leg wound. Patient reported that he was on vacation in [place] and caught his right ankle on the curb which is where his wound started. Patient states that he wounds easily. Found to have MRSA and admitted for further medical mgmt. Consulted for jerking sensations that have been occuring, reportedly more pronounced on R hand and L leg. Patient with hyperkalemia , improved with fluids. Also with Type 2 DM, being managed. Started on Klonipin for possibly myoclonic jerks, reported relief with the medication at end of last week. This morning fatigued and minimally conversive but no abnormal movements noted. On positive airway pressure overnight. Being considered for transfer to SNF. Active Medications Generic Name Dose Route Start Last Admin Trade Name Emmettq PRN Reason Stop Dose Admin Aspirin 81 mg 08/04/17 10:00 08/13/17 09:44 Asa - PO 81 mg DAILY DANIEL Administration Atorvastatin Calcium 10 mg 08/03/17 22:00 08/13/17 22:46 Lipitor - PO 10 mg HS DANIEL Administration Clotrimazole 1 applic 08/04/17 22:00 08/13/17 22:46 Lotrimin 1% Cream - TP 1 applic BID DANIEL Administration Doxycycline Hyclate 100 mg 08/12/17 18:00 08/13/17 17:19 Vibramycin - PO 100 mg BID@1000,1800 DANIEL Administration Finasteride 5 mg 08/04/17 10:00 08/13/17 09:44 Proscar - PO 5 mg DAILY DANIEL Administration Folic Acid 1 mg 08/04/17 10:00 08/13/17 09:44 Folic Acid - PO 1 mg DAILY DANIEL Administration Metoprolol Succinate 50 mg 08/04/17 10:00 08/13/17 09:44 Toprol Xl - PO 50 mg DAILY DANIEL Administration Multivitamins/Minerals/Vitamin C 1 tab 08/04/17 10:00 08/13/17 09:44 Tab-A-Vit - PO 1 tab DAILY DANIEL Administration Ranitidine HCl 300 mg 08/04/17 10:00 08/13/17 09:44 Zantac - PO 300 mg DAILY DANIEL Administration Sertraline HCl 50 mg 08/04/17 10:00 08/13/17 09:44 Zoloft - PO 50 mg DAILY DANIEL Administration Tamsulosin HCl 0.4 mg 08/04/17 10:00 08/13/17 09:44 Flomax - PO 0.4 mg DAILY DANIEL Administration *Physical Exam Vital Signs Period Temp Pulse Resp BP Sys/Gallagher Pulse Ox Last 24 Hr 97.6 F-98.4 F 68-81 20-20 128-170/52-84 95-98 GENERAL: Obese. Awake, alert, and fully oriented, in no acute distress HEAD: No signs of trauma EYES: PERRLA, EOMI, sclera anicteric, conjunctiva clear ENT: Auricles normal inspection, hearing grossly normal, nares patent, oropharynx clear without exudates. Moist mucosa NECK: Normal ROM, supple, no lymphadenopathy, JVD, or masses LUNGS: Breath sounds equal, clear to auscultation bilaterally. No wheezes, and no crackles HEART: Regular rate and rhythm, normal S1 and S2, no murmurs, rubs or gallops ABDOMEN: Soft, nontender, normoactive bowel sounds. No guarding, no rebound. No masses EXTREMITIES: Normal range of motion, no edema. No clubbing or cyanosis. No cords, erythema, or tenderness NEUROLOGICAL: Cranial nerves II through XII grossly intact. Strength intact, sensory intact, no abnormal movements noted SKIN: MRSA Warm, Dry, normal turgor. Right lower extremity from foot to the knee -->skin is denuded, weeping, and errythematous. Chronic non-healing wounds. Left lateral mid-calf --> small area of unhealed ulcer. Left leg --> no weeping, bright red, irritated dry skin. CBCD WBC 5.8 K/mm3 (4.0-10.0) 08/14/17 06:00 RBC 3.24 M/mm3 (4.00-5.60) L 08/14/17 06:00 Hgb 8.4 GM/dL (11.7-16.9) L 08/14/17 06:00 Hct 27.3 % (35.4-49) L 08/14/17 06:00 MCV 84.4 fl (80-96) 08/14/17 06:00 MCHC 30.9 g/dl (32.0-35.9) L 08/14/17 06:00 RDW 17.7 % (11.9-15.9) H 08/14/17 06:00 Plt Count 181 K/MM3 (134-434) 08/14/17 06:00 MPV 6.8 fl (7.5-11.1) L 08/14/17 06:00 CMP Sodium 146 mmol/L (136-145) H 08/14/17 06:00 Potassium 4.8 mmol/L (3.5-5.1) 08/14/17 06:00 Chloride 115 mmol/L (98-107) H 08/14/17 06:00 Carbon Dioxide 28 mmol/L (21-32) 08/14/17 06:00 Anion Gap 3 (8-16) L 08/14/17 06:00 BUN 28 mg/dL (7-18) H 08/14/17 06:00 Creatinine 1.3 mg/dL (0.7-1.3) 08/14/17 06:00 Creat Clearance w eGFR 41.04 (>60) 08/12/17 06:00 Calcium 8.0 mg/dL (8.5-10.1) L 08/14/17 06:00 Total Bilirubin 0.3 mg/dL (0.2-1.0) 08/12/17 06:00 AST 30 U/L (15-37) D 08/12/17 06:00 ALT 14 U/L (12-78) 08/12/17 06:00 Alkaline Phosphatase 142 U/L (45-117) H 08/12/17 06:00 Total Protein 7.2 g/dl (6.4-8.2) 08/12/17 06:00 Albumin 1.8 g/dl (3.4-5.0) L 08/12/17 06:00 Medical Decision Making 61 year-old male with a PMH significant for HTN, HLD, CAD s/p stents, COPD, GERD , BPH s/p TURP and h/o urinary retention, rheumatoid arthritis, diabetes, non- Hodgkin's lymphoma, melanoma, autoimmune cytopenias, and obesity who was referred to the ED by his PCP to be admitted for his chronic right leg wound. Patient reported that he was on vacation in [place] and caught his right ankle on the curb which is where his wound started. Patient states that he wounds easily. Found to have MRSA and admitted for further medical mgmt. Continue infectious mgmt Patient with hyperkalemia on admission, improved with fluids Consulted for jerking sensations, possibly myoclonic, improved with Klonipin BPAP at night time No abnormal movements noted Being considered for SNF
[2017-08-14 09:54] LABS: ARTERIAL BLD GAS O2 SATURATION 99.1 % (90-98.9); ARTERIAL BLOOD GAS BASE EXCESS -1.5 meq/l (-2-2); ARTERIAL BLOOD GAS pH 7.23 (7.35-7.45)
[2017-08-14 09:56] LABS: ALLENS TEST POSITIVE
[2017-08-14 09:58] LABS: ARTERIAL BLOOD GAS PCO2 66.4 mmHg (35-45)
[2017-08-14 12:13] LABS: PLATELET ESTIMATE NORMAL
[2017-08-14] MEDS: TAMSULOSIN HCL 0.4 MG CAP.ER.24H (FP) PO SCH (12:33)
[2017-08-14] MEDS: MULTIVITAMINS (DAILY MVI) TABLET (FP) PO SCH (12:33)
[2017-08-14] MEDS: DOXYCYCLINE HYCLATE 100 MG CAPSULE PO SCH ×2 (12:33→18:23)
[2017-08-14] MEDS: FOLIC ACID 1 MG TABLET (FP) PO SCH (12:33)
[2017-08-14] MEDS: RANITIDINE HCL 150 MG TABLET (FP) PO SCH (12:33)
[2017-08-14] MEDS: SERTRALINE HCL 50 MG TABLET (FP) PO SCH (12:33)
[2017-08-14] MEDS: CLOTRIMAZOLE 1% CREAM 15 GM TUBE TP SCH ×2 (12:34→22:55)
[2017-08-14] MEDS: ASPIRIN 81 MG CHEWABLE TABLETS PO SCH (12:34)
[2017-08-14] MEDS: FINASTERIDE 5 MG TABLET (FP) PO SCH (12:34)
[2017-08-14 14:08] LABS: ARTERIAL BLD GAS O2 SATURATION 98.8 % (90-98.9); ARTERIAL BLOOD GAS BASE EXCESS -0.1 meq/l (-2-2); ARTERIAL BLOOD GAS PCO2 53.8 mmHg (35-45); ARTERIAL BLOOD GAS pH 7.31 (7.35-7.45)
[2017-08-14 14:10] LABS: ALLENS TEST POSITIVE
[2017-08-14] MEDS ORDERED: MAGNESIUM SULF 50% (8.12 MEQ/2 ML-1 GM VIAL) IVPB ONE (14:12)
--- NOTE | 2017-08-14 14:16 | PN ---
Progress Note, Physician Chief Complaint: Mr Villalpando is more alert today yet somewhat somnolent. Denies cp, sob, n/v. - Current Medication List Current Medications: Active Medications Aspirin (Asa -) 81 mg PO DAILY [facility] Last Admin: 08/14/17 12:34 Dose: 81 mg Atorvastatin Calcium (Lipitor -) 10 mg PO HS [facility] Last Admin: 08/13/17 22:46 Dose: 10 mg Clotrimazole (Lotrimin 1% Cream -) 1 applic TP BID [facility] Last Admin: 08/14/17 12:34 Dose: 1 applic Doxycycline Hyclate (Vibramycin -) 100 mg PO BID@1000,1800 [facility] Last Admin: 08/14/17 12:33 Dose: 100 mg Finasteride (Proscar -) 5 mg PO DAILY [facility] Last Admin: 08/14/17 12:34 Dose: 5 mg Folic Acid (Folic Acid -) 1 mg PO DAILY [facility] Last Admin: 08/14/17 12:33 Dose: 1 mg Heparin Sodium (Porcine) (Heparin -) 5,000 unit SQ TID [facility] Magnesium Sulfate (Magnesium Sulfate) 2 gm IVPB ONCE ONE Stop: 08/14/17 14:13 Metoprolol Succinate (Toprol Xl -) 50 mg PO DAILY [facility] Last Admin: 08/14/17 12:33 Dose: 50 mg Multivitamins/Minerals/Vitamin C (Tab-A-Vit -) 1 tab PO DAILY [facility] Last Admin: 08/14/17 12:33 Dose: 1 tab Ranitidine HCl (Zantac -) 300 mg PO DAILY [facility] Last Admin: 08/14/17 12:33 Dose: 300 mg Sertraline HCl (Zoloft -) 50 mg PO DAILY [facility] Last Admin: 08/14/17 12:33 Dose: 50 mg Tamsulosin HCl (Flomax -) 0.4 mg PO DAILY [facility] Last Admin: 08/14/17 12:33 Dose: 0.4 mg - Objective Vital Signs: Vital Signs Temperature 36.3 C L 08/14/17 13:03 Pulse Rate 72 08/14/17 13:03 Respiratory Rate 18 08/14/17 13:03 Blood Pressure 146/60 08/14/17 13:03 O2 Sat by Pulse Oximetry (%) 99 08/14/17 10:32 Constitutional: Yes: No Distress, Calm, Obese Cardiovascular: Yes: Regular Rate and Rhythm. No: Gallop, Murmur, Rub Respiratory: Yes: Regular, CTA Bilaterally, On BiPap. No: Rales, Rhonchi, Wheezes Gastrointestinal: Yes: Normal Bowel Sounds, Soft. No: Distention, Tenderness Extremities: Yes: Erythema Edema: Yes Edema: LLE: 1+, RLE: 1+ Labs: CBC, BMP 08/14/17 06:00 08/14/17 06:00 Problem List - Problems (1) Respiratory failure with hypoxia and hypercapnia Code(s): J96.91 - RESPIRATORY FAILURE, UNSPECIFIED WITH HYPOXIA; J96.92 - RESPIRATORY FAILURE, UNSPECIFIED WITH HYPERCAPNIA Qualifiers: Chronicity: acute Qualified Code(s): J96.01 - Acute respiratory failure with hypoxia; J96.02 - Acute respiratory failure with hypercapnia; J96.02 - Acute respiratory failure with hypercapnia; J96.02 - Acute respiratory failure with hypercapnia (2) MRSA (methicillin resistant Staphylococcus aureus) infection Code(s): A49.02 - METHICILLIN RESIS STAPH INFECTION, UNSP SITE (3) CKD stage 4 due to type 2 diabetes mellitus Code(s): E11.22 - TYPE 2 DIABETES MELLITUS W DIABETIC CHRONIC KIDNEY DISEASE; N18.4 - CHRONIC KIDNEY DISEASE, STAGE 4 (SEVERE) (4) Hyperkalemia Code(s): E87.5 - HYPERKALEMIA (5) Morbidly obese Code(s): E66.01 - MORBID (SEVERE) OBESITY DUE TO EXCESS CALORIES (6) T2DM (type 2 diabetes mellitus) Code(s): E11.9 - TYPE 2 DIABETES MELLITUS WITHOUT COMPLICATIONS Qualifiers: Diabetes mellitus complication status: with kidney complications (7) Hypotension Code(s): I95.9 - HYPOTENSION, UNSPECIFIED (8) Rheumatoid arthritis Code(s): M06.9 - RHEUMATOID ARTHRITIS, UNSPECIFIED Qualifiers: Rheumatoid arthritis location: unspecified site Rheumatoid factor presence : unspecified presence Qualified Code(s): M06.9 - Rheumatoid arthritis, unspecified Assessment/Plan (1) Hypoxic/hypercapneic respiratory failure -case d/w Dr Bah -worsened today -IPAP increased on Bipap -after this improved -continue bipap currently -hold all sedative medications (2) MRSA (methicillin resistant Staphylococcus aureus) infection Assessment/Plan -continue doxycycline Code(s): A49.02 - METHICILLIN RESIS STAPH INFECTION, UNSP SITE (3) CKD stage 4 due to type 2 diabetes mellitus Assessment/Plan: -continues to improve -no further need for IVF Code(s): E11.22 - TYPE 2 DIABETES MELLITUS W DIABETIC CHRONIC KIDNEY DISEASE; N18.4 - CHRONIC KIDNEY DISEASE, STAGE 4 (SEVERE) (4) Hyperkalemia Assessment/Plan: -resolved -continue diet restriction Code(s): E87.5 - HYPERKALEMIA (5) Morbidly obese Assessment/Plan: -outpatient weight loss program Code(s): E66.01 - MORBID (SEVERE) OBESITY DUE TO EXCESS CALORIES (6) T2DM (type 2 diabetes mellitus) Assessment/Plan: -no hyperglycemia Code(s): E11.9 - TYPE 2 DIABETES MELLITUS WITHOUT COMPLICATIONS Qualifiers: Diabetes mellitus complication status: with kidney complications (6) Hypotension Assessment/Plan: -continue toprol xl Code(s): I95.9 - HYPOTENSION, UNSPECIFIED (7) Rheumatoid arthritis Assessment/Plan: -avoid NSAIDs Code(s): M06.9 - RHEUMATOID ARTHRITIS, UNSPECIFIED Qualifiers: Rheumatoid arthritis location: unspecified site Rheumatoid factor presence : unspecified presence Qualified Code(s): M06.9 - Rheumatoid arthritis, unspecified
[2017-08-14] MEDS ORDERED: MAGNESIUM SULFATE IN WATER 2 GM/50 ML IVPB IVPB ONE (14:45)
[2017-08-14] MEDS: HEPARIN NA (PORCINE) 5,000 UNITS/ML 1ML VIAL SQ SCH ×2 (15:09→22:55)
--- NOTE | 2017-08-14 15:30 | CON.PULM ---
Consult Consult Specialty:: PULM/CCM Referred by:: DRISS Reason for Consultation:: SOB / HYPERCAPNIA - History of Present Illness Chief Complaint: SOB History of Present Illness: 61 M, HTN, HLD, CAD s/p stents, COPD, GERD, BPH s/p TURP and h/o urinary retention, rheumatoid arthritis, diabetes, non-Hodgkin's lymphoma, melanoma, autoimmune cytopenias, and obesity. He was admitted via the ER due to his chronic right leg wound. Apparently he was on vacation in [place] and injured his right ankle on the curb. The wound was found to be (+) for MRSA. Called to assess acute on possibly chronic hypercapnia. Hypercapnia improved with NIPPV with good clinical response in his mental status. CXR: Poor inspiratory effort / increased vascular markings. / no definite infiltrate - History Source History Provided By: Medical Record Limitations to Obtaining History: Clinical Condition - Past Medical History Cardio/Vascular: Yes: CAD (remote stents in late ), HTN, Hyperlipdemia Pulmonary: Yes: COPD, Sleep Apnea Gastrointestinal: Yes: GERD, Other (Wong's Esophagus, Steatosis/ Fatty Liver disease) Renal/: Yes: BPH Musculoskeletal: Yes: Osteoarthritis Rheumatology: Yes: Rheumatoid Arthritis Endocrine: Yes: Diabetes Mellitus, Other (Obesity) Dermatology: Yes: Other (melanoma) - Past Surgical History Past Surgical History: Yes: Hernia Repair (with mesh), TURP, Tonsillectomy - Alcohol/Substance Use Hx Alcohol Use: No - Smoking History Smoking history: Never smoked Have you smoked in the past 12 months: Yes Aproximately how many cigarettes per day: 10 If you are a former smoker, when did you quit?: 6 weeks ago - Social History Usual Living Arrangement: Alone (lives alone in co-op with 12 steps then 1 step to enter, ambulates with straight cane, and was Independent in ADLs and some IADLs but has assistance in some IADLs as well) ADL: Independent Occupation: disabled due to RA and Lymphoma (formerly worked for [employer]) History of Recent Travel: No (last [place] 05/2014) Home Medications - Allergies Allergies/Adverse Reactions: Allergies Allergy/AdvReac Type Severity Reaction Status Date / Time No Known Drug Allergies Allergy Verified 07/11/17 10:49 - Home Medications Home Medications: Ambulatory Orders Finasteride 5 mg PO DAILY 12/10/14 Metoprolol Succinate [Toprol XL -] 50 mg PO DAILY 12/10/14 Multivitamins [Multivit ([facility] Formulary)] 1 tab PO DAILY 12/10/14 Sertraline HCl [Zoloft] 50 mg PO DAILY 12/10/14 Tamsulosin HCl [Flomax -] 0.4 mg PO DAILY 12/10/14 Furosemide [Lasix -] 40 mg PO DAILY 12/25/14 ASA - 81 mg PO DAILY 03/02/17 Atorvastatin Ca [Lipitor] 10 mg PO HS 07/12/17 Oxycodone HCl/Acetaminophen [Percocet 10-325 mg Tablet] 1 each PO HS 07/12/17 Ranitidine HCl 300 mg PO DAILY 07/12/17 Folic Acid - 1 mg PO DAILY #30 tablet 07/17/17 Nystatin Oral Suspension - [Nystatin Oral Susp 746914 Units/5 ML -] 5 ml PO TID 08/04/17 Family Disease History - Family Disease History Family Disease History: Heart Disease: Mother (mothers family with RA), Other: Mother Review of Systems Unable to obtain ROS, reason: not able to provide Physical Exam Vital Sings: Vital Signs Temperature 97.3 F L 08/14/17 13:03 Pulse Rate 72 08/14/17 13:03 Respiratory Rate 18 08/14/17 13:03 Blood Pressure 146/60 08/14/17 13:03 O2 Sat by Pulse Oximetry (%) 99 08/14/17 10:32 Constitutional: Yes: No Distress, Obese Eyes: Yes: Conjunctiva Clear, EOM Intact HENT: Yes: Atraumatic, Normocephalic Neck: Yes: Supple, Trachea Midline Cardiovascular: Yes: Regular Rate and Rhythm Respiratory: Yes: On BiPap, Rales, Rhonchi. No: Stridor, Tachypnea, Wheezes ...Inspection: Yes: WNL ...Clubbing: No Gastrointestinal: Yes: Normal Bowel Sounds, Soft, Abdomen, Obese Renal/: Yes: WNL Breast(s): Yes: WNL Musculoskeletal: Yes: WNL Extremities: Yes: WNL Edema: No Peripheral Pulses WNL: Yes Integumentary: Yes: WNL Neurological: Yes: Confusion, Lethargy Labs: CBC, BMP 08/14/17 06:00 08/14/17 06:00 ABG Results ABG pH 7.31 (7.35-7.45) L 08/14/17 13:05 ABG pCO2 at Pt Temp 53.8 mmHg (35-45) H 08/14/17 13:05 ABG pO2 at Pt Temp 113.0 mmHg (80-100) H D 08/14/17 13:05 ABG HCO3 26.1 meq/L (22-26) H 08/14/17 13:05 ABG O2 Sat (Measured) 98.8 % (90-98.9) 08/14/17 13:05 ABG O2 Content 13.0 % vol (15-22) L 08/14/17 13:05 ABG Base Excess -0.1 meq/l (-2-2) 08/14/17 13:05 Imaging - Results Chest X-ray: Report Reviewed, Image Reviewed Problem List - Problems (1) CKD stage 4 due to type 2 diabetes mellitus Code(s): E11.22 - TYPE 2 DIABETES MELLITUS W DIABETIC CHRONIC KIDNEY DISEASE; N18.4 - CHRONIC KIDNEY DISEASE, STAGE 4 (SEVERE) (2) Cellulitis of right leg Code(s): L03.115 - CELLULITIS OF RIGHT LOWER LIMB (3) Hyperkalemia Code(s): E87.5 - HYPERKALEMIA (4) Leg wound, right Code(s): S81.801A - UNSPECIFIED OPEN WOUND, RIGHT LOWER LEG, INITIAL ENCOUNTER (5) Morbidly obese Code(s): E66.01 - MORBID (SEVERE) OBESITY DUE TO EXCESS CALORIES (6) T2DM (type 2 diabetes mellitus) Code(s): E11.9 - TYPE 2 DIABETES MELLITUS WITHOUT COMPLICATIONS Qualifiers: Diabetes mellitus complication status: with kidney complications (7) BPH (benign prostatic hyperplasia) Code(s): N40.0 - BENIGN PROSTATIC HYPERPLASIA WITHOUT LOWER URINRY TRACT SYMP (8) CKD (chronic kidney disease) Code(s): N18.9 - CHRONIC KIDNEY DISEASE, UNSPECIFIED (9) Diabetes mellitus Code(s): E11.9 - TYPE 2 DIABETES MELLITUS WITHOUT COMPLICATIONS Qualifiers: Diabetes mellitus type: type 2 Diabetes mellitus complication status: with unspecified complications Diabetes mellitus custodial insulin use: without custodial use Qualified Code(s): E11.8 - Type 2 diabetes mellitus with unspecified complications (10) Hypertension Code(s): I10 - ESSENTIAL (PRIMARY) HYPERTENSION Qualifiers: Hypertension type: unspecified Qualified Code(s): I10 - Essential (primary ) hypertension (11) Lymphoma in remission Code(s): Z85.72 - PERSONAL HISTORY OF NON-HODGKIN LYMPHOMAS (12) Steatosis of liver Code(s): K76.0 - FATTY (CHANGE OF) LIVER, NOT ELSEWHERE CLASSIFIED Assessment/Plan NIPPV settings were adjusted: should use QHS and PRN Aspiration precautions Check follow up CXR in AM to follow on possible Pulmonary vascular congestion Noted ABX for cellulitis Do not feel that the patient has PNA and does not need additional ABX Can use VM O2 as apparently h is mental status is improving. Will follow closely Thank you. Dr Londono
[2017-08-14] MEDS ORDERED: FUROSEMIDE 40 MG TABLET (FP) PO ONE (16:34)
--- NOTE | 2017-08-14 16:34 | PN ---
Progress Note, Physician History of Present Illness: Pt seen and examined at bedside. He is awake and currently on bipap. - Current Medication List Current Medications: Active Medications Aspirin (Asa -) 81 mg PO DAILY [facility] Last Admin: 08/14/17 12:34 Dose: 81 mg Atorvastatin Calcium (Lipitor -) 10 mg PO HS [facility] Last Admin: 08/13/17 22:46 Dose: 10 mg Clotrimazole (Lotrimin 1% Cream -) 1 applic TP BID [facility] Last Admin: 08/14/17 12:34 Dose: 1 applic Doxycycline Hyclate (Vibramycin -) 100 mg PO BID@1000,1800 [facility] Last Admin: 08/14/17 12:33 Dose: 100 mg Finasteride (Proscar -) 5 mg PO DAILY [facility] Last Admin: 08/14/17 12:34 Dose: 5 mg Folic Acid (Folic Acid -) 1 mg PO DAILY [facility] Last Admin: 08/14/17 12:33 Dose: 1 mg Heparin Sodium (Porcine) (Heparin -) 5,000 unit SQ TID [facility] Last Admin: 08/14/17 15:09 Dose: 5,000 unit Metoprolol Succinate (Toprol Xl -) 50 mg PO DAILY [facility] Last Admin: 08/14/17 12:33 Dose: 50 mg Multivitamins/Minerals/Vitamin C (Tab-A-Vit -) 1 tab PO DAILY [facility] Last Admin: 08/14/17 12:33 Dose: 1 tab Ranitidine HCl (Zantac -) 300 mg PO DAILY [facility] Last Admin: 08/14/17 12:33 Dose: 300 mg Sertraline HCl (Zoloft -) 50 mg PO DAILY [facility] Last Admin: 08/14/17 12:33 Dose: 50 mg Tamsulosin HCl (Flomax -) 0.4 mg PO DAILY [facility] Last Admin: 08/14/17 12:33 Dose: 0.4 mg - Objective Vital Signs: Vital Signs Temperature 97.3 F L 08/14/17 13:03 Pulse Rate 72 08/14/17 13:03 Respiratory Rate 18 08/14/17 13:03 Blood Pressure 146/60 08/14/17 13:03 O2 Sat by Pulse Oximetry (%) 99 08/14/17 10:32 Constitutional: Yes: Calm Eyes: Yes: Conjunctiva Clear HENT: Yes: Atraumatic Cardiovascular: Yes: S1, S2 Respiratory: Yes: On BiPap Gastrointestinal: Yes: Soft Genitourinary: Yes: Incontinence Musculoskeletal: Yes: Muscle Weakness Edema: Yes Edema: LLE: 1+, RLE: 1+ Neurological: Yes: Oriented Psychiatric: Yes: Oriented Labs: CBC, BMP 08/14/17 06:00 08/14/17 06:00 - ....Imaging Chest X-ray: Report Reviewed Problem List - Problems (1) CKD stage 4 due to type 2 diabetes mellitus Code(s): E11.22 - TYPE 2 DIABETES MELLITUS W DIABETIC CHRONIC KIDNEY DISEASE; N18.4 - CHRONIC KIDNEY DISEASE, STAGE 4 (SEVERE) (2) Cellulitis of right leg Code(s): L03.115 - CELLULITIS OF RIGHT LOWER LIMB (3) Hyperkalemia Code(s): E87.5 - HYPERKALEMIA (4) Obesity Code(s): E66.9 - OBESITY, UNSPECIFIED (5) T2DM (type 2 diabetes mellitus) Code(s): E11.9 - TYPE 2 DIABETES MELLITUS WITHOUT COMPLICATIONS Qualifiers: Diabetes mellitus complication status: with kidney complications (6) BPH (benign prostatic hyperplasia) Code(s): N40.0 - BENIGN PROSTATIC HYPERPLASIA WITHOUT LOWER URINRY TRACT SYMP (7) CKD (chronic kidney disease) Code(s): N18.9 - CHRONIC KIDNEY DISEASE, UNSPECIFIED Assessment/Plan Current Medications Generic Name Dose Route Start Last Admin Trade Name Freq PRN Reason Stop Dose Admin Aspirin 81 mg 08/04/17 10:00 08/14/17 12:34 Asa - PO 81 mg DAILY DANIEL Administration Atorvastatin Calcium 10 mg 08/03/17 22:00 08/13/17 22:46 Lipitor - PO 10 mg HS DANIEL Administration Clotrimazole 1 applic 08/04/17 22:00 08/14/17 12:34 Lotrimin 1% Cream - TP 1 applic BID DANIEL Administration Doxycycline Hyclate 100 mg 08/12/17 18:00 08/14/17 12:33 Vibramycin - PO 100 mg BID@1000,1800 DANIEL Administration Finasteride 5 mg 08/04/17 10:00 08/14/17 12:34 Proscar - PO 5 mg DAILY DANIEL Administration Folic Acid 1 mg 08/04/17 10:00 08/14/17 12:33 Folic Acid - PO 1 mg DAILY DANIEL Administration Heparin Sodium (Porcine) 5,000 unit 08/14/17 14:15 08/14/17 15:09 Heparin - SQ 5,000 unit TID DANIEL Administration Metoprolol Succinate 50 mg 08/04/17 10:00 08/14/17 12:33 Toprol Xl - PO 50 mg DAILY DANIEL Administration Multivitamins/Minerals/Vitamin C 1 tab 08/04/17 10:00 08/14/17 12:33 Tab-A-Vit - PO 1 tab DAILY DANIEL Administration Ranitidine HCl 300 mg 08/04/17 10:00 08/14/17 12:33 Zantac - PO 300 mg DAILY DANIEL Administration Sertraline HCl 50 mg 08/04/17 10:00 08/14/17 12:33 Zoloft - PO 50 mg DAILY DANIEL Administration Tamsulosin HCl 0.4 mg 08/04/17 10:00 08/14/17 12:33 Flomax - PO 0.4 mg DAILY DANIEL Administration Impression 1. OLIVIA 2. hyperkalemia 3. CKD 4. DM 5. sepsis 6. cellulitis Plan - will give a dose of lasix - renal function improved - repeat labs in am - cont bipap - cxr reviewed - discussed with medical team - avoid nsaids - wound care to legs Dr Heard
[2017-08-14] MEDS: ATORVASTATIN CA 10 MG TABLET (FP) PO SCH (21:40)
[2017-08-15] MEDS: HEPARIN NA (PORCINE) 5,000 UNITS/ML 1ML VIAL SQ SCH ×3 (05:56→21:21)
[2017-08-15 06:25] LABS: ARTERIAL BLOOD GAS BASE EXCESS 2.3 meq/l (-2-2); ARTERIAL BLOOD GAS PCO2 50.1 mmHg (35-45); ARTERIAL BLOOD GAS pH 7.36 (7.35-7.45)
[2017-08-15 06:30] LABS: ALLENS TEST POSITIVE
[2017-08-15 07:31] LABS: HEMATOCRIT 28.5 % (35.4-49); HEMOGLOBIN 8.8 GM/dL (11.7-16.9); MCH 25.7 pg (25.7-33.7); MCHC 30.8 g/dl (32.0-35.9); MEAN CELL VOLUME 83.4 fl (80-96); MEAN PLT VOLUME 6.8 fl (7.5-11.1); PLATELET COUNT 192 K/MM3 (134-434); RBC 3.42 M/mm3 (4.00-5.60); WHITE BLOOD COUNT 6.9 K/mm3 (4.0-10.0)
[2017-08-15 08:29] LABS: ANION GAP 5 (8-16); BLOOD UREA NITROGEN 23 mg/dL (7-18); CALCIUM 8.8 mg/dL (8.5-10.1); CHLORIDE 111 mmol/L (98-107); CO2 30 mmol/L (21-32); CREATININE 1.1 mg/dL (0.7-1.3); GLUCOSE,RANDOM 88 mg/dL (74-106); MAGNESIUM 1.9 mg/dL (1.8-2.4); PHOSPHOROUS 2.2 mg/dL (2.5-4.9); POTASSIUM 4.4 mmol/L (3.5-5.1); SODIUM 146 mmol/L (136-145)
[2017-08-15] MEDS: MULTIVITAMINS (DAILY MVI) TABLET (FP) PO SCH (09:57)
[2017-08-15] MEDS: RANITIDINE HCL 150 MG TABLET (FP) PO SCH (09:57)
[2017-08-15] MEDS: ASPIRIN 81 MG CHEWABLE TABLETS PO SCH (09:57)
[2017-08-15] MEDS: DOXYCYCLINE HYCLATE 100 MG CAPSULE PO SCH ×2 (10:02→17:47)
[2017-08-15] MEDS: CLOTRIMAZOLE 1% CREAM 15 GM TUBE TP SCH ×2 (10:02→21:21)
[2017-08-15] MEDS: SERTRALINE HCL 50 MG TABLET (FP) PO SCH (10:02)
[2017-08-15] MEDS: FOLIC ACID 1 MG TABLET (FP) PO SCH (10:02)
[2017-08-15] MEDS: TAMSULOSIN HCL 0.4 MG CAP.ER.24H (FP) PO SCH (10:02)
[2017-08-15] MEDS: FINASTERIDE 5 MG TABLET (FP) PO SCH (10:02)
[2017-08-15 10:34] LABS: PLATELET ESTIMATE NORMAL
--- NOTE | 2017-08-15 12:48 | PN ---
Progress Note, Physician History of Present Illness: Pt seen and examined at bedside. He is awake and appears more comfortable than yesterday. - Current Medication List Current Medications: Active Medications Aspirin (Asa -) 81 mg PO DAILY [facility] Last Admin: 08/15/17 09:57 Dose: 81 mg Atorvastatin Calcium (Lipitor -) 10 mg PO HS [facility] Last Admin: 08/14/17 21:40 Dose: 10 mg Clotrimazole (Lotrimin 1% Cream -) 1 applic TP BID [facility] Last Admin: 08/15/17 10:02 Dose: 1 applic Doxycycline Hyclate (Vibramycin -) 100 mg PO BID@1000,1800 [facility] Last Admin: 08/15/17 10:02 Dose: 100 mg Finasteride (Proscar -) 5 mg PO DAILY [facility] Last Admin: 08/15/17 10:02 Dose: 5 mg Folic Acid (Folic Acid -) 1 mg PO DAILY [facility] Last Admin: 08/15/17 10:02 Dose: 1 mg Heparin Sodium (Porcine) (Heparin -) 5,000 unit SQ TID [facility] Last Admin: 08/15/17 05:56 Dose: 5,000 unit Metoprolol Succinate (Toprol Xl -) 50 mg PO DAILY [facility] Last Admin: 08/15/17 10:02 Dose: 50 mg Multivitamins/Minerals/Vitamin C (Tab-A-Vit -) 1 tab PO DAILY [facility] Last Admin: 08/15/17 09:57 Dose: 1 tab Ranitidine HCl (Zantac -) 300 mg PO DAILY [facility] Last Admin: 08/15/17 09:57 Dose: 300 mg Sertraline HCl (Zoloft -) 50 mg PO DAILY [facility] Last Admin: 08/15/17 10:02 Dose: 50 mg Tamsulosin HCl (Flomax -) 0.4 mg PO DAILY [facility] Last Admin: 08/15/17 10:02 Dose: 0.4 mg - Objective Vital Signs: Vital Signs Temperature 98.5 F 08/15/17 09:24 Pulse Rate 81 08/15/17 09:24 Respiratory Rate 20 08/15/17 09:24 Blood Pressure 142/66 08/15/17 09:24 O2 Sat by Pulse Oximetry (%) 99 08/15/17 09:00 Constitutional: Yes: Calm Eyes: Yes: Conjunctiva Clear HENT: Yes: Atraumatic Neck: Yes: Supple Cardiovascular: Yes: S1, S2 Respiratory: Yes: On BiPap, On Nasal O2 Gastrointestinal: Yes: Soft, Abdomen, Obese Genitourinary: Yes: WNL Musculoskeletal: Yes: WNL Edema: Yes Edema: LLE: Trace, RLE: Trace Wound/Incision: Yes: Open to air, Dressing Dry and Intact Neurological: Yes: Oriented Labs: CBC, BMP 08/15/17 06:00 08/15/17 06:00 - ....Imaging Chest X-ray: Report Reviewed Problem List - Problems (1) CKD stage 4 due to type 2 diabetes mellitus Code(s): E11.22 - TYPE 2 DIABETES MELLITUS W DIABETIC CHRONIC KIDNEY DISEASE; N18.4 - CHRONIC KIDNEY DISEASE, STAGE 4 (SEVERE) (2) Cellulitis of right leg Code(s): L03.115 - CELLULITIS OF RIGHT LOWER LIMB (3) Hyperkalemia Code(s): E87.5 - HYPERKALEMIA (4) Obesity Code(s): E66.9 - OBESITY, UNSPECIFIED (5) T2DM (type 2 diabetes mellitus) Code(s): E11.9 - TYPE 2 DIABETES MELLITUS WITHOUT COMPLICATIONS Qualifiers: Diabetes mellitus complication status: with kidney complications (6) BPH (benign prostatic hyperplasia) Code(s): N40.0 - BENIGN PROSTATIC HYPERPLASIA WITHOUT LOWER URINRY TRACT SYMP (7) CKD (chronic kidney disease) Code(s): N18.9 - CHRONIC KIDNEY DISEASE, UNSPECIFIED Assessment/Plan Current Medications Generic Name Dose Route Start Last Admin Trade Name Freq PRN Reason Stop Dose Admin Aspirin 81 mg 08/04/17 10:00 08/15/17 09:57 Asa - PO 81 mg DAILY [facility] Administration Atorvastatin Calcium 10 mg 08/03/17 22:00 08/14/17 21:40 Lipitor - PO 10 mg HS [facility] Administration Clotrimazole 1 applic 08/04/17 22:00 08/15/17 10:02 Lotrimin 1% Cream - TP 1 applic BID [facility] Administration Doxycycline Hyclate 100 mg 08/12/17 18:00 08/15/17 10:02 Vibramycin - PO 100 mg BID@1000,1800 [facility] Administration Finasteride 5 mg 08/04/17 10:00 08/15/17 10:02 Proscar - PO 5 mg DAILY [facility] Administration Folic Acid 1 mg 08/04/17 10:00 08/15/17 10:02 Folic Acid - PO 1 mg DAILY [facility] Administration Heparin Sodium (Porcine) 5,000 unit 08/14/17 14:15 08/15/17 05:56 Heparin - SQ 5,000 unit TID [facility] Administration Metoprolol Succinate 50 mg 08/04/17 10:00 08/15/17 10:02 Toprol Xl - PO 50 mg DAILY [facility] Administration Multivitamins/Minerals/Vitamin C 1 tab 08/04/17 10:00 08/15/17 09:57 Tab-A-Vit - PO 1 tab DAILY [facility] Administration Ranitidine HCl 300 mg 08/04/17 10:00 08/15/17 09:57 Zantac - PO 300 mg DAILY [facility] Administration Sertraline HCl 50 mg 08/04/17 10:00 08/15/17 10:02 Zoloft - PO 50 mg DAILY [facility] Administration Tamsulosin HCl 0.4 mg 08/04/17 10:00 08/15/17 10:02 Flomax - PO 0.4 mg DAILY [facility] Administration Impression 1. OLIVIA 2. hyperkalemia 3. CKD 4. DM 5. sepsis 6. cellulitis Plan - will give and IV dose of lasix - restart PO lasix tomorrow - monitor renal function - bipap as needed - cxr reviewed - avoid nsaids - wound care to legs Dr Heard
--- NOTE | 2017-08-15 13:09 | PN ---
Progress Note, Physician Chief Complaint: LETHARGY,FOUND TO HAVE HYPERCAPNEIC RESP FAILURE History of Present Illness: REVIEWED, PRESENTLY HAVING OBSERVED APNEIC PERIODS WHILE SLEEPING - Current Medication List Current Medications: Active Medications Aspirin (Asa -) 81 mg PO DAILY [facility] Last Admin: 08/15/17 09:57 Dose: 81 mg Atorvastatin Calcium (Lipitor -) 10 mg PO HS [facility] Last Admin: 08/14/17 21:40 Dose: 10 mg Clotrimazole (Lotrimin 1% Cream -) 1 applic TP BID [facility] Last Admin: 08/15/17 10:02 Dose: 1 applic Doxycycline Hyclate (Vibramycin -) 100 mg PO BID@1000,1800 [facility] Last Admin: 08/15/17 10:02 Dose: 100 mg Finasteride (Proscar -) 5 mg PO DAILY [facility] Last Admin: 08/15/17 10:02 Dose: 5 mg Folic Acid (Folic Acid -) 1 mg PO DAILY [facility] Last Admin: 08/15/17 10:02 Dose: 1 mg Furosemide (Lasix Injection -) 40 mg IVPUSH ONCE ONE Stop: 08/15/17 12:49 Furosemide (Lasix -) 40 mg PO DAILY [facility] Heparin Sodium (Porcine) (Heparin -) 5,000 unit SQ TID [facility] Last Admin: 08/15/17 05:56 Dose: 5,000 unit Metoprolol Succinate (Toprol Xl -) 50 mg PO DAILY [facility] Last Admin: 08/15/17 10:02 Dose: 50 mg Multivitamins/Minerals/Vitamin C (Tab-A-Vit -) 1 tab PO DAILY [facility] Last Admin: 08/15/17 09:57 Dose: 1 tab Ranitidine HCl (Zantac -) 300 mg PO DAILY [facility] Last Admin: 08/15/17 09:57 Dose: 300 mg Sertraline HCl (Zoloft -) 50 mg PO DAILY [facility] Last Admin: 08/15/17 10:02 Dose: 50 mg Tamsulosin HCl (Flomax -) 0.4 mg PO DAILY [facility] Last Admin: 08/15/17 10:02 Dose: 0.4 mg - Objective Vital Signs: Vital Signs Temperature 98.5 F 08/15/17 09:24 Pulse Rate 81 08/15/17 09:24 Respiratory Rate 20 08/15/17 09:24 Blood Pressure 142/66 08/15/17 09:24 O2 Sat by Pulse Oximetry (%) 99 08/15/17 09:00 Constitutional: Yes: Calm Eyes: Yes: EOM Intact HENT: Yes: Normocephalic Neck: Yes: Trachea Midline Cardiovascular: Yes: S1, S2 Respiratory: Yes: Diminished, Poor Air Entry Gastrointestinal: Yes: Abdomen, Obese Extremities: Yes: Other (RIGHT LOWER EXT WRAPPED) Edema: RUE: 1+, LLE: 1+ Wound/Incision: Yes: Dressing Dry and Intact Neurological: Yes: Alert Labs: CBC, BMP 08/15/17 06:00 08/15/17 06:00 - ....Imaging Chest X-ray: Report Reviewed, Image Reviewed Problem List - Problems (1) Sleep apnea Code(s): G47.30 - SLEEP APNEA, UNSPECIFIED (2) CKD stage 4 due to type 2 diabetes mellitus Code(s): E11.22 - TYPE 2 DIABETES MELLITUS W DIABETIC CHRONIC KIDNEY DISEASE; N18.4 - CHRONIC KIDNEY DISEASE, STAGE 4 (SEVERE) (3) Cellulitis of right leg Code(s): L03.115 - CELLULITIS OF RIGHT LOWER LIMB (4) Morbidly obese Code(s): E66.01 - MORBID (SEVERE) OBESITY DUE TO EXCESS CALORIES (5) Obesity Code(s): E66.9 - OBESITY, UNSPECIFIED Assessment/Plan - Problems (1) CKD stage 4 due to type 2 diabetes mellitus Code(s): E11.22 - TYPE 2 DIABETES MELLITUS W DIABETIC CHRONIC KIDNEY DISEASE; N18.4 - CHRONIC KIDNEY DISEASE, STAGE 4 (SEVERE) (2) Cellulitis of right leg Code(s): L03.115 - CELLULITIS OF RIGHT LOWER LIMB (3) Hyperkalemia Code(s): E87.5 - HYPERKALEMIA (4) Leg wound, right Code(s): S81.801A - UNSPECIFIED OPEN WOUND, RIGHT LOWER LEG, INITIAL ENCOUNTER (5) Morbidly obese Code(s): E66.01 - MORBID (SEVERE) OBESITY DUE TO EXCESS CALORIES (6) T2DM (type 2 diabetes mellitus) Code(s): E11.9 - TYPE 2 DIABETES MELLITUS WITHOUT COMPLICATIONS Qualifiers: Diabetes mellitus complication status: with kidney complications (7) BPH (benign prostatic hyperplasia) Code(s): N40.0 - BENIGN PROSTATIC HYPERPLASIA WITHOUT LOWER URINRY TRACT SYMP (8) CKD (chronic kidney disease) Code(s): N18.9 - CHRONIC KIDNEY DISEASE, UNSPECIFIED (9) Diabetes mellitus Code(s): E11.9 - TYPE 2 DIABETES MELLITUS WITHOUT COMPLICATIONS Qualifiers: Diabetes mellitus type: type 2 Diabetes mellitus complication status: with unspecified complications Diabetes mellitus extermination inspector insulin use: without snf use Qualified Code(s): E11.8 - Type 2 diabetes mellitus with unspecified complications (10) Hypertension Code(s): I10 - ESSENTIAL (PRIMARY) HYPERTENSION Qualifiers: Hypertension type: unspecified Qualified Code(s): I10 - Essential (primary ) hypertension (11) Lymphoma in remission Code(s): Z85.72 - PERSONAL HISTORY OF NON-HODGKIN LYMPHOMAS (12) Steatosis of liver Code(s): K76.0 - FATTY (CHANGE OF) LIVER, NOT ELSEWHERE CLASSIFIED Assessment/Plan NIPPV should be used QHS and PRN Aspiration precautions CXR right lower lobe increased markings Noted ABX for cellulitis N/C O2 while eating Will follow closely Zelalem TROTTER MD
[2017-08-15] MEDS ORDERED: FUROSEMIDE 40 MG/4 ML INJECTABLE VIAL IVPUSH ONE (14:15)
--- NOTE | 2017-08-15 17:03 | PN ---
Progress Note, Physician Chief Complaint: Mr Villalpando is without complaint today. No cp, sob, n/v. - Current Medication List Current Medications: Active Medications Aspirin (Asa -) 81 mg PO DAILY [facility] Last Admin: 08/15/17 09:57 Dose: 81 mg Atorvastatin Calcium (Lipitor -) 10 mg PO HS [facility] Last Admin: 08/14/17 21:40 Dose: 10 mg Clotrimazole (Lotrimin 1% Cream -) 1 applic TP BID [facility] Last Admin: 08/15/17 10:02 Dose: 1 applic Doxycycline Hyclate (Vibramycin -) 100 mg PO BID@1000,1800 [facility] Last Admin: 08/15/17 10:02 Dose: 100 mg Finasteride (Proscar -) 5 mg PO DAILY [facility] Last Admin: 08/15/17 10:02 Dose: 5 mg Folic Acid (Folic Acid -) 1 mg PO DAILY [facility] Last Admin: 08/15/17 10:02 Dose: 1 mg Furosemide (Lasix -) 40 mg PO DAILY [facility] Heparin Sodium (Porcine) (Heparin -) 5,000 unit SQ TID [facility] Last Admin: 08/15/17 13:50 Dose: 5,000 unit Metoprolol Succinate (Toprol Xl -) 50 mg PO DAILY [facility] Last Admin: 08/15/17 10:02 Dose: 50 mg Multivitamins/Minerals/Vitamin C (Tab-A-Vit -) 1 tab PO DAILY [facility] Last Admin: 08/15/17 09:57 Dose: 1 tab Ranitidine HCl (Zantac -) 300 mg PO DAILY [facility] Last Admin: 08/15/17 09:57 Dose: 300 mg Sertraline HCl (Zoloft -) 50 mg PO DAILY [facility] Last Admin: 08/15/17 10:02 Dose: 50 mg Tamsulosin HCl (Flomax -) 0.4 mg PO DAILY [facility] Last Admin: 08/15/17 10:02 Dose: 0.4 mg - Objective Vital Signs: Vital Signs Temperature 36.7 C 08/15/17 13:54 Pulse Rate 74 08/15/17 13:54 Respiratory Rate 20 08/15/17 13:54 Blood Pressure 145/64 08/15/17 13:54 O2 Sat by Pulse Oximetry (%) 99 08/15/17 09:00 Constitutional: Yes: No Distress, Calm, Obese Cardiovascular: Yes: Regular Rate and Rhythm. No: Gallop, Murmur, Rub Respiratory: Yes: Regular, CTA Bilaterally, On Nasal O2. No: Rales, Rhonchi, Wheezes Gastrointestinal: Yes: Normal Bowel Sounds, Soft. No: Distention, Tenderness Extremities: Yes: WNL Edema: No Labs: CBC, BMP 08/15/17 06:00 08/15/17 06:00 Problem List - Problems (1) Respiratory failure with hypoxia and hypercapnia Code(s): J96.91 - RESPIRATORY FAILURE, UNSPECIFIED WITH HYPOXIA; J96.92 - RESPIRATORY FAILURE, UNSPECIFIED WITH HYPERCAPNIA Qualifiers: Chronicity: acute Qualified Code(s): J96.01 - Acute respiratory failure with hypoxia; J96.02 - Acute respiratory failure with hypercapnia; J96.02 - Acute respiratory failure with hypercapnia; J96.02 - Acute respiratory failure with hypercapnia (2) MRSA (methicillin resistant Staphylococcus aureus) infection Code(s): A49.02 - METHICILLIN RESIS STAPH INFECTION, UNSP SITE (3) CKD stage 4 due to type 2 diabetes mellitus Code(s): E11.22 - TYPE 2 DIABETES MELLITUS W DIABETIC CHRONIC KIDNEY DISEASE; N18.4 - CHRONIC KIDNEY DISEASE, STAGE 4 (SEVERE) (4) Hyperkalemia Code(s): E87.5 - HYPERKALEMIA (5) Morbidly obese Code(s): E66.01 - MORBID (SEVERE) OBESITY DUE TO EXCESS CALORIES (6) T2DM (type 2 diabetes mellitus) Code(s): E11.9 - TYPE 2 DIABETES MELLITUS WITHOUT COMPLICATIONS Qualifiers: Diabetes mellitus complication status: with kidney complications (7) Hypotension Code(s): I95.9 - HYPOTENSION, UNSPECIFIED (8) Rheumatoid arthritis Code(s): M06.9 - RHEUMATOID ARTHRITIS, UNSPECIFIED Qualifiers: Rheumatoid arthritis location: unspecified site Rheumatoid factor presence : unspecified presence Qualified Code(s): M06.9 - Rheumatoid arthritis, unspecified Assessment/Plan (1) Hypoxic/hypercapneic respiratory failure -much improved today -suspect will need CPAP as an outpatient -appreciate pulmonary assistance -doing well off of bipap -avoid sedatives (2) MRSA (methicillin resistant Staphylococcus aureus) infection Assessment/Plan -continue doxycycline Code(s): A49.02 - METHICILLIN RESIS STAPH INFECTION, UNSP SITE (3) CKD stage 4 due to type 2 diabetes mellitus Assessment/Plan: -continues to improve -no further need for IVF -case d/w nephrology -fluid overload, restart lasix Code(s): E11.22 - TYPE 2 DIABETES MELLITUS W DIABETIC CHRONIC KIDNEY DISEASE; N18.4 - CHRONIC KIDNEY DISEASE, STAGE 4 (SEVERE) (4) Hyperkalemia Assessment/Plan: -resolved -continue diet restriction Code(s): E87.5 - HYPERKALEMIA (5) Morbidly obese Assessment/Plan: -outpatient weight loss program Code(s): E66.01 - MORBID (SEVERE) OBESITY DUE TO EXCESS CALORIES (6) T2DM (type 2 diabetes mellitus) Assessment/Plan: -no hyperglycemia Code(s): E11.9 - TYPE 2 DIABETES MELLITUS WITHOUT COMPLICATIONS Qualifiers: Diabetes mellitus complication status: with kidney complications (6) Hypotension Assessment/Plan: -continue toprol xl Code(s): I95.9 - HYPOTENSION, UNSPECIFIED (7) Rheumatoid arthritis Assessment/Plan: -avoid NSAIDs Code(s): M06.9 - RHEUMATOID ARTHRITIS, UNSPECIFIED Qualifiers: Rheumatoid arthritis location: unspecified site Rheumatoid factor presence : unspecified presence Qualified Code(s): M06.9 - Rheumatoid arthritis, unspecified
[2017-08-15] MEDS: ATORVASTATIN CA 10 MG TABLET (FP) PO SCH (21:21)
[2017-08-16] MEDS: HEPARIN NA (PORCINE) 5,000 UNITS/ML 1ML VIAL SQ SCH ×2 (05:53→14:09)
[2017-08-16 07:46] LABS: HEMATOCRIT 26.7 % (35.4-49); HEMOGLOBIN 8.3 GM/dL (11.7-16.9); MCH 25.6 pg (25.7-33.7); MEAN CELL VOLUME 82.7 fl (80-96); MEAN PLT VOLUME 7.1 fl (7.5-11.1); PLATELET COUNT 187 K/MM3 (134-434); RBC 3.22 M/mm3 (4.00-5.60); RDW 18.5 % (11.9-15.9); WHITE BLOOD COUNT 6.9 K/mm3 (4.0-10.0)
[2017-08-16 08:39] LABS: CHLORIDE 106 mmol/L (98-107); POTASSIUM 3.9 mmol/L (3.5-5.1); SODIUM 142 mmol/L (136-145)
[2017-08-16 08:47] LABS: ALBUMIN 1.8 g/dl (3.4-5.0); ALK PHOS 147 U/L (45-117); ANION GAP 5 (8-16); BILIRUBIN,TOTAL 0.5 mg/dL (0.2-1.0); BLOOD UREA NITROGEN 19 mg/dL (7-18); CALCIUM 7.8 mg/dL (8.5-10.1); CO2 31 mmol/L (21-32); CREATININE 0.9 mg/dL (0.7-1.3); GLUCOSE,RANDOM 94 mg/dL (74-106); MAGNESIUM 1.3 mg/dL (1.8-2.4); PHOSPHOROUS 2.4 mg/dL (2.5-4.9); SGOT/AST 34 U/L (15-37); SGPT/ALT 18 U/L (12-78); TOT PROT 6.5 g/dl (6.4-8.2)
[2017-08-16] MEDS ORDERED: FUROSEMIDE 40 MG TABLET (FP) PO SCH (10:00)
--- NOTE | 2017-08-16 10:05 | PN ---
Progress Note (short form) - Note Progress Note: Neurology History of Present Illness 61 year-old male with a PMH significant for HTN, HLD, CAD s/p stents, COPD, GERD , BPH s/p TURP and h/o urinary retention, rheumatoid arthritis, diabetes, non- Hodgkin's lymphoma, melanoma, autoimmune cytopenias, and obesity who was referred to the ED by his PCP to be admitted for his chronic right leg wound. Patient reported that he was on vacation in [place] and caught his right ankle on the curb which is where his wound started. Patient states that he wounds easily. Found to have MRSA and admitted for further medical mgmt. Consulted for jerking sensations that have been occuring, reportedly more pronounced on R hand and L leg. Patient with hyperkalemia , improved with fluids. Also with Type 2 DM, being managed. Started on Klonipin for possibly myoclonic jerks, reported relief with the medication at end of last week. This morning less fatigued and more awake and alert, interactive, no abnormal movements noted. On positive airway pressure overnight. Being considered for transfer to SNF. Active Medications Aspirin (Asa -) 81 mg PO DAILY [facility] Last Admin: 08/15/17 09:57 Dose: 81 mg Atorvastatin Calcium (Lipitor -) 10 mg PO HS [facility] Last Admin: 08/15/17 21:21 Dose: 10 mg Clotrimazole (Lotrimin 1% Cream -) 1 applic TP BID [facility] Last Admin: 08/15/17 21:21 Dose: 1 applic Doxycycline Hyclate (Vibramycin -) 100 mg PO BID@1000,1800 [facility] Last Admin: 08/15/17 17:47 Dose: 100 mg Finasteride (Proscar -) 5 mg PO DAILY [facility] Last Admin: 08/15/17 10:02 Dose: 5 mg Folic Acid (Folic Acid -) 1 mg PO DAILY [facility] Last Admin: 08/15/17 10:02 Dose: 1 mg Furosemide (Lasix -) 40 mg PO DAILY [facility] Heparin Sodium (Porcine) (Heparin -) 5,000 unit SQ TID [facility] Last Admin: 08/16/17 05:53 Dose: 5,000 unit Metoprolol Succinate (Toprol Xl -) 50 mg PO DAILY [facility] Last Admin: 08/15/17 10:02 Dose: 50 mg Multivitamins/Minerals/Vitamin C (Tab-A-Vit -) 1 tab PO DAILY [facility] Last Admin: 08/15/17 09:57 Dose: 1 tab Ranitidine HCl (Zantac -) 300 mg PO DAILY [facility] Last Admin: 08/15/17 09:57 Dose: 300 mg Sertraline HCl (Zoloft -) 50 mg PO DAILY [facility] Last Admin: 08/15/17 10:02 Dose: 50 mg Tamsulosin HCl (Flomax -) 0.4 mg PO DAILY [facility] Last Admin: 08/15/17 10:02 Dose: 0.4 mg *Physical Exam Vital Signs Temperature 98.1 F 08/16/17 06:10 Pulse Rate 90 08/16/17 07:27 Respiratory Rate 20 08/16/17 06:10 Blood Pressure 149/67 08/16/17 06:10 O2 Sat by Pulse Oximetry (%) 99 08/16/17 07:27 GENERAL: Obese. Awake, alert, and fully oriented, in no acute distress HEAD: No signs of trauma EYES: PERRLA, EOMI, sclera anicteric, conjunctiva clear ENT: Auricles normal inspection, hearing grossly normal, nares patent, oropharynx clear without exudates. Moist mucosa NECK: Normal ROM, supple, no lymphadenopathy, JVD, or masses LUNGS: Breath sounds equal, clear to auscultation bilaterally. No wheezes, and no crackles HEART: Regular rate and rhythm, normal S1 and S2, no murmurs, rubs or gallops ABDOMEN: Soft, nontender, normoactive bowel sounds. No guarding, no rebound. No masses EXTREMITIES: Normal range of motion, no edema. No clubbing or cyanosis. No cords, erythema, or tenderness NEUROLOGICAL: Cranial nerves II through XII grossly intact. Strength intact, sensory intact, no abnormal movements noted SKIN: MRSA Warm, Dry, normal turgor. Right lower extremity from foot to the knee -->skin is denuded, weeping, and errythematous. Chronic non-healing wounds. Left lateral mid-calf --> small area of unhealed ulcer. Left leg --> no weeping, bright red, irritated dry skin. CBCD WBC 6.9 K/mm3 (4.0-10.0) 08/16/17 07:00 RBC 3.22 M/mm3 (4.00-5.60) L 08/16/17 07:00 Hgb 8.3 GM/dL (11.7-16.9) L 08/16/17 07:00 Hct 26.7 % (35.4-49) L 08/16/17 07:00 MCV 82.7 fl (80-96) 08/16/17 07:00 MCHC 31.0 g/dl (32.0-35.9) L 08/16/17 07:00 RDW 18.5 % (11.9-15.9) H 08/16/17 07:00 Plt Count 187 K/MM3 (134-434) 08/16/17 07:00 MPV 7.1 fl (7.5-11.1) L 08/16/17 07:00 CMP Sodium 142 mmol/L (136-145) 08/16/17 08:15 Potassium 3.9 mmol/L (3.5-5.1) 08/16/17 08:15 Chloride 106 mmol/L (98-107) 08/16/17 08:15 Carbon Dioxide 31 mmol/L (21-32) 08/16/17 08:15 Anion Gap 5 (8-16) L 08/16/17 08:15 BUN 19 mg/dL (7-18) H 08/16/17 08:15 Creatinine 0.9 mg/dL (0.7-1.3) 08/16/17 08:15 Creat Clearance w eGFR > 60 (>60) 08/16/17 08:15 Calcium 7.8 mg/dL (8.5-10.1) L 08/16/17 08:15 Total Bilirubin 0.5 mg/dL (0.2-1.0) D 08/16/17 08:15 AST 34 U/L (15-37) 08/16/17 08:15 ALT 18 U/L (12-78) D 08/16/17 08:15 Alkaline Phosphatase 147 U/L (45-117) H 08/16/17 08:15 Total Protein 6.5 g/dl (6.4-8.2) 08/16/17 08:15 Albumin 1.8 g/dl (3.4-5.0) L 08/16/17 08:15 Medical Decision Making 61 year-old male with a PMH significant for HTN, HLD, CAD s/p stents, COPD, GERD , BPH s/p TURP and h/o urinary retention, rheumatoid arthritis, diabetes, non- Hodgkin's lymphoma, melanoma, autoimmune cytopenias, and obesity who was referred to the ED by his PCP to be admitted for his chronic right leg wound. Patient reported that he was on vacation in [place] and caught his right ankle on the curb which is where his wound started. Patient states that he wounds easily. Found to have MRSA and admitted for further medical mgmt. Continue infectious mgmt Patient with hyperkalemia on admission, improved with fluids Consulted for jerking sensations, possibly myoclonic, improved with Klonipin Respiratory improved No abnormal movements noted Being considered for SNF when medically cleared
[2017-08-16] MEDS: RANITIDINE HCL 150 MG TABLET (FP) PO SCH (10:19)
[2017-08-16] MEDS: TAMSULOSIN HCL 0.4 MG CAP.ER.24H (FP) PO SCH (10:19)
[2017-08-16] MEDS: MULTIVITAMINS (DAILY MVI) TABLET (FP) PO SCH (10:20)
[2017-08-16] MEDS: DOXYCYCLINE HYCLATE 100 MG CAPSULE PO SCH ×2 (10:20→17:28)
[2017-08-16] MEDS: ASPIRIN 81 MG CHEWABLE TABLETS PO SCH (10:20)
[2017-08-16] MEDS: FINASTERIDE 5 MG TABLET (FP) PO SCH (10:20)
[2017-08-16] MEDS: SERTRALINE HCL 50 MG TABLET (FP) PO SCH (10:20)
[2017-08-16] MEDS: FOLIC ACID 1 MG TABLET (FP) PO SCH (10:20)
[2017-08-16] MEDS: CLOTRIMAZOLE 1% CREAM 15 GM TUBE TP SCH (10:22)
--- NOTE | 2017-08-16 10:25 | PN ---
Progress Note (short form) - Note Progress Note: Much more awake and alert today. Breathing feels "stable". Apparently used NIPPV minimally overnight. Reports "too much air". Intake & Output 08/13/17 08/14/17 08/15/17 08/16/17 23:59 23:59 23:59 23:59 Intake Total 120 200 714 50 Output Total 800 1550 2000 Balance -549 -1338 -0722 50 Weight 278 lb 2 oz 279 lb 3.2 oz 270 lb 6 oz Last Vital Signs Temp Pulse Resp BP Pulse Ox 98.1 F 90 20 149/67 99 08/16/17 06:10 08/16/17 07:27 08/16/17 06:10 08/16/17 06:10 08/16/17 07:27 Active Medications Aspirin (Asa -) 81 mg PO DAILY [facility] Last Admin: 08/16/17 10:20 Dose: 81 mg Atorvastatin Calcium (Lipitor -) 10 mg PO HS [facility] Last Admin: 08/15/17 21:21 Dose: 10 mg Clotrimazole (Lotrimin 1% Cream -) 1 applic TP BID [facility] Last Admin: 08/16/17 10:22 Dose: 1 applic Doxycycline Hyclate (Vibramycin -) 100 mg PO BID@1000,1800 [facility] Last Admin: 08/16/17 10:20 Dose: 100 mg Finasteride (Proscar -) 5 mg PO DAILY [facility] Last Admin: 08/16/17 10:20 Dose: 5 mg Folic Acid (Folic Acid -) 1 mg PO DAILY [facility] Last Admin: 08/16/17 10:20 Dose: 1 mg Furosemide (Lasix -) 40 mg PO DAILY [facility] Last Admin: 08/16/17 10:20 Dose: 40 mg Heparin Sodium (Porcine) (Heparin -) 5,000 unit SQ TID [facility] Last Admin: 08/16/17 05:53 Dose: 5,000 unit Metoprolol Succinate (Toprol Xl -) 50 mg PO DAILY [facility] Last Admin: 08/16/17 10:20 Dose: 50 mg Multivitamins/Minerals/Vitamin C (Tab-A-Vit -) 1 tab PO DAILY [facility] Last Admin: 08/16/17 10:20 Dose: 1 tab Ranitidine HCl (Zantac -) 300 mg PO DAILY [facility] Last Admin: 08/16/17 10:19 Dose: 300 mg Sertraline HCl (Zoloft -) 50 mg PO DAILY [facility] Last Admin: 08/16/17 10:20 Dose: 50 mg Tamsulosin HCl (Flomax -) 0.4 mg PO DAILY [facility] Last Admin: 08/16/17 10:19 Dose: 0.4 mg Constitutional: Yes: No Distress, Obese Eyes: Yes: Conjunctiva Clear, EOM Intact HENT: Yes: Atraumatic, Normocephalic Neck: Yes: Supple, Trachea Midline Cardiovascular: Yes: Regular Rate and Rhythm Respiratory: Yes: On NC O2, Rhonchi. No: Stridor, Tachypnea, Wheezes ...Inspection: Yes: WNL ...Clubbing: No Gastrointestinal: Yes: Normal Bowel Sounds, Soft, Abdomen, Obese Renal/: Yes: WNL Breast(s): Yes: WNL Musculoskeletal: Yes: WNL Extremities: Yes: WNL Edema: No Peripheral Pulses WNL: Yes Integumentary: Yes: WNL Neurological: Yes: Awake and alert Labs: Laboratory Results - last 24 hr 08/15/17 08/16/17 08/16/17 06:00 07:00 08:15 WBC 6.9 RBC 3.22 L Hgb 8.3 L Hct 26.7 L MCV 82.7 MCH 25.6 L MCHC 31.0 L RDW 18.5 H Plt Count 187 MPV 7.1 L Neutrophils % No Result Required. Neutrophils % (Manual) 67.0 Band Neutrophils % 0.0 Lymphocytes % No Result Required. Lymphocytes % (Manual) 20.2 D Monocytes % (Manual) 5 Eosinophils % (Manual) 1.1 D Basophils % (Manual) 1.1 Myelocytes % (Man) 2 D Promyelocytes % (Man) 0 Nucleated RBC % 0 Metamyelocytes 2 D Hypochromia 1+ Platelet Estimate Normal Basophilic Stippling 1+ Sodium 142 Potassium 3.9 Chloride 106 Carbon Dioxide 31 Anion Gap 5 L BUN 19 H Creatinine 0.9 Creat Clearance w eGFR > 60 Random Glucose 94 Calcium 7.8 L Phosphorus 2.4 L Magnesium 1.3 L D Total Bilirubin 0.5 D AST 34 ALT 18 D Alkaline Phosphatase 147 H Total Protein 6.5 Albumin 1.8 L Problem List - Problems (1) CKD stage 4 due to type 2 diabetes mellitus Code(s): E11.22 - TYPE 2 DIABETES MELLITUS W DIABETIC CHRONIC KIDNEY DISEASE; N18.4 - CHRONIC KIDNEY DISEASE, STAGE 4 (SEVERE) (2) Cellulitis of right leg Code(s): L03.115 - CELLULITIS OF RIGHT LOWER LIMB (3) Hyperkalemia Code(s): E87.5 - HYPERKALEMIA (4) Leg wound, right Code(s): S81.801A - UNSPECIFIED OPEN WOUND, RIGHT LOWER LEG, INITIAL ENCOUNTER (5) Morbidly obese Code(s): E66.01 - MORBID (SEVERE) OBESITY DUE TO EXCESS CALORIES (6) T2DM (type 2 diabetes mellitus) Code(s): E11.9 - TYPE 2 DIABETES MELLITUS WITHOUT COMPLICATIONS Qualifiers: Diabetes mellitus complication status: with kidney complications (7) BPH (benign prostatic hyperplasia) Code(s): N40.0 - BENIGN PROSTATIC HYPERPLASIA WITHOUT LOWER URINRY TRACT SYMP (8) CKD (chronic kidney disease) Code(s): N18.9 - CHRONIC KIDNEY DISEASE, UNSPECIFIED (9) Diabetes mellitus Code(s): E11.9 - TYPE 2 DIABETES MELLITUS WITHOUT COMPLICATIONS Qualifiers: Diabetes mellitus type: type 2 Diabetes mellitus complication status: with unspecified complications Diabetes mellitus terminal manager insulin use: without terminal manager use Qualified Code(s): E11.8 - Type 2 diabetes mellitus with unspecified complications (10) Hypertension Code(s): I10 - ESSENTIAL (PRIMARY) HYPERTENSION Qualifiers: Hypertension type: unspecified Qualified Code(s): I10 - Essential (primary ) hypertension (11) Lymphoma in remission Code(s): Z85.72 - PERSONAL HISTORY OF NON-HODGKIN LYMPHOMAS (12) Steatosis of liver Code(s): K76.0 - FATTY (CHANGE OF) LIVER, NOT ELSEWHERE CLASSIFIED Assessment/Plan O2 as needed NIPPV QHS and PRN: settings can be adjusted as needed Aspiration precautions ABX Lasix Dr Londono Problem List - Problems (1) CKD stage 4 due to type 2 diabetes mellitus Code(s): E11.22 - TYPE 2 DIABETES MELLITUS W DIABETIC CHRONIC KIDNEY DISEASE; N18.4 - CHRONIC KIDNEY DISEASE, STAGE 4 (SEVERE) (2) Cellulitis of right leg Code(s): L03.115 - CELLULITIS OF RIGHT LOWER LIMB (3) Hyperkalemia Code(s): E87.5 - HYPERKALEMIA (4) Leg wound, right Code(s): S81.801A - UNSPECIFIED OPEN WOUND, RIGHT LOWER LEG, INITIAL ENCOUNTER (5) Morbidly obese Code(s): E66.01 - MORBID (SEVERE) OBESITY DUE TO EXCESS CALORIES (6) T2DM (type 2 diabetes mellitus) Code(s): E11.9 - TYPE 2 DIABETES MELLITUS WITHOUT COMPLICATIONS Qualifiers: Diabetes mellitus complication status: with kidney complications (7) BPH (benign prostatic hyperplasia) Code(s): N40.0 - BENIGN PROSTATIC HYPERPLASIA WITHOUT LOWER URINRY TRACT SYMP (8) CKD (chronic kidney disease) Code(s): N18.9 - CHRONIC KIDNEY DISEASE, UNSPECIFIED (9) Diabetes mellitus Code(s): E11.9 - TYPE 2 DIABETES MELLITUS WITHOUT COMPLICATIONS Qualifiers: Diabetes mellitus type: type 2 Diabetes mellitus complication status: with unspecified complications Diabetes mellitus terminal manager insulin use: without terminal manager use Qualified Code(s): E11.8 - Type 2 diabetes mellitus with unspecified complications (10) Hypertension Code(s): I10 - ESSENTIAL (PRIMARY) HYPERTENSION Qualifiers: Hypertension type: unspecified Qualified Code(s): I10 - Essential (primary ) hypertension (11) Lymphoma in remission Code(s): Z85.72 - PERSONAL HISTORY OF NON-HODGKIN LYMPHOMAS (12) Steatosis of liver Code(s): K76.0 - FATTY (CHANGE OF) LIVER, NOT ELSEWHERE CLASSIFIED
[2017-08-16 10:51] VITALS: PULSE 75
[2017-08-16] MEDS ORDERED: MAGNESIUM SULF 50% (8.12 MEQ/2 ML-1 GM VIAL) IVPB ONE (11:44)
--- NOTE | 2017-08-16 11:44 | PN ---
Progress Note, Physician History of Present Illness: Pt seen and examined at bedside. He is awake and alert. He feels that his breathing is improved today. - Current Medication List Current Medications: Active Medications Aspirin (Asa -) 81 mg PO DAILY [facility] Last Admin: 08/16/17 10:20 Dose: 81 mg Atorvastatin Calcium (Lipitor -) 10 mg PO HS [facility] Last Admin: 08/15/17 21:21 Dose: 10 mg Clotrimazole (Lotrimin 1% Cream -) 1 applic TP BID [facility] Last Admin: 08/16/17 10:22 Dose: 1 applic Doxycycline Hyclate (Vibramycin -) 100 mg PO BID@1000,1800 [facility] Last Admin: 08/16/17 10:20 Dose: 100 mg Finasteride (Proscar -) 5 mg PO DAILY [facility] Last Admin: 08/16/17 10:20 Dose: 5 mg Folic Acid (Folic Acid -) 1 mg PO DAILY [facility] Last Admin: 08/16/17 10:20 Dose: 1 mg Furosemide (Lasix -) 40 mg PO DAILY [facility] Last Admin: 08/16/17 10:20 Dose: 40 mg Heparin Sodium (Porcine) (Heparin -) 5,000 unit SQ TID [facility] Last Admin: 08/16/17 05:53 Dose: 5,000 unit Metoprolol Succinate (Toprol Xl -) 50 mg PO DAILY [facility] Last Admin: 08/16/17 10:20 Dose: 50 mg Multivitamins/Minerals/Vitamin C (Tab-A-Vit -) 1 tab PO DAILY [facility] Last Admin: 08/16/17 10:20 Dose: 1 tab Ranitidine HCl (Zantac -) 300 mg PO DAILY [facility] Last Admin: 08/16/17 10:19 Dose: 300 mg Sertraline HCl (Zoloft -) 50 mg PO DAILY [facility] Last Admin: 08/16/17 10:20 Dose: 50 mg Tamsulosin HCl (Flomax -) 0.4 mg PO DAILY [facility] Last Admin: 08/16/17 10:19 Dose: 0.4 mg - Objective Vital Signs: Vital Signs Temperature 98.7 F 08/16/17 10:50 Pulse Rate 75 08/16/17 10:50 Respiratory Rate 20 08/16/17 10:50 Blood Pressure 150/77 08/16/17 10:50 O2 Sat by Pulse Oximetry (%) 99 08/16/17 07:27 Constitutional: Yes: Calm Eyes: Yes: Conjunctiva Clear HENT: Yes: Atraumatic Neck: Yes: Supple Cardiovascular: Yes: S1, S2 Respiratory: Yes: CTA Bilaterally, On Nasal O2 Gastrointestinal: Yes: Soft, Abdomen, Obese Genitourinary: Yes: WNL Musculoskeletal: Yes: WNL Edema: Yes Edema: LLE: Trace, RLE: Trace Wound/Incision: Yes: Dressing Dry and Intact Neurological: Yes: Oriented Psychiatric: Yes: Oriented Labs: CBC, BMP 08/16/17 07:00 08/16/17 08:15 Problem List - Problems (1) CKD stage 4 due to type 2 diabetes mellitus Code(s): E11.22 - TYPE 2 DIABETES MELLITUS W DIABETIC CHRONIC KIDNEY DISEASE; N18.4 - CHRONIC KIDNEY DISEASE, STAGE 4 (SEVERE) (2) Cellulitis of right leg Code(s): L03.115 - CELLULITIS OF RIGHT LOWER LIMB (3) Hyperkalemia Code(s): E87.5 - HYPERKALEMIA (4) Obesity Code(s): E66.9 - OBESITY, UNSPECIFIED (5) T2DM (type 2 diabetes mellitus) Code(s): E11.9 - TYPE 2 DIABETES MELLITUS WITHOUT COMPLICATIONS Qualifiers: Diabetes mellitus complication status: with kidney complications (6) BPH (benign prostatic hyperplasia) Code(s): N40.0 - BENIGN PROSTATIC HYPERPLASIA WITHOUT LOWER URINRY TRACT SYMP (7) CKD (chronic kidney disease) Code(s): N18.9 - CHRONIC KIDNEY DISEASE, UNSPECIFIED Assessment/Plan Current Medications Generic Name Dose Route Start Last Admin Trade Name Emmettq PRN Reason Stop Dose Admin Aspirin 81 mg 08/04/17 10:00 08/16/17 10:20 Asa - PO 81 mg DAILY [facility] Administration Atorvastatin Calcium 10 mg 08/03/17 22:00 08/15/17 21:21 Lipitor - PO 10 mg HS [facility] Administration Clotrimazole 1 applic 08/04/17 22:00 08/16/17 10:22 Lotrimin 1% Cream - TP 1 applic BID [facility] Administration Doxycycline Hyclate 100 mg 08/12/17 18:00 08/16/17 10:20 Vibramycin - PO 100 mg BID@1000,1800 [facility] Administration Finasteride 5 mg 08/04/17 10:00 08/16/17 10:20 Proscar - PO 5 mg DAILY [facility] Administration Folic Acid 1 mg 08/04/17 10:00 08/16/17 10:20 Folic Acid - PO 1 mg DAILY [facility] Administration Furosemide 40 mg 08/16/17 10:00 08/16/17 10:20 Lasix - PO 40 mg DAILY [facility] Administration Heparin Sodium (Porcine) 5,000 unit 08/14/17 14:15 08/16/17 05:53 Heparin - SQ 5,000 unit TID [facility] Administration Metoprolol Succinate 50 mg 08/04/17 10:00 08/16/17 10:20 Toprol Xl - PO 50 mg DAILY [facility] Administration Multivitamins/Minerals/Vitamin C 1 tab 08/04/17 10:00 08/16/17 10:20 Tab-A-Vit - PO 1 tab DAILY [facility] Administration Ranitidine HCl 300 mg 08/04/17 10:00 08/16/17 10:19 Zantac - PO 300 mg DAILY [facility] Administration Sertraline HCl 50 mg 08/04/17 10:00 08/16/17 10:20 Zoloft - PO 50 mg DAILY [facility] Administration Tamsulosin HCl 0.4 mg 08/04/17 10:00 08/16/17 10:19 Flomax - PO 0.4 mg DAILY [facility] Administration Impression 1. OLIVIA 2. hyperkalemia 3. CKD 4. DM 5. sepsis 6. cellulitis Plan - cont PO lasix - repeat labs in am - monitor pulse ox - renal function is stable - potassium is stable - avoid nsaids - wound care to legs Dr Heard
[2017-08-16 13:09] LABS: PLATELET ESTIMATE ADEQUATE
--- NOTE | 2017-08-16 13:49 | DS ---
Physical Examination Vital Signs: Vital Signs Temperature 37.1 C 08/16/17 10:50 Pulse Rate 75 08/16/17 10:50 Respiratory Rate 20 08/16/17 10:50 Blood Pressure 150/77 08/16/17 10:50 O2 Sat by Pulse Oximetry (%) 94 L 08/16/17 09:00 Constitutional: Yes: No Distress, Calm, Obese Cardiovascular: Yes: Regular Rate and Rhythm. No: Gallop, Murmur, Rub Respiratory: Yes: Regular, CTA Bilaterally. No: Rales, Rhonchi, Wheezes Gastrointestinal: Yes: Normal Bowel Sounds, Soft. No: Distention, Tenderness Extremities: Yes: WNL Edema: No Labs: CBC, BMP 08/16/17 07:00 08/16/17 08:15 Discharge Summary Reason For Visit: CELLULITIS/CHRONIC KIDNEY DISEASE/RIGHT LEG WOUND Current Active Problems CKD stage 4 due to type 2 diabetes mellitus (Acute) Cellulitis of right leg (Acute) Groin rash (Acute) Hyperkalemia (Acute) Leg wound, right (Acute) MRSA (methicillin resistant Staphylococcus aureus) infection (Acute) Morbidly obese (Acute) Obesity (Acute) Oral thrush (Acute) Rash and nonspecific skin eruption (Acute) Respiratory failure with hypoxia and hypercapnia (Acute) Sleep apnea (Acute) T2DM (type 2 diabetes mellitus) (Acute) Hospital Course: (1) Respiratory failure with hypoxia and hypercapnia Code(s): J96.91 - RESPIRATORY FAILURE, UNSPECIFIED WITH HYPOXIA; J96.92 - RESPIRATORY FAILURE, UNSPECIFIED WITH HYPERCAPNIA Qualifiers: Chronicity: acute Qualified Code(s): J96.01 - Acute respiratory failure with hypoxia; J96.02 - Acute respiratory failure with hypercapnia; J96.02 - Acute respiratory failure with hypercapnia; J96.02 - Acute respiratory failure with hypercapnia (2) MRSA (methicillin resistant Staphylococcus aureus) infection Code(s): A49.02 - METHICILLIN RESIS STAPH INFECTION, UNSP SITE (3) CKD stage 4 due to type 2 diabetes mellitus Code(s): E11.22 - TYPE 2 DIABETES MELLITUS W DIABETIC CHRONIC KIDNEY DISEASE; N18.4 - CHRONIC KIDNEY DISEASE, STAGE 4 (SEVERE) (4) Hyperkalemia Code(s): E87.5 - HYPERKALEMIA (5) Morbidly obese Code(s): E66.01 - MORBID (SEVERE) OBESITY DUE TO EXCESS CALORIES (6) T2DM (type 2 diabetes mellitus) Code(s): E11.9 - TYPE 2 DIABETES MELLITUS WITHOUT COMPLICATIONS Qualifiers: Diabetes mellitus complication status: with kidney complications (7) Hypotension Code(s): I95.9 - HYPOTENSION, UNSPECIFIED (8) Rheumatoid arthritis Code(s): M06.9 - RHEUMATOID ARTHRITIS, UNSPECIFIED Qualifiers: Rheumatoid arthritis location: unspecified site Rheumatoid factor presence : unspecified presence Qualified Code(s): M06.9 - Rheumatoid arthritis, unspecified Mr Pinto is a 61 year old male who comes in with MRSA cellulitis and OLIVIA with hyperkalemia. He was admitted to the hospital and seen by ID. He was started on vancomycin and transitioned to vibramycin. He tolerated this well. He was seen by nephrology for his renal function. He was hydrated and given kayexalate at first, he was also placed on a renal diet. He improved significantly and IVF was stopped. He was having fasciculations and was started on klonipin. Unfortunately this exacerbated his underlying obesity hypoventilation syndrome and he went into hypoxic/hypercapneic respiratory failure with toxic encephalopathy. His codeine and his klonipin was stopped and he was started on bipap. He was seen by pulmonary and his bipap was adjusted. His mental status improved and his respiratory failure resolved. He is now safe for discharge to SNF for PT. Patient takes NSAIDs for his rheumatoid arthritis even when instructed not to do so as this is the cause of his renal failure. His hyperkalemia is secondary to his diet with renal failure. Stressed with patient again multiple times this admission and again on discharge that he is to avoid all NSAIDs except his baby aspirin. Patient expressed his understanding. He should continue to see pulmonary at the SNF and have an outpatient sleep study performed. 34 minutes spent in preparation of this discharge Condition: Stable - Instructions Diet, Activity, Other Instructions: up with assistance, further activity per PT at SNF. Avoid all NSAIDs in this patient except baby aspirin. Regular diet. Continue doxycycline for 10 days. Referrals: Rio Castillo MD [Primary Care Provider] - Ki Heard MD [Staff Physician] - Andres Dye MD [Staff Physician] - Disposition: [facility] F[facility] - Home Medications Comprehensive Discharge Medication List: Ambulatory Orders Finasteride 5 mg PO DAILY 12/10/14 Metoprolol Succinate [Toprol XL -] 50 mg PO DAILY 12/10/14 Multivitamins [Multivit ([facility] Formulary)] 1 tab PO DAILY 12/10/14 Sertraline HCl [Zoloft] 50 mg PO DAILY 12/10/14 Tamsulosin HCl [Flomax -] 0.4 mg PO DAILY 12/10/14 Furosemide [Lasix -] 40 mg PO DAILY 12/25/14 ASA - 81 mg PO DAILY 03/02/17 Atorvastatin Ca [Lipitor] 10 mg PO HS 07/12/17 Ranitidine HCl 300 mg PO DAILY 07/12/17 Folic Acid - 1 mg PO DAILY #30 tablet 07/17/17 Clotrimazole [Lotrimin -] 1 applic TP BID tube 08/16/17 Doxycycline Hyclate [Vibramycin -] 100 mg PO BID@1000,1800 10 Days capsule 08/02 Magnesium Oxide [Mag-Ox -] 400 mg PO DAILY tablet 08/16/17
[2017-08-16] MEDS: MAGNESIUM 1GM/D5W - 1 GM/100 ML IVPB IVPB SCH ×2 (14:09→14:51)
[2017-08-16 18:03] VITALS: BP 117/71; TEMP 98.6
[2017-08-17] MEDS ORDERED: MAGNESIUM OXIDE 400 MG TABLET (FP) PO SCH (10:00)
== END 2017-08-16 19:51 | DRG 602 ==
LOC: SUPCPDRO 18:24 → JER 18:24 → JERBED 22:34 → J8W 08-04 02:58 → J7W 08-08 21:55
PROVIDERS: ADMIT Internal Medicine; ATTEND Internal Medicine
PROC: 5A09457 Assistance with Respiratory Ventilation, 24-96 Consecutive Hours, Continuous Positive Airway Pressure (ICD-10-PCS; principal; 2017-08-14)
DX: L03.115 Cellulitis of right lower limb (principal); J96.01 Acute respiratory failure with hypoxia; J96.02 Acute respiratory failure with hypercapnia; Z68.41 Body mass index [BMI] 40.0-44.9, adult; N18.4 Chronic kidney disease, stage 4 (severe); L97.908 Non-pressure chronic ulcer of unspecified part of unspecified lower leg with other specified severity; B37.0 Candidal stomatitis; N17.9 Acute kidney failure, unspecified; I25.10 Atherosclerotic heart disease of native coronary artery without angina pectoris; E78.5 Hyperlipidemia, unspecified; N40.0 Benign prostatic hyperplasia without lower urinary tract symptoms; M06.80 Other specified rheumatoid arthritis, unspecified site; E87.5 Hyperkalemia; G25.3 Myoclonus; F17.200 Nicotine dependence, unspecified, uncomplicated; S81.801A Unspecified open wound, right lower leg, initial encounter; B95.62 Methicillin resistant Staphylococcus aureus infection as the cause of diseases classified elsewhere; E66.01 Morbid (severe) obesity due to excess calories; J44.9 Chronic obstructive pulmonary disease, unspecified; G47.39 Other sleep apnea; K22.70 Barrett's esophagus without dysplasia; K76.0 Fatty (change of) liver, not elsewhere classified; E11.21 Type 2 diabetes mellitus with diabetic nephropathy; I12.9 Hypertensive chronic kidney disease with stage 1 through stage 4 chronic kidney disease, or unspecified chronic kidney disease; E11.22 Type 2 diabetes mellitus with diabetic chronic kidney disease; C43.8 Malignant melanoma of overlapping sites of skin; I83.009 Varicose veins of unspecified lower extremity with ulcer of unspecified site; R21 Rash and other nonspecific skin eruption; I95.9 Hypotension, unspecified; Z85.72 Personal history of non-Hodgkin lymphomas; Z95.5 Presence of coronary angioplasty implant and graft
CPT/HCPCS: 36415; 36600; 70450-TC; 71045-TC; 71046-TC-FY; 76775-TC; 80048; 80053; 82140; 82803; 82962; 83605; 83735; 84100; 85025; 86803; 87040; 87070; 87186; 87205; 87389; 93005; 93010; 94660; 94761; 97116-GP; 97162-GP; 99283-25; G0463-25; G0480; J1644

== ENCOUNTER 2018-11-12 10:12 | Day surgery (SDC) | payer OTHER ==
[2018-11-12 11:59] VITALS: BMI 34.1
[2018-11-12 13:18] VITALS: BP 138/61; PULSE 84; TEMP 98
== END 2018-11-12 13:10 | disposition home or self-care (01) ==
LOC: JASU-ENDO 10:12
PROVIDERS: ATTEND Internal Medicine Gastroenterology
PROC: 0DJD8ZZ Inspection of Lower Intestinal Tract, Via Natural or Artificial Opening Endoscopic (ICD-10-PCS; principal; 2018-11-12 12:00)
DX: Z12.11 Encounter for screening for malignant neoplasm of colon (principal); Z86.010 Personal history of colon polyps; K64.8 Other hemorrhoids; K57.30 Diverticulosis of large intestine without perforation or abscess without bleeding

== ENCOUNTER 2020-11-25 16:17 | Inpatient (IN) | payer OTHER ==
[2020-11-25 17:55] LABS: BASO % 1.4 % (0-2.0); EOS % 3.8 % (0-4.5); HEMATOCRIT 23.7 % (35.4-49); HEMOGLOBIN 7.4 GM/dL (11.7-16.9); LYMPH % 32.1 % (8-40); MCH 21.4 pg (25.7-33.7); MCHC 31.3 g/dl (32.0-35.9); MEAN CELL VOLUME 68.5 fl (80-96); MEAN PLT VOLUME 6.5 fl (7.5-11.1); MONO % 7.3 % (3.8-10.2); NEUT % 55.4 % (42.8-82.8); PLATELET COUNT 449 K/MM3 (134-434); RBC 3.45 M/mm3 (4.00-5.60); RDW 19.2 % (11.9-15.9); WHITE BLOOD COUNT 8.4 K/mm3 (4.0-10.0)
[2020-11-25 18:26] LABS: CALCIUM 8.2 mg/dL (8.5-10.1)
[2020-11-25 18:27] LABS: ALBUMIN 2.4 g/dl (3.4-5.0); BLOOD UREA NITROGEN 32.6 mg/dL (7-18); MAGNESIUM 2.1 mg/dL (1.8-2.4)
[2020-11-25 18:30] LABS: CREATININE 2.2 mg/dL (0.55-1.3)
[2020-11-25 18:32] LABS: BILIRUBIN,TOTAL 0.4 mg/dL (0.2-1); TOT PROT 7.7 g/dl (6.4-8.2)
[2020-11-25 18:35] LABS: N-TERMINAL BNP 2137.4 pg/ml (5-125)
[2020-11-25 19:45] LABS: ANISOCYTOSIS 2+; MACROCYTOSIS 0; OVALOCYTE 1+; PLATELET ESTIMATE NORMAL
[2020-11-25] MEDS ORDERED: SODIUM CHLORIDE 500 ML IV STA (22:33)
[2020-11-25] MEDS ORDERED: SODIUM CHLORIDE 1,000 ML IV SCH (23:33)
[2020-11-26] MEDS ORDERED: diphenhydrAMINE HCL 25 MG CAPSULE (FP) PO ONE ×2 (01:31→02:28)
[2020-11-26] MEDS ORDERED: MELATONIN 5 MG TABLETS ONE (02:28)
[2020-11-26] MEDS: MELATONIN 5 MG TABLETS PO SCH ×2 (02:44→23:49)
[2020-11-26] MEDS ORDERED: LEVOTHYROXINE NA 25 MCG TABLET (FP) ONE (06:28)
[2020-11-26] MEDS ORDERED: ACETAMINOPHEN 325 MG TABLET (FP) ONE (06:30)
[2020-11-26] MEDS: ACETAMINOPHEN 325 MG TABLET (FP) PO PRN ×2 (06:39→20:16)
[2020-11-26] MEDS: LEVOTHYROXINE NA 50 MCG TABLET (FP) PO SCH (06:53)
[2020-11-26 07:12] LABS: HEMATOCRIT 26.1 % (35.4-49); HEMOGLOBIN 8.6 GM/dL (11.7-16.9); MCH 22.9 pg (25.7-33.7); MEAN CELL VOLUME 69.4 fl (80-96); MEAN PLT VOLUME 6.4 fl (7.5-11.1); PLATELET COUNT 444 K/MM3 (134-434); RBC 3.76 M/mm3 (4.00-5.60); RDW 20.1 % (11.9-15.9); WHITE BLOOD COUNT 9.8 K/mm3 (4.0-10.0)
[2020-11-26 07:36] LABS: CALCIUM 8.1 mg/dL (8.5-10.1)
[2020-11-26 07:37] LABS: ALBUMIN 2.4 g/dl (3.4-5.0); BLOOD UREA NITROGEN 32.2 mg/dL (7-18); PHOSPHOROUS 3.7 mg/dL (2.5-4.9)
[2020-11-26 07:40] LABS: CREATININE 1.9 mg/dL (0.55-1.3)
[2020-11-26 07:41] LABS: BILIRUBIN,TOTAL 0.8 mg/dL (0.2-1)
[2020-11-26 07:42] LABS: TOT PROT 7.6 g/dl (6.4-8.2)
[2020-11-26] MEDS ORDERED: NYSTATIN 100,000 UNIT/GM TOPICAL CREAM 15 GM TUBE TP SCH (10:00)
[2020-11-26] MEDS: PANTOPRAZOLE 40 MG TABLET PO SCH (13:00)
[2020-11-26] MEDS: NYSTATIN 100000 UNIT/GM TOPICAL OINTMENT 15 GM TUBE TP SCH (15:30)
[2020-11-26] MEDS: NYSTATIN POWDER 100,000 UNITS/GM - 15 GM TOPICAL POWDER TP SCH (15:30)
[2020-11-26 21:12] VITALS: BMI 31.8
[2020-11-26] MEDS: ATORVASTATIN CA 10 MG TABLET (FP) PO SCH (23:50)
[2020-11-27] MEDS: NYSTATIN 100000 UNIT/GM TOPICAL OINTMENT 15 GM TUBE TP SCH ×3 (00:58→21:29)
[2020-11-27] MEDS: NYSTATIN POWDER 100,000 UNITS/GM - 15 GM TOPICAL POWDER TP SCH ×3 (00:58→21:29)
[2020-11-27] MEDS: ACETAMINOPHEN 325 MG TABLET (FP) PO PRN ×2 (06:56→16:30)
[2020-11-27] MEDS: LEVOTHYROXINE NA 50 MCG TABLET (FP) PO SCH (06:56)
[2020-11-27] MEDS ORDERED: LEVOTHYROXINE NA 50 MCG TABLET (FP) PO SCH (07:00)
[2020-11-27 07:19] LABS: BASO % 1.4 % (0-2.0); EOS % 4.2 % (0-4.5); HEMATOCRIT 27.3 % (35.4-49); HEMOGLOBIN 8.7 GM/dL (11.7-16.9); LYMPH % 25.3 % (8-40); MCH 22.4 pg (25.7-33.7); MCHC 31.8 g/dl (32.0-35.9); MEAN CELL VOLUME 70.3 fl (80-96); MEAN PLT VOLUME 6.4 fl (7.5-11.1); MONO % 6.2 % (3.8-10.2); NEUT % 62.9 % (42.8-82.8); PLATELET COUNT 418 K/MM3 (134-434); RBC 3.88 M/mm3 (4.00-5.60); RDW 19.9 % (11.9-15.9)
[2020-11-27 07:55] LABS: CALCIUM 8.6 mg/dL (8.5-10.1)
[2020-11-27 07:56] LABS: ALBUMIN 2.6 g/dl (3.4-5.0); BLOOD UREA NITROGEN 28.8 mg/dL (7-18); MAGNESIUM 2.1 mg/dL (1.8-2.4)
[2020-11-27 07:59] LABS: CREATININE 1.7 mg/dL (0.55-1.3); PHOSPHOROUS 3.2 mg/dL (2.5-4.9)
[2020-11-27 08:00] LABS: BILIRUBIN,TOTAL 0.4 mg/dL (0.2-1)
[2020-11-27 08:04] LABS: TOT PROT 7.6 g/dl (6.4-8.2)
[2020-11-27] MEDS: PANTOPRAZOLE 40 MG TABLET PO SCH (09:28)
[2020-11-27] MEDS ORDERED: FINASTERIDE 5 MG TABLET (FP) PO SCH (10:00)
[2020-11-27] MEDS ORDERED: MAGNESIUM OXIDE 400 MG TABLET (FP) PO SCH (10:00)
[2020-11-27] MEDS ORDERED: FOLIC ACID 1 MG TABLET (FP) PO SCH (10:00)
[2020-11-27] MEDS ORDERED: SERTRALINE HCL 50 MG TABLET (FP) PO SCH (10:00)
[2020-11-27] MEDS ORDERED: NICOTINE 14 MG/24 HOURS TOPICAL PATCH TD SCH (12:30)
[2020-11-27 13:53] VITALS: BP 142/68; PULSE 62; TEMP 98.6
[2020-11-27] MEDS: ATORVASTATIN CA 10 MG TABLET (FP) PO SCH (21:27)
[2020-11-27] MEDS: MELATONIN 5 MG TABLETS PO SCH (21:28)
[2020-11-29 19:08] LABS: GLIADIN ANTIBODY IGA 13 units (0-19); GLIADIN ANTIBODY IGG 3 units (0-19); TRANSGLUTAMINASE IGG 3 U/mL (0-5)
== END 2020-11-27 21:30 | disposition home or self-care (01) | DRG 812 ==
LOC: SUPCPDRO 16:17 → JER 16:17 → JERBED 20:35 → J7W 11-26 19:50
PROVIDERS: ADMIT Hospitalist; ATTEND Internal Medicine
PROC: 30233N1 Transfusion of Nonautologous Red Blood Cells into Peripheral Vein, Percutaneous Approach (ICD-10-PCS; principal; 2020-11-25)
DX: D64.9 Anemia, unspecified (principal); N17.9 Acute kidney failure, unspecified; N18.4 Chronic kidney disease, stage 4 (severe); I87.8 Other specified disorders of veins; I83.008 Varicose veins of unspecified lower extremity with ulcer other part of lower leg; E78.5 Hyperlipidemia, unspecified; E03.9 Hypothyroidism, unspecified; F32.9 Major depressive disorder, single episode, unspecified; I12.9 Hypertensive chronic kidney disease with stage 1 through stage 4 chronic kidney disease, or unspecified chronic kidney disease; K21.9 Gastro-esophageal reflux disease without esophagitis; K76.0 Fatty (change of) liver, not elsewhere classified; F17.210 Nicotine dependence, cigarettes, uncomplicated; L30.4 Erythema intertrigo; E11.22 Type 2 diabetes mellitus with diabetic chronic kidney disease; E11.21 Type 2 diabetes mellitus with diabetic nephropathy; E66.9 Obesity, unspecified; Z68.31 Body mass index [BMI] 31.0-31.9, adult
CPT/HCPCS: 36415; 36430; 71045-TC-FY; 76775-TC; 76882-TC-RT-FY; 80053; 82272; 82728; 82784; 82977; 83516; 83540; 83550; 83735; 83880; 84100; 85025; 85027; 85045; 85730; 86850; 86900; 86901; 86922; 93005; 93010; 99285-25; C9803; P9058; U0003; U0005

== ENCOUNTER 2020-12-09 04:48 | Day surgery (SDC) | payer OTHER ==
[2020-12-08 14:10] VITALS: BMI 34.1
[2020-12-09] MEDS ORDERED: LIDOCAINE HCL 4% PRESERVE-FREE 5 ML AMP ONE (13:19)
[2020-12-09] MEDS ORDERED: MIDAZOLAM HCL 2 MG/2 ML SINGLE DOSE VIAL ONE (13:28)
[2020-12-09 14:18] VITALS: TEMP 97.5
[2020-12-09 14:32] VITALS: PULSE 63
[2020-12-09 15:09] VITALS: BP 156/66
== END 2020-12-09 15:09 | disposition home or self-care (01) ==
LOC: JASU-ENDO 04:48
PROVIDERS: ATTEND Internal Medicine Gastroenterology
PROC: 0DB78ZX Excision of Stomach, Pylorus, Via Natural or Artificial Opening Endoscopic, Diagnostic (ICD-10-PCS; principal; 2020-12-09 13:28)
DX: K29.50 Unspecified chronic gastritis without bleeding (principal); D50.9 Iron deficiency anemia, unspecified; K25.9 Gastric ulcer, unspecified as acute or chronic, without hemorrhage or perforation
CPT/HCPCS: 88305-TC; 88342-TC

== ENCOUNTER 2020-12-16 05:10 | Day surgery (SDC) | payer OTHER ==
[2020-12-14 14:30] VITALS: BMI 34.1
[2020-12-16 09:19] VITALS: TEMP 96.9
[2020-12-16 10:00] VITALS: BP 140/63; PULSE 73
== END 2020-12-16 10:18 | disposition home or self-care (01) ==
LOC: JASU-ENDO 05:10
PROVIDERS: ATTEND Internal Medicine Gastroenterology
PROC: 0DJD8ZZ Inspection of Lower Intestinal Tract, Via Natural or Artificial Opening Endoscopic (ICD-10-PCS; principal; 2020-12-16 08:32)
DX: D50.9 Iron deficiency anemia, unspecified (principal); K63.89 Other specified diseases of intestine; K57.30 Diverticulosis of large intestine without perforation or abscess without bleeding; K64.8 Other hemorrhoids

== ENCOUNTER 2021-12-21 07:22 | Day surgery (SDC) | payer OTHER ==
[2021-12-21] MEDS ORDERED: FERRIC CARBOXYMALTOSE 750 MG in SODIUM CHLORIDE 250 ML IVPB ONE (10:00)
[2021-12-21 13:57] LABS: BASO % 2.7 % (0-2.0); EOS % 4.7 % (0-4.5); HEMATOCRIT 28.7 % (35.4-49); HEMOGLOBIN 9.1 GM/dL (11.7-16.9); LYMPH % 30.9 % (8-40); MCH 24.3 pg (25.7-33.7); MCHC 31.8 g/dl (32.0-35.9); MEAN CELL VOLUME 76.4 fl (80-96); MEAN PLT VOLUME 6.8 fl (7.5-11.1); MONO % 9.6 % (3.8-10.2); NEUT % 52.1 % (42.8-82.8); PLATELET COUNT 353 10^3/uL (134-434); RBC 3.75 M/mm3 (4.00-5.60); RDW 18.1 % (11.9-15.9)
[2021-12-21 14:14] LABS: CALCIUM 8.6 mg/dL (8.5-10.1)
[2021-12-21 14:15] LABS: ALBUMIN 2.5 g/dl (3.4-5.0); BLOOD UREA NITROGEN 29.9 mg/dL (7-18)
[2021-12-21 14:18] LABS: CREATININE 1.3 mg/dL (0.55-1.3)
[2021-12-21 14:20] LABS: BILIRUBIN,TOTAL 0.4 mg/dL (0.2-1)
[2021-12-21 17:00] VITALS: TEMP 98.5
[2021-12-21 17:01] VITALS: BP 165/70; PULSE 80
== END 2021-12-21 15:00 | disposition home or self-care (01) ==
LOC: JONCNONCHE 07:22
PROVIDERS: ATTEND Internal Medicine Hematology & Oncology
PROC: 3E033GC Introduction of Other Therapeutic Substance into Peripheral Vein, Percutaneous Approach (ICD-10-PCS; principal; 2021-12-21)
DX: E61.1 Iron deficiency (principal); I87.333 Chronic venous hypertension (idiopathic) with ulcer and inflammation of bilateral lower extremity; L90.8 Other atrophic disorders of skin
CPT/HCPCS: 29581-LT; 29581-RT; 36415; 80053; 85025; 96365; A6197; G0463-25; J1439

== ENCOUNTER 2021-12-28 07:17 | Day surgery (SDC) | payer OTHER ==
[2021-12-28] MEDS ORDERED: SODIUM CHLORIDE 250 ML IV ONE (12:45)
[2021-12-28] MEDS ORDERED: FERRIC CARBOXYMALTOSE 750 MG in SODIUM CHLORIDE 250 ML IVPB ONE (13:00)
[2021-12-28 18:39] VITALS: BP 180/78; PULSE 62; TEMP 98.9
== END 2021-12-28 14:30 | disposition home or self-care (01) ==
LOC: JONCNONCHE 07:17
PROVIDERS: ATTEND Internal Medicine Hematology & Oncology
PROC: 3E033GC Introduction of Other Therapeutic Substance into Peripheral Vein, Percutaneous Approach (ICD-10-PCS; principal; 2021-12-28)
DX: E61.1 Iron deficiency (principal)
CPT/HCPCS: 96365; J1439

== ENCOUNTER 2022-01-14 14:51 | Inpatient (IN) | payer OTHER ==
[2022-01-14] MEDS ORDERED: ACETAMINOPHEN 500 MG TABLET (FP) PO ONE (15:56)
[2022-01-14] MEDS ORDERED: ACETAMINOPHEN 500 MG TABLET (FP) ONE (16:00)
[2022-01-14 16:48] LABS: BASO % 2.6 % (0-2.0); EOS % 4.4 % (0-4.5); HEMATOCRIT 29.6 % (35.4-49); HEMOGLOBIN 9.6 GM/dL (11.7-16.9); LYMPH % 17.9 % (8-40); MCH 25.2 pg (25.7-33.7); MCHC 32.5 g/dl (32.0-35.9); MEAN CELL VOLUME 77.6 fl (80-96); MEAN PLT VOLUME 6.1 fl (7.5-11.1); MONO % 8.9 % (3.8-10.2); NEUT % 66.2 % (42.8-82.8); PLATELET COUNT 377 10^3/uL (134-434); RBC 3.81 M/mm3 (4.00-5.60); RDW 19.2 % (11.9-15.9); WHITE BLOOD COUNT 7.6 K/mm3 (4.0-10.0)
[2022-01-14 17:29] LABS: ALBUMIN 2.3 g/dl (3.4-5.0); BILIRUBIN,TOTAL 0.6 mg/dL (0.2-1); BLOOD UREA NITROGEN 21.9 mg/dL (7-18); CALCIUM 8.1 mg/dL (8.5-10.1); CREATININE 1.6 mg/dL (0.55-1.3); MAGNESIUM 1.9 mg/dL (1.8-2.4); PHOSPHOROUS 2.6 mg/dL (2.5-4.9)
[2022-01-14] MEDS ORDERED: VANCOMYCIN 1 GM in D5W (PRE-DOCKED) 1,000 MG/250 ML IVPB ONE (17:32)
[2022-01-14] MEDS ORDERED: PIPERACILLIN/TAZOB 4.5 GM 4.5 GM in DEXTROSE 5%-WATER 100 ML IVPB ONE (17:32)
[2022-01-14] MEDS ORDERED: PIPERACILLIN/TAZOB 4.5 GM 4.5 GM/100 ML BAG IVPB ONE (17:48)
[2022-01-14] MEDS ORDERED: VANCOMYCIN 1 GRAM (PRE-DOCKED) 1,000 MG/250 ML BAG IVPB ONE (17:49)
[2022-01-14] MEDS: SERTRALINE HCL 50 MG TABLET (FP) PO SCH (22:58)
[2022-01-14] MEDS: HEPARIN NA (PORCINE) 5,000 UNITS/ML 1ML VIAL SQ SCH (22:59)
[2022-01-14] MEDS ORDERED: MELATONIN 5 MG TABLETS PO ONE (23:40)
[2022-01-15] MEDS ORDERED: cefTRIAXone SODIUM 1 GM VIAL ONE ×2 (00:08→10:24)
[2022-01-15] MEDS ORDERED: DEXTROSE 5%-WATER - 50 ML IVPB ONE ×3 (00:08→17:11)
[2022-01-15] MEDS: CEFTRIAXONE 1 GM in DEXTROSE 5%-WATER - 50 ML IVPB SCH ×2 (00:30→10:42)
[2022-01-15] MEDS: ACETAMINOPHEN 325 MG TABLET (FP) PO PRN ×2 (00:30→04:37)
[2022-01-15] MEDS: LEVOTHYROXINE NA 25 MCG TABLET (FP) PO SCH (06:47)
[2022-01-15] MEDS ORDERED: ARAVA PO SCH (10:00)
[2022-01-15] MEDS ORDERED: INSTAFLEX PO SCH (10:00)
[2022-01-15 10:08] LABS: BASO % 2.3 % (0-2.0); EOS % 5.3 % (0-4.5); HEMATOCRIT 32.3 % (35.4-49); HEMOGLOBIN 10.7 GM/dL (11.7-16.9); LYMPH % 18.8 % (8-40); MCH 25.9 pg (25.7-33.7); MCHC 33.2 g/dl (32.0-35.9); MEAN CELL VOLUME 77.9 fl (80-96); MEAN PLT VOLUME 6.4 fl (7.5-11.1); MONO % 8.9 % (3.8-10.2); NEUT % 64.7 % (42.8-82.8); PLATELET COUNT 439 10^3/uL (134-434); RBC 4.15 M/mm3 (4.00-5.60); RDW 19.2 % (11.9-15.9); WHITE BLOOD COUNT 10.1 K/mm3 (4.0-10.0)
[2022-01-15 10:25] LABS: ALBUMIN 2.4 g/dl (3.4-5.0); CALCIUM 8.5 mg/dL (8.5-10.1)
[2022-01-15 10:26] LABS: BLOOD UREA NITROGEN 23.3 mg/dL (7-18)
[2022-01-15 10:28] LABS: CREATININE 1.8 mg/dL (0.55-1.3)
[2022-01-15 10:30] LABS: BILIRUBIN,TOTAL 0.8 mg/dL (0.2-1); TOT PROT 7.5 g/dl (6.4-8.2)
[2022-01-15] MEDS: ASCORBIC ACID 500 MG TABLET (FP) PO SCH (10:42)
[2022-01-15] MEDS: FINASTERIDE 5 MG TABLET (FP) PO SCH (10:42)
[2022-01-15] MEDS: FUROSEMIDE 40 MG TABLET (FP) PO SCH (10:42)
[2022-01-15] MEDS: PANTOPRAZOLE 40 MG TABLET PO SCH (10:42)
[2022-01-15] MEDS: FOLIC ACID 1 MG TABLET (FP) PO SCH (10:42)
[2022-01-15] MEDS: HEPARIN NA (PORCINE) 5,000 UNITS/ML 1ML VIAL SQ SCH ×2 (10:50→21:35)
[2022-01-15] MEDS: DOCUSATE SODIUM 100 MG CAPSULE (FP) PO SCH (10:50)
[2022-01-15] MEDS ORDERED: PIPERACILLIN/TAZOBACTAM 3.375 GM VIAL IVPB ONE (17:10)
[2022-01-15] MEDS: PIPERACILLIN/TAZOB 3.375 GM 3.375 GM in DEXTROSE 5%-WATER - 50 ML IVPB SCH ×2 (17:22→21:30)
[2022-01-15] MEDS: LACTOBACILLUS ACIDOPHILUS 1 TABLET PO SCH (17:22)
[2022-01-15] MEDS: VANCOMYCIN 1 GRAM (PRE-DOCKED) 1,000 MG/250 ML BAG IVPB SCH (18:46)
[2022-01-15] MEDS: SERTRALINE HCL 50 MG TABLET (FP) PO SCH (21:32)
[2022-01-15] MEDS: oxyCODONE HCL 5 MG TABLET PO PRN (22:07)
[2022-01-15] MEDS: MELATONIN 5 MG TABLETS PO PRN (22:08)
[2022-01-16] MEDS ORDERED: PIPERACILLIN/TAZOBACTAM 3.375 GM VIAL IVPB ONE ×3 (00:42→16:25)
[2022-01-16] MEDS ORDERED: DEXTROSE 5%-WATER - 50 ML IVPB ONE ×3 (00:42→16:25)
[2022-01-16] MEDS: PIPERACILLIN/TAZOB 3.375 GM 3.375 GM in DEXTROSE 5%-WATER - 50 ML IVPB SCH ×3 (01:53→17:29)
[2022-01-16] MEDS: LEVOTHYROXINE NA 25 MCG TABLET (FP) PO SCH (06:14)
[2022-01-16 09:45] LABS: BASO % 2.4 % (0-2.0); HEMATOCRIT 29.1 % (35.4-49); HEMOGLOBIN 9.7 GM/dL (11.7-16.9); LYMPH % 20.1 % (8-40); MCH 26.3 pg (25.7-33.7); MCHC 33.4 g/dl (32.0-35.9); MEAN CELL VOLUME 78.6 fl (80-96); MEAN PLT VOLUME 6.4 fl (7.5-11.1); NEUT % 61.5 % (42.8-82.8); PLATELET COUNT 373 10^3/uL (134-434); RBC 3.71 M/mm3 (4.00-5.60); RDW 18.6 % (11.9-15.9); WHITE BLOOD COUNT 8.5 K/mm3 (4.0-10.0)
[2022-01-16 10:20] LABS: CALCIUM 7.9 mg/dL (8.5-10.1)
[2022-01-16 10:21] LABS: ALBUMIN 2.1 g/dl (3.4-5.0); BLOOD UREA NITROGEN 24.8 mg/dL (7-18); MAGNESIUM 1.9 mg/dL (1.8-2.4)
[2022-01-16] MEDS: ASCORBIC ACID 500 MG TABLET (FP) PO SCH (10:22)
[2022-01-16] MEDS: DOCUSATE SODIUM 100 MG CAPSULE (FP) PO SCH ×2 (10:23→10:26)
[2022-01-16] MEDS: PANTOPRAZOLE 40 MG TABLET PO SCH (10:23)
[2022-01-16] MEDS: FOLIC ACID 1 MG TABLET (FP) PO SCH (10:23)
[2022-01-16] MEDS: FINASTERIDE 5 MG TABLET (FP) PO SCH (10:23)
[2022-01-16] MEDS: FUROSEMIDE 40 MG TABLET (FP) PO SCH (10:23)
[2022-01-16] MEDS: LACTOBACILLUS ACIDOPHILUS 1 TABLET PO SCH (10:23)
[2022-01-16] MEDS: HEPARIN NA (PORCINE) 5,000 UNITS/ML 1ML VIAL SQ SCH ×2 (10:23→21:26)
[2022-01-16 10:24] LABS: CREATININE 1.9 mg/dL (0.55-1.3)
[2022-01-16 10:26] LABS: BILIRUBIN,TOTAL 0.6 mg/dL (0.2-1)
[2022-01-16] MEDS: oxyCODONE HCL 5 MG TABLET PO PRN ×2 (12:49→21:24)
[2022-01-16] MEDS ORDERED: SODIUM ZIRCONIUM CYCLOSILICATE (LOKELMA) 5 GM PACKET PO ONE (15:28)
[2022-01-16] MEDS: VANCOMYCIN 1 GRAM (PRE-DOCKED) 1,000 MG/250 ML BAG IVPB SCH (17:53)
[2022-01-16] MEDS: MELATONIN 5 MG TABLETS PO PRN (21:25)
[2022-01-16] MEDS: SERTRALINE HCL 50 MG TABLET (FP) PO SCH (21:26)
[2022-01-17] MEDS ORDERED: PIPERACILLIN/TAZOBACTAM 3.375 GM VIAL IVPB ONE ×3 (00:56→16:43)
[2022-01-17] MEDS ORDERED: DEXTROSE 5%-WATER - 50 ML IVPB ONE ×3 (00:56→16:43)
[2022-01-17] MEDS: PIPERACILLIN/TAZOB 3.375 GM 3.375 GM in DEXTROSE 5%-WATER - 50 ML IVPB SCH ×3 (01:29→19:52)
[2022-01-17] MEDS: LEVOTHYROXINE NA 25 MCG TABLET (FP) PO SCH (06:23)
[2022-01-17] MEDS: oxyCODONE HCL 5 MG TABLET PO PRN ×3 (06:25→22:02)
[2022-01-17] MEDS: ASCORBIC ACID 500 MG TABLET (FP) PO SCH (09:15)
[2022-01-17] MEDS: DOCUSATE SODIUM 100 MG CAPSULE (FP) PO SCH (09:15)
[2022-01-17] MEDS: LACTOBACILLUS ACIDOPHILUS 1 TABLET PO SCH (09:16)
[2022-01-17] MEDS: FINASTERIDE 5 MG TABLET (FP) PO SCH (09:16)
[2022-01-17] MEDS: PANTOPRAZOLE 40 MG TABLET PO SCH (09:16)
[2022-01-17] MEDS: FOLIC ACID 1 MG TABLET (FP) PO SCH (09:16)
[2022-01-17] MEDS: HEPARIN NA (PORCINE) 5,000 UNITS/ML 1ML VIAL SQ SCH ×2 (09:22→21:25)
[2022-01-17 12:42] LABS: BASO % 1.2 % (0-2.0); HEMATOCRIT 32.6 % (35.4-49); HEMOGLOBIN 10.7 GM/dL (11.7-16.9); LYMPH % 12.3 % (8-40); MCH 25.8 pg (25.7-33.7); MCHC 32.9 g/dl (32.0-35.9); MEAN CELL VOLUME 78.2 fl (80-96); MEAN PLT VOLUME 6.5 fl (7.5-11.1); MONO % 6.2 % (3.8-10.2); NEUT % 75.3 % (42.8-82.8); PLATELET COUNT 433 10^3/uL (134-434); RBC 4.16 M/mm3 (4.00-5.60); WHITE BLOOD COUNT 7.4 K/mm3 (4.0-10.0)
[2022-01-17 13:28] LABS: CALCIUM 8.2 mg/dL (8.5-10.1)
[2022-01-17 13:29] LABS: BLOOD UREA NITROGEN 26.8 mg/dL (7-18)
[2022-01-17 13:32] LABS: CREATININE 2.1 mg/dL (0.55-1.3)
[2022-01-17] MEDS: FUROSEMIDE 40 MG TABLET (FP) PO SCH (15:27)
[2022-01-17 17:33] LABS: MAGNESIUM 1.9 mg/dL (1.8-2.4)
[2022-01-17 17:37] LABS: PHOSPHOROUS 3.7 mg/dL (2.5-4.9)
[2022-01-17] MEDS: SODIUM CHLORIDE 1,000 ML IV SCH (18:11)
[2022-01-17] MEDS: VANCOMYCIN 1 GRAM (PRE-DOCKED) 1,000 MG/250 ML BAG IVPB SCH (18:12)
[2022-01-17] MEDS ORDERED: ONDANSETRON 4 MG/2 ML VIAL IVPUSH PRN (18:22)
[2022-01-17] MEDS: SERTRALINE HCL 50 MG TABLET (FP) PO SCH (21:16)
[2022-01-17] MEDS: MELATONIN 5 MG TABLETS PO PRN (21:16)
[2022-01-18] MEDS ORDERED: DEXTROSE 5%-WATER - 50 ML IVPB ONE ×3 (00:52→16:47)
[2022-01-18] MEDS ORDERED: PIPERACILLIN/TAZOBACTAM 3.375 GM VIAL IVPB ONE ×3 (00:52→16:46)
[2022-01-18] MEDS: PIPERACILLIN/TAZOB 3.375 GM 3.375 GM in DEXTROSE 5%-WATER - 50 ML IVPB SCH ×3 (01:41→18:21)
[2022-01-18] MEDS: LEVOTHYROXINE NA 25 MCG TABLET (FP) PO SCH (06:23)
[2022-01-18 08:54] LABS: HEMATOCRIT 30.2 % (35.4-49); HEMOGLOBIN 9.6 GM/dL (11.7-16.9); MCH 25.2 pg (25.7-33.7); MCHC 31.8 g/dl (32.0-35.9); MEAN CELL VOLUME 79.4 fl (80-96); MEAN PLT VOLUME 6.6 fl (7.5-11.1); PLATELET COUNT 367 10^3/uL (134-434); RDW 19.3 % (11.9-15.9); WHITE BLOOD COUNT 7.6 K/mm3 (4.0-10.0)
[2022-01-18 09:15] LABS: CALCIUM 7.7 mg/dL (8.5-10.1)
[2022-01-18 09:16] LABS: BLOOD UREA NITROGEN 28.4 mg/dL (7-18)
[2022-01-18 09:19] LABS: CREATININE 3.1 mg/dL (0.55-1.3)
[2022-01-18] MEDS: ASCORBIC ACID 500 MG TABLET (FP) PO SCH (10:07)
[2022-01-18] MEDS: FINASTERIDE 5 MG TABLET (FP) PO SCH (10:07)
[2022-01-18] MEDS: FOLIC ACID 1 MG TABLET (FP) PO SCH (10:08)
[2022-01-18] MEDS: PANTOPRAZOLE 40 MG TABLET PO SCH (10:08)
[2022-01-18] MEDS: LACTOBACILLUS ACIDOPHILUS 1 TABLET PO SCH (10:08)
[2022-01-18] MEDS: oxyCODONE HCL 5 MG TABLET PO PRN ×2 (10:08→18:24)
[2022-01-18] MEDS: HEPARIN NA (PORCINE) 5,000 UNITS/ML 1ML VIAL SQ SCH ×2 (10:15→22:57)
[2022-01-18] MEDS: DOCUSATE SODIUM 100 MG CAPSULE (FP) PO SCH (10:15)
[2022-01-18] MEDS: ZOLPIDEM TARTRATE 5 MG TABLET PO PRN (22:50)
[2022-01-18] MEDS: SERTRALINE HCL 50 MG TABLET (FP) PO SCH (22:50)
[2022-01-18] MEDS: SODIUM CHLORIDE 1,000 ML IV SCH (22:51)
[2022-01-18] MEDS: VANCOMYCIN 1 GRAM (PRE-DOCKED) 1,000 MG/250 ML BAG IVPB SCH (22:57)
[2022-01-19] MEDS ORDERED: DEXTROSE 5%-WATER - 50 ML IVPB ONE ×3 (00:36→17:20)
[2022-01-19] MEDS ORDERED: PIPERACILLIN/TAZOBACTAM 3.375 GM VIAL IVPB ONE ×3 (00:36→09:41)
[2022-01-19] MEDS: PIPERACILLIN/TAZOB 3.375 GM 3.375 GM in DEXTROSE 5%-WATER - 50 ML IVPB SCH ×2 (01:44→09:53)
[2022-01-19] MEDS: LEVOTHYROXINE NA 25 MCG TABLET (FP) PO SCH (06:15)
[2022-01-19] MEDS ORDERED: TAMSULOSIN HCL 0.4 MG CAP PO SCH ×2 (08:30)
[2022-01-19 08:31] LABS: HEMOGLOBIN 9.8 GM/dL (11.7-16.9); MCH 25.8 pg (25.7-33.7); MCHC 32.8 g/dl (32.0-35.9); MEAN CELL VOLUME 78.8 fl (80-96); MEAN PLT VOLUME 6.3 fl (7.5-11.1); PLATELET COUNT 365 10^3/uL (134-434); RDW 18.6 % (11.9-15.9); WHITE BLOOD COUNT 7.7 K/mm3 (4.0-10.0)
[2022-01-19 08:55] LABS: ALBUMIN 2.1 g/dl (3.4-5.0)
[2022-01-19 08:56] LABS: BLOOD UREA NITROGEN 29.1 mg/dL (7-18); CALCIUM 7.6 mg/dL (8.5-10.1)
[2022-01-19 08:58] LABS: CREATININE 4.2 mg/dL (0.55-1.3)
[2022-01-19 09:00] LABS: BILIRUBIN,TOTAL 0.5 mg/dL (0.2-1)
[2022-01-19] MEDS: ASCORBIC ACID 500 MG TABLET (FP) PO SCH (09:51)
[2022-01-19] MEDS: FOLIC ACID 1 MG TABLET (FP) PO SCH (09:51)
[2022-01-19] MEDS: DOCUSATE SODIUM 100 MG CAPSULE (FP) PO SCH (09:51)
[2022-01-19] MEDS: PANTOPRAZOLE 40 MG TABLET PO SCH (09:51)
[2022-01-19] MEDS: LACTOBACILLUS ACIDOPHILUS 1 TABLET PO SCH ×2 (09:52→21:36)
[2022-01-19] MEDS: HEPARIN NA (PORCINE) 5,000 UNITS/ML 1ML VIAL SQ SCH ×2 (09:52→21:41)
[2022-01-19] MEDS: ZINC OXIDE 20% TOPICAL OINTMENT 30 GM TUBE TP SCH ×2 (09:53→21:36)
[2022-01-19] MEDS: oxyCODONE HCL 5 MG TABLET PO PRN ×2 (09:54→18:47)
[2022-01-19] MEDS ORDERED: SODIUM CHLORIDE 1,000 ML IV SCH (11:45)
[2022-01-19] MEDS ORDERED: SODIUM CHLORIDE 0.45% 1,000 ML IV SCH (15:00)
[2022-01-19] MEDS ORDERED: LOPERAMIDE HCL 2 MG CAPSULE PO PRN (15:35)
[2022-01-19] MEDS ORDERED: PIPERACILLIN/TAZOBACTAM 2.25 GM VIAL IVPB ONE (17:20)
[2022-01-19] MEDS: PIPERACILLIN/TAZOB 2.25 GM 2.25 GM in DEXTROSE 5%-WATER - 50 ML IVPB SCH (17:22)
[2022-01-19] MEDS: DOXYCYCLINE HYCLATE 100 MG CAPSULE PO SCH (17:22)
[2022-01-19] MEDS: FINASTERIDE 5 MG TABLET (FP) PO SCH (21:36)
[2022-01-19] MEDS: SERTRALINE HCL 50 MG TABLET (FP) PO SCH (21:36)
[2022-01-19] MEDS: ZOLPIDEM TARTRATE 5 MG TABLET PO PRN (21:36)
[2022-01-20] MEDS ORDERED: PIPERACILLIN/TAZOBACTAM 2.25 GM VIAL IVPB ONE (00:31)
[2022-01-20] MEDS ORDERED: DEXTROSE 5%-WATER - 50 ML IVPB ONE (00:31)
[2022-01-20] MEDS: oxyCODONE HCL 5 MG TABLET PO PRN ×3 (00:37→22:38)
[2022-01-20] MEDS: PIPERACILLIN/TAZOB 2.25 GM 2.25 GM in DEXTROSE 5%-WATER - 50 ML IVPB SCH (01:07)
[2022-01-20] MEDS: LEVOTHYROXINE NA 25 MCG TABLET (FP) PO SCH (06:06)
[2022-01-20] MEDS: TAMSULOSIN HCL 0.4 MG CAP PO SCH (10:11)
[2022-01-20] MEDS: FOLIC ACID 1 MG TABLET (FP) PO SCH (10:12)
[2022-01-20] MEDS: DOCUSATE SODIUM 100 MG CAPSULE (FP) PO SCH (10:12)
[2022-01-20] MEDS: LACTOBACILLUS ACIDOPHILUS 1 TABLET PO SCH ×2 (10:12→22:29)
[2022-01-20] MEDS: ZINC OXIDE 20% TOPICAL OINTMENT 30 GM TUBE TP SCH ×2 (10:13→22:30)
[2022-01-20] MEDS: PANTOPRAZOLE 40 MG TABLET PO SCH (10:13)
[2022-01-20] MEDS: ASCORBIC ACID 500 MG TABLET (FP) PO SCH (10:13)
[2022-01-20] MEDS: HEPARIN NA (PORCINE) 5,000 UNITS/ML 1ML VIAL SQ SCH ×2 (10:13→22:31)
[2022-01-20] MEDS: DOXYCYCLINE HYCLATE 100 MG CAPSULE PO SCH ×2 (10:13→18:55)
[2022-01-20 11:03] LABS: HEMATOCRIT 31.1 % (35.4-49); HEMOGLOBIN 10.1 GM/dL (11.7-16.9); MCH 25.8 pg (25.7-33.7); MCHC 32.6 g/dl (32.0-35.9); MEAN CELL VOLUME 79.2 fl (80-96); MEAN PLT VOLUME 6.5 fl (7.5-11.1); PLATELET COUNT 390 10^3/uL (134-434); RBC 3.93 M/mm3 (4.00-5.60); RDW 19.1 % (11.9-15.9); WHITE BLOOD COUNT 8.1 K/mm3 (4.0-10.0)
[2022-01-20 11:22] LABS: CALCIUM 7.9 mg/dL (8.5-10.1)
[2022-01-20 11:23] LABS: ALBUMIN 2.2 g/dl (3.4-5.0); BLOOD UREA NITROGEN 31.2 mg/dL (7-18)
[2022-01-20 11:26] LABS: CREATININE 5.3 mg/dL (0.55-1.3); MAGNESIUM 1.9 mg/dL (1.8-2.4)
[2022-01-20 11:27] LABS: BILIRUBIN,TOTAL 0.7 mg/dL (0.2-1); TOT PROT 7.2 g/dl (6.4-8.2)
[2022-01-20] MEDS: LOPERAMIDE HCL 2 MG CAPSULE PO SCH ×2 (13:55→22:30)
[2022-01-20] MEDS: AMOX TR/POT CLAV 500MG/125MG TABLETS (FP) PO SCH (18:55)
[2022-01-20] MEDS: SODIUM BICARBONATE 650 MG TABLET PO SCH ×2 (18:55→22:30)
[2022-01-20] MEDS: FINASTERIDE 5 MG TABLET (FP) PO SCH (22:29)
[2022-01-20] MEDS: SERTRALINE HCL 50 MG TABLET (FP) PO SCH (22:30)
[2022-01-20] MEDS: ZOLPIDEM TARTRATE 5 MG TABLET PO PRN (22:35)
[2022-01-21] MEDS: LOPERAMIDE HCL 2 MG CAPSULE PO SCH ×4 (06:06→21:22)
[2022-01-21] MEDS: LEVOTHYROXINE NA 25 MCG TABLET (FP) PO SCH (06:06)
[2022-01-21] MEDS: SODIUM BICARBONATE 650 MG TABLET PO SCH ×3 (06:06→21:22)
[2022-01-21 08:33] LABS: EOS % 4.6 % (0-4.5); LYMPH % 15.9 % (8-40); MCH 25.7 pg (25.7-33.7); MCHC 32.1 g/dl (32.0-35.9); MEAN CELL VOLUME 79.9 fl (80-96); MEAN PLT VOLUME 6.7 fl (7.5-11.1); MONO % 12.9 % (3.8-10.2); NEUT % 65.6 % (42.8-82.8); PLATELET COUNT 312 10^3/uL (134-434); RBC 3.88 M/mm3 (4.00-5.60); RDW 19.2 % (11.9-15.9); WHITE BLOOD COUNT 7.6 K/mm3 (4.0-10.0)
[2022-01-21] MEDS: ASCORBIC ACID 500 MG TABLET (FP) PO SCH (09:57)
[2022-01-21] MEDS: TAMSULOSIN HCL 0.4 MG CAP PO SCH ×2 (09:57→21:22)
[2022-01-21] MEDS: FOLIC ACID 1 MG TABLET (FP) PO SCH (09:57)
[2022-01-21] MEDS: DOXYCYCLINE HYCLATE 100 MG CAPSULE PO SCH ×2 (09:57→18:51)
[2022-01-21] MEDS: LACTOBACILLUS ACIDOPHILUS 1 TABLET PO SCH ×2 (09:57→21:23)
[2022-01-21] MEDS: PANTOPRAZOLE 40 MG TABLET PO SCH (09:57)
[2022-01-21] MEDS: AMOX TR/POT CLAV 500MG/125MG TABLETS (FP) PO SCH ×2 (09:57→17:17)
[2022-01-21] MEDS: oxyCODONE HCL 5 MG TABLET PO PRN (09:58)
[2022-01-21] MEDS: ZINC OXIDE 20% TOPICAL OINTMENT 30 GM TUBE TP SCH ×2 (10:10→21:23)
[2022-01-21] MEDS: HEPARIN NA (PORCINE) 5,000 UNITS/ML 1ML VIAL SQ SCH ×2 (11:02→21:43)
[2022-01-21] MEDS: DOCUSATE SODIUM 100 MG CAPSULE (FP) PO SCH (11:02)
[2022-01-21 12:11] LABS: ALBUMIN 2.2 g/dl (3.4-5.0); BLOOD UREA NITROGEN 34.4 mg/dL (7-18)
[2022-01-21 12:14] LABS: CREATININE 6.4 mg/dL (0.55-1.3)
[2022-01-21 12:15] LABS: BILIRUBIN,TOTAL 0.5 mg/dL (0.2-1)
[2022-01-21 12:16] LABS: TOT PROT 7.3 g/dl (6.4-8.2)
[2022-01-21] MEDS: LEFLUNOMIDE 20 MG PO SCH (17:18)
[2022-01-21 18:46] LABS: URINE APPEARANCE TURBID; URINE BILIRUBIN NEGATIVE (NEGATIVE); URINE COLOR YELLOW; URINE GLUCOSE (UA) NEGATIVE (NEGATIVE); URINE KETONE TRACE (NEGATIVE)
[2022-01-21 18:47] LABS: URINE LEUK ESTERASE TRACE (NEGATIVE); URINE NITRITE NEGATIVE (NEGATIVE); URINE UROBILINOGEN 0.2 mg/dL (0.2-1.0)
[2022-01-21 18:49] LABS: EPI CELLS >36 /uL (0-25.1); HYALINE CASTS 6 /uL (0-3.1); URINE RBC 114 /uL (0-23.9); URINE WBC 138 /uL (0-25.8)
[2022-01-21 19:57] LABS: URINE BACTERIA 4.5 /uL (0-1359); URINE PROTEIN 3+ (NEGATIVE); YEAST NONE SEEN (NEGATIVE)
[2022-01-21] MEDS: FINASTERIDE 5 MG TABLET (FP) PO SCH (21:22)
[2022-01-21] MEDS: SERTRALINE HCL 50 MG TABLET (FP) PO SCH (21:22)
[2022-01-21] MEDS: BANATROL PLUS POWDER PACKET PO SCH (21:22)
[2022-01-22] MEDS: LEVOTHYROXINE NA 25 MCG TABLET (FP) PO SCH (06:48)
[2022-01-22] MEDS: SODIUM BICARBONATE 650 MG TABLET PO SCH ×3 (06:48→14:53)
[2022-01-22] MEDS: LOPERAMIDE HCL 2 MG CAPSULE PO SCH (06:48)
[2022-01-22] MEDS: BANATROL PLUS POWDER PACKET PO SCH ×2 (06:52→14:50)
[2022-01-22 08:17] LABS: BASO % 0.7 % (0-2.0); CHLORIDE 115 mmol/L (98-107); EOS % 1.6 % (0-4.5); HEMOGLOBIN 8.7 GM/dL (11.7-16.9); LYMPH % 14.5 % (8-40); MCH 25.5 pg (25.7-33.7); MCHC 32.2 g/dl (32.0-35.9); MEAN CELL VOLUME 79.3 fl (80-96); MEAN PLT VOLUME 6.7 fl (7.5-11.1); NEUT % 71.2 % (42.8-82.8); PLATELET COUNT 274 10^3/uL (134-434); RBC 3.41 M/mm3 (4.00-5.60); RDW 19.2 % (11.9-15.9); SODIUM 142 mmol/L (136-145); WHITE BLOOD COUNT 8.8 K/mm3 (4.0-10.0)
[2022-01-22 08:20] LABS: CALCIUM 7.5 mg/dL (8.5-10.1)
[2022-01-22 08:21] LABS: ANION GAP 17 MMOL/L (8-16); BLOOD UREA NITROGEN 40.4 mg/dL (7-18); CO2 10 mmol/L (21-32); GLUCOSE,RANDOM 64 mg/dL (74-106)
[2022-01-22 08:24] LABS: PHOSPHOROUS 6.7 mg/dL (2.5-4.9); SGOT/AST 70 U/L (15-37); SGPT/ALT 24 U/L (13-61)
[2022-01-22 08:25] LABS: TOT PROT 6.5 g/dl (6.4-8.2)
[2022-01-22 08:26] LABS: BILIRUBIN,TOTAL 0.5 mg/dL (0.2-1)
[2022-01-22 08:27] LABS: ALK PHOS 121 U/L (45-117)
[2022-01-22 08:37] LABS: CREATININE 7.5 mg/dL (0.55-1.3)
[2022-01-22] MEDS: AMOX TR/POT CLAV 500MG/125MG TABLETS (FP) PO SCH ×2 (08:53→17:41)
[2022-01-22] MEDS: LACTOBACILLUS ACIDOPHILUS 1 TABLET PO SCH (10:27)
[2022-01-22] MEDS: DOXYCYCLINE HYCLATE 100 MG CAPSULE PO SCH ×2 (10:27→18:40)
[2022-01-22] MEDS: FOLIC ACID 1 MG TABLET (FP) PO SCH (10:27)
[2022-01-22] MEDS: ASCORBIC ACID 500 MG TABLET (FP) PO SCH (10:27)
[2022-01-22] MEDS: PANTOPRAZOLE 40 MG TABLET PO SCH (10:27)
[2022-01-22] MEDS: ZINC OXIDE 20% TOPICAL OINTMENT 30 GM TUBE TP SCH (10:28)
[2022-01-22] MEDS: LEFLUNOMIDE 20 MG PO SCH (10:28)
[2022-01-22] MEDS: HEPARIN NA (PORCINE) 5,000 UNITS/ML 1ML VIAL SQ SCH (10:28)
[2022-01-22] MEDS: DOCUSATE SODIUM 100 MG CAPSULE (FP) PO SCH (10:28)
[2022-01-22] MEDS: SEVELAMER CARBONATE 800 MG TAB (FP) PO SCH ×3 (12:56→18:42)
[2022-01-22] MEDS: AMINO ACIDS 4.25%/D5W 1,000 ML IV SCH (14:46)
[2022-01-22] MEDS: oxyCODONE HCL 5 MG TABLET PO PRN (14:53)
[2022-01-23] MEDS: BANATROL PLUS POWDER PACKET PO SCH ×4 (00:04→23:41)
[2022-01-23] MEDS: SODIUM BICARBONATE 650 MG TABLET PO SCH ×4 (00:04→23:41)
[2022-01-23] MEDS: LACTOBACILLUS ACIDOPHILUS 1 TABLET PO SCH ×3 (00:04→23:40)
[2022-01-23] MEDS: TAMSULOSIN HCL 0.4 MG CAP PO SCH ×2 (00:05→23:40)
[2022-01-23] MEDS: SERTRALINE HCL 50 MG TABLET (FP) PO SCH ×2 (00:06→23:40)
[2022-01-23] MEDS: FINASTERIDE 5 MG TABLET (FP) PO SCH ×2 (00:09→23:44)
[2022-01-23] MEDS: ZINC OXIDE 20% TOPICAL OINTMENT 30 GM TUBE TP SCH ×3 (00:10→23:45)
[2022-01-23] MEDS: HEPARIN NA (PORCINE) 5,000 UNITS/ML 1ML VIAL SQ SCH ×3 (00:12→23:41)
[2022-01-23] MEDS: LEVOTHYROXINE NA 25 MCG TABLET (FP) PO SCH (06:33)
[2022-01-23] MEDS: AMOX TR/POT CLAV 500MG/125MG TABLETS (FP) PO SCH (08:42)
[2022-01-23] MEDS: SEVELAMER CARBONATE 800 MG TAB (FP) PO SCH ×3 (08:42→17:24)
[2022-01-23 09:45] LABS: BASO % 0.5 % (0-2.0); EOS % 1.6 % (0-4.5); HEMATOCRIT 24.5 % (35.4-49); HEMOGLOBIN 8.3 GM/dL (11.7-16.9); LYMPH % 13.4 % (8-40); MCH 25.9 pg (25.7-33.7); MCHC 33.9 g/dl (32.0-35.9); MEAN CELL VOLUME 76.3 fl (80-96); MEAN PLT VOLUME 6.8 fl (7.5-11.1); MONO % 9.5 % (3.8-10.2); PLATELET COUNT 264 10^3/uL (134-434); RBC 3.21 M/mm3 (4.00-5.60); RDW 19.2 % (11.9-15.9); WHITE BLOOD COUNT 7.7 K/mm3 (4.0-10.0)
[2022-01-23 10:40] LABS: CALCIUM 7.7 mg/dL (8.5-10.1)
[2022-01-23 10:41] LABS: ALBUMIN 1.8 g/dl (3.4-5.0); BLOOD UREA NITROGEN 20.2 mg/dL (7-18); MAGNESIUM 1.7 mg/dL (1.8-2.4)
[2022-01-23 10:44] LABS: BILIRUBIN,TOTAL 0.6 mg/dL (0.2-1); CREATININE 4.1 mg/dL (0.55-1.3); TOT PROT 6.1 g/dl (6.4-8.2)
[2022-01-23] MEDS: DOXYCYCLINE HYCLATE 100 MG CAPSULE PO SCH (11:36)
[2022-01-23] MEDS: FOLIC ACID 1 MG TABLET (FP) PO SCH (11:36)
[2022-01-23] MEDS: PANTOPRAZOLE 40 MG TABLET PO SCH (11:37)
[2022-01-23] MEDS: DOCUSATE SODIUM 100 MG CAPSULE (FP) PO SCH (11:37)
[2022-01-23] MEDS: ASCORBIC ACID 500 MG TABLET (FP) PO SCH (11:37)
[2022-01-23] MEDS: AMINO ACIDS 4.25%/D5W 1,000 ML IV SCH (12:49)
[2022-01-23] MEDS ORDERED: SODIUM CHLORIDE 250 ML IV PRN (13:07)
[2022-01-23] MEDS ORDERED: MAGNESIUM OXIDE 400 MG TABLET (FP) PO ONE (13:30)
[2022-01-23] MEDS ORDERED: POTASSIUM CHLORIDE TABS 20 MEQ TABLET.ER (FP) PO ONE (13:30)
[2022-01-23] MEDS ORDERED: DOXYCYCLINE INJECTION 100 MG in DEXTROSE 5%-WATER 100 ML IVPB SCH (14:51)
[2022-01-23] MEDS: ACETAMINOPHEN 1000 MG/100 ML BAG IVPB PRN (14:56)
[2022-01-23] MEDS ORDERED: DOXYCYCLINE HYCLATE 100 MG VIAL ONE ×2 (15:29→21:24)
[2022-01-23] MEDS ORDERED: DEXTROSE 5%-WATER 100 ML IVPB ONE ×3 (15:30→21:24)
[2022-01-23] MEDS: CEFTRIAXONE 2 GM in DEXTROSE 5%-WATER 2 GM/100 ML BAG IVPB SCH (16:08)
[2022-01-23] MEDS: DOXYCYCLINE INJECTION 100 MG in DEXTROSE 5%-WATER 100 ML IVPB SCH (17:04)
[2022-01-24] MEDS: LEVOTHYROXINE NA 25 MCG TABLET (FP) PO SCH (06:11)
[2022-01-24] MEDS: SODIUM BICARBONATE 650 MG TABLET PO SCH ×3 (06:11→23:21)
[2022-01-24] MEDS: BANATROL PLUS POWDER PACKET PO SCH ×3 (06:11→23:20)
[2022-01-24 06:54] LABS: EPI CELLS 2 /uL (0-25.1); HYALINE CASTS 0 /uL (0-3.1); PH,URINE 5.5 (5.0-8.0); URINE APPEARANCE TURBID; URINE BACTERIA 8 /uL (0-1359); URINE BILIRUBIN NEGATIVE (NEGATIVE); URINE COLOR DK YELLOW; URINE GLUCOSE (UA) TRACE (NEGATIVE); URINE KETONE TRACE (NEGATIVE); URINE LEUK ESTERASE 1+ (NEGATIVE); URINE NITRITE NEGATIVE (NEGATIVE); URINE PROTEIN 3+ (NEGATIVE); URINE RBC 1486 /uL (0-23.9); URINE UROBILINOGEN 0.2 mg/dL (0.2-1.0); URINE WBC 21 /uL (0-25.8)
[2022-01-24] MEDS: ACETAMINOPHEN 1000 MG/100 ML BAG IVPB PRN (08:47)
[2022-01-24] MEDS: SEVELAMER CARBONATE 800 MG TAB (FP) PO SCH (09:13)
[2022-01-24] MEDS ORDERED: MAGNESIUM SULF 50% (8.12 MEQ/2 ML-1 GM VIAL) IVPB ONE ×2 (09:56→15:00)
[2022-01-24 10:35] LABS: HEMATOCRIT 25.2 % (35.4-49); HEMOGLOBIN 8.2 GM/dL (11.7-16.9); MCH 24.9 pg (25.7-33.7); MCHC 32.5 g/dl (32.0-35.9); MEAN CELL VOLUME 76.7 fl (80-96); MEAN PLT VOLUME 6.6 fl (7.5-11.1); PLATELET COUNT 200 10^3/uL (134-434); RBC 3.28 M/mm3 (4.00-5.60); RDW 18.7 % (11.9-15.9); WHITE BLOOD COUNT 12.6 K/mm3 (4.0-10.0)
[2022-01-24] MEDS: HEPARIN NA (PORCINE) 5,000 UNITS/ML 1ML VIAL SQ SCH ×2 (10:40→22:57)
[2022-01-24] MEDS: ZINC OXIDE 20% TOPICAL OINTMENT 30 GM TUBE TP SCH ×2 (10:40→22:56)
[2022-01-24] MEDS: LACTOBACILLUS ACIDOPHILUS 1 TABLET PO SCH ×2 (10:40→23:20)
[2022-01-24 11:03] LABS: BLOOD UREA NITROGEN 30.8 mg/dL (7-18)
[2022-01-24 11:05] LABS: CALCIUM 7.5 mg/dL (8.5-10.1)
[2022-01-24 11:07] LABS: PHOSPHOROUS 1.6 mg/dL (2.5-4.9)
[2022-01-24] MEDS: DOXYCYCLINE INJECTION 100 MG in DEXTROSE 5%-WATER 100 ML IVPB SCH ×2 (11:54→22:56)
[2022-01-24] MEDS ORDERED: POTASSIUM PHOSPHATE 15 MM in SODIUM CHLORIDE 250 ML IVPB ONE (13:29)
[2022-01-24] MEDS ORDERED: DEXTROSE 5%-WATER 100 ML IVPB ONE ×3 (13:58→21:23)
[2022-01-24] MEDS ORDERED: DOXYCYCLINE HYCLATE 100 MG VIAL ONE ×2 (13:58→21:23)
[2022-01-24] MEDS: ASCORBIC ACID 500 MG TABLET (FP) PO SCH (14:21)
[2022-01-24] MEDS: PANTOPRAZOLE 40 MG TABLET PO SCH (14:21)
[2022-01-24] MEDS: oxyCODONE HCL 5 MG TABLET PO PRN (14:22)
[2022-01-24] MEDS: FOLIC ACID 1 MG TABLET (FP) PO SCH (14:22)
[2022-01-24] MEDS: CEFTRIAXONE 2 GM in DEXTROSE 5%-WATER 2 GM/100 ML BAG IVPB SCH (14:22)
[2022-01-24] MEDS: AMINO ACIDS 4.25%/D5W 1,000 ML IV SCH (14:23)
[2022-01-24] MEDS: KCL 10 MEQ IVPB 10 MEQ/100 ML INFUS.BAG IVPB SCH ×3 (15:15→17:38)
[2022-01-24 16:20] VITALS: BMI 29.9
[2022-01-24] MEDS: TAMSULOSIN HCL 0.4 MG CAP PO SCH (23:20)
[2022-01-24] MEDS: FINASTERIDE 5 MG TABLET (FP) PO SCH (23:20)
[2022-01-24] MEDS: SERTRALINE HCL 50 MG TABLET (FP) PO SCH (23:21)
[2022-01-25] MEDS: LEVOTHYROXINE NA 25 MCG TABLET (FP) PO SCH (06:07)
[2022-01-25] MEDS: SODIUM BICARBONATE 650 MG TABLET PO SCH ×3 (06:07→22:25)
[2022-01-25] MEDS: BANATROL PLUS POWDER PACKET PO SCH ×3 (06:07→22:24)
[2022-01-25 08:55] LABS: BASO % 0.6 % (0-2.0); EOS % 4.1 % (0-4.5); HEMOGLOBIN 8.4 GM/dL (11.7-16.9); LYMPH % 13.5 % (8-40); MCH 25.1 pg (25.7-33.7); MCHC 32.4 g/dl (32.0-35.9); MEAN CELL VOLUME 77.5 fl (80-96); MEAN PLT VOLUME 7.1 fl (7.5-11.1); MONO % 10.2 % (3.8-10.2); NEUT % 71.6 % (42.8-82.8); PLATELET COUNT 219 10^3/uL (134-434); RBC 3.36 M/mm3 (4.00-5.60); RDW 18.6 % (11.9-15.9)
[2022-01-25] MEDS: FOLIC ACID 1 MG TABLET (FP) PO SCH (09:13)
[2022-01-25] MEDS: ASCORBIC ACID 500 MG TABLET (FP) PO SCH (09:13)
[2022-01-25] MEDS: PANTOPRAZOLE 40 MG TABLET PO SCH (09:13)
[2022-01-25] MEDS: LACTOBACILLUS ACIDOPHILUS 1 TABLET PO SCH ×2 (09:13→22:26)
[2022-01-25] MEDS ORDERED: DOXYCYCLINE HYCLATE 100 MG VIAL ONE ×2 (09:56→21:22)
[2022-01-25] MEDS ORDERED: DEXTROSE 5%-WATER 100 ML IVPB ONE ×3 (09:56→21:22)
[2022-01-25] MEDS: HEPARIN NA (PORCINE) 5,000 UNITS/ML 1ML VIAL SQ SCH ×2 (10:01→22:22)
[2022-01-25] MEDS: CEFTRIAXONE 2 GM in DEXTROSE 5%-WATER 2 GM/100 ML BAG IVPB SCH (10:01)
[2022-01-25] MEDS: ZINC OXIDE 20% TOPICAL OINTMENT 30 GM TUBE TP SCH ×2 (10:01→22:27)
[2022-01-25] MEDS: DOXYCYCLINE INJECTION 100 MG in DEXTROSE 5%-WATER 100 ML IVPB SCH ×2 (10:31→22:22)
[2022-01-25 10:55] LABS: ALBUMIN 1.7 g/dl (3.4-5.0); BLOOD UREA NITROGEN 21.1 mg/dL (7-18); CALCIUM 7.8 mg/dL (8.5-10.1); MAGNESIUM 1.8 mg/dL (1.8-2.4)
[2022-01-25 10:58] LABS: PHOSPHOROUS 2.4 mg/dL (2.5-4.9)
[2022-01-25 10:59] LABS: BILIRUBIN,TOTAL 0.4 mg/dL (0.2-1); TOT PROT 5.9 g/dl (6.4-8.2)
[2022-01-25] MEDS ORDERED: BENZOCAINE/MENTH/CETYLPYRD CL 1 EACH LOZENGE MM PRN (11:32)
[2022-01-25 12:07] LABS: ATYPICAL pANCA <1:20 titer (Neg:<1:20); C-ANCA <1:20 titer (Neg:<1:20)
[2022-01-25] MEDS: AMINO ACIDS 4.25%/D5W 1,000 ML IV SCH ×2 (13:34→17:02)
[2022-01-25 17:10] LABS: INR 1.52 (0.83-1.09); PROTHROMBIN TIME (PATIENT) 17.6 SEC (9.7-13.0)
[2022-01-25] MEDS: TAMSULOSIN HCL 0.4 MG CAP PO SCH (22:23)
[2022-01-25] MEDS: FINASTERIDE 5 MG TABLET (FP) PO SCH (22:25)
[2022-01-25] MEDS: SERTRALINE HCL 50 MG TABLET (FP) PO SCH (22:26)
[2022-01-26] MEDS: SODIUM BICARBONATE 650 MG TABLET PO SCH ×3 (05:50→21:37)
[2022-01-26] MEDS: BANATROL PLUS POWDER PACKET PO SCH ×3 (05:53→21:34)
[2022-01-26] MEDS: LEVOTHYROXINE NA 25 MCG TABLET (FP) PO SCH (06:01)
[2022-01-26] MEDS: oxyCODONE HCL 5 MG TABLET PO PRN ×2 (06:06→15:49)
[2022-01-26] MEDS ORDERED: DEXTROSE 5%-WATER 100 ML IVPB ONE ×3 (08:07→20:47)
[2022-01-26] MEDS ORDERED: DOXYCYCLINE HYCLATE 100 MG VIAL ONE ×2 (08:07→20:46)
[2022-01-26 09:19] LABS: HEMATOCRIT 25.8 % (35.4-49); HEMOGLOBIN 8.4 GM/dL (11.7-16.9); MCH 25.4 pg (25.7-33.7); MCHC 32.6 g/dl (32.0-35.9); MEAN CELL VOLUME 77.8 fl (80-96); MEAN PLT VOLUME 7.4 fl (7.5-11.1); PLATELET COUNT 160 10^3/uL (134-434); RBC 3.32 M/mm3 (4.00-5.60); RDW 18.5 % (11.9-15.9); WHITE BLOOD COUNT 8.4 K/mm3 (4.0-10.0)
[2022-01-26 09:41] LABS: ALBUMIN 1.6 g/dl (3.4-5.0); BLOOD UREA NITROGEN 32.8 mg/dL (7-18); CALCIUM 7.7 mg/dL (8.5-10.1); MAGNESIUM 1.7 mg/dL (1.8-2.4)
[2022-01-26 09:43] LABS: CREATININE 3.6 mg/dL (0.55-1.3); PHOSPHOROUS 2.6 mg/dL (2.5-4.9)
[2022-01-26 09:44] LABS: BILIRUBIN,TOTAL 0.2 mg/dL (0.2-1); TOT PROT 5.5 g/dl (6.4-8.2)
[2022-01-26] MEDS: FOLIC ACID 1 MG TABLET (FP) PO SCH (09:48)
[2022-01-26] MEDS: LACTOBACILLUS ACIDOPHILUS 1 TABLET PO SCH ×2 (09:49→21:37)
[2022-01-26] MEDS: PANTOPRAZOLE 40 MG TABLET PO SCH (09:50)
[2022-01-26] MEDS: HEPARIN NA (PORCINE) 5,000 UNITS/ML 1ML VIAL SQ SCH ×2 (09:50→21:35)
[2022-01-26] MEDS: ASCORBIC ACID 500 MG TABLET (FP) PO SCH (09:50)
[2022-01-26] MEDS: CEFTRIAXONE 2 GM in DEXTROSE 5%-WATER 2 GM/100 ML BAG IVPB SCH (09:51)
[2022-01-26] MEDS: ZINC OXIDE 20% TOPICAL OINTMENT 30 GM TUBE TP SCH ×2 (09:55→21:41)
[2022-01-26] MEDS: DOXYCYCLINE INJECTION 100 MG in DEXTROSE 5%-WATER 100 ML IVPB SCH ×2 (10:14→21:37)
[2022-01-26] MEDS: AMINO ACIDS 4.25%/D5W 1,000 ML IV SCH ×2 (10:54→15:50)
[2022-01-26] MEDS: BACITRACIN 15 GM TUBE TOPICAL OINTMENT TP SCH (12:49)
[2022-01-26] MEDS: POTASSIUM CHLORIDE 10 MEQ in AMINO ACIDS 4.25%/D5W 1,000 ML IV SCH (18:11)
[2022-01-26] MEDS: FINASTERIDE 5 MG TABLET (FP) PO SCH (21:36)
[2022-01-26] MEDS: TAMSULOSIN HCL 0.4 MG CAP PO SCH (21:36)
[2022-01-26] MEDS: SERTRALINE HCL 50 MG TABLET (FP) PO SCH (21:38)
[2022-01-27] MEDS: LEVOTHYROXINE NA 25 MCG TABLET (FP) PO SCH (06:05)
[2022-01-27] MEDS: SODIUM BICARBONATE 650 MG TABLET PO SCH ×2 (06:05→13:42)
[2022-01-27] MEDS: BANATROL PLUS POWDER PACKET PO SCH ×3 (06:06→22:01)
[2022-01-27] MEDS ORDERED: SODIUM CHLORIDE 1,000 ML IV SCH (08:00)
[2022-01-27] MEDS ORDERED: DOXYCYCLINE HYCLATE 100 MG VIAL ONE ×2 (11:13→21:08)
[2022-01-27] MEDS ORDERED: DEXTROSE 5%-WATER 100 ML IVPB ONE ×3 (11:14→21:08)
[2022-01-27] MEDS: SODIUM CHLORIDE 1,000 ML IV SCH (11:21)
[2022-01-27] MEDS: ASCORBIC ACID 500 MG TABLET (FP) PO SCH (11:22)
[2022-01-27] MEDS: LACTOBACILLUS ACIDOPHILUS 1 TABLET PO SCH ×2 (11:22→21:47)
[2022-01-27] MEDS: FOLIC ACID 1 MG TABLET (FP) PO SCH (11:22)
[2022-01-27] MEDS: CEFTRIAXONE 2 GM in DEXTROSE 5%-WATER 2 GM/100 ML BAG IVPB SCH (11:23)
[2022-01-27] MEDS: PANTOPRAZOLE 40 MG TABLET PO SCH (11:23)
[2022-01-27] MEDS: DOXYCYCLINE INJECTION 100 MG in DEXTROSE 5%-WATER 100 ML IVPB SCH ×2 (11:24→21:48)
[2022-01-27] MEDS: HEPARIN NA (PORCINE) 5,000 UNITS/ML 1ML VIAL SQ SCH ×2 (11:24→21:47)
[2022-01-27] MEDS: ZINC OXIDE 20% TOPICAL OINTMENT 30 GM TUBE TP SCH ×2 (11:29→22:52)
[2022-01-27] MEDS: BACITRACIN 15 GM TUBE TOPICAL OINTMENT TP SCH (11:29)
[2022-01-27 12:38] LABS: HEMOGLOBIN 8.6 GM/dL (11.7-16.9)
[2022-01-27 12:40] LABS: HEMATOCRIT 26.2 % (35.4-49); MCH 25.7 pg (25.7-33.7); MEAN CELL VOLUME 77.8 fl (80-96); MEAN PLT VOLUME 7.6 fl (7.5-11.1); PLATELET COUNT 188 10^3/uL (134-434); RBC 3.37 M/mm3 (4.00-5.60); RDW 18.2 % (11.9-15.9); WHITE BLOOD COUNT 9.8 K/mm3 (4.0-10.0)
[2022-01-27 13:01] LABS: ALBUMIN 1.6 g/dl (3.4-5.0); BLOOD UREA NITROGEN 50.6 mg/dL (7-18); CALCIUM 7.9 mg/dL (8.5-10.1)
[2022-01-27 13:04] LABS: CREATININE 3.9 mg/dL (0.55-1.3)
[2022-01-27 13:06] LABS: BILIRUBIN,TOTAL 0.5 mg/dL (0.2-1); TOT PROT 5.9 g/dl (6.4-8.2)
[2022-01-27] MEDS: oxyCODONE HCL 5 MG TABLET PO PRN (13:42)
[2022-01-27] MEDS: POTASSIUM CHLORIDE 10 MEQ in AMINO ACIDS 4.25%/D5W 1,000 ML IV SCH ×2 (15:06→16:48)
[2022-01-27 17:43] LABS: MAGNESIUM 1.6 mg/dL (1.8-2.4)
[2022-01-27 17:45] LABS: PHOSPHOROUS 2.5 mg/dL (2.5-4.9)
[2022-01-27] MEDS: TAMSULOSIN HCL 0.4 MG CAP PO SCH (21:48)
[2022-01-27] MEDS: FINASTERIDE 5 MG TABLET (FP) PO SCH (21:48)
[2022-01-27] MEDS: SERTRALINE HCL 50 MG TABLET (FP) PO SCH (21:48)
[2022-01-28] MEDS: BANATROL PLUS POWDER PACKET PO SCH ×3 (05:34→22:52)
[2022-01-28] MEDS: SODIUM CHLORIDE 1,000 ML IV SCH ×3 (05:47→22:45)
[2022-01-28] MEDS: LEVOTHYROXINE NA 25 MCG TABLET (FP) PO SCH (06:02)
[2022-01-28] MEDS: POTASSIUM CHLORIDE 10 MEQ in AMINO ACIDS 4.25%/D5W 1,000 ML IV SCH ×3 (06:20→22:58)
[2022-01-28] MEDS ORDERED: DOXYCYCLINE HYCLATE 100 MG VIAL ONE ×2 (09:00→22:32)
[2022-01-28] MEDS ORDERED: DEXTROSE 5%-WATER 100 ML IVPB ONE ×3 (09:01→22:32)
[2022-01-28 09:07] LABS: HEMATOCRIT 24.4 % (35.4-49); MCH 25.6 pg (25.7-33.7); MCHC 32.9 g/dl (32.0-35.9); MEAN CELL VOLUME 77.8 fl (80-96); MEAN PLT VOLUME 7.7 fl (7.5-11.1); PLATELET COUNT 188 10^3/uL (134-434); RBC 3.14 M/mm3 (4.00-5.60); RDW 17.9 % (11.9-15.9); WHITE BLOOD COUNT 8.9 K/mm3 (4.0-10.0)
[2022-01-28 09:30] LABS: BLOOD UREA NITROGEN 51.5 mg/dL (7-18); CALCIUM 7.5 mg/dL (8.5-10.1)
[2022-01-28 09:31] LABS: ALBUMIN 1.5 g/dl (3.4-5.0)
[2022-01-28 09:33] LABS: CREATININE 3.5 mg/dL (0.55-1.3)
[2022-01-28 09:35] LABS: BILIRUBIN,TOTAL 0.3 mg/dL (0.2-1); TOT PROT 5.6 g/dl (6.4-8.2)
[2022-01-28] MEDS: CEFTRIAXONE 2 GM in DEXTROSE 5%-WATER 2 GM/100 ML BAG IVPB SCH (11:33)
[2022-01-28] MEDS: DOXYCYCLINE INJECTION 100 MG in DEXTROSE 5%-WATER 100 ML IVPB SCH ×2 (11:33→22:47)
[2022-01-28] MEDS: LACTOBACILLUS ACIDOPHILUS 1 TABLET PO SCH ×2 (11:34→22:47)
[2022-01-28] MEDS: FOLIC ACID 1 MG TABLET (FP) PO SCH (11:34)
[2022-01-28] MEDS: PANTOPRAZOLE 40 MG TABLET PO SCH (11:34)
[2022-01-28] MEDS: ASCORBIC ACID 500 MG TABLET (FP) PO SCH (11:34)
[2022-01-28] MEDS: ZINC OXIDE 20% TOPICAL OINTMENT 30 GM TUBE TP SCH ×2 (11:35→22:53)
[2022-01-28] MEDS: BACITRACIN 15 GM TUBE TOPICAL OINTMENT TP SCH (11:35)
[2022-01-28] MEDS: HEPARIN NA (PORCINE) 5,000 UNITS/ML 1ML VIAL SQ SCH ×2 (11:35→22:48)
[2022-01-28] MEDS: oxyCODONE HCL 5 MG TABLET PO PRN (11:38)
[2022-01-28 15:47] LABS: MAGNESIUM 1.5 mg/dL (1.8-2.4)
[2022-01-28 15:51] LABS: PHOSPHOROUS 2.4 mg/dL (2.5-4.9)
[2022-01-28] MEDS: TAMSULOSIN HCL 0.4 MG CAP PO SCH (22:47)
[2022-01-28] MEDS: SERTRALINE HCL 50 MG TABLET (FP) PO SCH (22:47)
[2022-01-28] MEDS: FINASTERIDE 5 MG TABLET (FP) PO SCH (22:47)
[2022-01-29] MEDS: oxyCODONE HCL 5 MG TABLET PO PRN ×2 (01:31→23:36)
[2022-01-29] MEDS: LEVOTHYROXINE NA 25 MCG TABLET (FP) PO SCH (06:04)
[2022-01-29] MEDS: BANATROL PLUS POWDER PACKET PO SCH ×3 (06:05→21:06)
[2022-01-29 09:38] LABS: BASO % 0.4 % (0-2.0); EOS % 6.1 % (0-4.5); HEMOGLOBIN 7.8 GM/dL (11.7-16.9); LYMPH % 15.6 % (8-40); MCH 25.1 pg (25.7-33.7); MCHC 32.5 g/dl (32.0-35.9); MEAN CELL VOLUME 77.5 fl (80-96); MEAN PLT VOLUME 7.8 fl (7.5-11.1); MONO % 7.4 % (3.8-10.2); NEUT % 70.5 % (42.8-82.8); PLATELET COUNT 193 10^3/uL (134-434); RBC 3.09 M/mm3 (4.00-5.60); WHITE BLOOD COUNT 8.6 K/mm3 (4.0-10.0)
[2022-01-29 09:46] LABS: CALCIUM 7.5 mg/dL (8.5-10.1)
[2022-01-29 09:47] LABS: ALBUMIN 1.5 g/dl (3.4-5.0); BLOOD UREA NITROGEN 60.1 mg/dL (7-18)
[2022-01-29 09:49] LABS: CREATININE 3.4 mg/dL (0.55-1.3)
[2022-01-29 09:51] LABS: BILIRUBIN,TOTAL 0.3 mg/dL (0.2-1)
[2022-01-29 09:53] LABS: TOT PROT 5.5 g/dl (6.4-8.2)
[2022-01-29] MEDS ORDERED: MAGNESIUM SULFATE IN WATER 2 GM/50 ML IVPB IVPB ONE ×2 (10:00→15:15)
[2022-01-29] MEDS ORDERED: DOXYCYCLINE HYCLATE 100 MG VIAL ONE ×2 (10:59→20:58)
[2022-01-29] MEDS ORDERED: DEXTROSE 5%-WATER 100 ML IVPB ONE ×3 (10:59→20:58)
[2022-01-29] MEDS: LACTOBACILLUS ACIDOPHILUS 1 TABLET PO SCH ×2 (11:12→21:10)
[2022-01-29] MEDS: CEFTRIAXONE 2 GM in DEXTROSE 5%-WATER 2 GM/100 ML BAG IVPB SCH (11:15)
[2022-01-29] MEDS: FOLIC ACID 1 MG TABLET (FP) PO SCH (11:16)
[2022-01-29] MEDS: DOXYCYCLINE INJECTION 100 MG in DEXTROSE 5%-WATER 100 ML IVPB SCH ×2 (11:16→21:05)
[2022-01-29] MEDS: PANTOPRAZOLE 40 MG TABLET PO SCH (11:16)
[2022-01-29] MEDS: MULTIVITAMINS (DAILY MVI) TABLET (FP) PO SCH (11:16)
[2022-01-29] MEDS: ASCORBIC ACID 500 MG TABLET (FP) PO SCH (11:16)
[2022-01-29] MEDS: BACITRACIN 15 GM TUBE TOPICAL OINTMENT TP SCH (11:17)
[2022-01-29] MEDS: SODIUM CHLORIDE 1,000 ML IV SCH ×2 (11:17→16:52)
[2022-01-29] MEDS: HEPARIN NA (PORCINE) 5,000 UNITS/ML 1ML VIAL SQ SCH ×2 (11:17→21:11)
[2022-01-29] MEDS: CHOLESTYRAMINE/SUCROSE 4 GM PACKET PO SCH ×3 (11:18→23:25)
[2022-01-29] MEDS: ZINC OXIDE 20% TOPICAL OINTMENT 30 GM TUBE TP SCH ×2 (14:56→21:19)
[2022-01-29] MEDS ORDERED: MELATONIN 5 MG TABLETS PO PRN (15:15)
[2022-01-29 15:54] LABS: MAGNESIUM 1.4 mg/dL (1.8-2.4)
[2022-01-29 16:00] LABS: PHOSPHOROUS 2.5 mg/dL (2.5-4.9)
[2022-01-29] MEDS: POTASSIUM CHLORIDE 10 MEQ in AMINO ACIDS 4.25%/D5W 1,000 ML IV SCH (16:51)
[2022-01-29] MEDS: SERTRALINE HCL 50 MG TABLET (FP) PO SCH (21:06)
[2022-01-29] MEDS: TAMSULOSIN HCL 0.4 MG CAP PO SCH (21:06)
[2022-01-29] MEDS: FINASTERIDE 5 MG TABLET (FP) PO SCH (21:06)
[2022-01-30] MEDS: BANATROL PLUS POWDER PACKET PO SCH ×3 (05:43→21:45)
[2022-01-30] MEDS: oxyCODONE HCL 5 MG TABLET PO PRN ×2 (05:45→17:53)
[2022-01-30] MEDS: HEPARIN NA (PORCINE) 5,000 UNITS/ML 1ML VIAL SQ SCH ×4 (05:45→21:52)
[2022-01-30] MEDS: LEVOTHYROXINE NA 25 MCG TABLET (FP) PO SCH (06:10)
[2022-01-30 10:10] LABS: HEMATOCRIT 23.5 % (35.4-49); HEMOGLOBIN 7.7 GM/dL (11.7-16.9); MCH 25.6 pg (25.7-33.7); MCHC 32.6 g/dl (32.0-35.9); MEAN CELL VOLUME 78.4 fl (80-96); MEAN PLT VOLUME 7.5 fl (7.5-11.1); PLATELET COUNT 223 10^3/uL (134-434); RDW 17.6 % (11.9-15.9); WHITE BLOOD COUNT 8.3 K/mm3 (4.0-10.0)
[2022-01-30] MEDS ORDERED: DOXYCYCLINE HYCLATE 100 MG VIAL ONE ×2 (10:14→21:35)
[2022-01-30] MEDS ORDERED: DEXTROSE 5%-WATER 100 ML IVPB ONE ×3 (10:14→21:35)
[2022-01-30] MEDS: CEFTRIAXONE 2 GM in DEXTROSE 5%-WATER 2 GM/100 ML BAG IVPB SCH (10:21)
[2022-01-30] MEDS: MULTIVITAMINS (DAILY MVI) TABLET (FP) PO SCH (10:22)
[2022-01-30] MEDS: ASCORBIC ACID 500 MG TABLET (FP) PO SCH (10:22)
[2022-01-30] MEDS: FOLIC ACID 1 MG TABLET (FP) PO SCH (10:22)
[2022-01-30] MEDS: PANTOPRAZOLE 40 MG TABLET PO SCH (10:22)
[2022-01-30] MEDS: CHOLESTYRAMINE/SUCROSE 4 GM PACKET PO SCH ×2 (10:23→21:52)
[2022-01-30] MEDS: BACITRACIN 15 GM TUBE TOPICAL OINTMENT TP SCH (10:24)
[2022-01-30] MEDS: SODIUM CHLORIDE 1,000 ML IV SCH (10:24)
[2022-01-30] MEDS: ZINC OXIDE 20% TOPICAL OINTMENT 30 GM TUBE TP SCH ×2 (10:25→21:52)
[2022-01-30 10:28] LABS: ALBUMIN 1.7 g/dl (3.4-5.0); CALCIUM 7.9 mg/dL (8.5-10.1)
[2022-01-30 10:29] LABS: BLOOD UREA NITROGEN 64.6 mg/dL (7-18)
[2022-01-30 10:31] LABS: CREATININE 3.3 mg/dL (0.55-1.3)
[2022-01-30 10:33] LABS: BILIRUBIN,TOTAL 0.3 mg/dL (0.2-1); TOT PROT 5.7 g/dl (6.4-8.2)
[2022-01-30] MEDS: DOXYCYCLINE INJECTION 100 MG in DEXTROSE 5%-WATER 100 ML IVPB SCH ×2 (13:33→21:52)
[2022-01-30] MEDS: MINERAL OIL/PET HY-PHL TOPICAL OINTMENT 454 GM JAR TP SCH (13:34)
[2022-01-30 15:37] LABS: MAGNESIUM 1.7 mg/dL (1.8-2.4)
[2022-01-30 15:41] LABS: PHOSPHOROUS 2.8 mg/dL (2.5-4.9)
[2022-01-30] MEDS: POTASSIUM CHLORIDE 10 MEQ in AMINO ACIDS 4.25%/D5W 1,000 ML IV SCH (20:14)
[2022-01-30] MEDS: SERTRALINE HCL 50 MG TABLET (FP) PO SCH (21:51)
[2022-01-30] MEDS: FINASTERIDE 5 MG TABLET (FP) PO SCH (21:51)
[2022-01-30] MEDS: TAMSULOSIN HCL 0.4 MG CAP PO SCH (21:51)
[2022-01-30] MEDS: LACTOBACILLUS ACIDOPHILUS 1 TABLET PO SCH (21:52)
[2022-01-31] MEDS: oxyCODONE HCL 5 MG TABLET PO PRN ×3 (03:46→23:28)
[2022-01-31] MEDS: BANATROL PLUS POWDER PACKET PO SCH ×3 (05:47→22:24)
[2022-01-31] MEDS: HEPARIN NA (PORCINE) 5,000 UNITS/ML 1ML VIAL SQ SCH ×3 (05:50→22:24)
[2022-01-31] MEDS: LEVOTHYROXINE NA 25 MCG TABLET (FP) PO SCH (06:02)
[2022-01-31] MEDS: SODIUM CHLORIDE 1,000 ML IV SCH ×2 (06:02→23:06)
[2022-01-31 08:51] LABS: BASO % 1.3 % (0-2.0); HEMATOCRIT 22.2 % (35.4-49); HEMOGLOBIN 7.2 GM/dL (11.7-16.9); LYMPH % 18.8 % (8-40); MCH 25.4 pg (25.7-33.7); MCHC 32.4 g/dl (32.0-35.9); MEAN CELL VOLUME 78.6 fl (80-96); MEAN PLT VOLUME 7.3 fl (7.5-11.1); MONO % 9.8 % (3.8-10.2); NEUT % 64.1 % (42.8-82.8); PLATELET COUNT 222 10^3/uL (134-434); RBC 2.82 M/mm3 (4.00-5.60); RDW 17.3 % (11.9-15.9); WHITE BLOOD COUNT 7.3 K/mm3 (4.0-10.0)
[2022-01-31] MEDS: ASCORBIC ACID 500 MG TABLET (FP) PO SCH (09:48)
[2022-01-31] MEDS: BACITRACIN 15 GM TUBE TOPICAL OINTMENT TP SCH (09:48)
[2022-01-31] MEDS: FOLIC ACID 1 MG TABLET (FP) PO SCH (09:48)
[2022-01-31] MEDS: PANTOPRAZOLE 40 MG TABLET PO SCH (09:48)
[2022-01-31] MEDS: MINERAL OIL/PET HY-PHL TOPICAL OINTMENT 454 GM JAR TP SCH (09:48)
[2022-01-31] MEDS: MULTIVITAMINS (DAILY MVI) TABLET (FP) PO SCH (09:49)
[2022-01-31] MEDS: ZINC OXIDE 20% TOPICAL OINTMENT 30 GM TUBE TP SCH ×2 (09:49→22:26)
[2022-01-31] MEDS ORDERED: CHOLESTYRAMINE/ASPARTAME 4 GM PACKET PO SCH (10:06)
[2022-01-31 11:09] LABS: BLOOD UREA NITROGEN 64.6 mg/dL (7-18); CREATININE 3.1 mg/dL (0.55-1.3); MAGNESIUM 1.7 mg/dL (1.8-2.4)
[2022-01-31] MEDS: CHOLESTYRAMINE/SUCROSE 4 GM PACKET PO SCH (11:30)
[2022-01-31] MEDS: POTASSIUM CHLORIDE 10 MEQ in AMINO ACIDS 4.25%/D5W 1,000 ML IV SCH (15:53)
[2022-01-31] MEDS ORDERED: MAGNESIUM OXIDE 400 MG TABLET (FP) PO ONE (16:14)
[2022-01-31] MEDS: TAMSULOSIN HCL 0.4 MG CAP PO SCH (22:23)
[2022-01-31] MEDS: LACTOBACILLUS ACIDOPHILUS 1 TABLET PO SCH (22:24)
[2022-01-31] MEDS: FINASTERIDE 5 MG TABLET (FP) PO SCH (22:25)
[2022-01-31] MEDS: SERTRALINE HCL 50 MG TABLET (FP) PO SCH (22:25)
[2022-02-01] MEDS: HEPARIN NA (PORCINE) 5,000 UNITS/ML 1ML VIAL SQ SCH ×3 (06:02→22:20)
[2022-02-01] MEDS: BANATROL PLUS POWDER PACKET PO SCH ×3 (06:02→22:21)
[2022-02-01] MEDS: LEVOTHYROXINE NA 25 MCG TABLET (FP) PO SCH (06:05)
[2022-02-01 08:28] LABS: HEMATOCRIT 22.2 % (35.4-49); HEMOGLOBIN 7.3 GM/dL (11.7-16.9); MCH 25.5 pg (25.7-33.7); MEAN CELL VOLUME 77.3 fl (80-96); MEAN PLT VOLUME 6.8 fl (7.5-11.1); PLATELET COUNT 236 10^3/uL (134-434); RBC 2.87 M/mm3 (4.00-5.60); RDW 17.3 % (11.9-15.9); WHITE BLOOD COUNT 6.6 K/mm3 (4.0-10.0)
[2022-02-01 08:53] LABS: CALCIUM 8.2 mg/dL (8.5-10.1)
[2022-02-01 08:54] LABS: ALBUMIN 1.6 g/dl (3.4-5.0); BLOOD UREA NITROGEN 65.1 mg/dL (7-18)
[2022-02-01 08:57] LABS: CREATININE 3.1 mg/dL (0.55-1.3)
[2022-02-01 08:58] LABS: TOT PROT 5.5 g/dl (6.4-8.2)
[2022-02-01 09:01] LABS: BILIRUBIN,TOTAL 0.4 mg/dL (0.2-1)
[2022-02-01] MEDS ORDERED: SODIUM CHLORIDE 0.45% 1,000 ML IV SCH (13:15)
[2022-02-01] MEDS: MINERAL OIL/PET HY-PHL TOPICAL OINTMENT 454 GM JAR TP SCH (13:39)
[2022-02-01] MEDS: BACITRACIN 15 GM TUBE TOPICAL OINTMENT TP SCH (13:40)
[2022-02-01] MEDS: LEFLUNOMIDE 10 MG TABLET PO SCH (13:40)
[2022-02-01] MEDS: ASCORBIC ACID 500 MG TABLET (FP) PO SCH (13:41)
[2022-02-01] MEDS: MULTIVITAMINS (DAILY MVI) TABLET (FP) PO SCH (13:41)
[2022-02-01] MEDS: FOLIC ACID 1 MG TABLET (FP) PO SCH (13:41)
[2022-02-01] MEDS: ZINC OXIDE 20% TOPICAL OINTMENT 30 GM TUBE TP SCH (13:41)
[2022-02-01] MEDS: PANTOPRAZOLE 40 MG TABLET PO SCH (13:41)
[2022-02-01] MEDS: LACTOBACILLUS ACIDOPHILUS 1 TABLET PO SCH (22:20)
[2022-02-01] MEDS: TAMSULOSIN HCL 0.4 MG CAP PO SCH (22:20)
[2022-02-01] MEDS: SERTRALINE HCL 50 MG TABLET (FP) PO SCH (22:21)
[2022-02-01] MEDS: FINASTERIDE 5 MG TABLET (FP) PO SCH (22:21)
[2022-02-01] MEDS: SODIUM CHLORIDE 1,000 ML IV SCH (22:21)
[2022-02-02] MEDS: ZINC OXIDE 20% TOPICAL OINTMENT 30 GM TUBE TP SCH ×2 (01:08→10:37)
[2022-02-02] MEDS: HEPARIN NA (PORCINE) 5,000 UNITS/ML 1ML VIAL SQ SCH ×2 (05:46→14:00)
[2022-02-02] MEDS: BANATROL PLUS POWDER PACKET PO SCH ×2 (05:46→13:22)
[2022-02-02] MEDS: LEVOTHYROXINE NA 25 MCG TABLET (FP) PO SCH (06:09)
[2022-02-02 07:41] VITALS: TEMP 99.2
[2022-02-02 07:53] VITALS: BP 148/87; PULSE 87
[2022-02-02 08:51] LABS: HEMATOCRIT 22.1 % (35.4-49); HEMOGLOBIN 7.3 GM/dL (11.7-16.9); MCH 25.5 pg (25.7-33.7); MCHC 32.9 g/dl (32.0-35.9); MEAN CELL VOLUME 77.6 fl (80-96); MEAN PLT VOLUME 7.2 fl (7.5-11.1); PLATELET COUNT 283 10^3/uL (134-434); RBC 2.85 M/mm3 (4.00-5.60); RDW 17.4 % (11.9-15.9); WHITE BLOOD COUNT 7.9 K/mm3 (4.0-10.0)
[2022-02-02 09:06] LABS: CALCIUM 8.2 mg/dL (8.5-10.1)
[2022-02-02 09:07] LABS: ALBUMIN 1.7 g/dl (3.4-5.0); BLOOD UREA NITROGEN 63.2 mg/dL (7-18)
[2022-02-02 09:11] LABS: BILIRUBIN,TOTAL 0.6 mg/dL (0.2-1)
[2022-02-02 09:12] LABS: TOT PROT 5.8 g/dl (6.4-8.2)
[2022-02-02] MEDS: PANTOPRAZOLE 40 MG TABLET PO SCH (10:33)
[2022-02-02] MEDS: ASCORBIC ACID 500 MG TABLET (FP) PO SCH (10:33)
[2022-02-02] MEDS: FOLIC ACID 1 MG TABLET (FP) PO SCH (10:34)
[2022-02-02] MEDS: MULTIVITAMINS (DAILY MVI) TABLET (FP) PO SCH (10:34)
[2022-02-02] MEDS: BACITRACIN 15 GM TUBE TOPICAL OINTMENT TP SCH (10:36)
[2022-02-02] MEDS: MINERAL OIL/PET HY-PHL TOPICAL OINTMENT 454 GM JAR TP SCH (10:37)
[2022-02-02] MEDS: LEFLUNOMIDE 10 MG TABLET PO SCH (10:49)
[2022-02-02] MEDS ORDERED: LOPERAMIDE HCL 2 MG CAPSULE PO PRN (13:40)
[2022-02-02] MEDS ORDERED: SODIUM BICARBONATE 650 MG TABLET PO SCH (22:00)
== END 2022-02-02 20:50 | DRG 300 ==
LOC: JER 14:51 → JERBED 17:39 → J7W 22:43
PROVIDERS: ADMIT Internal Medicine; ATTEND Internal Medicine
PROC: 05HY33Z Insertion of Infusion Device into Upper Vein, Percutaneous Approach (ICD-10-PCS; principal; 2022-01-23)
PROC: 5A1D70Z Performance of Urinary Filtration, Intermittent, Less than 6 Hours Per Day (ICD-10-PCS; 2022-01-24)
DX: I83.218 Varicose veins of right lower extremity with both ulcer of other part of lower extremity and inflammation (principal); N17.9 Acute kidney failure, unspecified; L03.115 Cellulitis of right lower limb; L97.919 Non-pressure chronic ulcer of unspecified part of right lower leg with unspecified severity; L97.929 Non-pressure chronic ulcer of unspecified part of left lower leg with unspecified severity; L03.116 Cellulitis of left lower limb; E87.2 Acidosis; N13.30 Unspecified hydronephrosis; Q61.02 Congenital multiple renal cysts; I25.10 Atherosclerotic heart disease of native coronary artery without angina pectoris; E78.5 Hyperlipidemia, unspecified; L89.132 Pressure ulcer of right lower back, stage 2; E03.9 Hypothyroidism, unspecified; N18.9 Chronic kidney disease, unspecified; Z85.72 Personal history of non-Hodgkin lymphomas; D72.820 Lymphocytosis (symptomatic); G47.33 Obstructive sleep apnea (adult) (pediatric); R29.6 Repeated falls; H05.229 Edema of unspecified orbit; M06.9 Rheumatoid arthritis, unspecified; I12.9 Hypertensive chronic kidney disease with stage 1 through stage 4 chronic kidney disease, or unspecified chronic kidney disease; R33.9 Retention of urine, unspecified; Z98.61 Coronary angioplasty status; N40.0 Benign prostatic hyperplasia without lower urinary tract symptoms; K76.0 Fatty (change of) liver, not elsewhere classified; R19.7 Diarrhea, unspecified
CPT/HCPCS: 29581-LT; 29581-RT; 36415; 70450-TC; 70480-TC; 71045-TC-FY; 76775-TC; 80048; 80053; 81003; 82140; 82570; 82962; 83516; 83520; 83605; 83735; 84100; 84155; 84156; 84165; 84300; 84484; 85025; 85027; 85610; 86038; 86160; 86225; 86256; 86705; 86803; 86850; 86900; 86901; 87040; 87045; 87046; 87324; 87340; 87449; 87517; 93005; 93010; 93971; 97116-GP; 97163-GP; 99285-25; 99406; A6197; C9803-CS; G0463-25; G0480; J1644; U0003; U0005